=== PATIENT | female | born 1935 | race American Indian/Alaskan Native ===

== ENCOUNTER 2017-11-21 21:22 | Inpatient (IN) | payer MEDICARE, OTHER ==
[2017-11-21] MEDS ORDERED: methylPREDNISolone Sodium Succinate 125 MG/2 ML SDV IVPUSH ONE (21:28)
[2017-11-21] MEDS ORDERED: Albuterol/Ipratropium 3.0-0.5 MG/3 ML Neb Soln NEB ONE (21:28)
[2017-11-21] MEDS ORDERED: Sodium Chloride 0.9% 10 ML Syringe FLUSH PRN (21:28)
[2017-11-21] MEDS ORDERED: Sodium Chloride 0.9% 2.5 ML Syringe FLUSH PRN (21:28)
[2017-11-21] MEDS ORDERED: Sodium Chloride 0.9% 1,000 ML IV SCH (21:30)
--- NOTE | 2017-11-21 21:32 | EDM.PDOC ---
ED HPI GENERAL MEDICAL PROBLEM - General Stated Complaint: SOB Time Seen by Provider: 11/21/17 21:27 - History of Present Illness INITIAL COMMENTS - FREE TEXT/NARRATIVE: HISTORY AND PHYSICAL: History of present illness: Patient is an 82-year-old female history of COPD who still is a smoker sensory concern of cough and shortness of breath she states she had a tactile fever and that this is been going on and worsening over last several days she denies nausea vomiting denies chest pain abdominal pain or other concern. Review of systems: As per history of present illness and below otherwise all systems reviewed and negative. Past medical history: As per history of present illness and as reviewed below otherwise noncontributory. Surgical history: As per history of present illness and as reviewed below otherwise noncontributory. Social history: No reported history of drug or alcohol abuse. Family history: As per history of present illness and as reviewed below otherwise noncontributory. Physical exam: HEENT: Atraumatic, normocephalic, pupils reactive, negative for conjunctival pallor or scleral icterus, mucous membranes moist, throat clear, neck supple, nontender, trachea midline. Lungs: Coarse bilaterally diminished with rare end expiratory wheezing, breath sounds equal bilaterally, chest nontender. Heart: S1S2, regular, negative for clicks, rubs, or JVD. Abdomen: Soft, nondistended, nontender. Negative for masses or hepatosplenomegaly. Negative for costovertebral tenderness. Pelvis: Stable nontender. Genitourinary: Deferred. Rectal: Deferred. Extremities: Atraumatic, negative for cords or calf pain. Neurovascular unremarkable. Neuro: Awake, alert, oriented. Cranial nerves II through XII unremarkable. Cerebellum unremarkable. Motor and sensory unremarkable throughout. Exam nonfocal. Diagnostics: CBC CMP troponin BNP blood culture 2 PT/INR chest x-ray UA Therapeutics: IV O2 monitor Solu-Medrol 125 mg IV albuterol ipratropium nebulizer Impression: #1 dyspnea #2 history of COPD #3 history of fever Definitive disposition and diagnosis as appropriate pending reevaluation and review of above. - Related Data Allergies Allergy/AdvReac Type Severity Reaction Status Date / Time codeine Allergy Dizziness Verified 09/05/15 19:00 erythromycin base Allergy Rash Verified 09/05/15 10:29 morphine Allergy Tachycardia Verified 09/05/15 10:29 Sulfa (Sulfonamide Allergy Rash Verified 09/05/15 10:29 Antibiotics) Home Meds: Home Meds Levothyroxine Sodium [Synthroid] 112 mcg PO ACBREAKFAST 09/05/15 [History] Albuterol [Proventil HFA] 1 - 2 puff INH Q4H PRN #2 inhaler 09/11/15 [Rx] Benzonatate [Tessalon Perles] 200 mg PO TID PRN #30 cap 09/11/15 [Rx] Fluticasone/Salmeterol [Advair Diskus 250-50] 1 puff INH BID #1 inhaler [Rx] Levofloxacin [Levaquin] 750 mg PO DAILY #5 tablet 09/11/15 [Rx] predniSONE 10 mg PO WITHBREAKFAST #22 tablet 09/11/15 [Rx] Past Medical History Gastrointestinal History: Reports: Cholelithiasis Other OB/BYN History: hysterectomy Musculoskeletal History: Reports: Back Pain, Chronic, Osteoarthritis Endocrine/Metabolic History: Reports: Hypothyroidism. Denies: Diabetes, Type II Oncologic (Cancer) History: Reports: None - Past Surgical History GI Surgical History: Reports: Cholecystectomy Female Surgical History: Reports: Hysterectomy Social & Family History - Family History Family Medical History: Noncontributory ED ROS GENERAL - Review of Systems Review Of Systems: ROS reveals no pertinent complaints other than HPI. ED EXAM, GENERAL - Physical Exam Exam: See Below (See dictation) Course - Vital Signs Last Recorded V/S: Last Vital Signs Temp 36.7 C 11/21/17 21:45 Pulse 105 H 11/21/17 21:45 Resp 28 H 11/21/17 21:45 BP 143/74 H 11/21/17 21:45 Pulse Ox 87 L 11/21/17 21:45 - Orders/Labs/Meds Orders: Active Orders 24 hr Category Date Time Status Cardiac Monitoring [RC] . DIRECTED Care 11/21/17 21:27 Active EKG Documentation Completion [RC] STAT Care 11/21/17 21:27 Active Oxygen Therapy, ED [RC] ASDIRECTED Care 11/21/17 21:27 Active Pulse Oximetry [RC] ASDIRECTED Care 11/21/17 21:27 Active RT Aerosol Therapy [RC] ASDIRECTED Care 11/21/17 21:29 Active Chest 1V Frontal [CR] Stat Exams 11/21/17 21:28 Taken CULTURE BLOOD [BC] Stat Lab 11/21/17 21:37 Received CULTURE BLOOD [BC] Stat Lab 11/21/17 21:43 Received UA W/MICROSCOPIC [URIN] Stat Lab 11/21/17 21:28 Ordered Sodium Chloride 0.9% [Normal Saline] 1,000 ml Med 11/21/17 21:30 Active IV STAT Sodium Chloride 0.9% [Saline Flush] Med 11/21/17 21:28 Active 10 ml FLUSH ASDIRECTED PRN Sodium Chloride 0.9% [Saline Flush] Med 11/21/17 21:28 Active 2.5 ml FLUSH ASDIRECTED PRN Blood Culture x2 Reflex Set [OM.PC] Stat Oth 11/21/17 21:28 Ordered Saline Lock Insert [OM.PC] Stat Oth 11/21/17 21:27 Ordered Medication Orders Sodium Chloride (Normal Saline) 1,000 mls @ 125 mls/hr IV STAT AGUSTO Last Admin: 11/21/17 21:54 Dose: 125 mls/hr Sodium Chloride (Saline Flush) 10 ml FLUSH ASDIRECTED PRN PRN Reason: Keep Vein Open Sodium Chloride (Saline Flush) 2.5 ml FLUSH ASDIRECTED PRN PRN Reason: Keep Vein Open Labs: Laboratory Tests 11/21/17 11/21/17 11/21/17 Range/Units 21:37 21:37 21:37 WBC 14.42 H (4.0-11.0) K/uL RBC 4.96 (4.30-5.90) M/uL Hgb 14.1 (12.0-16.0) g/dL Hct 43.0 (36.0-46.0) % MCV 86.7 (80.0-98.0) fL MCH 28.4 (27.0-32.0) pg MCHC 32.8 (31.0-37.0) g/dL RDW Std Deviation 48.2 (28.0-62.0) fl RDW Coeff of Lavelle 15 (11.0-15.0) % Plt Count 218 (150-400) K/uL MPV 8.90 (7.40-12.00) fL Neut % (Auto) 79.5 (48.0-80.0) % Lymph % (Auto) 9.3 L (16.0-40.0) % [place] % (Auto) 10.2 (0.0-15.0) % Eos % (Auto) 0.8 (0.0-7.0) % Baso % (Auto) 0.2 (0.0-1.5) % Neut # (Auto) 11.5 H (1.4-5.7) K/uL Lymph # (Auto) 1.3 (0.6-2.4) K/uL [place] # (Auto) 1.5 H (0.0-0.8) K/uL Eos # (Auto) 0.1 (0.0-0.7) K/uL Baso # (Auto) 0.0 (0.0-0.1) K/uL Nucleated RBC % 0.0 /100WBC Nucleated RBCs # 0 K/uL INR 1.05 Sodium (136-145) mmol/L Potassium (3.5-5.1) mmol/L Chloride (98-107) mmol/L Carbon Dioxide (21.0-32.0) mmol/L BUN (7.0-18.0) mg/dL Creatinine (0.6-1.0) mg/dL Est Cr Clr Drug Dosing mL/min Estimated GFR (MDRD) ml/min Glucose (74-106) mg/dL Calcium (8.5-10.1) mg/dL Total Bilirubin (0.2-1.0) mg/dL AST (15-37) IU/L ALT (14-63) IU/L Alkaline Phosphatase (46-116) U/L Troponin I (0.000-0.056) ng/mL B-Natriuretic Peptide 259 H (<100) PG/ML Total Protein (6.4-8.2) g/dL Albumin (3.4-5.0) g/dL Globulin (2.0-3.5) g/dL Albumin/Globulin Ratio (1.3-2.8) 11/21/17 Range/Units 21:37 WBC (4.0-11.0) K/uL RBC (4.30-5.90) M/uL Hgb (12.0-16.0) g/dL Hct (36.0-46.0) % MCV (80.0-98.0) fL MCH (27.0-32.0) pg MCHC (31.0-37.0) g/dL RDW Std Deviation (28.0-62.0) fl RDW Coeff of Lavelle (11.0-15.0) % Plt Count (150-400) K/uL MPV (7.40-12.00) fL Neut % (Auto) (48.0-80.0) % Lymph % (Auto) (16.0-40.0) % [place] % (Auto) (0.0-15.0) % Eos % (Auto) (0.0-7.0) % Baso % (Auto) (0.0-1.5) % Neut # (Auto) (1.4-5.7) K/uL Lymph # (Auto) (0.6-2.4) K/uL [place] # (Auto) (0.0-0.8) K/uL Eos # (Auto) (0.0-0.7) K/uL Baso # (Auto) (0.0-0.1) K/uL Nucleated RBC % /100WBC Nucleated RBCs # K/uL INR Sodium 138 (136-145) mmol/L Potassium 3.6 (3.5-5.1) mmol/L Chloride 104 (98-107) mmol/L Carbon Dioxide 25.8 (21.0-32.0) mmol/L BUN 14 (7.0-18.0) mg/dL Creatinine 0.9 (0.6-1.0) mg/dL Est Cr Clr Drug Dosing 41.24 mL/min Estimated GFR (MDRD) > 60.0 ml/min Glucose 133 H (74-106) mg/dL Calcium 8.7 (8.5-10.1) mg/dL Total Bilirubin 0.5 (0.2-1.0) mg/dL AST 26 (15-37) IU/L ALT 22 (14-63) IU/L Alkaline Phosphatase 81 (46-116) U/L Troponin I 2.301 H* (0.000-0.056) ng/mL B-Natriuretic Peptide (<100) PG/ML Total Protein 6.8 (6.4-8.2) g/dL Albumin 3.2 L (3.4-5.0) g/dL Globulin 3.6 H (2.0-3.5) g/dL Albumin/Globulin Ratio 0.9 L (1.3-2.8) Meds: Medications Generic Name Dose Route Start Last Admin Trade Name Freq PRN Reason Stop Dose Admin Sodium Chloride 1,000 mls @ 125 mls/hr 11/21/17 21:30 11/21/17 21:54 Normal Saline IV 125 mls/hr STAT AGUSTO Administration Sodium Chloride 10 ml 11/21/17 21:28 Saline Flush FLUSH ASDIRECTED PRN Keep Vein Open Sodium Chloride 2.5 ml 11/21/17 21:28 Saline Flush FLUSH ASDIRECTED PRN Keep Vein Open Discontinued Medications Generic Name Dose Route Start Last Admin Trade Name Freq PRN Reason Stop Dose Admin Albuterol/Ipratropium 3 ml 11/21/17 21:28 11/21/17 21:52 Duoneb 3.0-0.5 Mg/3 Ml NEB 11/21/17 21:29 3 ml ONETIME ONE Administration Methylprednisolone Sodium Succinate 125 mg 11/21/17 21:28 11/21/17 21:49 Solu-Medrol IVPUSH 11/21/17 21:29 125 mg ONETIME ONE Administration Departure - Departure Time of Disposition: 22:40 Disposition: Admitted As Inpatient 68 Condition: Fair Clinical Impression: Elevated troponin, Dyspnea, COPD (chronic obstructive pulmonary disease), Pneumonitis - Discharge Information - My Orders Last 24 Hours: My Active Orders 11/21/17 21:27 Cardiac Monitoring [RC] . DIRECTED EKG Documentation Completion [RC] STAT Oxygen Therapy, ED [RC] ASDIRECTED Pulse Oximetry [RC] ASDIRECTED Saline Lock Insert [OM.PC] Stat 11/21/17 21:28 Chest 1V Frontal [CR] Stat UA W/MICROSCOPIC [URIN] Stat Sodium Chloride 0.9% [Saline Flush] 10 ml FLUSH ASDIRECTED PRN Sodium Chloride 0.9% [Saline Flush] 2.5 ml FLUSH ASDIRECTED PRN Blood Culture x2 Reflex Set [OM.PC] Stat 11/21/17 21:29 RT Aerosol Therapy [RC] ASDIRECTED 11/21/17 21:30 Sodium Chloride 0.9% [Normal Saline] 1,000 ml IV STAT 11/21/17 21:37 CULTURE BLOOD [BC] Stat 11/21/17 21:43 CULTURE BLOOD [BC] Stat - Assessment/Plan Last 24 Hours: My Active Orders 11/21/17 21:27 Cardiac Monitoring [RC] . DIRECTED EKG Documentation Completion [RC] STAT Oxygen Therapy, ED [RC] ASDIRECTED Pulse Oximetry [RC] ASDIRECTED Saline Lock Insert [OM.PC] Stat 11/21/17 21:28 Chest 1V Frontal [CR] Stat UA W/MICROSCOPIC [URIN] Stat Sodium Chloride 0.9% [Saline Flush] 10 ml FLUSH ASDIRECTED PRN Sodium Chloride 0.9% [Saline Flush] 2.5 ml FLUSH ASDIRECTED PRN Blood Culture x2 Reflex Set [OM.PC] Stat 11/21/17 21:29 RT Aerosol Therapy [RC] ASDIRECTED 11/21/17 21:30 Sodium Chloride 0.9% [Normal Saline] 1,000 ml IV STAT 11/21/17 21:37 CULTURE BLOOD [BC] Stat 11/21/17 21:43 CULTURE BLOOD [BC] Stat
[2017-11-21 22:32] LABS: CHLORIDE,CL 104 mmol/L (98-107); SODIUM,NA 138 mmol/L (136-145)
[2017-11-21] MEDS ORDERED: Aspirin 81 MG Tab.Chew PO ONE (22:46)
[2017-11-21] MEDS ORDERED: Nitroglycerin 2% Oint 1 GM UD Packet TOP ONE (22:46)
[2017-11-21] MEDS ORDERED: Levofloxacin/Dextrose 5%-Water 750 MG in Premix Bag 1 BAG IV ONE (22:48)
[2017-11-21] MEDS ORDERED: Heparin Sod,Pork In 0.45% Nacl 25,000 UNIT/500 ML IV.SOLN IV SCH (23:45)
[2017-11-21] MEDS ORDERED: Clopidogrel 75 MG Tab PO ONE (23:48)
[2017-11-21] MEDS ORDERED: Albuterol/Ipratropium 3.0-0.5 MG/3 ML Neb Soln NEB PRN (23:50)
[2017-11-21] MEDS ORDERED: Heparin Sod,Pork In 0.45% Nacl 25,000 UNIT/500 ML IV.SOLN IV ONE (23:55)
--- NOTE | 2017-11-22 00:02 | PCM.HP ---
H&P History of Present Illness - General Admit Problem/Dx: Admission Diagnosis/Problem Admission Diagnosis/Problem Shortness of breath - History of Present Illness Initial Comments - Free Text/Narative: 82 yo female with pmh of COPD who presents with one day history of shortness of breath. Patient states it started last night that she could not catch her breath. She reports exertional dyspnea. She denies any orthopnea. She does have cough productive of white sputum. She denies any fevers or chills. PAtient thinks she has a COPD exacerbation. - Related Data Allergies/Adverse Reactions: Allergies Allergy/AdvReac Type Severity Reaction Status Date / Time codeine Allergy Dizziness Verified 09/05/15 19:00 erythromycin base Allergy Rash Verified 09/05/15 10:29 morphine Allergy Tachycardia Verified 09/05/15 10:29 Sulfa (Sulfonamide Allergy Rash Verified 09/05/15 10:29 Antibiotics) Home Medications: Home Meds Levothyroxine Sodium [Synthroid] 112 mcg PO ACBREAKFAST 09/05/15 [History] Albuterol [Proventil HFA] 1 - 2 puff INH Q4H PRN #2 inhaler 09/11/15 [Rx] Benzonatate [Tessalon Perles] 200 mg PO TID PRN #30 cap 09/11/15 [Rx] Fluticasone/Salmeterol [Advair Diskus 250-50] 1 puff INH BID #1 inhaler [Rx] Levofloxacin [Levaquin] 750 mg PO DAILY #5 tablet 09/11/15 [Rx] predniSONE 10 mg PO WITHBREAKFAST #22 tablet 09/11/15 [Rx] Past Medical History Respiratory History: Reports: COPD Gastrointestinal History: Reports: Cholelithiasis Other OB/BYN History: hysterectomy Musculoskeletal History: Reports: Back Pain, Chronic, Osteoarthritis Endocrine/Metabolic History: Reports: Hypothyroidism. Denies: Diabetes, Type II Oncologic (Cancer) History: Reports: None - Past Surgical History GI Surgical History: Reports: Cholecystectomy Female Surgical History: Reports: Hysterectomy Social & Family History - Family History Family Medical History: Noncontributory - Tobacco Use Smoking Status *Q: Current Every Day Smoker Years of Tobacco use: 4 Packs/Tins Daily: 0.2 H&P Review of Systems - Review of Systems: Review Of Systems: ROS reveals no pertinent complaints other than HPI. Exam - Vital Signs Vital Signs: Last Vital Signs Temp 37.2 C 11/21/17 22:59 Pulse 98 11/21/17 22:59 Resp 26 H 11/21/17 22:59 BP 160/67 H 11/21/17 22:59 Pulse Ox 94 L 11/21/17 22:59 Weight: 68.039 kg - Exam General: Alert, Oriented HEENT: Mucosa Moist & [place] Lungs: Clear to Auscultation, Normal Respiratory Effort Cardiovascular: Regular Rate, Regular Rhythm GI/Abdominal Exam: Soft, Non-Tender, No Distention Extremities: Non-Tender, No Pedal Edema Skin: Warm, Dry, Intact - Patient Data Lab Results Last 24 hrs: Laboratory Results - last 24 hr 11/21/17 11/21/17 11/21/17 Range/Units 21:37 21:37 21:37 WBC 14.42 H (4.0-11.0) K/uL RBC 4.96 (4.30-5.90) M/uL Hgb 14.1 (12.0-16.0) g/dL Hct 43.0 (36.0-46.0) % MCV 86.7 (80.0-98.0) fL MCH 28.4 (27.0-32.0) pg MCHC 32.8 (31.0-37.0) g/dL RDW Std Deviation 48.2 (28.0-62.0) fl RDW Coeff of Lavelle 15 (11.0-15.0) % Plt Count 218 (150-400) K/uL MPV 8.90 (7.40-12.00) fL Neut % (Auto) 79.5 (48.0-80.0) % Lymph % (Auto) 9.3 L (16.0-40.0) % [place] % (Auto) 10.2 (0.0-15.0) % Eos % (Auto) 0.8 (0.0-7.0) % Baso % (Auto) 0.2 (0.0-1.5) % Neut # (Auto) 11.5 H (1.4-5.7) K/uL Lymph # (Auto) 1.3 (0.6-2.4) K/uL [place] # (Auto) 1.5 H (0.0-0.8) K/uL Eos # (Auto) 0.1 (0.0-0.7) K/uL Baso # (Auto) 0.0 (0.0-0.1) K/uL Nucleated RBC % 0.0 /100WBC Nucleated RBCs # 0 K/uL INR 1.05 Sodium (136-145) mmol/L Potassium (3.5-5.1) mmol/L Chloride (98-107) mmol/L Carbon Dioxide (21.0-32.0) mmol/L BUN (7.0-18.0) mg/dL Creatinine (0.6-1.0) mg/dL Est Cr Clr Drug Dosing mL/min Estimated GFR (MDRD) ml/min Glucose (74-106) mg/dL Calcium (8.5-10.1) mg/dL Total Bilirubin (0.2-1.0) mg/dL AST (15-37) IU/L ALT (14-63) IU/L Alkaline Phosphatase (46-116) U/L Troponin I (0.000-0.056) ng/mL B-Natriuretic Peptide 259 H (<100) PG/ML Total Protein (6.4-8.2) g/dL Albumin (3.4-5.0) g/dL Globulin (2.0-3.5) g/dL Albumin/Globulin Ratio (1.3-2.8) 11/21/17 Range/Units 21:37 WBC (4.0-11.0) K/uL RBC (4.30-5.90) M/uL Hgb (12.0-16.0) g/dL Hct (36.0-46.0) % MCV (80.0-98.0) fL MCH (27.0-32.0) pg MCHC (31.0-37.0) g/dL RDW Std Deviation (28.0-62.0) fl RDW Coeff of Lavelle (11.0-15.0) % Plt Count (150-400) K/uL MPV (7.40-12.00) fL Neut % (Auto) (48.0-80.0) % Lymph % (Auto) (16.0-40.0) % [place] % (Auto) (0.0-15.0) % Eos % (Auto) (0.0-7.0) % Baso % (Auto) (0.0-1.5) % Neut # (Auto) (1.4-5.7) K/uL Lymph # (Auto) (0.6-2.4) K/uL [place] # (Auto) (0.0-0.8) K/uL Eos # (Auto) (0.0-0.7) K/uL Baso # (Auto) (0.0-0.1) K/uL Nucleated RBC % /100WBC Nucleated RBCs # K/uL INR Sodium 138 (136-145) mmol/L Potassium 3.6 (3.5-5.1) mmol/L Chloride 104 (98-107) mmol/L Carbon Dioxide 25.8 (21.0-32.0) mmol/L BUN 14 (7.0-18.0) mg/dL Creatinine 0.9 (0.6-1.0) mg/dL Est Cr Clr Drug Dosing 41.24 mL/min Estimated GFR (MDRD) > 60.0 ml/min Glucose 133 H (74-106) mg/dL Calcium 8.7 (8.5-10.1) mg/dL Total Bilirubin 0.5 (0.2-1.0) mg/dL AST 26 (15-37) IU/L ALT 22 (14-63) IU/L Alkaline Phosphatase 81 (46-116) U/L Troponin I 2.301 H* (0.000-0.056) ng/mL B-Natriuretic Peptide (<100) PG/ML Total Protein 6.8 (6.4-8.2) g/dL Albumin 3.2 L (3.4-5.0) g/dL Globulin 3.6 H (2.0-3.5) g/dL Albumin/Globulin Ratio 0.9 L (1.3-2.8) Result Diagrams: 11/21/17 21:37 11/21/17 21:37 Problem List Initiated/Reviewed/Updated: Yes Orders Last 24hrs: Active Orders 24 hr Category Date Time Status Patient Status [ADT] Routine ADT 11/21/17 23:50 Ordered Cardiac Monitoring [RC] . DIRECTED Care 11/21/17 21:27 Active EKG Documentation Completion [RC] STAT Care 11/21/17 21:27 Active Oxygen Therapy [RC] PRN Care 11/21/17 23:50 Ordered Oxygen Therapy, ED [RC] ASDIRECTED Care 11/21/17 21:27 Active Pulse Oximetry [RC] ASDIRECTED Care 11/21/17 21:27 Active RT Aerosol Therapy [RC] ASDIRECTED Care 11/21/17 21:29 Active RT Aerosol Therapy [RC] ASDIRECTED Care 11/21/17 23:54 Ordered Up ad Елена [RC] ASDIRECTED Care 11/21/17 23:50 Ordered VTE/DVT Education [RC] PER UNIT ROUTINE Care 11/21/17 23:50 Ordered Vital Signs [RC] Q4H Care 11/21/17 23:50 Ordered Regular Diet [DIET] Diet 11/21/17 Breakfast Ordered Chest 1V Frontal [CR] Stat Exams 11/21/17 21:28 Taken BASIC METABOLIC PANEL,BMP [CHEM] AM Lab 11/22/17 05:11 Ordered CBC WITH AUTO DIFF [HEME] AM Lab 11/22/17 05:11 Ordered CULTURE BLOOD [BC] Stat Lab 11/21/17 21:37 Received CULTURE BLOOD [BC] Stat Lab 11/21/17 21:43 Received PTT,PARTIAL THROMBOPLSTIN TIME [COAG] Stat Lab 11/21/17 23:49 Ordered TROPONIN I [CHEM] Q6H Lab 11/22/17 06:00 Ordered TROPONIN I [CHEM] Q6H Lab 11/22/17 12:00 Ordered UA W/MICROSCOPIC [URIN] Stat Lab 11/21/17 21:28 Ordered Albuterol/Ipratropium [DuoNeb 3.0-0.5 MG/3 ML] Med 11/21/17 23:50 Ordered 3 ml NEB Q4HRRT PRN Heparin Sod,Pork In 0.45% Nacl [Heparin-1/2Ns 25,000 Med 11/21/17 23:45 Ordered Units/500] 25,000 unit in 500 ml IV TITRATE Levofloxacin/Dextrose 5%-Water [Levaquin in D5W 750 MG/ Med 11/21/17 22:48 Active 150 ML] 750 mg Premix Bag 1 bag IV ONETIME Metoprolol Tartrate [Lopressor] Med 11/21/17 09:00 Ordered 25 mg PO Q12HR Sodium Chloride 0.9% [Saline Flush] Med 11/21/17 21:28 Active 10 ml FLUSH ASDIRECTED PRN Sodium Chloride 0.9% [Saline Flush] Med 11/21/17 21:28 Active 2.5 ml FLUSH ASDIRECTED PRN Blood Culture x2 Reflex Set [OM.PC] Stat Ot 11/21/17 21:28 Ordered Saline Lock Insert [OM.PC] Stat Ot 11/21/17 21:27 Ordered Sequential Compression Device [OM.PC] Per Unit Routine Ot 11/21/17 23:52 Ordered Resuscitation Status Routine Resus Stat 11/21/17 23:50 Ordered Medication Orders Albuterol/Ipratropium (Duoneb 3.0-0.5 Mg/3 Ml) 3 ml NEB Q4HRRT PRN PRN Reason: Shortness Of Breath/wheezing Levofloxacin/Dextrose 750 mg/ (Premix) 150 mls @ 100 mls/hr IV ONETIME ONE Stop: 11/22/17 00:17 Last Admin: 11/21/17 22:56 Dose: 100 mls/hr Heparin Sodium/Sodium Chloride (Heparin-1/2ns 25,000 Units/500) 25,000 unit in 500 mls @ 16.329 mls/hr IV TITRATE AGUSTO; Protocol Metoprolol Tartrate (Lopressor) 25 mg PO Q12HR AGUSTO Sodium Chloride (Saline Flush) 10 ml FLUSH ASDIRECTED PRN PRN Reason: Keep Vein Open Sodium Chloride (Saline Flush) 2.5 ml FLUSH ASDIRECTED PRN PRN Reason: Keep Vein Open Assessment/Plan Comment:: 82 yo female who presents with shortness of breath and acute hypoxic respiratory failure NSTEMI: treating with ASA, heparin drip, plavix, and metoprolol, I have recommended transfer but patient refuses, she is wanting to consult Dr. Gramajo in the morning COPD exacerbation: received solumedrol and duonebs possible pneumonia: received Levaquin, cultures ordered Patient is a DNR/DNI.
[2017-11-22] MEDS ORDERED: Heparin Sodium 5,000 Units/ML Vial ONE (00:07)
[2017-11-22] MEDS: Metoprolol Tartrate 25 MG Tab PO SCH ×3 (01:14→08:11)
[2017-11-22 06:47] LABS: CHLORIDE,CL 104 mmol/L (98-107); SODIUM,NA 138 mmol/L (136-145)
[2017-11-22] MEDS ORDERED: Clopidogrel 75 MG Tab PO ONE (08:00)
[2017-11-22 08:05] VITALS: BP 119/57
[2017-11-22] MEDS ORDERED: Aspirin 81 MG Tab.Chew PO SCH (09:00)
[2017-11-22] MEDS ORDERED: Furosemide 20 MG/2 ML VIAL IVPUSH ONE (09:31)
--- NOTE | 2017-11-22 11:03 | PCM.DCSUM1 ---
Discharge Summary - Hospital Course Brief History: 82 yo female with pmh of COPD who presents with one day history of shortness of breath. Patient states it started last night that she could not catch her breath. She reports exertional dyspnea. She denies any orthopnea. She does have cough productive of white sputum. She denies any fevers or chills. Patient thinks she has a COPD exacerbation. - Discharge Data Discharge Date: 11/22/17 Discharge Disposition: DC/Tfer to Acute Hospital 02 Condition: Fair - Discharge Diagnosis/Problem(s) (1) NSTEMI (non-ST elevated myocardial infarction) SNOMED Code(s): 340306402 ICD Code: I21.4 - NON-ST ELEVATION (NSTEMI) MYOCARDIAL INFARCTION Status: Acute Current Visit: Yes (2) COPD (chronic obstructive pulmonary disease) SNOMED Code(s): 38512853 ICD Code: J44.9 - CHRONIC OBSTRUCTIVE PULMONARY DISEASE, UNSPECIFIED Status : Chronic Current Visit: Yes (3) Dyspnea SNOMED Code(s): 799064579 ICD Code: R06.00 - DYSPNEA, UNSPECIFIED Status: Acute Current Visit: Yes (4) Elevated troponin SNOMED Code(s): 421239568, 895619849, 947027001 ICD Code: R74.8 - ABNORMAL LEVELS OF OTHER SERUM ENZYMES Status: Acute Current Visit: Yes (5) Hypoxia SNOMED Code(s): 665636301 ICD Code: R09.02 - HYPOXEMIA Status: Acute Current Visit: No (6) Pneumonia SNOMED Code(s): 679536792 ICD Code: J18.9 - PNEUMONIA, UNSPECIFIED ORGANISM Status: Acute Current Visit: No Qualifiers: Pneumonia type: due to unspecified organism Laterality: bilateral Lung location: lower lobe of lung Qualified Code(s): J18.9 - Pneumonia, unspecified organism - Patient Summary/Data Consults: Consultations 11/22/17 07:38 Consult to Physician [CONS] Routine - Patient Instructions Diet: NPO Activity: No Strenuous Activities Driving: Do Not Drive - Discharge Plan Home Medications: Home Meds Levothyroxine Sodium [Synthroid] 112 mcg PO ACBREAKFAST 09/05/15 [History] Albuterol [Proventil HFA] 1 - 2 puff INH Q4H PRN #2 inhaler 09/11/15 [Rx] Benzonatate [Tessalon Perles] 200 mg PO TID PRN #30 cap 09/11/15 [Rx] Fluticasone/Salmeterol [Advair Diskus 250-50] 1 puff INH BID #1 inhaler [Rx] Levofloxacin [Levaquin] 750 mg PO DAILY #5 tablet 09/11/15 [Rx] predniSONE 10 mg PO WITHBREAKFAST #22 tablet 09/11/15 [Rx] Albuterol/Ipratropium [DuoNeb 3.0-0.5 MG/3 ML] 3 ml NEB Q4HRRT PRN neb [Rx] Aspirin 81 mg PO DAILY tab.chew 11/22/17 [Rx] Metoprolol Tartrate [Lopressor] 25 mg PO Q12HR tablet 11/22/17 [Rx] Referrals: PCP,Unknown [Primary Care Provider] - - Discharge Summary/Plan Comment DC Time >30 min.: No Discharge Summary/Plan Comment: Discharge DIagnoses: Elevated troponin- suspected NSTEMI Exertional dyspnea Suspected COPD exacerbation Hypothyroidism Gisella was admitted last evening after arriving to the ED with 2 days of exertional dyspnea and wheezing. She denied chest pain, but reported the shortness of breath was worsening since Wednesday evening. Troponin was elevated on arrival to the ED at 2.3, EKG ST with no acute ST segment changes or ischemic changes. Transfer was recommended, but she declined at that time. She was started on medical management for NSTEMI with ASA, 300 mg Plavix, Metoprolol and Heparin gtt. She requested to speak with Cardiology. Dr Barroso saw patient this morning and recommended transfer to [place] for angiogram. After discussion with her family she has finally agreed to transfer. Repeat EKG this morning revealed SR with no ischemic changes. Troponin this morning 1.966. VS stable. chest pain free. Continues to report exertional dyspnea. I spoke with Dr Nina, ED provider in [place] who has accepted patient for transfer this morning at 1045. He will contact Cardiology. Dr Barroso aware of patient agreement for transfer and acceptance by Dr Nina. She will be continued on Heparin gtt and transferred to [facility]. - General Info Date of Service: 11/22/17 Admission Dx/Problem (Free Text: Admission Diagnosis/Problem Admission Diagnosis/Problem Shortness of breath Subjective Update: Doing well, continues to have exertional shortness of breath. NO chest pain. Now agreeable to transfer. Functional Status: Reports: Pain Controlled, Tolerating Diet, Ambulating, Urinating - Review of Systems General: Reports: No Symptoms HEENT: Reports: No Symptoms. Denies: Headaches, Sore Throat, Visual Changes Pulmonary: Reports: Shortness of Breath, Cough, Sputum (yellow to dark yellow) Cardiovascular: Reports: Dyspnea on Exertion. Denies: Chest Pain, Palpitations , Orthopnea, Edema Gastrointestinal: Reports: No Symptoms. Denies: Abdominal Pain, Nausea, Vomiting Genitourinary: Reports: No Symptoms. Denies: Dysuria, Frequency, Burning Musculoskeletal: Reports: Back Pain (low back pain, chronic, spinal stenosis) Skin: Reports: No Symptoms Neurological: Reports: No Symptoms Psychiatric: Reports: No Symptoms - Patient Data Vitals - Most Recent: Last Vital Signs Temp 98.2 F 11/22/17 08:00 Pulse 73 11/22/17 08:11 Resp 20 11/22/17 08:00 BP 119/57 L 11/22/17 08:11 Pulse Ox 93 L 11/22/17 08:00 Weight - Most Recent: 70.5 kg I&O - Last 24 hours: Intake & Output 11/21/17 11/22/17 11/22/17 22:59 06:59 14:59 Intake Total 120 999 Output Total 400 Balance -280 999 Lab Results - Last 24 hrs: Laboratory Results - last 24 hr 11/21/17 11/21/17 11/21/17 Range/Units 21:37 21:37 21:37 WBC 14.42 H (4.0-11.0) K/uL RBC 4.96 (4.30-5.90) M/uL Hgb 14.1 (12.0-16.0) g/dL Hct 43.0 (36.0-46.0) % MCV 86.7 (80.0-98.0) fL MCH 28.4 (27.0-32.0) pg MCHC 32.8 (31.0-37.0) g/dL RDW Std Deviation 48.2 (28.0-62.0) fl RDW Coeff of Lav[place] 15 (11.0-15.0) % Plt Count 218 (150-400) K/uL MPV 8.90 (7.40-12.00) fL Neut % (Auto) 79.5 (48.0-80.0) % Lymph % (Auto) 9.3 L (16.0-40.0) % [place] % (Auto) 10.2 (0.0-15.0) % Eos % (Auto) 0.8 (0.0-7.0) % Baso % (Auto) 0.2 (0.0-1.5) % Neut # (Auto) 11.5 H (1.4-5.7) K/uL Lymph # (Auto) 1.3 (0.6-2.4) K/uL [place] # (Auto) 1.5 H (0.0-0.8) K/uL Eos # (Auto) 0.1 (0.0-0.7) K/uL Baso # (Auto) 0.0 (0.0-0.1) K/uL Nucleated RBC % 0.0 /100WBC Nucleated RBCs # 0 K/uL INR 1.05 APTT (18.6-31.3) SEC Sodium (136-145) mmol/L Potassium (3.5-5.1) mmol/L Chloride (98-107) mmol/L Carbon Dioxide (21.0-32.0) mmol/L BUN (7.0-18.0) mg/dL Creatinine (0.6-1.0) mg/dL Est Cr Clr Drug Dosing mL/min Estimated GFR (MDRD) ml/min Glucose (74-106) mg/dL Hemoglobin A1c (4.5-6.2) % Calcium (8.5-10.1) mg/dL Magnesium (1.8-2.4) mg/dL Total Bilirubin (0.2-1.0) mg/dL AST (15-37) IU/L ALT (14-63) IU/L Alkaline Phosphatase (46-116) U/L Troponin I (0.000-0.056) ng/mL B-Natriuretic Peptide 259 H (<100) PG/ML Total Protein (6.4-8.2) g/dL Albumin (3.4-5.0) g/dL Globulin (2.0-3.5) g/dL Albumin/Globulin Ratio (1.3-2.8) Triglycerides (0-200) mg/dL Cholesterol (50-200) mg/dL LDL Cholesterol, Calc (60-180) mg/dL VLDL Cholesterol (5-55) mg/dL HDL Cholesterol (40-60) mg/dL Cholesterol/HDL Ratio (3.3-6.0) Urine Color Urine Appearance Urine pH (5.0-8.0) Ur Specific [place] (1.001-1.035) Urine Protein (NEGATIVE) mg/dL Urine Glucose (UA) (NEGATIVE) mg/dL Urine Ketones (NEGATIVE) mg/dL Urine Occult Blood (NEGATIVE) Urine Nitrite (NEGATIVE) Urine Bilirubin (NEGATIVE) Urine Urobilinogen (<2.0) EU/dL Ur Leukocyte Esterase (NEGATIVE) Urine RBC (0-2/HPF) Urine WBC (0-5/HPF) Ur Epithelial Cells (NONE-FEW) Urine Bacteria (NEGATIVE) 11/21/17 11/21/17 11/22/17 Range/Units 21:37 21:37 02:49 WBC (4.0-11.0) K/uL RBC (4.30-5.90) M/uL Hgb (12.0-16.0) g/dL Hct (36.0-46.0) % MCV (80.0-98.0) fL MCH (27.0-32.0) pg MCHC (31.0-37.0) g/dL RDW Std Deviation (28.0-62.0) fl RDW Coeff of Lav[place] (11.0-15.0) % Plt Count (150-400) K/uL MPV (7.40-12.00) fL Neut % (Auto) (48.0-80.0) % Lymph % (Auto) (16.0-40.0) % [place] % (Auto) (0.0-15.0) % Eos % (Auto) (0.0-7.0) % Baso % (Auto) (0.0-1.5) % Neut # (Auto) (1.4-5.7) K/uL Lymph # (Auto) (0.6-2.4) K/uL [place] # (Auto) (0.0-0.8) K/uL Eos # (Auto) (0.0-0.7) K/uL Baso # (Auto) (0.0-0.1) K/uL Nucleated RBC % /100WBC Nucleated RBCs # K/uL INR APTT 29.2 (18.6-31.3) SEC Sodium 138 (136-145) mmol/L Potassium 3.6 (3.5-5.1) mmol/L Chloride 104 (98-107) mmol/L Carbon Dioxide 25.8 (21.0-32.0) mmol/L BUN 14 (7.0-18.0) mg/dL Creatinine 0.9 (0.6-1.0) mg/dL Est Cr Clr Drug Dosing 41.24 mL/min Estimated GFR (MDRD) > 60.0 ml/min Glucose 133 H (74-106) mg/dL Hemoglobin A1c (4.5-6.2) % Calcium 8.7 (8.5-10.1) mg/dL Magnesium (1.8-2.4) mg/dL Total Bilirubin 0.5 (0.2-1.0) mg/dL AST 26 (15-37) IU/L ALT 22 (14-63) IU/L Alkaline Phosphatase 81 (46-116) U/L Troponin I 2.301 H* (0.000-0.056) ng/mL B-Natriuretic Peptide (<100) PG/ML Total Protein 6.8 (6.4-8.2) g/dL Albumin 3.2 L (3.4-5.0) g/dL Globulin 3.6 H (2.0-3.5) g/dL Albumin/Globulin Ratio 0.9 L (1.3-2.8) Triglycerides (0-200) mg/dL Cholesterol (50-200) mg/dL LDL Cholesterol, Calc (60-180) mg/dL VLDL Cholesterol (5-55) mg/dL HDL Cholesterol (40-60) mg/dL Cholesterol/HDL Ratio (3.3-6.0) Urine Color YELLOW Urine Appearance HAZY Urine pH 6.0 (5.0-8.0) Ur Specific [place] 1.020 (1.001-1.035) Urine Protein NEGATIVE (NEGATIVE) mg/dL Urine Glucose (UA) NEGATIVE (NEGATIVE) mg/dL Urine Ketones 15 H (NEGATIVE) mg/dL Urine Occult Blood NEGATIVE (NEGATIVE) Urine Nitrite NEGATIVE (NEGATIVE) Urine Bilirubin NEGATIVE (NEGATIVE) Urine Urobilinogen 0.2 (<2.0) EU/dL Ur Leukocyte Esterase NEGATIVE (NEGATIVE) Urine RBC 1-3 (0-2/HPF) Urine WBC 1-2 (0-5/HPF) Ur Epithelial Cells MODERATE (NONE-FEW) Urine Bacteria FEW (NEGATIVE) 11/22/17 11/22/17 11/22/17 Range/Units 05:56 05:56 05:56 WBC 14.42 H (4.0-11.0) K/uL RBC 4.64 (4.30-5.90) M/uL Hgb 13.0 (12.0-16.0) g/dL Hct 40.0 (36.0-46.0) % MCV 86.2 (80.0-98.0) fL MCH 28.0 (27.0-32.0) pg MCHC 32.5 (31.0-37.0) g/dL RDW Std Deviation 47.3 (28.0-62.0) fl RDW Coeff of Lavelle 15 (11.0-15.0) % Plt Count 203 (150-400) K/uL MPV 8.90 (7.40-12.00) fL Neut % (Auto) 95.3 H (48.0-80.0) % Lymph % (Auto) 3.5 L (16.0-40.0) % [place] % (Auto) 1.1 (0.0-15.0) % Eos % (Auto) 0.0 (0.0-7.0) % Baso % (Auto) 0.1 (0.0-1.5) % Neut # (Auto) 13.8 H (1.4-5.7) K/uL Lymph # (Auto) 0.5 L (0.6-2.4) K/uL [place] # (Auto) 0.2 (0.0-0.8) K/uL Eos # (Auto) 0.0 (0.0-0.7) K/uL Baso # (Auto) 0.0 (0.0-0.1) K/uL Nucleated RBC % 0.0 /100WBC Nucleated RBCs # 0 K/uL INR APTT (18.6-31.3) SEC Sodium 138 (136-145) mmol/L Potassium 4.1 (3.5-5.1) mmol/L Chloride 104 (98-107) mmol/L Carbon Dioxide 24.0 (21.0-32.0) mmol/L BUN 13 (7.0-18.0) mg/dL Creatinine 0.9 (0.6-1.0) mg/dL Est Cr Clr Drug Dosing 41.24 mL/min Estimated GFR (MDRD) > 60.0 ml/min Glucose 151 H (74-106) mg/dL Hemoglobin A1c (4.5-6.2) % Calcium 8.6 (8.5-10.1) mg/dL Magnesium 1.8 (1.8-2.4) mg/dL Total Bilirubin (0.2-1.0) mg/dL AST (15-37) IU/L ALT (14-63) IU/L Alkaline Phosphatase (46-116) U/L Troponin I 1.966 H* (0.000-0.056) ng/mL B-Natriuretic Peptide (<100) PG/ML Total Protein (6.4-8.2) g/dL Albumin (3.4-5.0) g/dL Globulin (2.0-3.5) g/dL Albumin/Globulin Ratio (1.3-2.8) Triglycerides (0-200) mg/dL Cholesterol (50-200) mg/dL LDL Cholesterol, Calc (60-180) mg/dL VLDL Cholesterol (5-55) mg/dL HDL Cholesterol (40-60) mg/dL Cholesterol/HDL Ratio (3.3-6.0) Urine Color Urine Appearance Urine pH (5.0-8.0) Ur Specific [place] (1.001-1.035) Urine Protein (NEGATIVE) mg/dL Urine Glucose (UA) (NEGATIVE) mg/dL Urine Ketones (NEGATIVE) mg/dL Urine Occult Blood (NEGATIVE) Urine Nitrite (NEGATIVE) Urine Bilirubin (NEGATIVE) Urine Urobilinogen (<2.0) EU/dL Ur Leukocyte Esterase (NEGATIVE) Urine RBC (0-2/HPF) Urine WBC (0-5/HPF) Ur Epithelial Cells (NONE-FEW) Urine Bacteria (NEGATIVE) 11/22/17 11/22/17 11/22/17 Range/Units 05:56 05:56 05:56 WBC (4.0-11.0) K/uL RBC (4.30-5.90) M/uL Hgb (12.0-16.0) g/dL Hct (36.0-46.0) % MCV (80.0-98.0) fL MCH (27.0-32.0) pg MCHC (31.0-37.0) g/dL RDW Std Deviation (28.0-62.0) fl RDW Coeff of Lavelle (11.0-15.0) % Plt Count (150-400) K/uL MPV (7.40-12.00) fL Neut % (Auto) (48.0-80.0) % Lymph % (Auto) (16.0-40.0) % [place] % (Auto) (0.0-15.0) % Eos % (Auto) (0.0-7.0) % Baso % (Auto) (0.0-1.5) % Neut # (Auto) (1.4-5.7) K/uL Lymph # (Auto) (0.6-2.4) K/uL [place] # (Auto) (0.0-0.8) K/uL Eos # (Auto) (0.0-0.7) K/uL Baso # (Auto) (0.0-0.1) K/uL Nucleated RBC % /100WBC Nucleated RBCs # K/uL INR APTT 66.9 H (18.6-31.3) SEC Sodium (136-145) mmol/L Potassium (3.5-5.1) mmol/L Chloride (98-107) mmol/L Carbon Dioxide (21.0-32.0) mmol/L BUN (7.0-18.0) mg/dL Creatinine (0.6-1.0) mg/dL Est Cr Clr Drug Dosing mL/min Estimated GFR (MDRD) ml/min Glucose (74-106) mg/dL Hemoglobin A1c 5.6 (4.5-6.2) % Calcium (8.5-10.1) mg/dL Magnesium (1.8-2.4) mg/dL Total Bilirubin (0.2-1.0) mg/dL AST (15-37) IU/L ALT (14-63) IU/L Alkaline Phosphatase (46-116) U/L Troponin I (0.000-0.056) ng/mL B-Natriuretic Peptide (<100) PG/ML Total Protein (6.4-8.2) g/dL Albumin (3.4-5.0) g/dL Globulin (2.0-3.5) g/dL Albumin/Globulin Ratio (1.3-2.8) Triglycerides 77 (0-200) mg/dL Cholesterol 178 (50-200) mg/dL LDL Cholesterol, Calc 112 (60-180) mg/dL VLDL Cholesterol 15 (5-55) mg/dL HDL Cholesterol 51 (40-60) mg/dL Cholesterol/HDL Ratio 3.5 (3.3-6.0) Urine Color Urine Appearance Urine pH (5.0-8.0) Ur Specific [place] (1.001-1.035) Urine Protein (NEGATIVE) mg/dL Urine Glucose (UA) (NEGATIVE) mg/dL Urine Ketones (NEGATIVE) mg/dL Urine Occult Blood (NEGATIVE) Urine Nitrite (NEGATIVE) Urine Bilirubin (NEGATIVE) Urine Urobilinogen (<2.0) EU/dL Ur Leukocyte Esterase (NEGATIVE) Urine RBC (0-2/HPF) Urine WBC (0-5/HPF) Ur Epithelial Cells (NONE-FEW) Urine Bacteria (NEGATIVE) Med Orders - Current: Current Medications Albuterol/Ipratropium (Duoneb 3.0-0.5 Mg/3 Ml) 3 ml NEB Q4HRRT PRN PRN Reason: Shortness Of Breath/wheezing Last Admin: 11/22/17 06:25 Dose: 3 ml Aspirin (Aspirin) 81 mg PO DAILY AGUSTO Last Admin: 11/22/17 08:10 Dose: 81 mg Heparin Sodium/Sodium Chloride (Heparin-1/2ns 25,000 Units/500) 25,000 unit in 500 mls @ 16.329 mls/hr IV TITRATE AGUSTO; Protocol Last Admin: 11/22/17 00:10 Dose: 12 units/kg/hr, 16.329 mls/hr Metoprolol Tartrate (Lopressor) 25 mg PO Q12HR AGUSTO Last Admin: 11/22/17 08:11 Dose: 25 mg Sodium Chloride (Saline Flush) 10 ml FLUSH ASDIRECTED PRN PRN Reason: Keep Vein Open Sodium Chloride (Saline Flush) 2.5 ml FLUSH ASDIRECTED PRN PRN Reason: Keep Vein Open Discontinued Medications Albuterol/Ipratropium (Duoneb 3.0-0.5 Mg/3 Ml) 3 ml NEB ONETIME ONE Stop: 11/21/17 21:29 Last Admin: 11/21/17 21:52 Dose: 3 ml Aspirin (Aspirin) 324 mg PO ONETIME ONE Stop: 11/21/17 22:47 Last Admin: 11/21/17 22:56 Dose: 324 mg Clopidogrel Bisulfate (Plavix) 300 mg PO ONETIME ONE Stop: 11/21/17 23:49 Last Admin: 11/22/17 01:14 Dose: 300 mg Clopidogrel Bisulfate (Plavix) 300 mg PO ONETIME ONE Stop: 11/22/17 08:01 Last Admin: 11/22/17 08:59 Dose: 300 mg Furosemide (Lasix) 20 mg IVPUSH NOW ONE Stop: 11/22/17 09:32 Last Admin: 11/22/17 10:57 Dose: Not Given Heparin Sodium (Porcine) (Heparin Sodium) Confirm Administered Dose 5,000 units .ROUTE .STK-MED ONE Stop: 11/22/17 00:08 Last Admin: 11/22/17 00:10 Dose: 5,000 units Sodium Chloride (Normal Saline) 1,000 mls @ 125 mls/hr IV STAT AGUSTO Last Admin: 11/21/17 21:54 Dose: 125 mls/hr Levofloxacin/Dextrose 750 mg/ (Premix) 150 mls @ 100 mls/hr IV ONETIME ONE Stop: 11/22/17 00:17 Last Admin: 11/21/17 22:56 Dose: 100 mls/hr Heparin Sodium/Sodium Chloride (Heparin-1/2ns 25,000 Units/500) Confirm Administered Dose 25,000 unit in 500 mls @ as directed IV .STK-MED ONE Stop: 11/21/17 23:56 Last Admin: 11/22/17 01:40 Dose: Not Given Methylprednisolone Sodium Succinate (Solu-Medrol) 125 mg IVPUSH ONETIME ONE Stop: 11/21/17 21:29 Last Admin: 11/21/17 21:49 Dose: 125 mg Nitroglycerin (Nitro-Bid 2%) 1 gm TOP ONETIME ONE Stop: 11/21/17 22:47 Last Admin: 06/10/18 22:55 Dose: 1 gm - Exam Quality Assessment: Reports: Supplemental Oxygen, DVT Prophylaxis General: Reports: Alert, Oriented, Cooperative, No Acute Distress Neck: Reports: Supple Lungs: Reports: Normal Respiratory Effort, Wheezing Cardiovascular: Reports: Regular Rate, Regular Rhythm GI/Abdominal Exam: Normal Bowel Sounds, Soft, Non-Tender, No Organomegaly, No Distention, No Abnormal Bruit, No Mass, Pelvis Stable Back Exam: Reports: Normal Inspection, Full Range of Motion Extremities: Normal Inspection, Normal Range of Motion, Non-Tender, No Pedal Edema, Normal Capillary Refill Neurological: Reports: No New Focal Deficit Psy/Mental Status: Reports: Alert, Normal Affect, Normal Mood
--- NOTE | 2017-11-23 09:20 | CR ---
EXAM DATE: 11/21/17 PATIENT'S AGE: 82 Patient: GOGO MACHADO Facility: [place], [place] Site . Site : 1935 Study: XRay Chest [id number] 10:12:02 PM Ordering Physician: Hernan Perkins Final Report: INDICATION: Shortness of breath, chest pain. TECHNIQUE: Chest radiograph 1 view COMPARISON: None FINDINGS: Cardiovascular and mediastinum: The heart silhouette is normal in size and morphology. The mediastinum is normal in appearance. Lungs and pleural spaces: Both lungs are unremarkable in appearance. No sign of pleural effusion seen. No pneumothorax is identified. Bones and soft tissues: No significant findings. IMPRESSION: 1. No acute cardiopulmonary disease is seen. Dictated by Cortez Hoang MD @ 11/21/2017 10:49:23 PM Dictated by: Cortez Hoang MD @ 11/21/2017 22:49:27 (Electronic Signature) Report Signed by Proxy. [facility]
--- NOTE | 2017-11-23 10:12 | CONS ---
DATE OF CONSULTATION: 11/22/2017 DATE OF : 1935 PRIMARY CARE PHYSICIAN: Unknown PCP REASON FOR CONSULTATION: Shortness of breath and elevation of troponin. HISTORY OF PRESENT ILLNESS: This is an 82-year-old female who has a history of COPD, using inhalers; history of current smoker presented to the hospital because of 1-day history of shortness of breath. She has chronic back pain, has been seen by the physical therapy. On Wednesday, she was working hard for the physical therapy for her back pain and on Wednesday morning, her back pain got aggravated and on Wednesday, she woke up feeling so tired she could not get up from the bed and breathing had got worse. She denied leg swelling, denies chest heaviness, chest pressure, chest tightness. No heart racing, but she feels that her breathing is so bad that she cannot even catch her breath even at rest and then she was brought to the emergency room. She does report productive cough, but she denies fevers or chills. She denied a history of diabetes, hypertension, hyperlipidemia. PAST MEDICAL HISTORY: Including COPD diagnosed 4 years ago. Never seen lung doctor. Never had a breathing test. SOCIAL HISTORY: She is current smoker. No drug use. No alcohol use. FAMILY HISTORY: Noncontributory. She is adopted, but one of her daughter has a history of diabetes. One of her son has a history of MS. REVIEW OF SYSTEMS: She denied passing out, dizziness, or heart racing. Otherwise been negative except indicated in the HPI. She also denied history of heart attack, cardiac testing, or heart failure. ALLERGIES: She is allergic to several medications including Bactrim, morphine, erythromycin, and codeine. PHYSICAL EXAMINATION: VITAL SIGNS: Initial blood pressure is 143/74. Current blood pressure is 119/57, heart rate is 70 to 80, O2 saturation is 93 to 97 currently on room air, 93%. Temperature 36.8, respirations 20. Breathing labored. HEART: Normal S1, S2. No murmur. Regular rate and rhythm. LUNGS: Decreased breath sounds bilaterally with expiratory wheezing, crackle bilaterally. HEENT: Not pale. No jaundice. JVD positive. ABDOMEN: Soft, nontender. Bowel sounds present. No hepatosplenomegaly. EXTREMITIES: Legs trace edema. LABORATORY INVESTIGATION: CBC showed WBC of 14, hematocrit of 43, and platelet 218. INR is 1. Sodium 138, potassium 3.6, chloride 104, bicarb 25, BUN 14, creatinine 0.9. A1c 5.6. Initial troponin 2.3, currently coming down to 1.8. BNP is elevated 259. LDL is 112. EKG of November 21, 2017, shows sinus tachycardia, heart rate of 100, AR interval 182, QRS duration 109, QTc 487. No ST changes. Repeat EKG today 11/22/2017, shows sinus rhythm, no further ST changes. EMERGENCY ROOM TREATMENT: She was given nebulized treatment as well as Solu-Medrol IV. Plavix was given 300 mg p.o. last night as well as IV heparin was started. Aspirin also was given. ASSESSMENT AND PLAN: This is an 82-year-old female who is a current smoker. Denies history of high blood pressure, diabetes, high cholesterol, but when she was here in the hospital, her blood pressure was elevated, chronic obstructive pulmonary disease, came in with shortness of breath with a troponin elevation. She has a non-STEMI and heparin IV drip was started as well as Plavix 300 mg. I am going to give another 300 Plavix and she should be transferred to tertiary care facility where she should have urgent cardiac catheterization. She also was given metoprolol this morning 25 mg. Because of the acute heart failure, it should be on hold for now. Her echocardiogram showed preserved ejection fraction still and I will give another 300 mg of Plavix. She also has decompensated heart failure, I am going to give Lasix 20 mg IV. TONI / LIAN /[id number]
--- NOTE | 2017-11-23 13:42 | ECHO ---
EXAM DATE: 11/21/17 PATIENT'S AGE: 82 The echocardiogram report can be seen in this patient's EMR (Electronic Medical Record) in the Reports section. The report has also been scanned into PACs. BREANNA
== END 2017-11-22 11:45 | DRG 280 ==
LOC: MW.ED 21:22 → MW.MS 23:51
PROVIDERS: ADMIT Internal Medicine; ATTEND Internal Medicine
DX: I21.4 Non-ST elevation (NSTEMI) myocardial infarction (principal); J18.9 Pneumonia, unspecified organism; R74.9 Abnormal serum enzyme level, unspecified; J44.0 Chronic obstructive pulmonary disease with (acute) lower respiratory infection; F17.200 Nicotine dependence, unspecified, uncomplicated; J44.1 Chronic obstructive pulmonary disease with (acute) exacerbation; R06.00 Dyspnea, unspecified; R74.8 Abnormal levels of other serum enzymes; Z66 Do not resuscitate; R09.02 Hypoxemia; E03.9 Hypothyroidism, unspecified; F32.9 Major depressive disorder, single episode, unspecified; Z88.2 Allergy status to sulfonamides; Z88.5 Allergy status to narcotic agent; Z88.8 Allergy status to other drugs, medicaments and biological substances; Z79.899 Other long term (current) drug therapy
CPT/HCPCS: 36415; 71045; 80053; 83880; 84484; 85025; 85610; 85730; 87040 ×2; 94640; 96361; 96365; 99285; A9270 ×2; J1956; J2930; J7040; 80048; 80061; 81001; 83036; 83735; 93005; 93306; 96368; J1644

== ENCOUNTER 2018-02-12 14:11 | Emergency (ER) | payer MEDICARE, OTHER ==
[2018-02-12] MEDS ORDERED: Sodium Chloride 0.9% 1,000 ML IV ONE (14:32)
[2018-02-12] MEDS ORDERED: Sodium Chloride 0.9% 10 ML Syringe FLUSH PRN (14:32)
[2018-02-12] MEDS ORDERED: Sodium Chloride 0.9% 2.5 ML Syringe FLUSH PRN (14:32)
--- NOTE | 2018-02-12 14:34 | EDM.PDOC ---
ED HPI GENERAL MEDICAL PROBLEM - General Chief Complaint: Gastrointestinal Problem Stated Complaint: DIARRHEA Time Seen by Provider: 02/12/18 14:33 Source of Information: Reports: Patient History Limitations: Reports: No Limitations - History of Present Illness INITIAL COMMENTS - FREE TEXT/NARRATIVE: HISTORY AND PHYSICAL: []82-year-old female presenting with 4 days of diarrhea History of Present Illness: []Patient is concerned about having dehydration Review of Systems: As per history of present illness and below otherwise all systems reviewed and negative. Past medical history: As per history of present illness and as reviewed below otherwise noncontributory. Surgical history: As per history of present illness and as reviewed below otherwise noncontributory. Social history: No reported history of drug or alcohol abuse. Family history: As per history of present illness and as reviewed below otherwise noncontributory. Physical exam: Alert and oriented female answering questions appropriately in full sentences without any shortness of breath. HEENT: Atraumatic, normocehpalic, pupils reactive, negative for conjunctival pallor or scleral icterus, mucous membranes dry, throat clear, neck supple, nontender, trachea midline. Lungs: Clear to auscultation, breath sounds equal bilaterally, chest non tender. Heart: S1S2, regular, negative for clicks, rubs, or JVD. Abdomen: Soft, nondistended, nontender. Negative for masses or hepatossplenmegaly. Negative for costovertebral tenderness. Pelvis: Stable nontender. Genitourinary: Deferred. Rectal: Deferred Extremities: Atraumatic, negative for cords or calf pain. Neurovascular unremarkable. Neuro: Awake, alert, oriented. Cranial nerves II through XII unremarkable. Cerebellum unremarkable. Motor and sensory unremarkable throughout. Exam nonfocal. Patient is feeling much better after infusion of saline. Has not had a bowel movement since being in the emergency department will send equipment home with her to collect. Have discussed that her liver enzymes are elevated and she will need to see her primary care provider in 3 days to review. Diagnostics: []CBC CMP UA urine culture Therapeutics: []IV fluid Impression: []Mild dehydration secondary to diarrhea Plan: []Discharge home small sips of fluid every 20 minutes while awake. See your PCP in the next 3 days Return to the emergency room as directed and discussed Definitive disposition and diagnosis as appropriate pending reevaluation and review of above. Onset: Sudden Duration: Day(s): (4) Location: Reports: Abdomen Quality: Reports: Ache Severity: Mild Improves with: Reports: None Worsens with: Reports: None - Related Data Allergies Allergy/AdvReac Type Severity Reaction Status Date / Time codeine Allergy Dizziness Verified 02/12/18 14:29 erythromycin base Allergy Rash Verified 02/12/18 14:29 morphine Allergy Tachycardia Verified 02/12/18 14:29 Sulfa (Sulfonamide Allergy Rash Verified 02/12/18 14:29 Antibiotics) Home Meds: Home Meds Levothyroxine Sodium [Synthroid] 0.137 mcg PO ACBREAKFAST 09/05/15 [History] Albuterol [Proventil HFA] 1 - 2 puff INH Q4H PRN #2 inhaler 09/11/15 [Rx] Benzonatate [Tessalon Perles] 200 mg PO TID PRN #30 cap 09/11/15 [Rx] Fluticasone/Salmeterol [Advair Diskus 250-50] 1 puff INH BID #1 inhaler [Rx] Levofloxacin [Levaquin] 750 mg PO DAILY #5 tablet 09/11/15 [Rx] predniSONE 10 mg PO WITHBREAKFAST #22 tablet 09/11/15 [Rx] Albuterol/Ipratropium [DuoNeb 3.0-0.5 MG/3 ML] 3 ml NEB Q4HRRT PRN neb [Rx] Aspirin 81 mg PO DAILY tab.chew 11/22/17 [Rx] Past Medical History Respiratory History: Reports: COPD Gastrointestinal History: Reports: Cholelithiasis Other [employer] History: hysterectomy Musculoskeletal History: Reports: Back Pain, Chronic, Osteoarthritis Endocrine/Metabolic History: Reports: Hypothyroidism. Denies: Diabetes, Type II Oncologic (Cancer) History: Reports: None - Infectious Disease History Infectious Disease History: Reports: Chicken Pox, Measles, Mumps, Pertussis ( Whooping Cough) - Past Surgical History GI Surgical History: Reports: Cholecystectomy Female Surgical History: Reports: Hysterectomy Social & Family History - Family History Family Medical History: Noncontributory - Caffeine Use Caffeine Use: Reports: Coffee, Soda ED ROS GENERAL - Review of Systems Review Of Systems: ROS reveals no pertinent complaints other than HPI. ED EXAM, GI/ABD - Physical Exam Exam: See Below (See dictation) Course - Vital Signs Last Recorded V/S: Last Vital Signs Temp 36.6 C 02/12/18 14:30 Pulse 71 02/12/18 14:30 Resp 17 02/12/18 14:30 BP 145/71 H 02/12/18 14:30 Pulse Ox 96 02/12/18 14:30 - Orders/Labs/Meds Orders: Active Orders 24 hr Category Date Time Status Abdomen 2V AP Flat Upright [CR] Stat Exams 02/12/18 14:32 Taken Chest 1V Frontal [CR] Stat Exams 02/12/18 14:32 Taken CULTURE URINE [RM] Stat Lab 02/12/18 15:35 Received UA W/MICROSCOPIC [URIN] Stat Lab 02/12/18 15:35 Ordered Sodium Chloride 0.9% [Saline Flush] Med 02/12/18 14:32 Active 10 ml FLUSH ASDIRECTED PRN Sodium Chloride 0.9% [Saline Flush] Med 02/12/18 14:32 Active 2.5 ml FLUSH ASDIRECTED PRN Saline Lock Insert [OM.PC] Stat Oth 02/12/18 14:31 Ordered Medication Orders Sodium Chloride (Saline Flush) 10 ml FLUSH ASDIRECTED PRN PRN Reason: Keep Vein Open Sodium Chloride (Saline Flush) 2.5 ml FLUSH ASDIRECTED PRN PRN Reason: Keep Vein Open Labs: Laboratory Tests 02/12/18 02/12/18 02/12/18 Range/Units 14:43 14:43 15:35 WBC 7.50 (4.0-11.0) K/uL RBC 4.51 (4.30-5.90) M/uL Hgb 13.6 (12.0-16.0) g/dL Hct 40.0 (36.0-46.0) % MCV 88.7 (80.0-98.0) fL MCH 30.2 (27.0-32.0) pg MCHC 34.0 (31.0-37.0) g/dL RDW Std Deviation 51.9 (28.0-62.0) fl RDW Coeff of [place] 16 H (11.0-15.0) % Plt Count 224 (150-400) K/uL MPV 9.00 (7.40-12.00) fL Neut % (Auto) 66.1 (48.0-80.0) % Lymph % (Auto) 19.1 (16.0-40.0) % [place] % (Auto) 11.2 (0.0-15.0) % Eos % (Auto) 3.3 (0.0-7.0) % Baso % (Auto) 0.3 (0.0-1.5) % Neut # (Auto) 5.0 (1.4-5.7) K/uL Lymph # (Auto) 1.4 (0.6-2.4) K/uL [place] # (Auto) 0.8 (0.0-0.8) K/uL Eos # (Auto) 0.3 (0.0-0.7) K/uL Baso # (Auto) 0.0 (0.0-0.1) K/uL Nucleated RBC % 0.0 /100WBC Nucleated RBCs # 0 K/uL Sodium 133 L (136-145) mmol/L Potassium 4.3 (3.5-5.1) mmol/L Chloride 101 (98-107) mmol/L Carbon Dioxide 29.0 (21.0-32.0) mmol/L BUN 17 (7.0-18.0) mg/dL Creatinine 1.0 (0.6-1.0) mg/dL Est Cr Clr Drug Dosing 37.12 mL/min Estimated GFR (MDRD) 53.3 ml/min Glucose 118 H (74-106) mg/dL Calcium 9.0 (8.5-10.1) mg/dL Total Bilirubin 0.6 (0.2-1.0) mg/dL AST 194 H (15-37) IU/L ALT 194 H (14-63) IU/L Alkaline Phosphatase 175 H (46-116) U/L Troponin I < 0.050 (0.000-0.056) ng/mL Total Protein 7.2 (6.4-8.2) g/dL Albumin 3.3 L (3.4-5.0) g/dL Globulin 3.9 H (2.0-3.5) g/dL Albumin/Globulin Ratio 0.9 L (1.3-2.8) Amylase 78 (25-115) U/L Lipase 246 (73-393) U/L Urine Color YELLOW Urine Appearance CLEAR Urine pH 6.0 (5.0-8.0) Ur Specific [place] 1.010 (1.001-1.035) Urine Protein NEGATIVE (NEGATIVE) mg/dL Urine Glucose (UA) NEGATIVE (NEGATIVE) mg/dL Urine Ketones NEGATIVE (NEGATIVE) mg/dL Urine Occult Blood TRACE-INTACT (NEGATIVE) Urine Nitrite NEGATIVE (NEGATIVE) Urine Bilirubin NEGATIVE (NEGATIVE) Urine Urobilinogen 0.2 (<2.0) EU/dL Ur Leukocyte Esterase MODERATE (NEGATIVE) Urine RBC 0-1 (0-2/HPF) Urine WBC 18-20 (0-5/HPF) Ur Epithelial Cells MODERATE (NONE-FEW) Urine Bacteria FEW (NEGATIVE) Urine Yeast RARE Meds: Medications Generic Name Dose Route Start Last Admin Trade Name Freq PRN Reason Stop Dose Admin Sodium Chloride 10 ml 02/12/18 14:32 Saline Flush FLUSH ASDIRECTED PRN Keep Vein Open Sodium Chloride 2.5 ml 02/12/18 14:32 Saline Flush FLUSH ASDIRECTED PRN Keep Vein Open Discontinued Medications Generic Name Dose Route Start Last Admin Trade Name Freq PRN Reason Stop Dose Admin Sodium Chloride 1,000 mls @ 999 mls/hr 02/12/18 14:32 02/12/18 14:50 Normal Saline IV 02/12/18 15:32 999 mls/hr STAT ONE Administration Departure - Departure Time of Disposition: 16:10 Disposition: Home, Self-Care 01 Condition: Good Clinical Impression: Dehydration - Discharge Information *PRESCRIPTION DRUG MONITORING PROGRAM REVIEWED*: Not Applicable *COPY OF PRESCRIPTION DRUG MONITORING REPORT IN PATIENT ERICK: Not Applicable Instructions: Dehydration, Adult, [id number] Referrals: PCP,None [Primary Care Provider] - Forms: ED Department Discharge Additional Instructions: The following information is given to patients seen in the emergency department who are being discharged to home. This information is to outline your options for follow-up care. We provide all patients seen in our emergency department with a follow-up referral. The need for follow-up, as well as the timing and circumstances, are variable depending upon the specifics of your emergency department visit. If you don't have a primary care physician on staff, we will provide you with a referral. We always advise you to contact your personal physician following an emergency department visit to inform them of the circumstance of the visit and for follow-up with them and/or the need for any referrals to a consulting specialist. The emergency department will also refer you to a specialist when appropriate. This referral assures that you have the opportunity for followup care with a specialist. All of these measure are taken in an effort to provide you with optimal care, which includes your followup. Under all circumstances we always encourage you to contact your private physician who remains a resource for coordinating your care. When calling for followup care, please make the office aware that this follow-up is from your recent emergency room visit. If for any reason you are refused follow-up, please contact the [facility] emergency department at and asked to speak to the emergency department charge nurse. Discharge home small sips of fluid every 20 minutes while awake. See your PCP in the next 3 days Return to the emergency room as directed and discussed - My Orders Last 24 Hours: My Active Orders 02/12/18 14:31 Saline Lock Insert [OM.PC] Stat 02/12/18 14:32 Abdomen 2V AP Flat Upright [CR] Stat Chest 1V Frontal [CR] Stat Sodium Chloride 0.9% [Saline Flush] 10 ml FLUSH ASDIRECTED PRN Sodium Chloride 0.9% [Saline Flush] 2.5 ml FLUSH ASDIRECTED PRN 02/12/18 15:35 CULTURE URINE [RM] Stat UA W/MICROSCOPIC [URIN] Stat - Assessment/Plan Last 24 Hours: My Active Orders 02/12/18 14:31 Saline Lock Insert [OM.PC] Stat 02/12/18 14:32 Abdomen 2V AP Flat Upright [CR] Stat Chest 1V Frontal [CR] Stat Sodium Chloride 0.9% [Saline Flush] 10 ml FLUSH ASDIRECTED PRN Sodium Chloride 0.9% [Saline Flush] 2.5 ml FLUSH ASDIRECTED PRN 02/12/18 15:35 CULTURE URINE [RM] Stat UA W/MICROSCOPIC [URIN] Stat
[2018-02-12 15:21] LABS: CHLORIDE,CL 101 mmol/L (98-107); SODIUM,NA 133 mmol/L (136-145)
[2018-02-12 16:32] VITALS: BP 121/77
--- NOTE | 2018-02-14 11:24 | CR ---
EXAM DATE: 02/12/18 PATIENT'S AGE: 82 Patient: GOGO MACHADO Facility: [place], [place] Site . Site : 1935 Study: XRay Abdomen [id number]/[id number] 3:24:24 PM Ordering Physician: Doctor Crawford Final Report: TECHNIQUE: Flat and upright abdomen. INDICATION: Abdominal pain and diarrhea. FINDINGS: Nonobstructive bowel gas pattern. No free air. No abnormal mass or calcification. Right upper quadrant surgical clips. IMPRESSION: No acute findings. Dictated by Renato Bansal MD @ Feb 12 2018 3:54PM (Electronic Signature) Report Signed by Proxy. BREANNA
--- NOTE | 2018-02-14 11:25 | CR ---
EXAM DATE: 02/12/18 PATIENT'S AGE: 82 Patient: GOGO MACHADO Facility: [place], [place] Site . Site : 1935 Study: XRay Chest [id number]/1/2018 3:24:58 PM Ordering Physician: Doctor Crawford Final Report: TECHNIQUE: Portable AP chest. INDICATIONS: Pain and shortness of breath. COMPARISON: 11/21/2017 chest x-ray. FINDINGS: Slight scarring in the left lung base. Lungs otherwise clear. Normal heart size and pulmonary vascularity. No effusions. No pneumothorax. IMPRESSION: No acute chest findings and no change. Dictated by Renato Bansal MD @ 02/12/2018 3:57:00 PM Dictated by: Renato Bansal MD @ 02/12/2018 15:57:06 (Electronic Signature) Report Signed by Proxy. [email or web address]
== END 2018-02-12 16:33 | disposition home or self-care (01) ==
LOC: MW.ED 14:11
DX: E86.0 Dehydration (principal); E11.9 Type 2 diabetes mellitus without complications; Z88.5 Allergy status to narcotic agent; Z88.2 Allergy status to sulfonamides; Z79.899 Other long term (current) drug therapy; Z79.82 Long term (current) use of aspirin
CPT/HCPCS: 36415; 71045; 74019; 80053; 81001; 82150; 83690; 84484; 85025; 87086; 96360; 96361; 99284; J7040

== ENCOUNTER 2018-08-31 17:53 | Emergency (ER) | payer MEDICARE, BC ==
[2018-08-31] MEDS ORDERED: Sodium Chloride 0.9% 2.5 ML Syringe FLUSH PRN (17:59)
[2018-08-31] MEDS ORDERED: Sodium Chloride 0.9% 10 ML Syringe FLUSH PRN (17:59)
--- NOTE | 2018-08-31 18:01 | EDM.PDOC ---
ED HPI GENERAL MEDICAL PROBLEM - General Chief Complaint: Abdominal Pain Stated Complaint: SOB Time Seen by Provider: 08/31/18 18:00 Source of Information: Reports: Patient History Limitations: Reports: No Limitations - History of Present Illness INITIAL COMMENTS - FREE TEXT/NARRATIVE: HISTORY AND PHYSICAL: History of present illness: Patient is an 83-year-old female who presents to the emergency room today with complaints of low abdominal pain 4 days. She states she has had low abdominal pain to the left and right lower quadrants which she describes as sharp pain. She has had diarrhea associated with this. She has not had any blood in her stools. She states that she has had some shortness of breath and cough but does have a history of COPD. States she does use home oxygen routinely. Denies any fever, chills, chest pain or cough. Denies any nausea, vomiting or dysuria. She states she has been able to eat and drink appropriately, although has not been drinking much water. Patient has history of COPD, hypothyroidism, cholecystectomy, and arthritis. Review of systems: As per history of present illness and below otherwise all systems reviewed and negative. Past medical history: As per history of present illness and as reviewed below otherwise noncontributory. Surgical history: As per history of present illness and as reviewed below otherwise noncontributory. Social history: See social history for further information Family history: As per history of present illness and as reviewed below otherwise noncontributory. Physical exam: General: Well-developed and well-nourished 83-year-old female. Alert and oriented. Nontoxic appearing and in no acute distress. HEENT: Atraumatic, normocephalic, pupils equal and reactive bilaterally, negative for conjunctival pallor or scleral icterus, mucous membranes moist, TMs normal bilaterally, throat clear, neck supple, nontender, trachea midline. No drooling or trismus noted. No meningeal signs. No hot potato voice noted. Lungs: Diminished to auscultation, breath sounds equal bilaterally, chest nontender. Heart: S1S2, regular rate and rhythm without overt murmur Abdomen: Soft, nondistended, left lower quadrant and right lower quadrant tenderness, no rebound tenderness. Negative for masses or hepatosplenomegaly. Negative for costovertebral tenderness. Pelvis: Stable nontender. Genitourinary: Deferred. Rectal: Deferred. Skin: Intact, warm, dry. No lesions or rashes noted. Extremities: Atraumatic, moves all extremities per self without difficulty or deficits, negative for cords or calf pain. Neurovascular unremarkable. Neuro: Awake, alert, oriented. Cranial nerves II through XII unremarkable. Cerebellum unremarkable. Motor and sensory unremarkable throughout. Exam nonfocal. Notes: Patient is agreeable to lab work at this time. Lab work is unremarkable. Chest x-ray shows no acute findings. EKG is within normal limits. Vital signs remain stable. CT of the abdomen and pelvis shows a nonspecific mild prominence of bowel gas, possibly reflecting gastroenteritis. Sigmoid colon diverticulosis without evidence of diverticulitis. There is a isodense mass on the left kidney. This information was shared with the patient. Dr. Domingo was consulted on this patient and she is agreeable that she may follow up as outpatient. We'll put patient on Flagyl and Cipro by mouth and give Zofran for as needed for symptomatic relief. Patient has been up to void while here in the emergency room. She has not had any stools while here. She would like to be discharged to home as she does feel improved. Supportive care measures were reviewed and discussed. Voices understanding and is agreeable to plan of care. Denies any further questions or concerns at this time. Diagnostics: CBC, CMP, UA, CXR, Troponin, EKG, Blood Culture, Stool Study Therapeutics: IV fluids, bentyl, Cipro, Flagyl Prescription: Zofran Cipro Flagyl Impression: Gastroenteritis Plan: 1. Clear liquid diet over the next 24 hours and advance as tolerated. Please follow dietary restrictions as we discussed 2. Please take the medications that have been prescribed as directed. If your diarrhea does not improve or you are unable to keep up with her fluids, please return to the emergency room or follow-up with your primary care provider. 3. Follow-up with the general surgeon as we discussed. Return to the ED as needed and as discussed. Definitive disposition and diagnosis as appropriate pending reevaluation and review of above. Abdominal Pain Score (Numeric/FACES): 6 - Related Data Allergies Allergy/AdvReac Type Severity Reaction Status Date / Time codeine Allergy Dizziness Verified 08/31/18 17:54 erythromycin base Allergy Rash Verified 08/31/18 17:54 morphine Allergy Tachycardia Verified 08/31/18 17:54 Sulfa (Sulfonamide Allergy Rash Verified 08/31/18 17:54 Antibiotics) Home Meds: Home Meds Levothyroxine Sodium [Synthroid] 0.137 mcg PO ACBREAKFAST 09/05/15 [History] Albuterol [Proventil HFA] 1 - 2 puff INH Q4H PRN #2 inhaler 09/11/15 [Rx] Benzonatate [Tessalon Perles] 200 mg PO TID PRN #30 cap 09/11/15 [Rx] Fluticasone/Salmeterol [Advair Diskus 250-50] 1 puff INH BID #1 inhaler [Rx] predniSONE 10 mg PO WITHBREAKFAST #22 tablet 09/11/15 [Rx] Albuterol/Ipratropium [DuoNeb 3.0-0.5 MG/3 ML] 3 ml NEB Q4HRRT PRN neb [Rx] Aspirin 81 mg PO DAILY tab.chew 11/22/17 [Rx] Ketorolac [Toradol] 30 mg INJECT DAILY 08/31/18 [History] Lisinopril 5 mg PO DAILY 08/31/18 [History] Potassium Chloride [Klor-Con 10] 10 mg PO DAILY 08/31/18 [History] atorvaSTATin [Lipitor] 20 mg PO DAILY 08/31/18 [History] Past Medical History - Past Health History Medical/Surgical History: Denies Medical/Surgical History Cardiovascular History: Reports: [place] Respiratory History: Reports: COPD Gastrointestinal History: Reports: Cholelithiasis 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 Endocrine/Metabolic History: Reports: Hypothyroidism Oncologic (Cancer) History: Reports: None - Infectious Disease History Infectious Disease History: Reports: Chicken Pox, Measles, Mumps, Pertussis ( Whooping Cough) - Past Surgical History Cardiovascular Surgical History: Reports: Other (See Below) Other Cardiovascular Surgeries/Procedures: Heart surgery in November,. GI Surgical History: Reports: Cholecystectomy Female Surgical History: Reports: Hysterectomy Social & Family History - Family History Family Medical History: Noncontributory - Tobacco Use Smoking Status *Q: Former Smoker Years of Tobacco use: 50 Packs/Tins Daily: 1 Used Tobacco, but Quit: No - Caffeine Use Caffeine Use: Reports: None - Recreational Drug Use Recreational Drug Use: No ED ROS GENERAL - Review of Systems Review Of Systems: ROS reveals no pertinent complaints other than HPI. ED EXAM, GI/ABD - Physical Exam Exam: See Below (See dictation) Course - Vital Signs Last Recorded V/S: Last Vital Signs Temp 99.1 F 08/31/18 17:55 Pulse 51 L 08/31/18 19:43 Resp 19 08/31/18 19:43 BP 107/63 08/31/18 19:43 Pulse Ox 94 L 08/31/18 19:43 - Orders/Labs/Meds Orders: Active Orders 24 hr Category Date Time Status EKG Documentation Completion [RC] STAT Care 08/31/18 18:01 Active CULTURE BLOOD [BC] Stat Lab 08/31/18 18:15 Received CULTURE BLOOD [BC] Stat Lab 08/31/18 18:44 Received CULTURE STOOL + CAMPY+SHIGATOX [RM] Stat Lab 08/31/18 18:11 Ordered CULTURE URINE [RM] Stat Lab 08/31/18 18:30 Received OVA & PARASITES BY IMMUNOASSAY [MREF] Stat Lab 08/31/18 18:11 Ordered Ciprofloxacin [Ciprofloxacin HCl] Med 08/31/18 20:54 Once 500 mg PO ONETIME ONE Sodium Chloride 0.9% [Normal Saline] 1,000 ml Med 08/31/18 18:45 Active IV ASDIRECTED Sodium Chloride 0.9% [Saline Flush] Med 08/31/18 17:59 Active 10 ml FLUSH ASDIRECTED PRN Sodium Chloride 0.9% [Saline Flush] Med 08/31/18 17:59 Active 2.5 ml FLUSH ASDIRECTED PRN metroNIDAZOLE Med 08/31/18 20:54 Once 500 mg PO ONETIME ONE Blood Culture x2 Reflex Set [OM.PC] Stat Oth 08/31/18 18:00 Ordered Saline Lock Insert [OM.PC] Stat Oth 08/31/18 17:59 Ordered Medication Orders Sodium Chloride (Normal Saline) 1,000 mls @ 150 mls/hr IV ASDIRECTED AGUSTO Last Admin: 08/31/18 19:06 Dose: 150 mls/hr Sodium Chloride (Saline Flush) 10 ml FLUSH ASDIRECTED PRN PRN Reason: Keep Vein Open Sodium Chloride (Saline Flush) 2.5 ml FLUSH ASDIRECTED PRN PRN Reason: Keep Vein Open Labs: Laboratory Tests 08/31/18 08/31/18 08/31/18 Range/Units 18:10 18:10 18:30 WBC 8.34 (4.0-11.0) K/uL RBC 4.33 (4.30-5.90) M/uL Hgb 13.2 (12.0-16.0) g/dL Hct 40.1 (36.0-46.0) % MCV 92.6 (80.0-98.0) fL MCH 30.5 (27.0-32.0) pg MCHC 32.9 (31.0-37.0) g/dL RDW Std Deviation 47.3 (28.0-62.0) fl RDW Coeff of [place] 14 (11.0-15.0) % Plt Count 221 (150-400) K/uL MPV 8.70 (7.40-12.00) fL Neut % (Auto) 66.0 (48.0-80.0) % Lymph % (Auto) 16.7 (16.0-40.0) % [place] % (Auto) 11.5 (0.0-15.0) % Eos % (Auto) 5.2 (0.0-7.0) % Baso % (Auto) 0.6 (0.0-1.5) % Neut # (Auto) 5.5 (1.4-5.7) K/uL Lymph # (Auto) 1.4 (0.6-2.4) K/uL [place] # (Auto) 1.0 H (0.0-0.8) K/uL Eos # (Auto) 0.4 (0.0-0.7) K/uL Baso # (Auto) 0.1 (0.0-0.1) K/uL Nucleated RBC % 0.0 /100WBC Nucleated RBCs # 0 K/uL Sodium 135 L (136-145) mmol/L Potassium 4.5 (3.5-5.1) mmol/L Chloride 101 (98-107) mmol/L Carbon Dioxide 27.7 (21.0-32.0) mmol/L BUN 14 (7.0-18.0) mg/dL Creatinine 1.1 H (0.6-1.0) mg/dL Est Cr Clr Drug Dosing 34.64 mL/min Estimated GFR (MDRD) 47.7 ml/min Glucose 98 (74-106) mg/dL Calcium 9.0 (8.5-10.1) mg/dL Total Bilirubin 0.3 (0.2-1.0) mg/dL AST 18 (15-37) IU/L ALT 22 (14-63) IU/L Alkaline Phosphatase 70 (46-116) U/L Troponin I < 0.050 (0.000-0.056) ng/mL Total Protein 7.5 (6.4-8.2) g/dL Albumin 3.5 (3.4-5.0) g/dL Globulin 4.0 (2.6-4.0) g/dL Albumin/Globulin Ratio 0.9 (0.9-1.6) Lipase 127 (73-393) U/L Urine Color YELLOW Urine Appearance CLEAR Urine pH 6.0 (5.0-8.0) Ur Specific [place] 1.020 (1.001-1.035) Urine Protein NEGATIVE (NEGATIVE) mg/dL Urine Glucose (UA) NEGATIVE (NEGATIVE) mg/dL Urine Ketones NEGATIVE (NEGATIVE) mg/dL Urine Occult Blood NEGATIVE (NEGATIVE) Urine Nitrite NEGATIVE (NEGATIVE) Urine Bilirubin NEGATIVE (NEGATIVE) Urine Urobilinogen 0.2 (<2.0) EU/dL Ur Leukocyte Esterase TRACE H (NEGATIVE) Urine RBC 0-1 (0-2/HPF) Urine WBC 2-4 (0-5/HPF) Ur Epithelial Cells MODERATE (NONE-FEW) Urine Bacteria FEW (NEGATIVE) Meds: Medications Generic Name Dose Route Start Last Admin Trade Name Freq PRN Reason Stop Dose Admin Sodium Chloride 1,000 mls @ 150 mls/hr 08/31/18 18:45 08/31/18 19:06 Normal Saline IV 150 mls/hr ASDIRECTED AGUSTO Administration Sodium Chloride 10 ml 08/31/18 17:59 Saline Flush FLUSH ASDIRECTED PRN Keep Vein Open Sodium Chloride 2.5 ml 08/31/18 17:59 Saline Flush FLUSH ASDIRECTED PRN Keep Vein Open Discontinued Medications Generic Name Dose Route Start Last Admin Trade Name Freq PRN Reason Stop Dose Admin Dicyclomine HCl 10 mg 08/31/18 18:38 08/31/18 19:05 Bentyl PO 08/31/18 18:39 10 mg ONETIME ONE Administration Departure - Departure Time of Disposition: 20:58 Disposition: Home, Self-Care 01 Clinical Impression: Gastroenteritis - Discharge Information Instructions: Viral Gastroenteritis, Adult, [id number] Referrals: PCP,None [Primary Care Provider] - Forms: ED Department Discharge Additional Instructions: The following information is given to patients seen in the emergency department who are being discharged to home. This information is to outline your options for follow-up care. We provide all patients seen in our emergency department with a follow-up referral. The need for follow-up, as well as the timing and circumstances, are variable depending upon the specifics of your emergency department visit. If you don't have a primary care physician on staff, we will provide you with a referral. We always advise you to contact your personal physician following an emergency department visit to inform them of the circumstance of the visit and for follow-up with them and/or the need for any referrals to a consulting specialist. The emergency department will also refer you to a specialist when appropriate. This referral assures that you have the opportunity for follow-up care with a specialist. All of these measure are taken in an effort to provide you with optimal care, which includes your follow-up. Under all circumstances we always encourage you to contact your private physician who remains a resource for coordinating your care. When calling for follow-up care, please make the office aware that this follow-up is from your recent emergency room visit. If for any reason you are refused follow-up, please contact the [facility] Emergency Department at and asked to speak to the emergency department charge nurse. [facility] Primary Care [address] [place] [id number] [address] [id number] 1. Clear liquid diet over the next 24 hours and advance as tolerated. Please follow dietary restrictions as we discussed 2. Please take the medications that have been prescribed as directed. If your diarrhea does not improve or you are unable to keep up with her fluids please return to the ER follow-up with your primary care provider 3. Follow-up with the general surgeon as we discussed. Return to the ED as needed and as discussed. - My Orders Last 24 Hours: My Active Orders 08/31/18 17:59 Sodium Chloride 0.9% [Saline Flush] 10 ml FLUSH ASDIRECTED PRN Sodium Chloride 0.9% [Saline Flush] 2.5 ml FLUSH ASDIRECTED PRN Saline Lock Insert [OM.PC] Stat 08/31/18 18:00 Blood Culture x2 Reflex Set [OM.PC] Stat 08/31/18 18:01 EKG Documentation Completion [RC] STAT 08/31/18 18:11 CULTURE STOOL + CAMPY+SHIGATOX [RM] Stat OVA & PARASITES BY IMMUNOASSAY [MREF] Stat 08/31/18 18:15 CULTURE BLOOD [BC] Stat 08/31/18 18:30 CULTURE URINE [RM] Stat 08/31/18 18:44 CULTURE BLOOD [BC] Stat 08/31/18 18:45 Sodium Chloride 0.9% [Normal Saline] 1,000 ml IV ASDIRECTED 08/31/18 20:54 Ciprofloxacin [Ciprofloxacin HCl] 500 mg PO ONETIME ONE metroNIDAZOLE 500 mg PO ONETIME ONE - Assessment/Plan Last 24 Hours: My Active Orders 08/31/18 17:59 Sodium Chloride 0.9% [Saline Flush] 10 ml FLUSH ASDIRECTED PRN Sodium Chloride 0.9% [Saline Flush] 2.5 ml FLUSH ASDIRECTED PRN Saline Lock Insert [OM.PC] Stat 08/31/18 18:00 Blood Culture x2 Reflex Set [OM.PC] Stat 08/31/18 18:01 EKG Documentation Completion [RC] STAT 08/31/18 18:11 CULTURE STOOL + CAMPY+SHIGATOX [RM] Stat OVA & PARASITES BY IMMUNOASSAY [MREF] Stat 08/31/18 18:15 CULTURE BLOOD [BC] Stat 08/31/18 18:30 CULTURE URINE [RM] Stat 08/31/18 18:44 CULTURE BLOOD [BC] Stat 08/31/18 18:45 Sodium Chloride 0.9% [Normal Saline] 1,000 ml IV ASDIRECTED 08/31/18 20:54 Ciprofloxacin [Ciprofloxacin HCl] 500 mg PO ONETIME ONE metroNIDAZOLE 500 mg PO ONETIME ONE
[2018-08-31] MEDS ORDERED: Dicyclomine 10 MG Cap PO ONE (18:38)
[2018-08-31] MEDS ORDERED: Sodium Chloride 0.9% 1,000 ML IV SCH (18:45)
[2018-08-31 18:54] LABS: CHLORIDE,CL 101 mmol/L (98-107); SODIUM,NA 135 mmol/L (136-145)
--- NOTE | 2018-08-31 19:54 | CR ---
INDICATION: Chest pain and shortness of breath TECHNIQUE: Chest 1 views COMPARISON: February 12, 2018 FINDINGS: Cardiovascular and mediastinum: Heart size and vasculature are normal in caliber and appearance. Lungs and pleural spaces: Lungs are clear. No sign of infiltrate or mass. No sign of pleural effusion. No pneumothorax. Bones and soft tissues: No significant findings. IMPRESSION: No acute findings and no significant changes from the prior exam. Dictated by Ran Wu MD @ Aug 31 2018 7:53PM Signed by Dr. Ran Wu @ Aug 31 2018 7:53PM
--- NOTE | 2018-08-31 20:39 | CT ---
INDICATION: abdominal pain CT ABDOMEN AND PELVIS WITHOUT CONTRAST TECHNIQUE: Multidetector CT imaging was performed through the abdomen and pelvis without intravenous contrast administration. Coronal and sagittal reconstructions were generated. COMPARISON: None. FINDINGS: Lower chest: Mild bibasilar lung atelectasis or scarring. Liver: Within normal limits. Gallbladder and bile ducts: Status post cholecystectomy. Mild dilation of the extrahepatic bile duct likely reflecting post cholecystectomy reservoir effect. Pancreas: Unremarkable. Spleen: Normal. Adrenals: No nodules or masses. Kidneys, ureters, and urinary bladder: No urinary tract stones or hydronephrosis. 2.6 centimeter partially exophytic isodense mass along the posterior aspect of the left kidney on image 49 of series 201. Small hyperdense cortical cyst of the right kidney on image 59 of series 201. No bladder mass or definite wall thickening. Gastrointestinal tract: Normal caliber bowel without definite wall thickening or obstruction. Appendix not identified. Several sigmoid colon diverticula without evidence of diverticulitis. Nonspecific mild increase in bowel gas, possibly reflecting gastroenteritis. Vascular structures: Ectasia of the infrarenal abdominal aorta. Diffuse aortoiliac atherosclerotic calcifications. Peritoneum: No free air, abscess, or significant free fluid. Lymph nodes: No pathologically enlarged nodes identified. Reproductive organs: Status post hysterectomy. No pelvic masses. Bones: Diffuse osteopenia. Spinal degenerative changes. IMPRESSION: 1. Nonspecific mild prominence of bowel gas, possibly reflecting gastroenteritis. 2. Sigmoid colon diverticulosis without evidence of diverticulitis. 3. 2.6 centimeter isodense mass along the posterior aspect of the superior left kidney consistent with a mildly hyperdense cyst versus a solid mass. Renal ultrasound or contrast-enhanced CT urogram is recommended for further evaluation. 4. Nonacute additional findings as detailed above. QUIN DARNELL MD [employer] Dictated by Fausto Darnell MD @ 08/31/2018 8:27:29 PM Dictated by: Fausto Darnell MD @ 08/31/2018 20:36:47 (Electronically Signed)
[2018-08-31] MEDS ORDERED: Ciprofloxacin 500 MG Tab PO ONE (20:54)
[2018-08-31] MEDS ORDERED: metroNIDAZOLE 250 MG Tab PO ONE (20:54)
[2018-08-31 21:07] VITALS: BP 131/54
== END 2018-08-31 21:18 | disposition home or self-care (01) ==
LOC: MW.ED 17:53
DX: K52.9 Noninfective gastroenteritis and colitis, unspecified (principal); Z88.5 Allergy status to narcotic agent; Z88.1 Allergy status to other antibiotic agents; Z88.2 Allergy status to sulfonamides; Z79.82 Long term (current) use of aspirin; Z79.899 Other long term (current) drug therapy; Z87.891 Personal history of nicotine dependence
CPT/HCPCS: 71045; 74176; 80053; 81001; 83690; 84484; 85025; 87040; 87086; 93005; 96360; 96361; 99285; A9270; J7040; 99283

== ENCOUNTER 2020-07-02 12:18 | Inpatient (IN) | payer MEDICARE, OTHER ==
[2020-07-02] MEDS ORDERED: Sodium Chloride 0.9% 1,000 ML IV ONE ×2 (12:54→19:30)
[2020-07-02] MEDS ORDERED: Ondansetron 4 MG/2 ML SDV IVPUSH ONE (12:55)
--- NOTE | 2020-07-02 13:04 | EDM.PDOC ---
ED HPI GENERAL MEDICAL PROBLEM - General Chief Complaint: Gastrointestinal Problem Stated Complaint: FEVER/STOMACH ACHE Time Seen by Provider: 07/02/20 12:24 Source of Information: Reports: Patient - History of Present Illness INITIAL COMMENTS - FREE TEXT/NARRATIVE: Porting a 6-day history of dizziness, nausea, fever, cough with green sputum, shortness of breath, aches, slight headache and diarrhea which has been progressively worsening. Patient has a history of COPD and NSTEMI with stents. She is a poor historian and is unable to recount her other medical problems or medications. She states she has oxygen at home that she never uses but has in the last 3 days. She is a former smoker but does not know how many years she smoked. She takes her medications on a regular basis but did not this morning. She denies abdominal pain, chest pain, vomiting, dysuria, sore throat, ear or facial fullness. - Related Data Allergies Allergy/AdvReac Type Severity Reaction Status Date / Time codeine Allergy Dizziness Verified 07/02/20 17:26 erythromycin base Allergy Rash Verified 07/02/20 17:26 morphine Allergy Tachycardia Verified 07/02/20 17:26 Sulfa (Sulfonamide Allergy Rash Verified 07/02/20 17:26 Antibiotics) Home Meds: Home Meds Levothyroxine Sodium [Synthroid] 0.112 mcg PO ACBREAKFAST 09/05/15 [History] Albuterol [Proventil HFA] 1 - 2 puff INH Q4H PRN #2 inhaler 09/11/15 [Rx] Fluticasone/Salmeterol [Advair Diskus 250-50] 1 puff INH BID #1 inhaler 09/11/15 [Rx] Albuterol/Ipratropium [DuoNeb 3.0-0.5 MG/3 ML] 3 ml NEB Q4HRRT PRN neb 11/22/17 [Rx] Aspirin 81 mg PO DAILY tab.chew 11/22/17 [Rx] Potassium Chloride [Klor-Con 10] 10 mg PO DAILY 08/31/18 [History] atorvaSTATin [Lipitor] 20 mg PO DAILY 08/31/18 [History] Clopidogrel [Plavix] 1 tab PO DAILY 07/02/20 [History] Fluticasone/Vilanterol [Breo Ellipta 200-25 MCG Inhalation Kit] 1 puff .ROUTE DAILY 07/02/20 [History] carvediloL [Carvedilol] 1 tab PO BEDTIME 07/02/20 [History] carvediloL [Carvedilol] 2 tab PO DAILY 07/02/20 [History] oxyCODONE HCl [Oxycodone HCl] 1 tab PO BID 07/02/20 [History] Past Medical History - Past Health History Medical/Surgical History: Denies Medical/Surgical History Cardiovascular History: Reports: Hypertension, [place] Respiratory History: Reports: COPD Gastrointestinal History: Reports: Cholelithiasis Other [employer] History: hysterectomy Musculoskeletal History: Reports: Back Pain, Chronic, Osteoarthritis Neurological History: Reports: Other (See Below) Other Neuro History: Hx spinal stenosis. Endocrine/Metabolic History: Reports: Hypothyroidism Oncologic (Cancer) History: Reports: None - Infectious Disease History Infectious Disease History: Reports: Chicken Pox, Measles, Mumps, Pertussis (Whooping Cough) - Past Surgical History Cardiovascular Surgical History: Reports: Other (See Below) Other Cardiovascular Surgeries/Procedures: Heart surgery in November,. GI Surgical History: Reports: Cholecystectomy Female Surgical History: Reports: Hysterectomy Social & Family History - Family History Family Medical History: No Pertinent Family History - Tobacco Use Tobacco Use Status *Q: Former Tobacco User Used Tobacco, but Quit: Yes Month/Year Tobacco Last Used: 9999 - Caffeine Use Caffeine Use: Reports: None - Recreational Drug Use Recreational Drug Use: No ED ROS GENERAL - Review of Systems Review Of Systems: Comprehensive ROS is negative, except as noted in HPI. ED EXAM, GI/ABD - Physical Exam Exam: See Below Exam Limited By: No Limitations General Appearance: Alert, Mild Distress (Appears weak, mildly toxic.) Ears: Normal External Exam, Other (White and opaque) Nose: Normal Inspection Throat/Mouth: Normal Inspection, Normal Oropharynx Head: Atraumatic, Normocephalic Neck: Normal Inspection Respiratory/Chest: Decreased Breath Sounds, Wheezing (Diffuse, high-pitched tight wheezes, poor air exchange), Prolonged Expiration Cardiovascular: Regular Rate, Rhythm, No Murmur GI/Abdominal Exam: Soft, Non-Tender, No Distention Extremities: Normal Inspection. No: Pedal Edema Neurological: Alert, Oriented, Normal Cognition Psychiatric: Depressed Mood Skin Exam: Warm, Dry, Intact, Normal Color, No Rash Lymphatic: No Adenopathy #1 Interpretation EKG Date: 07/02/20 Time: 13:53 Rhythm: NSR Rate (Beats/Min): 53 [place]: Normal P-Wave: Present QRS: Normal ST-T: Normal QT: Normal LA/PQ Interval: .23 Comparison: No Change (bradycardia noted previously) Course - Vital Signs Last Recorded V/S: Last Vital Signs Temp 36.4 C 07/02/20 17:33 Pulse 57 L 07/02/20 17:33 Resp 18 07/02/20 17:33 BP 127/83 07/02/20 17:33 Pulse Ox 96 07/02/20 17:33 - Orders/Labs/Meds Orders: Active Orders 24 hr Category Date Time Status RT Aerosol Therapy [RC] ASDIRECTED Care 07/02/20 15:42 Active Sodium Chloride 0.9% [Normal Saline] 1,000 ml Med 07/02/20 12:54 Active IV STAT Medication Orders Albuterol/Ipratropium (Duoneb 3.0-0.5 Mg/3 Ml) 3 ml NEB Q4HRRT PRN PRN Reason: Shortness Of Breath/wheezing Aspirin (Aspirin) 81 mg PO DAILY [facility] Atorvastatin Calcium (Lipitor) 20 mg PO DAILY [facility] Clopidogrel Bisulfate (Plavix) 75 mg PO DAILY [facility] Heparin Sodium (Porcine) (Heparin Sodium) 5,000 units SUBCUT Q12H [facility] Sodium Chloride (Normal Saline) 1,000 mls @ 100 mls/hr IV STAT ONE Stop: 07/02/20 22:53 Last Admin: 07/02/20 13:33 Dose: 100 mls/hr Documented by: [email or web address] Pantoprazole Sodium 40 mg/ (Sodium Chloride) 10 mls @ 300 mls/hr IV Q24H AGUSTO Last Admin: 07/02/20 19:53 Dose: 300 mls/hr Documented by: CLAUDE Sodium Chloride (Normal Saline) 1,000 mls @ 75 mls/hr IV CONTINUOUS ONE Stop: 07/03/20 08:49 Melatonin (Melatonin) 6 mg PO BEDTIME PRN PRN Reason: Insomnia Fluticasone/Salmeterol (Advair Diskus 250-50) 1 puff INH BID [facility] Labs: Laboratory Tests 07/02/20 07/02/20 07/02/20 Range/Units 12:15 12:15 13:30 WBC 7.28 (4.0-11.0) K/uL RBC 4.34 (4.30-5.90) M/uL Hgb 13.5 (12.0-16.0) g/dL Hct 40.1 (36.0-46.0) % MCV 92.4 (80.0-98.0) fL MCH 31.1 (27.0-32.0) pg MCHC 33.7 (31.0-37.0) g/dL RDW Std Deviation 48.5 (28.0-62.0) fl RDW Coeff of Lavelle 14 (11.0-15.0) % Plt Count 234 (150-400) K/uL MPV 8.20 (7.40-12.00) fL Neut % (Auto) 74.1 (48.0-80.0) % Lymph % (Auto) 11.5 L (16.0-40.0) % [place] % (Auto) 12.5 (0.0-15.0) % Eos % (Auto) 1.1 (0.0-7.0) % Baso % (Auto) 0.8 (0.0-1.5) % Neut # (Auto) 5.4 (1.4-5.7) K/uL Lymph # (Auto) 0.8 (0.6-2.4) K/uL [place] # (Auto) 0.9 H (0.0-0.8) K/uL Eos # (Auto) 0.1 (0.0-0.7) K/uL Baso # (Auto) 0.1 (0.0-0.1) K/uL Nucleated RBC % 0.0 /100WBC Nucleated RBCs # 0 K/uL Sodium (136-145) mmol/L Potassium (3.5-5.1) mmol/L Chloride (98-107) mmol/L Carbon Dioxide (21.0-32.0) mmol/L BUN (7.0-18.0) mg/dL Creatinine (0.6-1.0) mg/dL Est Cr Clr Drug Dosing mL/min Estimated GFR (MDRD) ml/min Glucose (74-106) mg/dL Calcium (8.5-10.1) mg/dL Total Bilirubin (0.2-1.0) mg/dL AST (15-37) IU/L ALT (14-63) IU/L Alkaline Phosphatase (46-116) U/L Troponin I < 0.050 (0.000-0.056) ng/mL Total Protein (6.4-8.2) g/dL Albumin (3.4-5.0) g/dL Globulin (2.6-4.0) g/dL Albumin/Globulin Ratio (0.9-1.6) Free T4 0.62 L (0.76-1.46) ng/dL Free T3 0.72 L (2.18-3.98) pg/mL TSH 3rd Generation (0.36-3.74) uIU/mL Influenza Type A RNA (NEGATIVE) Influenza Type B RNA (NEGATIVE) SARS-CoV-2 RNA (BLAINE) (NEGATIVE) 07/02/20 07/02/20 07/02/20 Range/Units 13:30 13:30 14:16 WBC (4.0-11.0) K/uL RBC (4.30-5.90) M/uL Hgb (12.0-16.0) g/dL Hct (36.0-46.0) % MCV (80.0-98.0) fL MCH (27.0-32.0) pg MCHC (31.0-37.0) g/dL RDW Std Deviation (28.0-62.0) fl RDW Coeff of Lavelle (11.0-15.0) % Plt Count (150-400) K/uL MPV (7.40-12.00) fL Neut % (Auto) (48.0-80.0) % Lymph % (Auto) (16.0-40.0) % [place] % (Auto) (0.0-15.0) % Eos % (Auto) (0.0-7.0) % Baso % (Auto) (0.0-1.5) % Neut # (Auto) (1.4-5.7) K/uL Lymph # (Auto) (0.6-2.4) K/uL [place] # (Auto) (0.0-0.8) K/uL Eos # (Auto) (0.0-0.7) K/uL Baso # (Auto) (0.0-0.1) K/uL Nucleated RBC % /100WBC Nucleated RBCs # K/uL Sodium 123 L (136-145) mmol/L Potassium 4.7 (3.5-5.1) mmol/L Chloride 91 L (98-107) mmol/L Carbon Dioxide 26.4 (21.0-32.0) mmol/L BUN 18 (7.0-18.0) mg/dL Creatinine 0.8 (0.6-1.0) mg/dL Est Cr Clr Drug Dosing 44.08 mL/min Estimated GFR (MDRD) > 60.0 ml/min Glucose 97 (74-106) mg/dL Calcium 9.0 (8.5-10.1) mg/dL Total Bilirubin 0.4 (0.2-1.0) mg/dL AST 31 (15-37) IU/L ALT 33 (14-63) IU/L Alkaline Phosphatase 70 (46-116) U/L Troponin I (0.000-0.056) ng/mL Total Protein 6.6 (6.4-8.2) g/dL Albumin 3.3 L (3.4-5.0) g/dL Globulin 3.3 (2.6-4.0) g/dL Albumin/Globulin Ratio 1.0 (0.9-1.6) Free T4 (0.76-1.46) ng/dL Free T3 (2.18-3.98) pg/mL TSH 3rd Generation 27.73 H (0.36-3.74) uIU/mL Influenza Type A RNA NEGATIVE (NEGATIVE) Influenza Type B RNA NEGATIVE (NEGATIVE) SARS-CoV-2 RNA (BLAINE) NEGATIVE (NEGATIVE) Meds: Medications Generic Name Dose Route Start Last Admin Trade Name Freq PRN Reason Stop Dose Admin Albuterol/Ipratropium 3 ml 07/02/20 18:08 Duoneb 3.0-0.5 Mg/3 Ml NEB Q4HRRT PRN Shortness Of Breath/wheezing Aspirin 81 mg 07/03/20 09:00 Aspirin PO DAILY [facility] Atorvastatin Calcium 20 mg 07/03/20 09:00 Lipitor PO DAILY [facility] Clopidogrel Bisulfate 75 mg 07/03/20 09:00 Plavix PO DAILY [facility] Heparin Sodium (Porcine) 5,000 units 07/02/20 21:00 Heparin Sodium SUBCUT Q12H [facility] Sodium Chloride 1,000 mls @ 100 mls/hr 07/02/20 12:54 07/02/20 13:33 Normal Saline IV 07/02/20 22:53 100 mls/hr STAT ONE Administration Pantoprazole Sodium 40 mg/ 10 mls @ 300 mls/hr 07/02/20 19:00 07/02/20 19:53 Sodium Chloride IV 300 mls/hr Q24H AGUSTO Administration Sodium Chloride 1,000 mls @ 75 mls/hr 07/02/20 19:30 Normal Saline IV 07/03/20 08:49 CONTINUOUS ONE Melatonin 6 mg 07/02/20 18:10 Melatonin PO BEDTIME PRN Insomnia Fluticasone/Salmeterol 1 puff 07/02/20 21:00 Advair Diskus 250-50 INH BID AGUSTO Discontinued Medications Generic Name Dose Route Start Last Admin Trade Name Freq PRN Reason Stop Dose Admin Albuterol/Ipratropium 3 ml 07/02/20 15:42 07/02/20 15:55 Duoneb 3.0-0.5 Mg/3 Ml NEB 07/02/20 15:43 3 ml ONETIME ONE Administration Levothyroxine Sodium 112 mcg 07/03/20 07:30 Levothyroxine PO ACBREAKFAST [facility] Levothyroxine Sodium 112 mcg 07/02/20 18:30 07/02/20 20:04 Levothyroxine PO 07/02/20 18:31 Not Given ONETIME ONE Levothyroxine Sodium 100 mcg 07/02/20 19:04 07/02/20 20:16 Synthroid IVPUSH 07/02/20 19:05 Not Given ONETIME ONE Levothyroxine Sodium 50 mcg 07/02/20 19:30 07/02/20 20:00 Synthroid IVPUSH 07/02/20 19:31 50 mcg ONETIME ONE Administration Omeprazole 20 mg 07/03/20 07:30 Omeprazole PO ACBREAKFAST [facility] Ondansetron HCl 4 mg 07/02/20 12:55 07/02/20 13:33 Zofran IVPUSH 07/02/20 12:56 4 mg ONETIME ONE Administration - Re-Assessments/Exams Free Text/Narrative Re-Assessment/Exam: 07/02/20 14:19 Trial on room air. Lowest oxygen sat 93%. Departure - Departure Time of Disposition: 17:33 Disposition: Refer to Observation Clinical Impression: Hyponatremia - Discharge Information Sepsis Event Note (ED) - Evaluation Sepsis Screening Result: No Definite Risk - Focused Exam Vital Signs: Vital Signs Temp Pulse Resp BP Pulse Ox 07/02/20 15:59 63 131/64 97 07/02/20 15:29 57 L 113/45 L 97 07/02/20 14:28 53 L 147/61 H 99 07/02/20 13:58 54 L 155/65 H 98 07/02/20 13:28 66 152/71 H 93 L 07/02/20 12:31 59 L 152/61 H 98 07/02/20 12:28 36.7 C 56 L 20 152/61 H 98 - My Orders Last 24 Hours: My Active Orders 07/02/20 12:54 Sodium Chloride 0.9% [Normal Saline] 1,000 ml IV STAT 07/02/20 15:42 RT Aerosol Therapy [RC] ASDIRECTED - Assessment/Plan Last 24 Hours: My Active Orders 07/02/20 12:54 Sodium Chloride 0.9% [Normal Saline] 1,000 ml IV STAT 07/02/20 15:42 RT Aerosol Therapy [RC] ASDIRECTED
--- NOTE | 2020-07-02 13:35 | CR ---
INDICATION: Wheezing, weakness, shortness of breath, fever TECHNIQUE: Chest 2 views. COMPARISON: August 31, 2018 FINDINGS: Cardiovascular and mediastinum: Heart size and vasculature are normal in caliber and appearance. Mediastinum is within normal limits. Lungs and pleural spaces: Lungs are clear. No sign of infiltrate or mass. No sign of pleural effusion. No pneumothorax. Bones and soft tissues: No significant findings. IMPRESSION: No sign of acute disease. Dictated by Maryam Landon MD @ Jul 02 2020 1:33PM Signed by Dr. Maryam Landon @ Jul 02 2020 1:33PM
[2020-07-02 14:05] LABS: BLOOD UREA NITROGEN,BUN 18 mg/dL (7.0-18.0); CARBON DIOXIDE,CO2 26.4 mmol/L (21.0-32.0); CHLORIDE,CL 91 mmol/L (98-107); GLUCOSE RANDOM 97 mg/dL (74-106); POTASSIUM,K 4.7 mmol/L (3.5-5.1); SODIUM,NA 123 mmol/L (136-145)
--- NOTE | 2020-07-02 14:30 | PCM.SN.2 ---
- Free Text/Narrative Note: 53 bpm, NSR, normal QRS interval, no STEMI. EKG and rhythm strip interpreted by me at 1353
[2020-07-02 15:01] LABS: CORONAVIRUS COVID-19 NAA NEGATIVE (NEGATIVE); INFLUENZA A NAA NEGATIVE (NEGATIVE); INFLUENZA B NAA NEGATIVE (NEGATIVE)
[2020-07-02] MEDS ORDERED: Albuterol/Ipratropium 3.0-0.5 MG/3 ML Neb Soln NEB ONE (15:42)
--- NOTE | 2020-07-02 17:49 | PCM.HP.2 ---
<Kristi Richards - Last Filed: 07/03/20 07:55> H&P History of Present Illness - General Date of Service: 07/02/20 Admit Problem/Dx: Admission Diagnosis/Problem Admission Diagnosis/Problem Hyponatremia Source of Information: Patient - History of Present Illness Initial Comments - Free Text/Narative: Patient is a 85-year-old female with a significant past medical history of hypot hyroidism, COPD, hypertension, history of an NSTEMI status post PCI in 2018 presenting today secondary to 1 week of increasing nausea, dizziness, cough with increased sputum production and exertional dyspnea. ED course: Covid negative. Influenza negative. EKG : No ST elevation/depression. Normal sinus rhythm. Chest x-ray: No acute infiltrative processes including effusions Started on NS 100 cc/h and given a one-time DuoNeb treatment Bedside: Patient endorses having been significantly noncompliant with her medications specifically her thyroid medication secondary to concerns about insomnia. States for the past month having been "on and off" with her medications and noticed that she in this past week was feeling more "dull' lethargic. Patient was convinced that she was having pneumonia after appreciating some green sputum and worsening of her exertional dyspnea despite being compliant with her inhalers: Patient however denies any recent sick contacts or recent travel. Patient denies any urinary symptoms including dysuria, urgency, frequency. Denies any chest pain and or palpitations. Denies any diarrhea as she had a normal bowel movement yesterday morning; does endorse an increase in appetite tonight. Patient otherwise is requesting food for dinner. - Related Data Allergies/Adverse Reactions: Allergies Allergy/AdvReac Type Severity Reaction Status Date / Time codeine Allergy Dizziness Verified 07/02/20 17:26 erythromycin base Allergy Rash Verified 07/02/20 17:26 Iodinated Contrast Media Allergy Nausea and Verified 07/04/20 18:56 Vomiting morphine Allergy Tachycardia Verified 07/02/20 17:26 Sulfa (Sulfonamide Allergy Rash Verified 07/02/20 17:26 Antibiotics) Home Medications: Home Meds Levothyroxine Sodium [Synthroid] 112 mcg PO ACBREAKFAST 09/05/15 [History] Fluticasone/Salmeterol [Advair Diskus 250-50] 1 puff INH BID #1 inhaler 09/11/15 [Rx] Albuterol/Ipratropium [DuoNeb 3.0-0.5 MG/3 ML] 3 ml NEB Q4HRRT PRN neb 11/22/17 [Rx] Aspirin 81 mg PO DAILY tab.chew 11/22/17 [Rx] Potassium Chloride [Klor-Con 10] 10 meq PO DAILY 08/31/18 [History] atorvaSTATin [Lipitor] 20 mg PO DAILY 08/31/18 [History] Clopidogrel [Plavix] 75 mg PO DAILY 07/02/20 [History] Fluticasone/Vilanterol [Breo Ellipta 200-25 MCG Inhalation Kit] 1 puff INH DAILY 07/02/20 [History] carvediloL [Carvedilol] 3.125 mg PO BEDTIME 07/02/20 [History] carvediloL [Carvedilol] 6.25 mg PO QAM 07/02/20 [History] oxyCODONE HCl [Oxycodone HCl] 10 mg PO BID 07/02/20 [History] Pregabalin 50 mg PO TID 07/03/20 [History] Past Medical History - Past Health History Medical/Surgical History: Denies Medical/Surgical History Cardiovascular History: Reports: Hypertension, [place] Respiratory History: Reports: COPD Gastrointestinal History: Reports: Cholelithiasis Other OB/BYN History: hysterectomy Musculoskeletal History: Reports: Back Pain, Chronic, Osteoarthritis Neurological History: Reports: Other (See Below) Other Neuro History: Hx spinal stenosis. Endocrine/Metabolic History: Reports: Hypothyroidism Oncologic (Cancer) History: Reports: None - Infectious Disease History Infectious Disease History: Reports: Chicken Pox, Measles, Mumps, Pertussis (W hooping Cough) - Past Surgical History Cardiovascular Surgical History: Reports: Other (See Below) Other Cardiovascular Surgeries/Procedures: Heart surgery in November,. GI Surgical History: Reports: Cholecystectomy Female Surgical History: Reports: Hysterectomy Social & Family History - Family History Family Medical History: No Pertinent Family History - Tobacco Use Tobacco Use Status *Q: Former Tobacco User Used Tobacco, but Quit: Yes Month/Year Tobacco Last Used: 9999 - Caffeine Use Caffeine Use: Reports: None - Recreational Drug Use Recreational Drug Use: No H&P Review of Systems - Review of Systems: Review Of Systems: See Below General: Reports: Weakness, Fatigue HEENT: Reports: No Symptoms Pulmonary: Reports: Shortness of Breath, Wheezing, Cough, Sputum Cardiovascular: Reports: Dyspnea on Exertion. Denies: Chest Pain, Palpitations, Edema Gastrointestinal: Reports: No Symptoms. Denies: Decreased Appetite Genitourinary: Reports: No Symptoms. Denies: Dysuria, Frequency, Burning, Pain, Urgency, Incontinence Musculoskeletal: Reports: No Symptoms Skin: Reports: No Symptoms Psychiatric: Denies: Confusion, Anxiety Neurological: Denies: Confusion, Headache Exam - Exam Exam: See Below - Vital Signs Vital Signs: Last Vital Signs Temp 97.6 F 07/02/20 17:33 Pulse 57 L 07/02/20 17:33 Resp 18 07/02/20 17:33 BP 127/83 07/02/20 17:33 Pulse Ox 96 07/02/20 17:33 Weight: 68.039 kg - Exam Quality Assessment: Supplemental Oxygen General: Alert, Oriented HEENT: EOMI, Mucosa Moist & [place], Other (mild exopthmalmos ) Neck: Supple, Trachea Midline Lungs: Other (minimal end-expiratory wheeze; diminshed BS b.l due to poor effo rt. ) Cardiovascular: Regular Rate, Regular Rhythm GI/Abdominal Exam: Soft, Non-Tender, No Distention Extremities: No Pedal Edema Neurological: Normal Speech Neuro Extensive - Mental Status: Alert, Oriented x3 Psychiatric: Alert (Cognition intact; pt subjectively describes feeling "dull" ) - Patient Data Lab Results Last 24 hrs: Laboratory Results - last 24 hr 07/02/20 07/02/20 07/02/20 Range/Units 12:15 13:30 13:30 WBC 7.28 (4.0-11.0) K/uL RBC 4.34 (4.30-5.90) M/uL Hgb 13.5 (12.0-16.0) g/dL Hct 40.1 (36.0-46.0) % MCV 92.4 (80.0-98.0) fL MCH 31.1 (27.0-32.0) pg MCHC 33.7 (31.0-37.0) g/dL RDW Std Deviation 48.5 (28.0-62.0) fl RDW Coeff of Lavelle 14 (11.0-15.0) % Plt Count 234 (150-400) K/uL MPV 8.20 (7.40-12.00) fL Neut % (Auto) 74.1 (48.0-80.0) % Lymph % (Auto) 11.5 L (16.0-40.0) % Vance % (Auto) 12.5 (0.0-15.0) % Eos % (Auto) 1.1 (0.0-7.0) % Baso % (Auto) 0.8 (0.0-1.5) % Neut # (Auto) 5.4 (1.4-5.7) K/uL Lymph # (Auto) 0.8 (0.6-2.4) K/uL Vance # (Auto) 0.9 H (0.0-0.8) K/uL Eos # (Auto) 0.1 (0.0-0.7) K/uL Baso # (Auto) 0.1 (0.0-0.1) K/uL Nucleated RBC % 0.0 /100WBC Nucleated RBCs # 0 K/uL Sodium 123 L (136-145) mmol/L Potassium 4.7 (3.5-5.1) mmol/L Chloride 91 L (98-107) mmol/L Carbon Dioxide 26.4 (21.0-32.0) mmol/L BUN 18 (7.0-18.0) mg/dL Creatinine 0.8 (0.6-1.0) mg/dL Est Cr Clr Drug Dosing 44.08 mL/min Estimated GFR (MDRD) > 60.0 ml/min Glucose 97 (74-106) mg/dL Calcium 9.0 (8.5-10.1) mg/dL Total Bilirubin 0.4 (0.2-1.0) mg/dL AST 31 (15-37) IU/L ALT 33 (14-63) IU/L Alkaline Phosphatase 70 (46-116) U/L Troponin I < 0.050 (0.000-0.056) ng/mL Total Protein 6.6 (6.4-8.2) g/dL Albumin 3.3 L (3.4-5.0) g/dL Globulin 3.3 (2.6-4.0) g/dL Albumin/Globulin Ratio 1.0 (0.9-1.6) TSH 3rd Generation (0.36-3.74) uIU/mL Influenza Type A RNA (NEGATIVE) Influenza Type B RNA (NEGATIVE) SARS-CoV-2 RNA (BLAINE) (NEGATIVE) 07/02/20 07/02/20 Range/Units 13:30 14:16 WBC (4.0-11.0) K/uL RBC (4.30-5.90) M/uL Hgb (12.0-16.0) g/dL Hct (36.0-46.0) % MCV (80.0-98.0) fL MCH (27.0-32.0) pg MCHC (31.0-37.0) g/dL RDW Std Deviation (28.0-62.0) fl RDW Coeff of Lavelle (11.0-15.0) % Plt Count (150-400) K/uL MPV (7.40-12.00) fL Neut % (Auto) (48.0-80.0) % Lymph % (Auto) (16.0-40.0) % Vance % (Auto) (0.0-15.0) % Eos % (Auto) (0.0-7.0) % Baso % (Auto) (0.0-1.5) % Neut # (Auto) (1.4-5.7) K/uL Lymph # (Auto) (0.6-2.4) K/uL Vance # (Auto) (0.0-0.8) K/uL Eos # (Auto) (0.0-0.7) K/uL Baso # (Auto) (0.0-0.1) K/uL Nucleated RBC % /100WBC Nucleated RBCs # K/uL Sodium (136-145) mmol/L Potassium (3.5-5.1) mmol/L Chloride (98-107) mmol/L Carbon Dioxide (21.0-32.0) mmol/L BUN (7.0-18.0) mg/dL Creatinine (0.6-1.0) mg/dL Est Cr Clr Drug Dosing mL/min Estimated GFR (MDRD) ml/min Glucose (74-106) mg/dL Calcium (8.5-10.1) mg/dL Total Bilirubin (0.2-1.0) mg/dL AST (15-37) IU/L ALT (14-63) IU/L Alkaline Phosphatase (46-116) U/L Troponin I (0.000-0.056) ng/mL Total Protein (6.4-8.2) g/dL Albumin (3.4-5.0) g/dL Globulin (2.6-4.0) g/dL Albumin/Globulin Ratio (0.9-1.6) TSH 3rd Generation 27.73 H (0.36-3.74) uIU/mL Influenza Type A RNA NEGATIVE (NEGATIVE) Influenza Type B RNA NEGATIVE (NEGATIVE) SARS-CoV-2 RNA (BLAINE) NEGATIVE (NEGATIVE) Result Diagrams: 07/02/20 13:30 07/02/20 13:30 Sepsis Event Note - Evaluation Sepsis Screening Result: No Definite Risk - Focused Exam Vital Signs: Vital Signs Temp Pulse Resp BP Pulse Ox 07/02/20 17:33 97.6 F 57 L 18 127/83 96 07/02/20 16:59 67 150/78 H 95 07/02/20 16:28 57 L 135/68 98 07/02/20 15:59 63 131/64 97 07/02/20 15:29 57 L 113/45 L 97 07/02/20 14:28 53 L 147/61 H 99 07/02/20 13:58 54 L 155/65 H 98 07/02/20 12:31 59 L 152/61 H 98 07/02/20 12:28 98.0 F 56 L 20 152/61 H 98 Problem List Initiated/Reviewed/Updated: Yes Orders Last 24hrs: Active Orders 24 hr Category Date Time Status Patient Status [ADT] Stat ADT 07/02/20 16:27 Active Oxygen Therapy [RC] PRN Care 07/02/20 17:18 Active RT Aerosol Therapy [RC] ASDIRECTED Care 07/02/20 15:42 Active Telemetry Monitoring [Cardiac Monitoring] [RC] Q8H Care 07/02/20 16:29 Active VTE/DVT Education [RC] PER UNIT ROUTINE Care 07/02/20 17:18 Active Vital Signs [RC] Q4H Care 07/02/20 17:18 Active Heart Healthy Diet [DIET] Diet 07/03/20 Breakfast Ordered BMP [BASIC METABOLIC PANEL,BMP] [CHEM] AM Lab 07/03/20 05:11 Ordered BMP [BASIC METABOLIC PANEL,BMP] [CHEM] AM Lab 07/04/20 05:11 Ordered BMP [BASIC METABOLIC PANEL,BMP] [CHEM] AM Lab 07/05/20 05:11 Ordered CBC WITH AUTO DIFF [HEME] AM Lab 07/03/20 05:11 Ordered CBC WITH AUTO DIFF [HEME] AM Lab 07/04/20 05:11 Ordered CBC WITH AUTO DIFF [HEME] AM Lab 07/05/20 05:11 Ordered OSMOLALITY - SERUM [REF] Routine Lab 07/02/20 17:19 Ordered SODIUM,URINE RANDOM [URCHEM] Routine Lab 07/02/20 17:19 Ordered T3 FREE [CHEM] Routine Lab 07/02/20 17:21 Ordered T4 FREE [CHEM] Routine Lab 07/02/20 17:21 Ordered UA RFX EM AND CULT IF INDIC [URIN] Stat Lab 07/02/20 17:19 Ordered UA W/EM RFLX IF INDICATED [URIN] Stat Lab 07/02/20 12:50 Ordered Sodium Chloride 0.9% [Normal Saline] 1,000 ml Med 07/02/20 12:54 Active IV STAT Resuscitation Status Routine Resus Stat 07/02/20 17:18 Ordered Medication Orders Sodium Chloride (Normal Saline) 1,000 mls @ 100 mls/hr IV STAT ONE Stop: 07/02/20 22:53 Last Admin: 07/02/20 13:33 Dose: 100 mls/hr Documented by: SHANNAN Assessment/Plan Comment:: Assessment: 1. Moderate/chronic hyponatremia 2. Hypothyroidism 3. COPD 4. Medication noncompliance 5. Past medical history; NSTEMI status post PCI, previous tobacco abuser, hypertension Plan Admit the patient to observation. DNR/DNI. I's and O's per routine. Vitals p er routine. Activity: Up ad ashok. COVID negative DVT: Heparin 5000 q 12 GI: omperazole 20 daily 1. Moderate/chronic hyponatremia: Unknown duration of sodium derangement; currently mildly symptomatic with fatigue; Numerous etiologies include uncontrolled hypothyroidism in light of her medication noncompliance, SIADH in light of chronic pain, history of heart failure with noncompliance with sodium intake etc. Last ECHO in 2018 : EF 55% ; Grade I diastolic HF Urine studies ordered, continue normal saline at 100 cc/h with recheck of sodium tonight. Onetime 50 MCG levothyroxine IV for tonight due to elevated TSH ; low T3 T4 ; recheck TSH in AM ; can consider restarting PO Synthroid once mild clinical response achieved. patient states that she has been noncompliant for the past month and has taking it occasionally; tries not to secondary to concerns about insomnia. (Home PO dosing of 112 mcg; parenteral dosing at 50) We will place patient on telemetry; EKG in ED does not suggest any ST elevation/depression. Initial troponin negative; recheck troponin in 4 hours due to hx of NSTEMI 2. COPD: CXR negative; restart home controller and Duo nebs. <José Miguel Junior - Last Filed: 07/04/20 23:54> H&P History of Present Illness - General Admit Problem/Dx: Admission Diagnosis/Problem Admission Diagnosis/Problem Hyponatremia - History of Present Illness Initial Comments - Free Text/Narative: I performed a history and physical exam of the patient and discussed management with resident. I have reviewed the residents note and agree with documented findings and plan unless otherwise specified in my note. Exam - Vital Signs Vital Signs: Last Vital Signs Temp 36.6 C 07/04/20 23:07 Pulse 62 07/04/20 23:07 Resp 19 07/04/20 23:07 BP 144/93 H 07/04/20 23:07 Pulse Ox 97 07/04/20 23:07 - Patient Data Lab Results Last 24 hrs: Laboratory Results - last 24 hr 07/02/20 07/04/20 07/04/20 Range/Units 12:15 05:20 05:20 WBC 7.19 (4.0-11.0) K/uL RBC 3.88 L (4.30-5.90) M/uL Hgb 11.9 L (12.0-16.0) g/dL Hct 35.9 L (36.0-46.0) % MCV 92.5 (80.0-98.0) fL MCH 30.7 (27.0-32.0) pg MCHC 33.1 (31.0-37.0) g/dL RDW Std Deviation 48.1 (28.0-62.0) fl RDW Coeff of Lavelle 14 (11.0-15.0) % Plt Count 213 (150-400) K/uL MPV 8.20 (7.40-12.00) fL Neut % (Auto) 72.4 (48.0-80.0) % Lymph % (Auto) 13.4 L (16.0-40.0) % Vance % (Auto) 11.1 (0.0-15.0) % Eos % (Auto) 1.7 (0.0-7.0) % Baso % (Auto) 1.4 (0.0-1.5) % Neut # (Auto) 5.2 (1.4-5.7) K/uL Lymph # (Auto) 1.0 (0.6-2.4) K/uL Vance # (Auto) 0.8 (0.0-0.8) K/uL Eos # (Auto) 0.1 (0.0-0.7) K/uL Baso # (Auto) 0.1 (0.0-0.1) K/uL Nucleated RBC % 0.0 /100WBC Nucleated RBCs # 0 K/uL Sodium 125 L (136-145) mmol/L Potassium 4.5 (3.5-5.1) mmol/L Chloride 91 L (98-107) mmol/L Carbon Dioxide 29.4 (21.0-32.0) mmol/L BUN 11 (7.0-18.0) mg/dL Creatinine 0.7 (0.6-1.0) mg/dL Est Cr Clr Drug Dosing 50.37 mL/min Estimated GFR (MDRD) > 60.0 ml/min Glucose 101 (74-106) mg/dL Serum Osmolality 251 L (275-295) mosm/kg Calcium 8.5 (8.5-10.1) mg/dL Magnesium 1.8 (1.8-2.4) mg/dL 07/04/20 Range/Units 17:10 WBC (4.0-11.0) K/uL RBC (4.30-5.90) M/uL Hgb (12.0-16.0) g/dL Hct (36.0-46.0) % MCV (80.0-98.0) fL MCH (27.0-32.0) pg MCHC (31.0-37.0) g/dL RDW Std Deviation (28.0-62.0) fl RDW Coeff of Lavelle (11.0-15.0) % Plt Count (150-400) K/uL MPV (7.40-12.00) fL Neut % (Auto) (48.0-80.0) % Lymph % (Auto) (16.0-40.0) % Vance % (Auto) (0.0-15.0) % Eos % (Auto) (0.0-7.0) % Baso % (Auto) (0.0-1.5) % Neut # (Auto) (1.4-5.7) K/uL Lymph # (Auto) (0.6-2.4) K/uL Vance # (Auto) (0.0-0.8) K/uL Eos # (Auto) (0.0-0.7) K/uL Baso # (Auto) (0.0-0.1) K/uL Nucleated RBC % /100WBC Nucleated RBCs # K/uL Sodium 124 L (136-145) mmol/L Potassium (3.5-5.1) mmol/L Chloride (98-107) mmol/L Carbon Dioxide (21.0-32.0) mmol/L BUN (7.0-18.0) mg/dL Creatinine (0.6-1.0) mg/dL Est Cr Clr Drug Dosing mL/min Estimated GFR (MDRD) ml/min Glucose (74-106) mg/dL Serum Osmolality (275-295) mosm/kg Calcium (8.5-10.1) mg/dL Magnesium (1.8-2.4) mg/dL Result Diagrams: 07/04/20 05:20 07/04/20 17:10 Em Results Last 24 hrs: Microbiology 07/02/20 20:10 Urine Culture - Final Urine, Clean Catch MIXED SHAHZAD >100,000 CFU/ML Sepsis Event Note - Focused Exam Vital Signs: Vital Signs Temp Pulse Resp BP Pulse Ox 07/04/20 23:07 36.6 C 62 19 144/93 H 97 07/04/20 19:55 36.3 C 81 17 94/61 93 L 07/04/20 15:41 36.8 C 61 18 139/45 L 99 Orders Last 24hrs: Active Orders 24 hr Category Date Time Status Patient Status [ADT] Stat ADT 07/04/20 10:32 Active Daily Weight [Height and Weight] [RC] DAILY Care 07/05/20 05:00 Active Regular Diet [DIET] Diet 07/05/20 Breakfast Active BMP [BASIC METABOLIC PANEL,BMP] [CHEM] AM Lab 07/05/20 05:11 Ordered CBC WITH AUTO DIFF [HEME] AM Lab 07/05/20 05:11 Ordered MAGNESIUM [CHEM] AM Lab 07/05/20 05:11 Ordered MAGNESIUM [CHEM] AM Lab 07/06/20 05:11 Ordered Levothyroxine [Synthroid] 50 mcg Med 07/04/20 13:00 Active Sodium Chloride 0.9% [Normal Saline] 2.5 ml IV DAILY Patient's Own Medication [Ptom] Med 07/04/20 09:00 Active 1 each INH DAILY Medication Orders Acetaminophen (Tylenol Extra Strength) 500 mg PO Q4H PRN PRN Reason: Pain Last Admin: 07/04/20 14:55 Dose: 500 mg Documented by: Admin: 07/04/20 11:22 Dose: 500 mg Documented by: SHALOM Sequeiraigned by: STACY Albuterol/Ipratropium (Duoneb 3.0-0.5 Mg/3 Ml) 3 ml NEB Q4HRRT PRN PRN Reason: Shortness Of Breath/wheezing Last Admin: 07/03/20 20:48 Dose: 3 ml Documented by: LAMONT Aspirin (Aspirin) 81 mg PO DAILY [facility] Last Admin: 07/04/20 08:15 Dose: 81 mg Documented by: SHALOM Cosigned by: STACY Admin: 07/03/20 08:43 Dose: 81 mg Documented by: CLAUDE Atorvastatin Calcium (Lipitor) 20 mg PO DAILY [facility] Last Admin: 07/04/20 08:15 Dose: 20 mg Documented by: SHALOM Sequeiraigned by: STACY Admin: 07/03/20 08:43 Dose: 20 mg Documented by: CLAUDE Benzonatate (Tessalon Perles) 100 mg PO TID PRN PRN Reason: Cough Last Admin: 07/04/20 23:11 Dose: 100 mg Documented by: Admin: 07/04/20 15:11 Dose: 100 mg Documented by: Admin: 07/04/20 07:33 Dose: 100 mg Documented by: LAMONT Clopidogrel Bisulfate (Plavix) 75 mg PO DAILY [facility] Last Admin: 07/04/20 08:15 Dose: 75 mg Documented by: SHALOM Cosigned by: STACY Admin: 07/03/20 08:43 Dose: 75 mg Documented by: CLAUDE Guaifenesin/Dextromethorphan (Robitussin Dm) 10 ml PO Q4H PRN PRN Reason: Cough Last Admin: 07/04/20 18:52 Dose: 10 ml Documented by: Admin: 07/04/20 04:00 Dose: 10 ml Documented by: Admin: 07/03/20 20:41 Dose: 10 ml Documented by: Admin: 07/03/20 14:08 Dose: 10 ml Documented by: CLAUDE Heparin Sodium (Porcine) (Heparin Sodium) 5,000 units SUBCUT Q12H [facility] Last Admin: 07/04/20 20:33 Dose: 5,000 units Documented by: Admin: 07/04/20 08:27 Dose: 5,000 units Documented by: SHALOM Cosigned by: STACY Admin: 07/03/20 20:49 Dose: 5,000 units Documented by: Admin: 07/03/20 08:44 Dose: 5,000 units Documented by: Admin: 07/02/20 21:30 Dose: 5,000 units Documented by: ELIDA Pantoprazole Sodium 40 mg/ (Sodium Chloride) 10 mls @ 300 mls/hr IV Q24H [facility] Last Admin: 07/04/20 18:20 Dose: 300 mls/hr Documented by: Infusion: 07/03/20 18:53 Dose: 300 mls/hr Documented by: Admin: 07/03/20 18:51 Dose: 300 mls/hr Documented by: Infusion: 07/02/20 19:55 Dose: 300 mls/hr Documented by: Admin: 07/02/20 19:53 Dose: 300 mls/hr Documented by: CLAUDE Ceftriaxone Sodium/Dextrose 1 (gm/ Premix) 50 mls @ 100 mls/hr IV Q24H [facility] Last Admin: 07/04/20 23:05 Dose: 100 mls/hr Documented by: Infusion: 07/03/20 23:45 Dose: 100 mls/hr Documented by: Admin: 07/03/20 23:15 Dose: 100 mls/hr Documented by: Infusion: 07/02/20 23:21 Dose: 100 mls/hr Documented by: Admin: 07/02/20 22:51 Dose: 100 mls/hr Documented by: ELIDA Levothyroxine Sodium 50 mcg/ (Sodium Chloride) 2.5 mls @ 300 mls/hr IV DAILY [facility] Last Admin: 07/04/20 12:56 Dose: 300 mls/hr Documented by: RYAN Melatonin (Melatonin) 6 mg PO BEDTIME PRN PRN Reason: Insomnia Last Admin: 07/02/20 22:49 Dose: 6 mg Documented by: ELIDA Ondansetron HCl (Zofran) 4 mg IVPUSH Q6H PRN PRN Reason: Nausea/Vomiting Last Admin: 07/03/20 09:37 Dose: 4 mg Documented by: CLAUDE Fluticasone/Vilanterol [Breo Ellipta 200-25 Mcg Inhalation Kit] 1 each INH DAILY [facility] Last Admin: 07/04/20 08:59 Dose: Not Given Documented by: MATTIE
[2020-07-02] MEDS ORDERED: Albuterol/Ipratropium 3.0-0.5 MG/3 ML Neb Soln NEB PRN (18:08)
[2020-07-02] MEDS ORDERED: Levothyroxine 112 MCG Tab PO ONE (18:30)
[2020-07-02] MEDS ORDERED: Levothyroxine 100 MCG Vial IVPUSH ONE ×2 (19:04→19:30)
[2020-07-02] MEDS: Pantoprazole 40 MG in Sodium Chloride 0.9% 10 ML IV SCH (19:53)
[2020-07-02] MEDS: Heparin Sodium 5,000 Units/ML Vial SUBCUT SCH (21:30)
[2020-07-02] MEDS: Fluticasone/Salmeterol 250-50 MCG Inhalation Powder 14/Diskus INH SCH (21:32)
[2020-07-02 21:42] LABS: SODIUM,NA 125 mmol/L (136-145)
[2020-07-02] MEDS ORDERED: Clopidogrel 75 MG Tab PO ONE (22:36)
[2020-07-02] MEDS ORDERED: Aspirin 81 MG Tab.Chew PO ONE (22:36)
[2020-07-02] MEDS: Melatonin 3 MG Tab PO PRN (22:49)
[2020-07-02] MEDS: cefTRIAXone 1 GM in Premix Bag 1 BAG IV SCH (22:51)
[2020-07-02] MEDS: Sodium Chloride 0.9% 1,000 ML IV SCH (23:28)
[2020-07-03] MEDS ORDERED: Omeprazole 20 MG Cap.CR PO SCH (07:30)
[2020-07-03] MEDS ORDERED: Levothyroxine 112 MCG Tab PO SCH (07:30)
[2020-07-03 07:38] LABS: BLOOD UREA NITROGEN,BUN 14 mg/dL (7.0-18.0); CHLORIDE,CL 94 mmol/L (98-107); GLUCOSE RANDOM 86 mg/dL (74-106); POTASSIUM,K 4.5 mmol/L (3.5-5.1); SODIUM,NA 126 mmol/L (136-145)
--- NOTE | 2020-07-03 07:55 | PCM.PN ---
<Kristi Richards - Last Filed: 07/03/20 10:32> - General Info Date of Service: 07/03/20 Subjective Update: Mentions no acute issues; rested well overnight. mild nausea w. magnesium repletion. Requesting to go home. - Review of Systems General: Denies: Fever, Chills HEENT: Reports: No Symptoms Pulmonary: Reports: Cough. Denies: Shortness of Breath Cardiovascular: Reports: Dyspnea on Exertion Gastrointestinal: Reports: Nausea Genitourinary: Reports: No Symptoms Musculoskeletal: Reports: No Symptoms Skin: Reports: No Symptoms Neurological: Denies: Confusion, Dizziness, Headache - Patient Data Vitals - Most Recent: Last Vital Signs Temp 97.9 F 07/03/20 05:00 Pulse 60 07/03/20 05:00 Resp 17 07/03/20 05:00 BP 120/75 07/03/20 05:00 Pulse Ox 96 07/03/20 05:00 Weight - Most Recent: 73.845 kg I&O - Last 24 Hours: Intake & Output 07/02/20 07/03/20 07/03/20 22:59 06:59 14:59 Intake Total 1675 Output Total 650 Balance 1025 Lab Results Last 24 Hours: Laboratory Results - last 24 hr 07/02/20 07/02/20 07/02/20 Range/Units 12:15 12:15 13:30 WBC 7.28 (4.0-11.0) K/uL RBC 4.34 (4.30-5.90) M/uL Hgb 13.5 (12.0-16.0) g/dL Hct 40.1 (36.0-46.0) % MCV 92.4 (80.0-98.0) fL MCH 31.1 (27.0-32.0) pg MCHC 33.7 (31.0-37.0) g/dL RDW Std Deviation 48.5 (28.0-62.0) fl RDW Coeff of Lavelle 14 (11.0-15.0) % Plt Count 234 (150-400) K/uL MPV 8.20 (7.40-12.00) fL Neut % (Auto) 74.1 (48.0-80.0) % Lymph % (Auto) 11.5 L (16.0-40.0) % [place] % (Auto) 12.5 (0.0-15.0) % Eos % (Auto) 1.1 (0.0-7.0) % Baso % (Auto) 0.8 (0.0-1.5) % Neut # (Auto) 5.4 (1.4-5.7) K/uL Lymph # (Auto) 0.8 (0.6-2.4) K/uL [place] # (Auto) 0.9 H (0.0-0.8) K/uL Eos # (Auto) 0.1 (0.0-0.7) K/uL Baso # (Auto) 0.1 (0.0-0.1) K/uL Nucleated RBC % 0.0 /100WBC Nucleated RBCs # 0 K/uL Sodium (136-145) mmol/L Potassium (3.5-5.1) mmol/L Chloride (98-107) mmol/L Carbon Dioxide (21.0-32.0) mmol/L BUN (7.0-18.0) mg/dL Creatinine (0.6-1.0) mg/dL Est Cr Clr Drug Dosing mL/min Estimated GFR (MDRD) ml/min Glucose (74-106) mg/dL Calcium (8.5-10.1) mg/dL Magnesium (1.8-2.4) mg/dL Total Bilirubin (0.2-1.0) mg/dL AST (15-37) IU/L ALT (14-63) IU/L Alkaline Phosphatase (46-116) U/L Troponin I < 0.050 (0.000-0.056) ng/mL Total Protein (6.4-8.2) g/dL Albumin (3.4-5.0) g/dL Globulin (2.6-4.0) g/dL Albumin/Globulin Ratio (0.9-1.6) Free T4 0.62 L (0.76-1.46) ng/dL Free T3 0.72 L (2.18-3.98) pg/mL TSH 3rd Generation (0.36-3.74) uIU/mL Urine Color Urine Appearance Urine pH (5.0-8.0) Ur Specific [place] (1.001-1.035) Urine Protein (NEGATIVE) mg/dL Urine Glucose (UA) (NEGATIVE) mg/dL Urine Ketones (NEGATIVE) mg/dL Urine Occult Blood (NEGATIVE) Urine Nitrite (NEGATIVE) Urine Bilirubin (NEGATIVE) Urine Urobilinogen (<2.0) EU/dL Ur Leukocyte Esterase (NEGATIVE) Urine RBC (0-2/HPF) Urine WBC (0-5/HPF) Ur Epithelial Cells (NONE-FEW) Urine Bacteria (NEGATIVE) Ur Random Sodium (40.0-220.0) mmol/L Influenza Type A RNA (NEGATIVE) Influenza Type B RNA (NEGATIVE) SARS-CoV-2 RNA (BLAINE) (NEGATIVE) 07/02/20 07/02/20 07/02/20 Range/Units 13:30 13:30 14:16 WBC (4.0-11.0) K/uL RBC (4.30-5.90) M/uL Hgb (12.0-16.0) g/dL Hct (36.0-46.0) % MCV (80.0-98.0) fL MCH (27.0-32.0) pg MCHC (31.0-37.0) g/dL RDW Std Deviation (28.0-62.0) fl RDW Coeff of Lavelle (11.0-15.0) % Plt Count (150-400) K/uL MPV (7.40-12.00) fL Neut % (Auto) (48.0-80.0) % Lymph % (Auto) (16.0-40.0) % [place] % (Auto) (0.0-15.0) % Eos % (Auto) (0.0-7.0) % Baso % (Auto) (0.0-1.5) % Neut # (Auto) (1.4-5.7) K/uL Lymph # (Auto) (0.6-2.4) K/uL [place] # (Auto) (0.0-0.8) K/uL Eos # (Auto) (0.0-0.7) K/uL Baso # (Auto) (0.0-0.1) K/uL Nucleated RBC % /100WBC Nucleated RBCs # K/uL Sodium 123 L (136-145) mmol/L Potassium 4.7 (3.5-5.1) mmol/L Chloride 91 L (98-107) mmol/L Carbon Dioxide 26.4 (21.0-32.0) mmol/L BUN 18 (7.0-18.0) mg/dL Creatinine 0.8 (0.6-1.0) mg/dL Est Cr Clr Drug Dosing 44.08 mL/min Estimated GFR (MDRD) > 60.0 ml/min Glucose 97 (74-106) mg/dL Calcium 9.0 (8.5-10.1) mg/dL Magnesium (1.8-2.4) mg/dL Total Bilirubin 0.4 (0.2-1.0) mg/dL AST 31 (15-37) IU/L ALT 33 (14-63) IU/L Alkaline Phosphatase 70 (46-116) U/L Troponin I (0.000-0.056) ng/mL Total Protein 6.6 (6.4-8.2) g/dL Albumin 3.3 L (3.4-5.0) g/dL Globulin 3.3 (2.6-4.0) g/dL Albumin/Globulin Ratio 1.0 (0.9-1.6) Free T4 (0.76-1.46) ng/dL Free T3 (2.18-3.98) pg/mL TSH 3rd Generation 27.73 H (0.36-3.74) uIU/mL Urine Color Urine Appearance Urine pH (5.0-8.0) Ur Specific [place] (1.001-1.035) Urine Protein (NEGATIVE) mg/dL Urine Glucose (UA) (NEGATIVE) mg/dL Urine Ketones (NEGATIVE) mg/dL Urine Occult Blood (NEGATIVE) Urine Nitrite (NEGATIVE) Urine Bilirubin (NEGATIVE) Urine Urobilinogen (<2.0) EU/dL Ur Leukocyte Esterase (NEGATIVE) Urine RBC (0-2/HPF) Urine WBC (0-5/HPF) Ur Epithelial Cells (NONE-FEW) Urine Bacteria (NEGATIVE) Ur Random Sodium (40.0-220.0) mmol/L Influenza Type A RNA NEGATIVE (NEGATIVE) Influenza Type B RNA NEGATIVE (NEGATIVE) SARS-CoV-2 RNA (BLAINE) NEGATIVE (NEGATIVE) 07/02/20 07/02/20 07/02/20 Range/Units 20:10 20:10 21:04 WBC (4.0-11.0) K/uL RBC (4.30-5.90) M/uL Hgb (12.0-16.0) g/dL Hct (36.0-46.0) % MCV (80.0-98.0) fL MCH (27.0-32.0) pg MCHC (31.0-37.0) g/dL RDW Std Deviation (28.0-62.0) fl RDW Coeff of Lavelle (11.0-15.0) % Plt Count (150-400) K/uL MPV (7.40-12.00) fL Neut % (Auto) (48.0-80.0) % Lymph % (Auto) (16.0-40.0) % [place] % (Auto) (0.0-15.0) % Eos % (Auto) (0.0-7.0) % Baso % (Auto) (0.0-1.5) % Neut # (Auto) (1.4-5.7) K/uL Lymph # (Auto) (0.6-2.4) K/uL [place] # (Auto) (0.0-0.8) K/uL Eos # (Auto) (0.0-0.7) K/uL Baso # (Auto) (0.0-0.1) K/uL Nucleated RBC % /100WBC Nucleated RBCs # K/uL Sodium 125 L (136-145) mmol/L Potassium (3.5-5.1) mmol/L Chloride (98-107) mmol/L Carbon Dioxide (21.0-32.0) mmol/L BUN (7.0-18.0) mg/dL Creatinine (0.6-1.0) mg/dL Est Cr Clr Drug Dosing mL/min Estimated GFR (MDRD) ml/min Glucose (74-106) mg/dL Calcium (8.5-10.1) mg/dL Magnesium (1.8-2.4) mg/dL Total Bilirubin (0.2-1.0) mg/dL AST (15-37) IU/L ALT (14-63) IU/L Alkaline Phosphatase (46-116) U/L Troponin I < 0.050 (0.000-0.056) ng/mL Total Protein (6.4-8.2) g/dL Albumin (3.4-5.0) g/dL Globulin (2.6-4.0) g/dL Albumin/Globulin Ratio (0.9-1.6) Free T4 (0.76-1.46) ng/dL Free T3 (2.18-3.98) pg/mL TSH 3rd Generation (0.36-3.74) uIU/mL Urine Color YELLOW Urine Appearance CLEAR Urine pH 5.5 (5.0-8.0) Ur Specific [place] 1.025 (1.001-1.035) Urine Protein NEGATIVE (NEGATIVE) mg/dL Urine Glucose (UA) NEGATIVE (NEGATIVE) mg/dL Urine Ketones 15 H (NEGATIVE) mg/dL Urine Occult Blood NEGATIVE (NEGATIVE) Urine Nitrite NEGATIVE (NEGATIVE) Urine Bilirubin NEGATIVE (NEGATIVE) Urine Urobilinogen 0.2 (<2.0) EU/dL Ur Leukocyte Esterase TRACE H (NEGATIVE) Urine RBC 0-1 (0-2/HPF) Urine WBC 1-2 (0-5/HPF) Ur Epithelial Cells RARE (NONE-FEW) Urine Bacteria RARE (NEGATIVE) Ur Random Sodium 158.0 (40.0-220.0) mmol/L Influenza Type A RNA (NEGATIVE) Influenza Type B RNA (NEGATIVE) SARS-CoV-2 RNA (BLAINE) (NEGATIVE) 07/03/20 07/03/20 07/03/20 Range/Units 06:13 06:13 06:13 WBC 5.53 (4.0-11.0) K/uL RBC 3.98 L (4.30-5.90) M/uL Hgb 12.3 (12.0-16.0) g/dL Hct 37.0 (36.0-46.0) % MCV 93.0 (80.0-98.0) fL MCH 30.9 (27.0-32.0) pg MCHC 33.2 (31.0-37.0) g/dL RDW Std Deviation 48.9 (28.0-62.0) fl RDW Coeff of Lavelle 14 (11.0-15.0) % Plt Count 234 (150-400) K/uL MPV 8.40 (7.40-12.00) fL Neut % (Auto) 69.4 (48.0-80.0) % Lymph % (Auto) 17.4 (16.0-40.0) % [place] % (Auto) 11.0 (0.0-15.0) % Eos % (Auto) 1.3 (0.0-7.0) % Baso % (Auto) 0.9 (0.0-1.5) % Neut # (Auto) 3.8 (1.4-5.7) K/uL Lymph # (Auto) 1.0 (0.6-2.4) K/uL [place] # (Auto) 0.6 (0.0-0.8) K/uL Eos # (Auto) 0.1 (0.0-0.7) K/uL Baso # (Auto) 0.1 (0.0-0.1) K/uL Nucleated RBC % 0.0 /100WBC Nucleated RBCs # 0 K/uL Sodium 126 L (136-145) mmol/L Potassium 4.5 (3.5-5.1) mmol/L Chloride 94 L (98-107) mmol/L Carbon Dioxide 27.0 (21.0-32.0) mmol/L BUN 14 (7.0-18.0) mg/dL Creatinine 0.8 (0.6-1.0) mg/dL Est Cr Clr Drug Dosing 44.08 mL/min Estimated GFR (MDRD) > 60.0 ml/min Glucose 86 (74-106) mg/dL Calcium 8.3 L (8.5-10.1) mg/dL Magnesium 1.6 L (1.8-2.4) mg/dL Total Bilirubin (0.2-1.0) mg/dL AST (15-37) IU/L ALT (14-63) IU/L Alkaline Phosphatase (46-116) U/L Troponin I (0.000-0.056) ng/mL Total Protein (6.4-8.2) g/dL Albumin (3.4-5.0) g/dL Globulin (2.6-4.0) g/dL Albumin/Globulin Ratio (0.9-1.6) Free T4 (0.76-1.46) ng/dL Free T3 (2.18-3.98) pg/mL TSH 3rd Generation 27.59 H (0.36-3.74) uIU/mL Urine Color Urine Appearance Urine pH (5.0-8.0) Ur Specific [place] (1.001-1.035) Urine Protein (NEGATIVE) mg/dL Urine Glucose (UA) (NEGATIVE) mg/dL Urine Ketones (NEGATIVE) mg/dL Urine Occult Blood (NEGATIVE) Urine Nitrite (NEGATIVE) Urine Bilirubin (NEGATIVE) Urine Urobilinogen (<2.0) EU/dL Ur Leukocyte Esterase (NEGATIVE) Urine RBC (0-2/HPF) Urine WBC (0-5/HPF) Ur Epithelial Cells (NONE-FEW) Urine Bacteria (NEGATIVE) Ur Random Sodium (40.0-220.0) mmol/L Influenza Type A RNA (NEGATIVE) Influenza Type B RNA (NEGATIVE) SARS-CoV-2 RNA (BLAINE) (NEGATIVE) Med Orders - Current: Current Medications Albuterol/Ipratropium (Duoneb 3.0-0.5 Mg/3 Ml) 3 ml NEB Q4HRRT PRN PRN Reason: Shortness Of Breath/wheezing Aspirin (Aspirin) 81 mg PO DAILY [facility] Atorvastatin Calcium (Lipitor) 20 mg PO DAILY [facility] Clopidogrel Bisulfate (Plavix) 75 mg PO DAILY [facility] Heparin Sodium (Porcine) (Heparin Sodium) 5,000 units SUBCUT Q12H [facility] Last Admin: 07/02/20 21:30 Dose: 5,000 units Documented by: Pantoprazole Sodium 40 mg/ (Sodium Chloride) 10 mls @ 300 mls/hr IV Q24H [facility] Last Admin: 07/02/20 19:53 Dose: 300 mls/hr Documented by: Ceftriaxone Sodium/Dextrose 1 (gm/ Premix) 50 mls @ 100 mls/hr IV Q24H [facility] Last Admin: 07/02/20 22:51 Dose: 100 mls/hr Documented by: Sodium Chloride (Normal Saline) 1,000 mls @ 100 mls/hr IV ASDIRECTED [facility] Last Admin: 07/02/20 23:28 Dose: 100 mls/hr Documented by: Magnesium Sulfate (Magnesium Sulfate In Water Premix) 2 gm in 50 mls @ 50 mls/hr IV ONETIME ONE Stop: 07/03/20 08:52 Melatonin (Melatonin) 6 mg PO BEDTIME PRN PRN Reason: Insomnia Last Admin: 07/02/20 22:49 Dose: 6 mg Documented by: Fluticasone/Salmeterol (Advair Diskus 250-50) 1 puff INH BID AGUSTO Last Admin: 07/02/20 21:32 Dose: 1 puff Documented by: Discontinued Medications Albuterol/Ipratropium (Duoneb 3.0-0.5 Mg/3 Ml) 3 ml NEB ONETIME ONE Stop: 07/02/20 15:43 Last Admin: 07/02/20 15:55 Dose: 3 ml Documented by: Aspirin (Aspirin) 81 mg PO ONETIME ONE Stop: 07/02/20 22:37 Last Admin: 07/02/20 22:49 Dose: 81 mg Documented by: Clopidogrel Bisulfate (Plavix) 75 mg PO ONETIME ONE Stop: 07/02/20 22:37 Last Admin: 07/02/20 22:49 Dose: 75 mg Documented by: Sodium Chloride (Normal Saline) 1,000 mls @ 100 mls/hr IV STAT ONE Stop: 07/02/20 22:53 Last Admin: 07/02/20 13:33 Dose: 100 mls/hr Documented by: Sodium Chloride (Normal Saline) 1,000 mls @ 75 mls/hr IV CONTINUOUS ONE Stop: 07/03/20 08:49 Last Admin: 07/02/20 23:21 Dose: Not Given Documented by: Levothyroxine Sodium (Levothyroxine) 112 mcg PO ACBREAKFAST [facility] Levothyroxine Sodium (Levothyroxine) 112 mcg PO ONETIME ONE Stop: 07/02/20 18:31 Last Admin: 07/02/20 20:04 Dose: Not Given Documented by: Levothyroxine Sodium (Synthroid) 100 mcg IVPUSH ONETIME ONE Stop: 07/02/20 19:05 Last Admin: 07/02/20 20:16 Dose: Not Given Documented by: Levothyroxine Sodium (Synthroid) 50 mcg IVPUSH ONETIME ONE Stop: 07/02/20 19:31 Last Admin: 07/02/20 20:00 Dose: 50 mcg Documented by: Omeprazole (Omeprazole) 20 mg PO ACBREAKFAST [facility] Ondansetron HCl (Zofran) 4 mg IVPUSH ONETIME ONE Stop: 07/02/20 12:56 Last Admin: 07/02/20 13:33 Dose: 4 mg Documented by: - Exam Quality Assessment: Supplemental Oxygen General: Alert, Oriented HEENT: EOMI Neck: Supple Lungs: Other (tight BS w. mild end expiratory wheeze ) Cardiovascular: Regular Rate, Regular Rhythm GI/Abdominal Exam: Soft, Non-Tender Extremities: Normal Inspection Neurological: No New Focal Deficit Psy/Mental Status: Alert, Normal Mood Sepsis Event Note - Evaluation Sepsis Screening Result: No Definite Risk - Focused Exam Vital Signs: Vital Signs Temp Pulse Resp BP Pulse Ox 07/03/20 05:00 97.9 F 60 17 120/75 96 07/03/20 00:00 97.9 F 60 17 118/63 97 07/02/20 20:00 97.5 F 64 17 118/53 L 98 - Problem List Review Problem List Initiated/Reviewed/Updated: Yes - My Orders Last 24 Hours: My Active Orders 07/02/20 12:15 OSMOLALITY - SERUM [REF] Routine 07/02/20 17:18 Oxygen Therapy [RC] PRN VTE/DVT Education [RC] PER UNIT ROUTINE Vital Signs [RC] Q4H Resuscitation Status Routine 07/02/20 18:08 Albuterol/Ipratropium [DuoNeb 3.0-0.5 MG/3 ML] 3 ml NEB Q4HRRT PRN 07/02/20 18:10 RT Aerosol Therapy [RC] ASDIRECTED RT Post Treatment Assessment [RC] Click to Edit RT Pre-Treatment Assessment [RC] Click to Edit Melatonin 6 mg PO BEDTIME PRN 07/02/20 19:00 Pantoprazole [ProTONIX IV] 40 mg Sodium Chloride 0.9% [Normal Saline] 10 ml IV Q24H 07/02/20 20:10 CULTURE URINE [RM] Stat 07/02/20 21:00 Fluticasone/Salmeterol [Advair Diskus 250-50] 1 puff INH BID Heparin Sodium 5,000 units SUBCUT Q12H 07/03/20 Breakfast Heart Healthy Diet [DIET] 07/03/20 07:53 Magnesium Sulfate/Water [Magnesium Sulfate in Water Premix] 2 gm in 50 ml IV ONETIME 07/03/20 09:00 Aspirin 81 mg PO DAILY Clopidogrel [Plavix] 75 mg PO DAILY atorvaSTATin [Lipitor] 20 mg PO DAILY 07/03/20 Lunch Fluid Restriction [DIET] 07/04/20 05:11 BMP [BASIC METABOLIC PANEL,BMP] [CHEM] AM CBC WITH AUTO DIFF [HEME] AM 07/05/20 05:11 BMP [BASIC METABOLIC PANEL,BMP] [CHEM] AM CBC WITH AUTO DIFF [HEME] AM - Plan Plan:: Assessment: 1. Moderate/chronic hyponatremia 2. Hypothyroidism 3. COPD 4. Medication noncompliance 5. Past medical history; NSTEMI status post PCI, previous tobacco abuser, hypertension 6. hypomagnesemia Plan Admit the patient to observation. DNR/DNI. I's and O's per routine. Vitals per routine. Activity: Up ad ashok. COVID negative DVT: Heparin 5000 q 12 GI: omperazole 20 daily 1. Moderate/chronic hyponatremia: Unknown duration of sodium derangement; currently mildly symptomatic with fatigue; Na levels improving; continue 100 cc NS and recheck Na levels this PM Continue IV dosing of IV levothyroxine this afternoon. Can consider PO medication w. dose reduction at discharge. We will place patient on telemetry; EKG in ED does not suggest any ST elevation/depression. Initial troponin negative; recheck troponin in 4 hours due to hx of NSTEMI 2. COPD: CXR negative; restart home controller and Duo nebs. Cough noted: o2 saturations well maintained; continue home inhaler and can recheck CXR if clinically deteriorating. 3. hypomagnesemia: 2 grams repletion this AM ; recheck in AM <José Miguel Junior - Last Filed: 07/05/20 13:56> - Patient Data Vitals - Most Recent: Last Vital Signs Temp 36.2 C 07/05/20 11:00 Pulse 72 07/05/20 11:00 Resp 16 07/05/20 11:00 BP 130/60 07/05/20 11:00 Pulse Ox 97 07/05/20 11:00 I&O - Last 24 Hours: Intake & Output 07/04/20 07/05/20 07/05/20 22:59 06:59 14:59 Intake Total 350 240 Output Total 600 1400 Balance -250 -1160 Lab Results Last 24 Hours: Laboratory Results - last 24 hr 07/04/20 07/05/20 07/05/20 Range/Units 17:10 05:26 05:26 WBC 6.25 (4.0-11.0) K/uL RBC 4.09 L (4.30-5.90) M/uL Hgb 12.5 (12.0-16.0) g/dL Hct 37.7 (36.0-46.0) % MCV 92.2 (80.0-98.0) fL MCH 30.6 (27.0-32.0) pg MCHC 33.2 (31.0-37.0) g/dL RDW Std Deviation 47.5 (28.0-62.0) fl RDW Coeff of Lavelle 14 (11.0-15.0) % Plt Count 228 (150-400) K/uL MPV 8.40 (7.40-12.00) fL Neut % (Auto) 68.8 (48.0-80.0) % Lymph % (Auto) 14.4 L (16.0-40.0) % [place] % (Auto) 13.6 (0.0-15.0) % Eos % (Auto) 1.8 (0.0-7.0) % Baso % (Auto) 1.4 (0.0-1.5) % Neut # (Auto) 4.3 (1.4-5.7) K/uL Lymph # (Auto) 0.9 (0.6-2.4) K/uL [place] # (Auto) 0.9 H (0.0-0.8) K/uL Eos # (Auto) 0.1 (0.0-0.7) K/uL Baso # (Auto) 0.1 (0.0-0.1) K/uL Nucleated RBC % 0.0 /100WBC Nucleated RBCs # 0 K/uL Sodium 124 L 124 L (136-145) mmol/L Potassium 4.4 (3.5-5.1) mmol/L Chloride 88 L (98-107) mmol/L Carbon Dioxide 33.5 H (21.0-32.0) mmol/L BUN 12 (7.0-18.0) mg/dL Creatinine 0.7 (0.6-1.0) mg/dL Est Cr Clr Drug Dosing 50.37 mL/min Estimated GFR (MDRD) > 60.0 ml/min Glucose 100 (74-106) mg/dL Calcium 8.7 (8.5-10.1) mg/dL Magnesium 1.6 L (1.8-2.4) mg/dL TSH 3rd Generation (0.36-3.74) uIU/mL 07/05/20 Range/Units 05:26 WBC (4.0-11.0) K/uL RBC (4.30-5.90) M/uL Hgb (12.0-16.0) g/dL Hct (36.0-46.0) % MCV (80.0-98.0) fL MCH (27.0-32.0) pg MCHC (31.0-37.0) g/dL RDW Std Deviation (28.0-62.0) fl RDW Coeff of Lavelle (11.0-15.0) % Plt Count (150-400) K/uL MPV (7.40-12.00) fL Neut % (Auto) (48.0-80.0) % Lymph % (Auto) (16.0-40.0) % [place] % (Auto) (0.0-15.0) % Eos % (Auto) (0.0-7.0) % Baso % (Auto) (0.0-1.5) % Neut # (Auto) (1.4-5.7) K/uL Lymph # (Auto) (0.6-2.4) K/uL [place] # (Auto) (0.0-0.8) K/uL Eos # (Auto) (0.0-0.7) K/uL Baso # (Auto) (0.0-0.1) K/uL Nucleated RBC % /100WBC Nucleated RBCs # K/uL Sodium (136-145) mmol/L Potassium (3.5-5.1) mmol/L Chloride (98-107) mmol/L Carbon Dioxide (21.0-32.0) mmol/L BUN (7.0-18.0) mg/dL Creatinine (0.6-1.0) mg/dL Est Cr Clr Drug Dosing mL/min Estimated GFR (MDRD) ml/min Glucose (74-106) mg/dL Calcium (8.5-10.1) mg/dL Magnesium (1.8-2.4) mg/dL TSH 3rd Generation 33.94 H (0.36-3.74) uIU/mL Gerardo Results Last 24 Hours: Microbiology 07/02/20 20:10 Urine Culture - Final Urine, Clean Catch MIXED SHAHZAD >100,000 CFU/ML Med Orders - Current: Current Medications Acetaminophen (Tylenol Extra Strength) 500 mg PO Q4H PRN PRN Reason: Pain Last Admin: 07/05/20 09:23 Dose: 500 mg Documented by: Albuterol/Ipratropium (Duoneb 3.0-0.5 Mg/3 Ml) 3 ml NEB Q4HRRT PRN PRN Reason: Shortness Of Breath/wheezing Last Admin: 07/03/20 20:48 Dose: 3 ml Documented by: Aspirin (Aspirin) 81 mg PO DAILY [facility] Last Admin: 07/05/20 09:22 Dose: 81 mg Documented by: Atorvastatin Calcium (Lipitor) 20 mg PO DAILY [facility] Last Admin: 07/05/20 09:23 Dose: 20 mg Documented by: Benzonatate (Tessalon Perles) 100 mg PO TID PRN PRN Reason: Cough Last Admin: 07/05/20 09:19 Dose: 100 mg Documented by: Clopidogrel Bisulfate (Plavix) 75 mg PO DAILY [facility] Last Admin: 07/05/20 09:23 Dose: 75 mg Documented by: Guaifenesin/Dextromethorphan (Robitussin Dm) 10 ml PO Q4H PRN PRN Reason: Cough Last Admin: 07/04/20 18:52 Dose: 10 ml Documented by: Heparin Sodium (Porcine) (Heparin Sodium) 5,000 units SUBCUT Q12H [facility] Last Admin: 07/05/20 09:25 Dose: 5,000 units Documented by: Pantoprazole Sodium 40 mg/ (Sodium Chloride) 10 mls @ 300 mls/hr IV Q24H [facility] Last Admin: 07/04/20 18:20 Dose: 300 mls/hr Documented by: Ceftriaxone Sodium/Dextrose 1 (gm/ Premix) 50 mls @ 100 mls/hr IV Q24H [facility] Last Admin: 07/04/20 23:05 Dose: 100 mls/hr Documented by: Magnesium Sulfate (Magnesium Sulfate In Water 2 Gm/50 Ml) 2 gm in 50 mls @ 50 mls/hr IV ONETIME [facility] Last Admin: 07/05/20 11:21 Dose: 50 mls/hr Documented by: Levothyroxine Sodium 60 mcg/ (Sodium Chloride) 3 mls @ 60 mls/hr IV DAILY [facility] Lorazepam (Ativan) 0.5 mg IVPUSH Q6H PRN PRN Reason: Anxiety Melatonin (Melatonin) 6 mg PO BEDTIME PRN PRN Reason: Insomnia Last Admin: 07/05/20 00:42 Dose: 6 mg Documented by: Ondansetron HCl (Zofran) 4 mg IVPUSH Q6H PRN PRN Reason: Nausea/Vomiting Last Admin: 07/03/20 09:37 Dose: 4 mg Documented by: Fluticasone/Vilanterol [Breo Ellipta 200-25 Mcg Inhalation Kit] 1 each INH DAILY [facility] Last Admin: 07/05/20 09:29 Dose: 1 each Documented by: Sodium Chloride (Sodium Chloride) 1 gm PO BID [facility] Last Admin: 07/05/20 11:10 Dose: 1 gm Documented by: Discontinued Medications Albuterol/Ipratropium (Duoneb 3.0-0.5 Mg/3 Ml) 3 ml NEB ONETIME ONE Stop: 07/02/20 15:43 Last Admin: 07/02/20 15:55 Dose: 3 ml Documented by: Aspirin (Aspirin) 81 mg PO ONETIME ONE Stop: 07/02/20 22:37 Last Admin: 07/02/20 22:49 Dose: 81 mg Documented by: Clopidogrel Bisulfate (Plavix) 75 mg PO ONETIME ONE Stop: 07/02/20 22:37 Last Admin: 07/02/20 22:49 Dose: 75 mg Documented by: Fluconazole (Diflucan) 100 mg PO ONETIME ONE Stop: 07/04/20 23:48 Last Admin: 07/05/20 00:39 Dose: 100 mg Documented by: Furosemide (Lasix) 20 mg IVPUSH ONETIME ONE Stop: 07/04/20 18:17 Last Admin: 07/04/20 18:51 Dose: 20 mg Documented by: Furosemide (Lasix) 20 mg IVPUSH NOW ONE Stop: 07/05/20 07:56 Last Admin: 07/05/20 09:20 Dose: 20 mg Documented by: Sodium Chloride (Normal Saline) 1,000 mls @ 100 mls/hr IV STAT ONE Stop: 07/02/20 22:53 Last Admin: 07/02/20 13:33 Dose: 100 mls/hr Documented by: Sodium Chloride (Normal Saline) 1,000 mls @ 75 mls/hr IV CONTINUOUS ONE Stop: 07/03/20 08:49 Last Admin: 07/02/20 23:21 Dose: Not Given Documented by: Sodium Chloride (Normal Saline) 1,000 mls @ 100 mls/hr IV ASDIRECTED [facility] Last Infusion: 07/03/20 21:13 Dose: 0 mls/hr Documented by: Magnesium Sulfate (Magnesium Sulfate In Water Premix) 2 gm in 50 mls @ 50 mls/hr IV ONETIME ONE Stop: 07/03/20 08:59 Last Admin: 07/03/20 08:40 Dose: 50 mls/hr Documented by: Levothyroxine Sodium 50 mcg/ (Sodium Chloride) 2.5 mls @ 300 mls/hr IV 07/03/20@1700 [facility] Stop: 07/03/20 17:01 Last Admin: 07/03/20 17:22 Dose: 300 mls/hr Documented by: Levothyroxine Sodium 50 mcg/ (Sodium Chloride) 2.5 mls @ 300 mls/hr IV DAILY [facility] Last Admin: 07/05/20 09:24 Dose: 300 mls/hr Documented by: Levothyroxine Sodium (Levothyroxine) 112 mcg PO ACBREAKFAST [facility] Levothyroxine Sodium (Levothyroxine) 112 mcg PO ONETIME ONE Stop: 07/02/20 18:31 Last Admin: 07/02/20 20:04 Dose: Not Given Documented by: Levothyroxine Sodium (Synthroid) 100 mcg IVPUSH ONETIME ONE Stop: 07/02/20 19:05 Last Admin: 07/02/20 20:16 Dose: Not Given Documented by: Levothyroxine Sodium (Synthroid) 50 mcg IVPUSH ONETIME ONE Stop: 07/02/20 19:31 Last Admin: 07/02/20 20:00 Dose: 50 mcg Documented by: Levothyroxine Sodium (Levothyroxine) 25 mcg PO ONETIME ONE Stop: 07/05/20 12:36 Omeprazole (Omeprazole) 20 mg PO ACBREAKFAST [facility] Ondansetron HCl (Zofran) 4 mg IVPUSH ONETIME ONE Stop: 07/02/20 12:56 Last Admin: 07/02/20 13:33 Dose: 4 mg Documented by: Fluticasone/Salmeterol (Advair Diskus 250-50) 1 puff INH BID [facility] Last Admin: 07/03/20 09:44 Dose: 1 puff Documented by: Sodium Chloride (Sodium Chloride) 1 gm PO ONETIME ONE Stop: 07/04/20 18:17 Last Admin: 07/04/20 18:39 Dose: Not Given Documented by: Sodium Chloride (Sodium Chloride) 0.5 gm PO ONETIME ONE Stop: 07/04/20 18:34 Last Admin: 07/04/20 20:30 Dose: 0.5 gm Documented by: Sepsis Event Note - Focused Exam Vital Signs: Vital Signs Temp Pulse Resp BP Pulse Ox 07/05/20 11:00 36.2 C 72 16 130/60 97 07/05/20 07:27 36.3 C 64 16 130/64 92 L 07/05/20 05:35 36.4 C 58 L 17 131/56 L 91 L - My Orders Last 24 Hours: My Active Orders 07/05/20 Breakfast Regular Diet [DIET] - Plan Plan:: I have seen and evaluated the patient and agree with the residents note unless specified in my note
[2020-07-03] MEDS ORDERED: Magnesium Sulfate/Water 2 GM/50 ML BAG IV ONE (08:00)
[2020-07-03] MEDS: atorvaSTATin 20 MG Tab PO SCH (08:43)
[2020-07-03] MEDS: Aspirin 81 MG Tab.Chew PO SCH (08:43)
[2020-07-03] MEDS: Clopidogrel 75 MG Tab PO SCH (08:43)
[2020-07-03] MEDS: Heparin Sodium 5,000 Units/ML Vial SUBCUT SCH ×2 (08:44→20:49)
[2020-07-03] MEDS ORDERED: Ondansetron 4 MG/2 ML SDV IVPUSH PRN (09:25)
[2020-07-03] MEDS: Fluticasone/Salmeterol 250-50 MCG Inhalation Powder 14/Diskus INH SCH (09:44)
[2020-07-03] MEDS: Sodium Chloride 0.9% 1,000 ML IV SCH ×2 (09:46→20:44)
[2020-07-03] MEDS: guaiFENesin/Dextromethorphan 100-10 MG/5 ML Soln 10 ML Cup PO PRN ×2 (14:08→20:41)
[2020-07-03] MEDS ORDERED: Levothyroxine 50 MCG in Sodium Chloride 0.9% 2.5 ML IV SCH (17:00)
[2020-07-03] MEDS ORDERED: SODIUM CHLORIDE 0.9% IV SCH (17:00)
[2020-07-03] MEDS ORDERED: LEVOTHYROXINE IV SCH (17:00)
[2020-07-03] MEDS: Pantoprazole 40 MG in Sodium Chloride 0.9% 10 ML IV SCH (18:51)
[2020-07-03] MEDS: cefTRIAXone 1 GM in Premix Bag 1 BAG IV SCH (23:15)
[2020-07-04] MEDS: guaiFENesin/Dextromethorphan 100-10 MG/5 ML Soln 10 ML Cup PO PRN ×2 (04:00→18:52)
[2020-07-04 06:10] LABS: BLOOD UREA NITROGEN,BUN 11 mg/dL (7.0-18.0); CARBON DIOXIDE,CO2 29.4 mmol/L (21.0-32.0); CHLORIDE,CL 91 mmol/L (98-107); GLUCOSE RANDOM 101 mg/dL (74-106); POTASSIUM,K 4.5 mmol/L (3.5-5.1); SODIUM,NA 125 mmol/L (136-145)
[2020-07-04] MEDS: Benzonatate 100 MG Cap PO PRN ×3 (07:33→23:11)
[2020-07-04] MEDS: Clopidogrel 75 MG Tab PO SCH (08:15)
[2020-07-04] MEDS: atorvaSTATin 20 MG Tab PO SCH (08:15)
[2020-07-04] MEDS: Aspirin 81 MG Tab.Chew PO SCH (08:15)
[2020-07-04] MEDS: Heparin Sodium 5,000 Units/ML Vial SUBCUT SCH ×2 (08:27→20:33)
[2020-07-04] MEDS: FLUTICASONE INH SCH (08:59)
[2020-07-04] MEDS: VILANTEROL INH SCH (08:59)
--- NOTE | 2020-07-04 11:21 | PCM.PN ---
<Kristi Richards - Last Filed: 07/04/20 11:23> - General Info Date of Service: 07/04/20 Subjective Update: Bedside: feeling tired since having not slept since last night; increased fatigue and feeling irritable this AM. Mentions having to urinate every 2-3 hours Functional Status: Reports: Pain Controlled - Review of Systems General: Reports: Weakness, Fatigue. Denies: Fever, Chills HEENT: Reports: No Symptoms Pulmonary: Reports: Cough. Denies: Shortness of Breath, Wheezing Cardiovascular: Reports: No Symptoms Gastrointestinal: Reports: No Symptoms Genitourinary: Reports: No Symptoms Musculoskeletal: Reports: No Symptoms Neurological: Reports: Headache - Patient Data Vitals - Most Recent: Last Vital Signs Temp 97.9 F 07/04/20 07:08 Pulse 68 07/04/20 07:08 Resp 18 07/04/20 07:08 BP 137/64 07/04/20 07:08 Pulse Ox 96 07/04/20 08:43 Weight - Most Recent: 73.845 kg I&O - Last 24 Hours: Intake & Output 07/03/20 07/04/20 07/04/20 22:59 06:59 14:59 Intake Total 480 970 Output Total 850 1300 Balance -370 -330 Lab Results Last 24 Hours: Laboratory Results - last 24 hr 07/02/20 07/03/20 07/04/20 Range/Units 12:15 16:08 05:20 WBC 7.19 (4.0-11.0) K/uL RBC 3.88 L (4.30-5.90) M/uL Hgb 11.9 L (12.0-16.0) g/dL Hct 35.9 L (36.0-46.0) % MCV 92.5 (80.0-98.0) fL MCH 30.7 (27.0-32.0) pg MCHC 33.1 (31.0-37.0) g/dL RDW Std Deviation 48.1 (28.0-62.0) fl RDW Coeff of Lavelle 14 (11.0-15.0) % Plt Count 213 (150-400) K/uL MPV 8.20 (7.40-12.00) fL Neut % (Auto) 72.4 (48.0-80.0) % Lymph % (Auto) 13.4 L (16.0-40.0) % Hand % (Auto) 11.1 (0.0-15.0) % Eos % (Auto) 1.7 (0.0-7.0) % Baso % (Auto) 1.4 (0.0-1.5) % Neut # (Auto) 5.2 (1.4-5.7) K/uL Lymph # (Auto) 1.0 (0.6-2.4) K/uL Hand # (Auto) 0.8 (0.0-0.8) K/uL Eos # (Auto) 0.1 (0.0-0.7) K/uL Baso # (Auto) 0.1 (0.0-0.1) K/uL Nucleated RBC % 0.0 /100WBC Nucleated RBCs # 0 K/uL Sodium 126 L (136-145) mmol/L Potassium (3.5-5.1) mmol/L Chloride (98-107) mmol/L Carbon Dioxide (21.0-32.0) mmol/L BUN (7.0-18.0) mg/dL Creatinine (0.6-1.0) mg/dL Est Cr Clr Drug Dosing mL/min Estimated GFR (MDRD) ml/min Glucose (74-106) mg/dL Serum Osmolality 251 L (275-295) mosm/kg Calcium (8.5-10.1) mg/dL Magnesium (1.8-2.4) mg/dL 07/04/20 Range/Units 05:20 WBC (4.0-11.0) K/uL RBC (4.30-5.90) M/uL Hgb (12.0-16.0) g/dL Hct (36.0-46.0) % MCV (80.0-98.0) fL MCH (27.0-32.0) pg MCHC (31.0-37.0) g/dL RDW Std Deviation (28.0-62.0) fl RDW Coeff of Lavelle (11.0-15.0) % Plt Count (150-400) K/uL MPV (7.40-12.00) fL Neut % (Auto) (48.0-80.0) % Lymph % (Auto) (16.0-40.0) % Hand % (Auto) (0.0-15.0) % Eos % (Auto) (0.0-7.0) % Baso % (Auto) (0.0-1.5) % Neut # (Auto) (1.4-5.7) K/uL Lymph # (Auto) (0.6-2.4) K/uL Hand # (Auto) (0.0-0.8) K/uL Eos # (Auto) (0.0-0.7) K/uL Baso # (Auto) (0.0-0.1) K/uL Nucleated RBC % /100WBC Nucleated RBCs # K/uL Sodium 125 L (136-145) mmol/L Potassium 4.5 (3.5-5.1) mmol/L Chloride 91 L (98-107) mmol/L Carbon Dioxide 29.4 (21.0-32.0) mmol/L BUN 11 (7.0-18.0) mg/dL Creatinine 0.7 (0.6-1.0) mg/dL Est Cr Clr Drug Dosing 50.37 mL/min Estimated GFR (MDRD) > 60.0 ml/min Glucose 101 (74-106) mg/dL Serum Osmolality (275-295) mosm/kg Calcium 8.5 (8.5-10.1) mg/dL Magnesium 1.8 (1.8-2.4) mg/dL Gerardo Results Last 24 Hours: Microbiology 07/02/20 20:10 Urine Culture - Final Urine, Clean Catch MIXED SHAHZAD >100,000 CFU/ML Med Orders - Current: Current Medications Acetaminophen (Tylenol Extra Strength) 500 mg PO Q4H PRN PRN Reason: Pain Albuterol/Ipratropium (Duoneb 3.0-0.5 Mg/3 Ml) 3 ml NEB Q4HRRT PRN PRN Reason: Shortness Of Breath/wheezing Last Admin: 07/03/20 20:48 Dose: 3 ml Documented by: Aspirin (Aspirin) 81 mg PO DAILY [facility] Last Admin: 07/04/20 08:15 Dose: 81 mg Documented by: Atorvastatin Calcium (Lipitor) 20 mg PO DAILY [facility] Last Admin: 07/04/20 08:15 Dose: 20 mg Documented by: Benzonatate (Tessalon Perles) 100 mg PO TID PRN PRN Reason: Cough Last Admin: 07/04/20 07:33 Dose: 100 mg Documented by: Clopidogrel Bisulfate (Plavix) 75 mg PO DAILY [facility] Last Admin: 07/04/20 08:15 Dose: 75 mg Documented by: Guaifenesin/Dextromethorphan (Robitussin Dm) 10 ml PO Q4H PRN PRN Reason: Cough Last Admin: 07/04/20 04:00 Dose: 10 ml Documented by: Heparin Sodium (Porcine) (Heparin Sodium) 5,000 units SUBCUT Q12H [facility] Last Admin: 07/04/20 08:27 Dose: 5,000 units Documented by: Pantoprazole Sodium 40 mg/ (Sodium Chloride) 10 mls @ 300 mls/hr IV Q24H [facility] Last Admin: 07/03/20 18:51 Dose: 300 mls/hr Documented by: Ceftriaxone Sodium/Dextrose 1 (gm/ Premix) 50 mls @ 100 mls/hr IV Q24H [facility] Last Admin: 07/03/20 23:15 Dose: 100 mls/hr Documented by: Melatonin (Melatonin) 6 mg PO BEDTIME PRN PRN Reason: Insomnia Last Admin: 07/02/20 22:49 Dose: 6 mg Documented by: Ondansetron HCl (Zofran) 4 mg IVPUSH Q6H PRN PRN Reason: Nausea/Vomiting Last Admin: 07/03/20 09:37 Dose: 4 mg Documented by: Fluticasone/Vilanterol [Breo Ellipta 200-25 Mcg Inhalation Kit] 1 each INH DAILY [facility] Last Admin: 07/04/20 08:59 Dose: Not Given Documented by: Discontinued Medications Albuterol/Ipratropium (Duoneb 3.0-0.5 Mg/3 Ml) 3 ml NEB ONETIME ONE Stop: 07/02/20 15:43 Last Admin: 07/02/20 15:55 Dose: 3 ml Documented by: Aspirin (Aspirin) 81 mg PO ONETIME ONE Stop: 07/02/20 22:37 Last Admin: 07/02/20 22:49 Dose: 81 mg Documented by: Clopidogrel Bisulfate (Plavix) 75 mg PO ONETIME ONE Stop: 07/02/20 22:37 Last Admin: 07/02/20 22:49 Dose: 75 mg Documented by: Sodium Chloride (Normal Saline) 1,000 mls @ 100 mls/hr IV STAT ONE Stop: 07/02/20 22:53 Last Admin: 07/02/20 13:33 Dose: 100 mls/hr Documented by: Sodium Chloride (Normal Saline) 1,000 mls @ 75 mls/hr IV CONTINUOUS ONE Stop: 07/03/20 08:49 Last Admin: 07/02/20 23:21 Dose: Not Given Documented by: Sodium Chloride (Normal Saline) 1,000 mls @ 100 mls/hr IV ASDIRECTED [facility] Last Infusion: 07/03/20 21:13 Dose: 0 mls/hr Documented by: Magnesium Sulfate (Magnesium Sulfate In Water Premix) 2 gm in 50 mls @ 50 mls/hr IV ONETIME ONE Stop: 07/03/20 08:59 Last Admin: 07/03/20 08:40 Dose: 50 mls/hr Documented by: Levothyroxine Sodium 50 mcg/ (Sodium Chloride) 2.5 mls @ 300 mls/hr IV 07/03/20@1700 [facility] Stop: 07/03/20 17:01 Last Admin: 07/03/20 17:22 Dose: 300 mls/hr Documented by: Levothyroxine Sodium (Levothyroxine) 112 mcg PO ACBREAKFAST [facility] Levothyroxine Sodium (Levothyroxine) 112 mcg PO ONETIME ONE Stop: 07/02/20 18:31 Last Admin: 07/02/20 20:04 Dose: Not Given Documented by: Levothyroxine Sodium (Synthroid) 100 mcg IVPUSH ONETIME ONE Stop: 07/02/20 19:05 Last Admin: 07/02/20 20:16 Dose: Not Given Documented by: Levothyroxine Sodium (Synthroid) 50 mcg IVPUSH ONETIME ONE Stop: 07/02/20 19:31 Last Admin: 07/02/20 20:00 Dose: 50 mcg Documented by: Omeprazole (Omeprazole) 20 mg PO ACBREAKFAST [facility] Ondansetron HCl (Zofran) 4 mg IVPUSH ONETIME ONE Stop: 07/02/20 12:56 Last Admin: 07/02/20 13:33 Dose: 4 mg Documented by: Fluticasone/Salmeterol (Advair Diskus 250-50) 1 puff INH BID [facility] Last Admin: 07/03/20 09:44 Dose: 1 puff Documented by: - Exam Quality Assessment: Supplemental Oxygen General: Alert, Oriented HEENT: EOMI Neck: Supple Lungs: Other (Coarse bs w. mild lower lobe crackles ) Cardiovascular: Regular Rate, Regular Rhythm GI/Abdominal Exam: Soft, Non-Tender Back Exam: Normal Inspection Extremities: Normal Inspection Neurological: No New Focal Deficit Psy/Mental Status: Alert Sepsis Event Note - Evaluation Sepsis Screening Result: No Definite Risk - Focused Exam Vital Signs: Vital Signs Temp Pulse Resp BP Pulse Ox Pulse Ox 07/04/20 08:43 96 07/04/20 07:08 97.9 F 68 18 137/64 96 07/04/20 04:00 98.2 F 71 19 138/78 95 07/04/20 00:00 97.7 F 78 18 126/72 95 - Problem List Review Problem List Initiated/Reviewed/Updated: Yes - My Orders Last 24 Hours: My Active Orders 07/03/20 Lunch Fluid Restriction [DIET] 07/03/20 12:56 Benzonatate [Tessalon Perles] 100 mg PO TID PRN 07/03/20 13:15 Acetaminophen [Tylenol Extra Strength] 500 mg PO Q4H PRN Dextromethorphan/guaiFENesin [Robitussin DM] 10 ml PO Q4H PRN 07/04/20 09:00 Patient's Own Medication [Ptom] 1 each INH DAILY 07/05/20 05:00 Daily Weight [Height and Weight] [RC] DAILY 07/05/20 05:11 BMP [BASIC METABOLIC PANEL,BMP] [CHEM] AM CBC WITH AUTO DIFF [HEME] AM MAGNESIUM [CHEM] AM 07/06/20 05:11 MAGNESIUM [CHEM] AM - Plan Plan:: Assessment: 1. Moderate/chronic hyponatremia 2. Hypothyroidism 3. COPD 4. Medication noncompliance 5. Past medical history; NSTEMI status post PCI, previous tobacco abuser, hypertension 6. hypomagnesemia Plan 1. 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 Daily weight ordered in light of history of CHF; mild crackles noted on auscultation; berdside CXR ordered. otherwise saturating well and not requiring more o2 compared to baseline. RR nominal. Hold IV fluids for now Continue IV dosing of IV levothyroxine daily. Can consider PO medication w. dose reduction at discharge. 2. COPD: CXR negative; restart home controller and Duo nebs. Cough noted: o2 saturations well maintained; continue home inhaler 3. hypomagnesemia:resolved <José Miguel Junior - Last Filed: 07/05/20 13:56> - Patient Data Vitals - Most Recent: Last Vital Signs Temp 36.2 C 07/05/20 11:00 Pulse 72 07/05/20 11:00 Resp 16 07/05/20 11:00 BP 130/60 07/05/20 11:00 Pulse Ox 97 07/05/20 11:00 I&O - Last 24 Hours: Intake & Output 07/04/20 07/05/20 07/05/20 22:59 06:59 14:59 Intake Total 350 240 Output Total 600 1400 Balance -250 -1160 Lab Results Last 24 Hours: Laboratory Results - last 24 hr 07/04/20 07/05/20 07/05/20 Range/Units 17:10 05:26 05:26 WBC 6.25 (4.0-11.0) K/uL RBC 4.09 L (4.30-5.90) M/uL Hgb 12.5 (12.0-16.0) g/dL Hct 37.7 (36.0-46.0) % MCV 92.2 (80.0-98.0) fL MCH 30.6 (27.0-32.0) pg MCHC 33.2 (31.0-37.0) g/dL RDW Std Deviation 47.5 (28.0-62.0) fl RDW Coeff of Lavelle 14 (11.0-15.0) % Plt Count 228 (150-400) K/uL MPV 8.40 (7.40-12.00) fL Neut % (Auto) 68.8 (48.0-80.0) % Lymph % (Auto) 14.4 L (16.0-40.0) % Hand % (Auto) 13.6 (0.0-15.0) % Eos % (Auto) 1.8 (0.0-7.0) % Baso % (Auto) 1.4 (0.0-1.5) % Neut # (Auto) 4.3 (1.4-5.7) K/uL Lymph # (Auto) 0.9 (0.6-2.4) K/uL Hand # (Auto) 0.9 H (0.0-0.8) K/uL Eos # (Auto) 0.1 (0.0-0.7) K/uL Baso # (Auto) 0.1 (0.0-0.1) K/uL Nucleated RBC % 0.0 /100WBC Nucleated RBCs # 0 K/uL Sodium 124 L 124 L (136-145) mmol/L Potassium 4.4 (3.5-5.1) mmol/L Chloride 88 L (98-107) mmol/L Carbon Dioxide 33.5 H (21.0-32.0) mmol/L BUN 12 (7.0-18.0) mg/dL Creatinine 0.7 (0.6-1.0) mg/dL Est Cr Clr Drug Dosing 50.37 mL/min Estimated GFR (MDRD) > 60.0 ml/min Glucose 100 (74-106) mg/dL Calcium 8.7 (8.5-10.1) mg/dL Magnesium 1.6 L (1.8-2.4) mg/dL TSH 3rd Generation (0.36-3.74) uIU/mL 07/05/20 Range/Units 05:26 WBC (4.0-11.0) K/uL RBC (4.30-5.90) M/uL Hgb (12.0-16.0) g/dL Hct (36.0-46.0) % MCV (80.0-98.0) fL MCH (27.0-32.0) pg MCHC (31.0-37.0) g/dL RDW Std Deviation (28.0-62.0) fl RDW Coeff of Lavelle (11.0-15.0) % Plt Count (150-400) K/uL MPV (7.40-12.00) fL Neut % (Auto) (48.0-80.0) % Lymph % (Auto) (16.0-40.0) % Hand % (Auto) (0.0-15.0) % Eos % (Auto) (0.0-7.0) % Baso % (Auto) (0.0-1.5) % Neut # (Auto) (1.4-5.7) K/uL Lymph # (Auto) (0.6-2.4) K/uL Hand # (Auto) (0.0-0.8) K/uL Eos # (Auto) (0.0-0.7) K/uL Baso # (Auto) (0.0-0.1) K/uL Nucleated RBC % /100WBC Nucleated RBCs # K/uL Sodium (136-145) mmol/L Potassium (3.5-5.1) mmol/L Chloride (98-107) mmol/L Carbon Dioxide (21.0-32.0) mmol/L BUN (7.0-18.0) mg/dL Creatinine (0.6-1.0) mg/dL Est Cr Clr Drug Dosing mL/min Estimated GFR (MDRD) ml/min Glucose (74-106) mg/dL Calcium (8.5-10.1) mg/dL Magnesium (1.8-2.4) mg/dL TSH 3rd Generation 33.94 H (0.36-3.74) uIU/mL Gerardo Results Last 24 Hours: Microbiology 07/02/20 20:10 Urine Culture - Final Urine, Clean Catch MIXED SHAHZAD >100,000 CFU/ML Med Orders - Current: Current Medications Acetaminophen (Tylenol Extra Strength) 500 mg PO Q4H PRN PRN Reason: Pain Last Admin: 07/05/20 09:23 Dose: 500 mg Documented by: Albuterol/Ipratropium (Duoneb 3.0-0.5 Mg/3 Ml) 3 ml NEB Q4HRRT PRN PRN Reason: Shortness Of Breath/wheezing Last Admin: 07/03/20 20:48 Dose: 3 ml Documented by: Aspirin (Aspirin) 81 mg PO DAILY [facility] Last Admin: 07/05/20 09:22 Dose: 81 mg Documented by: Atorvastatin Calcium (Lipitor) 20 mg PO DAILY [facility] Last Admin: 07/05/20 09:23 Dose: 20 mg Documented by: Benzonatate (Tessalon Perles) 100 mg PO TID PRN PRN Reason: Cough Last Admin: 07/05/20 09:19 Dose: 100 mg Documented by: Clopidogrel Bisulfate (Plavix) 75 mg PO DAILY [facility] Last Admin: 07/05/20 09:23 Dose: 75 mg Documented by: Guaifenesin/Dextromethorphan (Robitussin Dm) 10 ml PO Q4H PRN PRN Reason: Cough Last Admin: 07/04/20 18:52 Dose: 10 ml Documented by: Heparin Sodium (Porcine) (Heparin Sodium) 5,000 units SUBCUT Q12H [facility] Last Admin: 07/05/20 09:25 Dose: 5,000 units Documented by: Pantoprazole Sodium 40 mg/ (Sodium Chloride) 10 mls @ 300 mls/hr IV Q24H [facility] Last Admin: 07/04/20 18:20 Dose: 300 mls/hr Documented by: Ceftriaxone Sodium/Dextrose 1 (gm/ Premix) 50 mls @ 100 mls/hr IV Q24H [facility] Last Admin: 07/04/20 23:05 Dose: 100 mls/hr Documented by: Magnesium Sulfate (Magnesium Sulfate In Water 2 Gm/50 Ml) 2 gm in 50 mls @ 50 mls/hr IV ONETIME [facility] Last Admin: 07/05/20 11:21 Dose: 50 mls/hr Documented by: Levothyroxine Sodium 60 mcg/ (Sodium Chloride) 3 mls @ 60 mls/hr IV DAILY [facility] Lorazepam (Ativan) 0.5 mg IVPUSH Q6H PRN PRN Reason: Anxiety Melatonin (Melatonin) 6 mg PO BEDTIME PRN PRN Reason: Insomnia Last Admin: 07/05/20 00:42 Dose: 6 mg Documented by: Ondansetron HCl (Zofran) 4 mg IVPUSH Q6H PRN PRN Reason: Nausea/Vomiting Last Admin: 07/03/20 09:37 Dose: 4 mg Documented by: Fluticasone/Vilanterol [Breo Ellipta 200-25 Mcg Inhalation Kit] 1 each INH DAILY [facility] Last Admin: 07/05/20 09:29 Dose: 1 each Documented by: Sodium Chloride (Sodium Chloride) 1 gm PO BID [facility] Last Admin: 07/05/20 11:10 Dose: 1 gm Documented by: Discontinued Medications Albuterol/Ipratropium (Duoneb 3.0-0.5 Mg/3 Ml) 3 ml NEB ONETIME ONE Stop: 07/02/20 15:43 Last Admin: 07/02/20 15:55 Dose: 3 ml Documented by: Aspirin (Aspirin) 81 mg PO ONETIME ONE Stop: 07/02/20 22:37 Last Admin: 07/02/20 22:49 Dose: 81 mg Documented by: Clopidogrel Bisulfate (Plavix) 75 mg PO ONETIME ONE Stop: 07/02/20 22:37 Last Admin: 07/02/20 22:49 Dose: 75 mg Documented by: Fluconazole (Diflucan) 100 mg PO ONETIME ONE Stop: 07/04/20 23:48 Last Admin: 07/05/20 00:39 Dose: 100 mg Documented by: Furosemide (Lasix) 20 mg IVPUSH ONETIME ONE Stop: 07/04/20 18:17 Last Admin: 07/04/20 18:51 Dose: 20 mg Documented by: Furosemide (Lasix) 20 mg IVPUSH NOW ONE Stop: 07/05/20 07:56 Last Admin: 07/05/20 09:20 Dose: 20 mg Documented by: Sodium Chloride (Normal Saline) 1,000 mls @ 100 mls/hr IV STAT ONE Stop: 07/02/20 22:53 Last Admin: 07/02/20 13:33 Dose: 100 mls/hr Documented by: Sodium Chloride (Normal Saline) 1,000 mls @ 75 mls/hr IV CONTINUOUS ONE Stop: 07/03/20 08:49 Last Admin: 07/02/20 23:21 Dose: Not Given Documented by: Sodium Chloride (Normal Saline) 1,000 mls @ 100 mls/hr IV ASDIRECTED [facility] Last Infusion: 07/03/20 21:13 Dose: 0 mls/hr Documented by: Magnesium Sulfate (Magnesium Sulfate In Water Premix) 2 gm in 50 mls @ 50 mls/hr IV ONETIME ONE Stop: 07/03/20 08:59 Last Admin: 07/03/20 08:40 Dose: 50 mls/hr Documented by: Levothyroxine Sodium 50 mcg/ (Sodium Chloride) 2.5 mls @ 300 mls/hr IV 07/03/20@1700 [facility] Stop: 07/03/20 17:01 Last Admin: 07/03/20 17:22 Dose: 300 mls/hr Documented by: Levothyroxine Sodium 50 mcg/ (Sodium Chloride) 2.5 mls @ 300 mls/hr IV DAILY [facility] Last Admin: 07/05/20 09:24 Dose: 300 mls/hr Documented by: Levothyroxine Sodium (Levothyroxine) 112 mcg PO ACBREAKFAST [facility] Levothyroxine Sodium (Levothyroxine) 112 mcg PO ONETIME ONE Stop: 07/02/20 18:31 Last Admin: 07/02/20 20:04 Dose: Not Given Documented by: Levothyroxine Sodium (Synthroid) 100 mcg IVPUSH ONETIME ONE Stop: 07/02/20 19:05 Last Admin: 07/02/20 20:16 Dose: Not Given Documented by: Levothyroxine Sodium (Synthroid) 50 mcg IVPUSH ONETIME ONE Stop: 07/02/20 19:31 Last Admin: 07/02/20 20:00 Dose: 50 mcg Documented by: Levothyroxine Sodium (Levothyroxine) 25 mcg PO ONETIME ONE Stop: 07/05/20 12:36 Omeprazole (Omeprazole) 20 mg PO ACBREAKFAST [facility] Ondansetron HCl (Zofran) 4 mg IVPUSH ONETIME ONE Stop: 07/02/20 12:56 Last Admin: 07/02/20 13:33 Dose: 4 mg Documented by: Fluticasone/Salmeterol (Advair Diskus 250-50) 1 puff INH BID [facility] Last Admin: 07/03/20 09:44 Dose: 1 puff Documented by: Sodium Chloride (Sodium Chloride) 1 gm PO ONETIME ONE Stop: 07/04/20 18:17 Last Admin: 07/04/20 18:39 Dose: Not Given Documented by: Sodium Chloride (Sodium Chloride) 0.5 gm PO ONETIME ONE Stop: 07/04/20 18:34 Last Admin: 07/04/20 20:30 Dose: 0.5 gm Documented by: Sepsis Event Note - Focused Exam Vital Signs: Vital Signs Temp Pulse Resp BP Pulse Ox 07/05/20 11:00 36.2 C 72 16 130/60 97 07/05/20 07:27 36.3 C 64 16 130/64 92 L 07/05/20 05:35 36.4 C 58 L 17 131/56 L 91 L - My Orders Last 24 Hours: My Active Orders 07/05/20 Breakfast Regular Diet [DIET] - Plan Plan:: I have seen and evaluated the patient and agree with the residents note unless specified in my note
[2020-07-04] MEDS: Acetaminophen 500 MG Tab PO PRN ×2 (11:22→14:55)
--- NOTE | 2020-07-04 11:23 | CR ---
INDICATION: CHF. Coarse breath sounds. TECHNIQUE: Chest 1 views COMPARISON: 07/02/2020 FINDINGS: Cardiovascular and mediastinum: Heart size and vasculature are normal in caliber and appearance. Lungs and pleural spaces: Lungs are clear. No sign of infiltrate or mass. No sign of pleural effusion. No pneumothorax. Bones and soft tissues: No significant findings. IMPRESSION: No acute findings and no significant changes from the prior exam. Dictated by Ran Wu MD @ Jul 04 2020 11:19AM Signed by Dr. Ran Wu @ Jul 04 2020 11:21AM
[2020-07-04] MEDS ORDERED: Levothyroxine 100 MCG Vial IVPUSH SCH (11:30)
[2020-07-04] MEDS ORDERED: Levothyroxine 50 MCG in Sodium Chloride 0.9% 2.5 ML IV SCH (12:30)
[2020-07-04] MEDS: Levothyroxine 50 MCG in Sodium Chloride 0.9% 2.5 ML IV SCH (12:56)
[2020-07-04] MEDS ORDERED: Levothyroxine 100 MCG Vial IV ONE (17:00)
[2020-07-04] MEDS ORDERED: Sodium Chloride 1 GM Tab PO ONE ×2 (18:16→18:33)
[2020-07-04] MEDS ORDERED: Furosemide 20 MG/2 ML VIAL IVPUSH ONE (18:16)
[2020-07-04] MEDS: Pantoprazole 40 MG in Sodium Chloride 0.9% 10 ML IV SCH (18:20)
--- NOTE | 2020-07-04 19:20 | CT ---
INDICATION: Cough, congestion, and shortness of breath. CT CHEST WITHOUT CONTRAST TECHNIQUE: Multidetector CT imaging was performed through the chest without intravenous contrast administration. Coronal and sagittal reconstructions were generated. COMPARISON: None. FINDINGS: Lungs and airways: No confluent pulmonary consolidation. Scattered minimal subpleural interstitial fibrosis in the anterior mid lungs. Small focus of subsegmental atelectasis or scarring in the right lower lobe. Incidental right lower lobe calcified granuloma. Central airways are patent. Pleura and pleural spaces: Irregular pleural thickening along the right side of the mid thoracic spine from T6 to T8-9. Trace right pleural effusion. Heart and mediastinum: Normal heart size. No significant pericardial effusion. Enlarged subcarinal lymph node measuring 2.6 x 2.4 x 2.4 centimeters. Vascular structures: Normal caliber thoracic aorta with moderate to marked diffuse atherosclerotic calcification. Moderate to severe coronary artery calcifications. Chest wall and axillae: No mass or axillary lymphadenopathy. Osseous structures: Minor spinal degenerative changes. No acute fractures identified. Upper abdomen: Prior cholecystectomy. Question of subtle 2.4 centimeter hyperdense cyst versus solid mass of the posterior aspect of the left kidney, incompletely imaged. IMPRESSION: 1. Nonspecific right-sided paraspinous pleural thickening from T6 to T8-9 and associated trace right pleural effusion. 2. Enlarged subcarinal mediastinal lymph node. 3. A malignant process is not entirely excluded and follow-up is recommended. 4. Question of hyperdense cyst versus solid mass of the posterior left kidney, incompletely imaged. Renal ultrasound as an outpatient is recommended for further evaluation. 5. Nonacute additional findings as detailed above. QUIN DARNELL MD [facility] Dictated by Fausto Darnell MD @ 07/04/2020 7:16:51 PM Dictated by: Fausto Darnell MD @ 07/04/2020 19:18:32 (Electronically Signed)
[2020-07-04] MEDS: cefTRIAXone 1 GM in Premix Bag 1 BAG IV SCH (23:05)
[2020-07-04] MEDS ORDERED: Fluconazole 100 MG Tab PO ONE (23:47)
[2020-07-05] MEDS: Melatonin 3 MG Tab PO PRN ×2 (00:42→23:24)
[2020-07-05 06:02] LABS: BLOOD UREA NITROGEN,BUN 12 mg/dL (7.0-18.0); CARBON DIOXIDE,CO2 33.5 mmol/L (21.0-32.0); CHLORIDE,CL 88 mmol/L (98-107); GLUCOSE RANDOM 100 mg/dL (74-106); POTASSIUM,K 4.4 mmol/L (3.5-5.1); SODIUM,NA 124 mmol/L (136-145)
[2020-07-05] MEDS ORDERED: Furosemide 40 MG/4 ML VIAL IVPUSH ONE (07:55)
--- NOTE | 2020-07-05 07:57 | PCM.PN ---
<Kristi Richards - Last Filed: 07/05/20 12:11> - General Info Date of Service: 07/05/20 Subjective Update: Bedside: c.o persistent cough, requesting cough med + sleep. Otherwise in no acute distress; states feeling a little better today compared to yesterday. - Review of Systems General: Reports: Fatigue HEENT: Reports: No Symptoms Pulmonary: Reports: Cough. Denies: Shortness of Breath, Sputum, Wheezing Cardiovascular: Reports: No Symptoms Gastrointestinal: Reports: No Symptoms Genitourinary: Reports: Frequency. Denies: Burning, Pain, Urgency Musculoskeletal: Reports: No Symptoms Skin: Reports: No Symptoms Neurological: Denies: Headache Psychiatric: Denies: Confusion - Patient Data Vitals - Most Recent: Last Vital Signs Temp 97.3 F 07/05/20 07:27 Pulse 64 07/05/20 07:27 Resp 16 07/05/20 07:27 BP 130/64 07/05/20 07:27 Pulse Ox 92 L 07/05/20 07:27 Weight - Most Recent: 73.255 kg I&O - Last 24 Hours: Intake & Output 07/04/20 07/05/20 07/05/20 22:59 06:59 14:59 Intake Total 350 240 Output Total 600 1400 Balance -250 -1160 Lab Results Last 24 Hours: Laboratory Results - last 24 hr 07/04/20 07/05/20 07/05/20 Range/Units 17:10 05:26 05:26 WBC 6.25 (4.0-11.0) K/uL RBC 4.09 L (4.30-5.90) M/uL Hgb 12.5 (12.0-16.0) g/dL Hct 37.7 (36.0-46.0) % MCV 92.2 (80.0-98.0) fL MCH 30.6 (27.0-32.0) pg MCHC 33.2 (31.0-37.0) g/dL RDW Std Deviation 47.5 (28.0-62.0) fl RDW Coeff of Lavelle 14 (11.0-15.0) % Plt Count 228 (150-400) K/uL MPV 8.40 (7.40-12.00) fL Neut % (Auto) 68.8 (48.0-80.0) % Lymph % (Auto) 14.4 L (16.0-40.0) % [place] % (Auto) 13.6 (0.0-15.0) % Eos % (Auto) 1.8 (0.0-7.0) % Baso % (Auto) 1.4 (0.0-1.5) % Neut # (Auto) 4.3 (1.4-5.7) K/uL Lymph # (Auto) 0.9 (0.6-2.4) K/uL [place] # (Auto) 0.9 H (0.0-0.8) K/uL Eos # (Auto) 0.1 (0.0-0.7) K/uL Baso # (Auto) 0.1 (0.0-0.1) K/uL Nucleated RBC % 0.0 /100WBC Nucleated RBCs # 0 K/uL Sodium 124 L 124 L (136-145) mmol/L Potassium 4.4 (3.5-5.1) mmol/L Chloride 88 L (98-107) mmol/L Carbon Dioxide 33.5 H (21.0-32.0) mmol/L BUN 12 (7.0-18.0) mg/dL Creatinine 0.7 (0.6-1.0) mg/dL Est Cr Clr Drug Dosing 50.37 mL/min Estimated GFR (MDRD) > 60.0 ml/min Glucose 100 (74-106) mg/dL Calcium 8.7 (8.5-10.1) mg/dL Magnesium 1.6 L (1.8-2.4) mg/dL Gerardo Results Last 24 Hours: Microbiology 07/02/20 20:10 Urine Culture - Final Urine, Clean Catch MIXED SHAHZAD >100,000 CFU/ML Med Orders - Current: Current Medications Acetaminophen (Tylenol Extra Strength) 500 mg PO Q4H PRN PRN Reason: Pain Last Admin: 07/04/20 14:55 Dose: 500 mg Documented by: Albuterol/Ipratropium (Duoneb 3.0-0.5 Mg/3 Ml) 3 ml NEB Q4HRRT PRN PRN Reason: Shortness Of Breath/wheezing Last Admin: 07/03/20 20:48 Dose: 3 ml Documented by: Aspirin (Aspirin) 81 mg PO DAILY [facility] Last Admin: 07/04/20 08:15 Dose: 81 mg Documented by: Atorvastatin Calcium (Lipitor) 20 mg PO DAILY [facility] Last Admin: 07/04/20 08:15 Dose: 20 mg Documented by: Benzonatate (Tessalon Perles) 100 mg PO TID PRN PRN Reason: Cough Last Admin: 07/04/20 23:11 Dose: 100 mg Documented by: Clopidogrel Bisulfate (Plavix) 75 mg PO DAILY [facility] Last Admin: 07/04/20 08:15 Dose: 75 mg Documented by: Furosemide (Lasix) 20 mg IVPUSH NOW ONE Stop: 07/05/20 07:56 Guaifenesin/Dextromethorphan (Robitussin Dm) 10 ml PO Q4H PRN PRN Reason: Cough Last Admin: 07/04/20 18:52 Dose: 10 ml Documented by: Heparin Sodium (Porcine) (Heparin Sodium) 5,000 units SUBCUT Q12H [facility] Last Admin: 07/04/20 20:33 Dose: 5,000 units Documented by: Pantoprazole Sodium 40 mg/ (Sodium Chloride) 10 mls @ 300 mls/hr IV Q24H [facility] Last Admin: 07/04/20 18:20 Dose: 300 mls/hr Documented by: Ceftriaxone Sodium/Dextrose 1 (gm/ Premix) 50 mls @ 100 mls/hr IV Q24H [facility] Last Admin: 07/04/20 23:05 Dose: 100 mls/hr Documented by: Levothyroxine Sodium 50 mcg/ (Sodium Chloride) 2.5 mls @ 300 mls/hr IV DAILY [facility] Last Admin: 07/04/20 12:56 Dose: 300 mls/hr Documented by: Magnesium Sulfate (Magnesium Sulfate In Water 2 Gm/50 Ml) 2 gm in 50 mls @ 50 mls/hr IV ONETIME [facility] Melatonin (Melatonin) 6 mg PO BEDTIME PRN PRN Reason: Insomnia Last Admin: 07/05/20 00:42 Dose: 6 mg Documented by: Ondansetron HCl (Zofran) 4 mg IVPUSH Q6H PRN PRN Reason: Nausea/Vomiting Last Admin: 07/03/20 09:37 Dose: 4 mg Documented by: Fluticasone/Vilanterol [Breo Ellipta 200-25 Mcg Inhalation Kit] 1 each INH DAILY [facility] Last Admin: 07/04/20 08:59 Dose: Not Given Documented by: Discontinued Medications Albuterol/Ipratropium (Duoneb 3.0-0.5 Mg/3 Ml) 3 ml NEB ONETIME ONE Stop: 07/02/20 15:43 Last Admin: 07/02/20 15:55 Dose: 3 ml Documented by: Aspirin (Aspirin) 81 mg PO ONETIME ONE Stop: 07/02/20 22:37 Last Admin: 07/02/20 22:49 Dose: 81 mg Documented by: Clopidogrel Bisulfate (Plavix) 75 mg PO ONETIME ONE Stop: 07/02/20 22:37 Last Admin: 07/02/20 22:49 Dose: 75 mg Documented by: Fluconazole (Diflucan) 100 mg PO ONETIME ONE Stop: 07/04/20 23:48 Last Admin: 07/05/20 00:39 Dose: 100 mg Documented by: Furosemide (Lasix) 20 mg IVPUSH ONETIME ONE Stop: 07/04/20 18:17 Last Admin: 07/04/20 18:51 Dose: 20 mg Documented by: Sodium Chloride (Normal Saline) 1,000 mls @ 100 mls/hr IV STAT ONE Stop: 07/02/20 22:53 Last Admin: 07/02/20 13:33 Dose: 100 mls/hr Documented by: Sodium Chloride (Normal Saline) 1,000 mls @ 75 mls/hr IV CONTINUOUS ONE Stop: 07/03/20 08:49 Last Admin: 07/02/20 23:21 Dose: Not Given Documented by: Sodium Chloride (Normal Saline) 1,000 mls @ 100 mls/hr IV ASDIRECTED [facility] Last Infusion: 07/03/20 21:13 Dose: 0 mls/hr Documented by: Magnesium Sulfate (Magnesium Sulfate In Water Premix) 2 gm in 50 mls @ 50 mls/hr IV ONETIME ONE Stop: 07/03/20 08:59 Last Admin: 07/03/20 08:40 Dose: 50 mls/hr Documented by: Levothyroxine Sodium 50 mcg/ (Sodium Chloride) 2.5 mls @ 300 mls/hr IV 07/03/20@1700 [facility] Stop: 07/03/20 17:01 Last Admin: 07/03/20 17:22 Dose: 300 mls/hr Documented by: Levothyroxine Sodium (Levothyroxine) 112 mcg PO ACBREAKFAST [facility] Levothyroxine Sodium (Levothyroxine) 112 mcg PO ONETIME ONE Stop: 07/02/20 18:31 Last Admin: 07/02/20 20:04 Dose: Not Given Documented by: Levothyroxine Sodium (Synthroid) 100 mcg IVPUSH ONETIME ONE Stop: 07/02/20 19:05 Last Admin: 07/02/20 20:16 Dose: Not Given Documented by: Levothyroxine Sodium (Synthroid) 50 mcg IVPUSH ONETIME ONE Stop: 07/02/20 19:31 Last Admin: 07/02/20 20:00 Dose: 50 mcg Documented by: Omeprazole (Omeprazole) 20 mg PO ACBREAKFAST [facility] Ondansetron HCl (Zofran) 4 mg IVPUSH ONETIME ONE Stop: 07/02/20 12:56 Last Admin: 07/02/20 13:33 Dose: 4 mg Documented by: Fluticasone/Salmeterol (Advair Diskus 250-50) 1 puff INH BID [facility] Last Admin: 07/03/20 09:44 Dose: 1 puff Documented by: Sodium Chloride (Sodium Chloride) 1 gm PO ONETIME ONE Stop: 07/04/20 18:17 Last Admin: 07/04/20 18:39 Dose: Not Given Documented by: Sodium Chloride (Sodium Chloride) 0.5 gm PO ONETIME ONE Stop: 07/04/20 18:34 Last Admin: 07/04/20 20:30 Dose: 0.5 gm Documented by: - Exam Quality Assessment: Supplemental Oxygen General: Alert, Oriented HEENT: EOMI, Other. No: Mucous Membr. Moist/Icard (improving but dry mucous membranes ) Lungs: Other (mild crackles w. deep inspiration ) Cardiovascular: Regular Rate, Regular Rhythm GI/Abdominal Exam: Soft, Non-Tender Extremities: Normal Inspection, No Pedal Edema Neurological: No New Focal Deficit Psy/Mental Status: Alert Sepsis Event Note - Evaluation Sepsis Screening Result: No Definite Risk - Focused Exam Vital Signs: Vital Signs Temp Pulse Resp BP Pulse Ox 07/05/20 07:27 97.3 F 64 16 130/64 92 L 07/05/20 05:35 97.6 F 58 L 17 131/56 L 91 L 07/04/20 23:07 97.8 F 62 19 144/93 H 97 - Problem List & Annotations (1) Hypothyroidism SNOMED Code(s): 09920908 Code(s): E03.9 - HYPOTHYROIDISM, UNSPECIFIED Status: Acute (2) Hyponatremia SNOMED Code(s): 29686390 Code(s): E87.1 - HYPO-OSMOLALITY AND HYPONATREMIA Status: Acute - Problem List Review Problem List Initiated/Reviewed/Updated: Yes - My Orders Last 24 Hours: My Active Orders 07/04/20 09:00 Patient's Own Medication [Ptom] 1 each INH DAILY 07/05/20 05:00 Daily Weight [Height and Weight] [RC] DAILY 07/05/20 07:55 Furosemide [Lasix] 20 mg IVPUSH NOW ONE 07/05/20 08:00 Magnesium Sulfate/Water [Magnesium Sulfate in Water 2 GM/50 ML] 2 gm in 50 ml IV ONETIME 07/06/20 05:11 CBC WITH AUTO DIFF [HEME] AM COMPREHENSIVE METABOLIC PN,CMP [CHEM] AM MAGNESIUM [CHEM] AM 07/07/20 05:11 CBC WITH AUTO DIFF [HEME] AM COMPREHENSIVE METABOLIC PN,CMP [CHEM] AM 07/08/20 05:11 CBC WITH AUTO DIFF [HEME] AM COMPREHENSIVE METABOLIC PN,CMP [CHEM] AM - Plan Plan:: Assessment: 1. Moderate/chronic hyponatremia 2. Hypothyroidism 3. COPD 4. Medication noncompliance 5. Past medical history; NSTEMI status post PCI, previous tobacco abuser, hypertension 6. hypomagnesemia Plan 1. 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 Can consider PO medication w. dose reduction at discharge. 2. COPD: CXR negative; CT chest suggest right sided trace pleural effusion w. pleural thickening; could not r.o malignancy; could not order Chest CT due to history of contrast allergy; will require outpatient pulmonology follow up. Continue home controller and Duo nebs. Cough noted: o2 saturations well maintained; continue home inhaler 3. hypomagnesemia:resolved <VernonJosé Miguel fajardo - Last Filed: 07/06/20 16:59> - Patient Data Vitals - Most Recent: Last Vital Signs Temp 36.5 C 07/06/20 12:00 Pulse 71 07/06/20 12:00 Resp 16 07/06/20 12:00 BP 136/52 L 07/06/20 12:00 Pulse Ox 94 L 07/06/20 12:00 I&O - Last 24 Hours: Intake & Output 07/06/20 07/06/20 07/06/20 06:59 14:59 22:59 Intake Total 300 Output Total 300 Balance 0 Lab Results Last 24 Hours: Laboratory Results - last 24 hr 07/06/20 07/06/20 Range/Units 06:06 06:06 WBC 7.06 (4.0-11.0) K/uL RBC 4.25 L (4.30-5.90) M/uL Hgb 13.0 (12.0-16.0) g/dL Hct 39.2 (36.0-46.0) % MCV 92.2 (80.0-98.0) fL MCH 30.6 (27.0-32.0) pg MCHC 33.2 (31.0-37.0) g/dL RDW Std Deviation 48.4 (28.0-62.0) fl RDW Coeff of [place] 14 (11.0-15.0) % Plt Count 262 (150-400) K/uL MPV 8.50 (7.40-12.00) fL Neut % (Auto) 65.8 (48.0-80.0) % Lymph % (Auto) 16.7 (16.0-40.0) % [place] % (Auto) 14.2 (0.0-15.0) % Eos % (Auto) 1.3 (0.0-7.0) % Baso % (Auto) 2.0 H (0.0-1.5) % Neut # (Auto) 4.7 (1.4-5.7) K/uL Lymph # (Auto) 1.2 (0.6-2.4) K/uL [place] # (Auto) 1.0 H (0.0-0.8) K/uL Eos # (Auto) 0.1 (0.0-0.7) K/uL Baso # (Auto) 0.1 (0.0-0.1) K/uL Nucleated RBC % 0.0 /100WBC Nucleated RBCs # 0 K/uL Sodium 126 L (136-145) mmol/L Potassium 5.1 (3.5-5.1) mmol/L Chloride 91 L (98-107) mmol/L Carbon Dioxide 32.5 H (21.0-32.0) mmol/L BUN 16 (7.0-18.0) mg/dL Creatinine 0.9 (0.6-1.0) mg/dL Est Cr Clr Drug Dosing 39.18 mL/min Estimated GFR (MDRD) 59.8 ml/min Glucose 101 (74-106) mg/dL Calcium 9.2 (8.5-10.1) mg/dL Magnesium 2.1 (1.8-2.4) mg/dL Total Bilirubin 0.3 (0.2-1.0) mg/dL AST 29 (15-37) IU/L ALT 36 (14-63) IU/L Alkaline Phosphatase 64 (46-116) U/L Total Protein 6.4 (6.4-8.2) g/dL Albumin 3.1 L (3.4-5.0) g/dL Globulin 3.3 (2.6-4.0) g/dL Albumin/Globulin Ratio 0.9 (0.9-1.6) Med Orders - Current: Current Medications Discontinued Medications Acetaminophen (Tylenol Extra Strength) 500 mg PO Q4H PRN PRN Reason: Pain Last Admin: 07/06/20 13:41 Dose: 500 mg Documented by: Albuterol/Ipratropium (Duoneb 3.0-0.5 Mg/3 Ml) 3 ml NEB ONETIME ONE Stop: 07/02/20 15:43 Last Admin: 07/02/20 15:55 Dose: 3 ml Documented by: Albuterol/Ipratropium (Duoneb 3.0-0.5 Mg/3 Ml) 3 ml NEB Q4HRRT PRN PRN Reason: Shortness Of Breath/wheezing Last Admin: 07/03/20 20:48 Dose: 3 ml Documented by: Aspirin (Aspirin) 81 mg PO DAILY [facility] Last Admin: 07/06/20 09:53 Dose: 81 mg Documented by: Aspirin (Aspirin) 81 mg PO ONETIME ONE Stop: 07/02/20 22:37 Last Admin: 07/02/20 22:49 Dose: 81 mg Documented by: Atorvastatin Calcium (Lipitor) 20 mg PO DAILY [facility] Last Admin: 07/06/20 09:53 Dose: 20 mg Documented by: Benzonatate (Tessalon Perles) 100 mg PO TID PRN PRN Reason: Cough Last Admin: 07/06/20 13:41 Dose: 100 mg Documented by: Clopidogrel Bisulfate (Plavix) 75 mg PO DAILY [facility] Last Admin: 07/06/20 09:53 Dose: 75 mg Documented by: Clopidogrel Bisulfate (Plavix) 75 mg PO ONETIME ONE Stop: 07/02/20 22:37 Last Admin: 07/02/20 22:49 Dose: 75 mg Documented by: Fluconazole (Diflucan) 100 mg PO ONETIME ONE Stop: 07/04/20 23:48 Last Admin: 07/05/20 00:39 Dose: 100 mg Documented by: Furosemide (Lasix) 20 mg IVPUSH ONETIME ONE Stop: 07/04/20 18:17 Last Admin: 07/04/20 18:51 Dose: 20 mg Documented by: Furosemide (Lasix) 20 mg IVPUSH NOW ONE Stop: 07/05/20 07:56 Last Admin: 07/05/20 09:20 Dose: 20 mg Documented by: Guaifenesin/Dextromethorphan (Robitussin Dm) 10 ml PO Q4H PRN PRN Reason: Cough Last Admin: 07/05/20 23:23 Dose: 10 ml Documented by: Heparin Sodium (Porcine) (Heparin Sodium) 5,000 units SUBCUT Q12H [facility] Last Admin: 07/06/20 09:54 Dose: 5,000 units Documented by: Sodium Chloride (Normal Saline) 1,000 mls @ 100 mls/hr IV STAT ONE Stop: 07/02/20 22:53 Last Admin: 07/02/20 13:33 Dose: 100 mls/hr Documented by: Pantoprazole Sodium 40 mg/ (Sodium Chloride) 10 mls @ 300 mls/hr IV Q24H [facility] Last Admin: 07/05/20 18:03 Dose: 300 mls/hr Documented by: Sodium Chloride (Normal Saline) 1,000 mls @ 75 mls/hr IV CONTINUOUS ONE Stop: 07/03/20 08:49 Last Admin: 07/02/20 23:21 Dose: Not Given Documented by: Ceftriaxone Sodium/Dextrose 1 (gm/ Premix) 50 mls @ 100 mls/hr IV Q24H [facility] Last Admin: 07/05/20 23:22 Dose: 100 mls/hr Documented by: Sodium Chloride (Normal Saline) 1,000 mls @ 100 mls/hr IV ASDIRECTED [facility] Last Infusion: 07/03/20 21:13 Dose: 0 mls/hr Documented by: Magnesium Sulfate (Magnesium Sulfate In Water Premix) 2 gm in 50 mls @ 50 mls/hr IV ONETIME ONE Stop: 07/03/20 08:59 Last Admin: 07/03/20 08:40 Dose: 50 mls/hr Documented by: Levothyroxine Sodium 50 mcg/ (Sodium Chloride) 2.5 mls @ 300 mls/hr IV 07/03/20@1700 [facility] Stop: 07/03/20 17:01 Last Admin: 07/03/20 17:22 Dose: 300 mls/hr Documented by: Levothyroxine Sodium 50 mcg/ (Sodium Chloride) 2.5 mls @ 300 mls/hr IV DAILY [facility] Last Admin: 07/05/20 09:24 Dose: 300 mls/hr Documented by: Magnesium Sulfate (Magnesium Sulfate In Water 2 Gm/50 Ml) 2 gm in 50 mls @ 50 mls/hr IV ONETIME [facility] Last Admin: 07/05/20 11:21 Dose: 50 mls/hr Documented by: Levothyroxine Sodium 60 mcg/ (Sodium Chloride) 3 mls @ 60 mls/hr IV DAILY [facility] Last Admin: 07/06/20 09:49 Dose: 60 mls/hr Documented by: Levothyroxine Sodium (Levothyroxine) 112 mcg PO ACBREAKFAST [facility] Levothyroxine Sodium (Levothyroxine) 112 mcg PO ONETIME ONE Stop: 07/02/20 18:31 Last Admin: 07/02/20 20:04 Dose: Not Given Documented by: Levothyroxine Sodium (Synthroid) 100 mcg IVPUSH ONETIME ONE Stop: 07/02/20 19:05 Last Admin: 07/02/20 20:16 Dose: Not Given Documented by: Levothyroxine Sodium (Synthroid) 50 mcg IVPUSH ONETIME ONE Stop: 07/02/20 19:31 Last Admin: 07/02/20 20:00 Dose: 50 mcg Documented by: Levothyroxine Sodium (Levothyroxine) 25 mcg PO ONETIME ONE Stop: 07/05/20 12:36 Last Admin: 07/05/20 14:01 Dose: Not Given Documented by: Lorazepam (Ativan) 0.5 mg IVPUSH Q6H PRN PRN Reason: Anxiety Melatonin (Melatonin) 6 mg PO BEDTIME PRN PRN Reason: Insomnia Last Admin: 07/05/20 23:24 Dose: 6 mg Documented by: Omeprazole (Omeprazole) 20 mg PO ACBREAKFAST [facility] Ondansetron HCl (Zofran) 4 mg IVPUSH ONETIME ONE Stop: 07/02/20 12:56 Last Admin: 07/02/20 13:33 Dose: 4 mg Documented by: Ondansetron HCl (Zofran) 4 mg IVPUSH Q6H PRN PRN Reason: Nausea/Vomiting Last Admin: 07/03/20 09:37 Dose: 4 mg Documented by: Fluticasone/Vilanterol [Breo Ellipta 200-25 Mcg Inhalation Kit] 1 each INH DAILY [facility] Last Admin: 07/06/20 09:54 Dose: 1 each Documented by: Fluticasone/Salmeterol (Advair Diskus 250-50) 1 puff INH BID [facility] Last Admin: 07/03/20 09:44 Dose: 1 puff Documented by: Sodium Chloride (Sodium Chloride) 1 gm PO ONETIME ONE Stop: 07/04/20 18:17 Last Admin: 07/04/20 18:39 Dose: Not Given Documented by: Sodium Chloride (Sodium Chloride) 0.5 gm PO ONETIME ONE Stop: 07/04/20 18:34 Last Admin: 07/04/20 20:30 Dose: 0.5 gm Documented by: Sodium Chloride (Sodium Chloride) 1 gm PO BID [facility] Last Admin: 07/06/20 13:10 Dose: Not Given Documented by: Sepsis Event Note - Focused Exam Vital Signs: Vital Signs Temp Pulse Resp BP Pulse Ox 07/06/20 12:00 36.5 C 71 16 136/52 L 94 L 07/06/20 08:00 36.5 C 73 16 141/64 H 90 L - Plan Plan:: I have seen and evaluated the patient and agree with the residents note unless specified in my note
[2020-07-05] MEDS ORDERED: Magnesium Sulfate/Water 2 GM/50 ML BAG IV SCH (08:00)
[2020-07-05] MEDS: Benzonatate 100 MG Cap PO PRN ×2 (09:19→17:55)
[2020-07-05] MEDS: Aspirin 81 MG Tab.Chew PO SCH (09:22)
[2020-07-05] MEDS: atorvaSTATin 20 MG Tab PO SCH (09:23)
[2020-07-05] MEDS: Acetaminophen 500 MG Tab PO PRN ×3 (09:23→23:25)
[2020-07-05] MEDS: Clopidogrel 75 MG Tab PO SCH (09:23)
[2020-07-05] MEDS: Levothyroxine 50 MCG in Sodium Chloride 0.9% 2.5 ML IV SCH (09:24)
[2020-07-05] MEDS: Heparin Sodium 5,000 Units/ML Vial SUBCUT SCH ×2 (09:25→21:38)
[2020-07-05] MEDS: VILANTEROL INH SCH (09:29)
[2020-07-05] MEDS: FLUTICASONE INH SCH (09:29)
[2020-07-05] MEDS: Sodium Chloride 1 GM Tab PO SCH ×2 (11:10→21:38)
[2020-07-05] MEDS ORDERED: Levothyroxine 100 MCG Vial IV SCH (12:00)
[2020-07-05] MEDS ORDERED: LORazepam 2 MG/ML SDV IVPUSH PRN (12:00)
[2020-07-05] MEDS ORDERED: Levothyroxine 25 MCG Tab PO ONE (12:35)
[2020-07-05] MEDS: Pantoprazole 40 MG in Sodium Chloride 0.9% 10 ML IV SCH (18:03)
[2020-07-05] MEDS: cefTRIAXone 1 GM in Premix Bag 1 BAG IV SCH (23:22)
[2020-07-05] MEDS: guaiFENesin/Dextromethorphan 100-10 MG/5 ML Soln 10 ML Cup PO PRN (23:23)
[2020-07-06 06:57] LABS: CARBON DIOXIDE,CO2 32.5 mmol/L (21.0-32.0); POTASSIUM,K 5.1 mmol/L (3.5-5.1)
[2020-07-06] MEDS: Acetaminophen 500 MG Tab PO PRN ×2 (07:57→13:41)
[2020-07-06] MEDS: Benzonatate 100 MG Cap PO PRN ×2 (07:57→13:41)
[2020-07-06] MEDS ORDERED: SODIUM CHLORIDE 0.9% IV SCH (09:00)
[2020-07-06] MEDS ORDERED: LEVOTHYROXINE IV SCH (09:00)
[2020-07-06] MEDS: atorvaSTATin 20 MG Tab PO SCH (09:53)
[2020-07-06] MEDS: Clopidogrel 75 MG Tab PO SCH (09:53)
[2020-07-06] MEDS: Aspirin 81 MG Tab.Chew PO SCH (09:53)
[2020-07-06] MEDS: Heparin Sodium 5,000 Units/ML Vial SUBCUT SCH (09:54)
[2020-07-06] MEDS: FLUTICASONE INH SCH (09:54)
[2020-07-06] MEDS: VILANTEROL INH SCH (09:54)
--- NOTE | 2020-07-06 12:59 | PCM.DCSUM1 ---
<Kristi Richards - Last Filed: 07/06/20 13:29> Discharge Summary - Hospital Course Free Text/Narrative:: Patient is a 85-year-old female with a significant past medical history of hypothyroidism, COPD, hypertension, history of an NSTEMI status post PCI in 2018 presenting on 07-02-2020 secondary to 1 week of increasing nausea, dizziness, cough with increased sputum production and exertional dyspnea. ED course: Covid negative. Influenza negative. EKG : No ST elevation/depression. Normal sinus rhythm. Chest x-ray: No acute infiltrative processes including effusions Started on NS 100 cc/h and given a one-time DuoNeb treatment Hospital course: Patient endorses having been significantly noncompliant with her medications specifically her thyroid medication secondary to concerns about insomnia. States for the past month having been "on and off" with her medications and noticed that she in this past week was feeling more "dull' lethargic. Patient was convinced that she was having pneumonia after appreciating some green sputum and worsening of her exertional dyspnea despite being compliant with her inhalers: Patient however denies any recent sick contacts or recent travel. Patient denies any urinary symptoms including dysuria, urgency, frequency. Denies any chest pain and or palpitations. Denies any diarrhea as she had a normal bowel movement yesterday morning; does endorse an increase in appetite tonight. Labs on the following days did suggest a sodium level of 123 and patient was feeling lethargic and dull in light of her significant hypothyroidism. IV levothyroxine was started at 50 mcg daily and concerns about hypothyroidism versus SIADH being the culprit for hyponatremia were part of the differential. Patient was trialed on 20 mg of Lasix daily with minimal response. Fluid restriction of 1 L also attempted with mild response. Sodium chloride tablets at 1 gm twice daily initiated also with very marginal increase in sodium with a final sodium of 126. : Urine sodium 158 Serum osmolality 251 TSH 27.73 T3-T4 both reduced at 0.62 and 0.72 respectively. Patient however was cognitively intact, ANO x3, physical therapy had walked with patient and was at her baseline without any ataxia or dysfunction. Since hyponatremia and hypothyroidism are chronic and were responding albeit slowly and patient was requesting discharge patient was discharged with additional 2 days of 1 g of sodium chloride 3 times daily x2 days with a prescription for recheck of sodium on upcoming Thursday, July 09, 2020. Results will be sent over to primary care provider. Patient was also informed that if numbers are not improving despite outpatient therapy primary care may decide to consult nephrology.. Patient was amenable to this and was continuing to request discharge. Otherwise patient was stable. Vitals were stable. Covid and flu negative. Patient discharged in stable condition. Disposition Home Extensive conversation with patient regarding medication tolerance and compliance as patient not taking her Synthroid medication is most likely the overall culprit for this current admission. Patient understood and agreed. - Discharge Data Discharge Date: 07/06/20 Discharge Disposition: Home, Self-Care Condition: Stable - Referral to Home Health Primary Care Physician: Fred Guzman MD - Discharge Diagnosis/Problem(s) (1) Hypothyroidism SNOMED Code(s): 84019419 ICD Code: E03.9 - HYPOTHYROIDISM, UNSPECIFIED Status: Acute (2) Hyponatremia SNOMED Code(s): 15324586 ICD Code: E87.1 - HYPO-OSMOLALITY AND HYPONATREMIA Status: Acute - Patient Summary/Data Consults: Consultations 07/03/20 09:27 PT Evaluation and Treatment [CONS] Routine - Discharge Plan Prescriptions/Med Rec: Benzonatate 100 mg PO TID PRN 4 Days #12 capsule PRN Reason: Cough Sodium Chloride 1 gm PO TID 2 Days #6 tablet Home Medications: Home Meds Levothyroxine Sodium [Synthroid] 112 mcg PO ACBREAKFAST 09/05/15 [History] Fluticasone/Salmeterol [Advair Diskus 250-50] 1 puff INH BID #1 inhaler 09/11/15 [Rx] Albuterol/Ipratropium [DuoNeb 3.0-0.5 MG/3 ML] 3 ml NEB Q4HRRT PRN neb 11/22/17 [Rx] Aspirin 81 mg PO DAILY tab.chew 11/22/17 [Rx] Potassium Chloride [Klor-Con 10] 10 meq PO DAILY 08/31/18 [History] atorvaSTATin [Lipitor] 20 mg PO DAILY 08/31/18 [History] Clopidogrel [Plavix] 75 mg PO DAILY 07/02/20 [History] Fluticasone/Vilanterol [Breo Ellipta 200-25 MCG Inhalation Kit] 1 puff INH DAILY 07/02/20 [History] carvediloL [Carvedilol] 3.125 mg PO BEDTIME 07/02/20 [History] carvediloL [Carvedilol] 6.25 mg PO QAM 07/02/20 [History] oxyCODONE HCl [Oxycodone HCl] 10 mg PO BID 07/02/20 [History] Pregabalin 50 mg PO TID 07/03/20 [History] Acetaminophen [Tylenol Extra Strength] 500 mg PO Q4H PRN tablet 07/06/20 [Rx] Benzonatate 100 mg PO TID PRN 4 Days #12 capsule 07/06/20 [Rx] Patient's Own Medication [Ptom] 1 each INH DAILY each 07/06/20 [Rx] Sodium Chloride 1 gm PO TID 2 Days #6 tablet 07/06/20 [Rx] Patient Handouts: Sodium Chloride ophthalmic solution, Sodium Test, Sodium Ch loride for oral solution, Benzonatate capsules Referrals: Fred Guzman MD [Primary Care Provider] - 07/19/20 8:15 am - Discharge Summary/Plan Comment DC Time >30 min.: No - Patient Data Vitals - Most Recent: Last Vital Signs Temp 97.6 F 07/06/20 00:00 Pulse 60 07/06/20 00:00 Resp 18 07/06/20 00:00 BP 130/60 07/06/20 00:00 Pulse Ox 95 07/06/20 00:00 Weight - Most Recent: 72.983 kg I&O - Last 24 hours: Intake & Output 07/05/20 07/06/20 07/06/20 22:59 06:59 14:59 Intake Total 350 300 Output Total 1100 300 Balance -750 0 Lab Results - Last 24 hrs: Laboratory Results - last 24 hr 07/06/20 07/06/20 Range/Units 06:06 06:06 WBC 7.06 (4.0-11.0) K/uL RBC 4.25 L (4.30-5.90) M/uL Hgb 13.0 (12.0-16.0) g/dL Hct 39.2 (36.0-46.0) % MCV 92.2 (80.0-98.0) fL MCH 30.6 (27.0-32.0) pg MCHC 33.2 (31.0-37.0) g/dL RDW Std Deviation 48.4 (28.0-62.0) fl RDW Coeff of Lavelle 14 (11.0-15.0) % Plt Count 262 (150-400) K/uL MPV 8.50 (7.40-12.00) fL Neut % (Auto) 65.8 (48.0-80.0) % Lymph % (Auto) 16.7 (16.0-40.0) % [place] % (Auto) 14.2 (0.0-15.0) % Eos % (Auto) 1.3 (0.0-7.0) % Baso % (Auto) 2.0 H (0.0-1.5) % Neut # (Auto) 4.7 (1.4-5.7) K/uL Lymph # (Auto) 1.2 (0.6-2.4) K/uL [place] # (Auto) 1.0 H (0.0-0.8) K/uL Eos # (Auto) 0.1 (0.0-0.7) K/uL Baso # (Auto) 0.1 (0.0-0.1) K/uL Nucleated RBC % 0.0 /100WBC Nucleated RBCs # 0 K/uL Sodium 126 L (136-145) mmol/L Potassium 5.1 (3.5-5.1) mmol/L Chloride 91 L (98-107) mmol/L Carbon Dioxide 32.5 H (21.0-32.0) mmol/L BUN 16 (7.0-18.0) mg/dL Creatinine 0.9 (0.6-1.0) mg/dL Est Cr Clr Drug Dosing 39.18 mL/min Estimated GFR (MDRD) 59.8 ml/min Glucose 101 (74-106) mg/dL Calcium 9.2 (8.5-10.1) mg/dL Magnesium 2.1 (1.8-2.4) mg/dL Total Bilirubin 0.3 (0.2-1.0) mg/dL AST 29 (15-37) IU/L ALT 36 (14-63) IU/L Alkaline Phosphatase 64 (46-116) U/L Total Protein 6.4 (6.4-8.2) g/dL Albumin 3.1 L (3.4-5.0) g/dL Globulin 3.3 (2.6-4.0) g/dL Albumin/Globulin Ratio 0.9 (0.9-1.6) Med Orders - Current: Current Medications Acetaminophen (Tylenol Extra Strength) 500 mg PO Q4H PRN PRN Reason: Pain Last Admin: 07/06/20 07:57 Dose: 500 mg Documented by: Albuterol/Ipratropium (Duoneb 3.0-0.5 Mg/3 Ml) 3 ml NEB Q4HRRT PRN PRN Reason: Shortness Of Breath/wheezing Last Admin: 07/03/20 20:48 Dose: 3 ml Documented by: Aspirin (Aspirin) 81 mg PO DAILY [facility] Last Admin: 07/06/20 09:53 Dose: 81 mg Documented by: Atorvastatin Calcium (Lipitor) 20 mg PO DAILY [facility] Last Admin: 07/06/20 09:53 Dose: 20 mg Documented by: Benzonatate (Tessalon Perles) 100 mg PO TID PRN PRN Reason: Cough Last Admin: 07/06/20 07:57 Dose: 100 mg Documented by: Clopidogrel Bisulfate (Plavix) 75 mg PO DAILY [facility] Last Admin: 07/06/20 09:53 Dose: 75 mg Documented by: Guaifenesin/Dextromethorphan (Robitussin Dm) 10 ml PO Q4H PRN PRN Reason: Cough Last Admin: 07/05/20 23:23 Dose: 10 ml Documented by: Heparin Sodium (Porcine) (Heparin Sodium) 5,000 units SUBCUT Q12H [facility] Last Admin: 07/06/20 09:54 Dose: 5,000 units Documented by: Pantoprazole Sodium 40 mg/ (Sodium Chloride) 10 mls @ 300 mls/hr IV Q24H [facility] Last Admin: 07/05/20 18:03 Dose: 300 mls/hr Documented by: Ceftriaxone Sodium/Dextrose 1 (gm/ Premix) 50 mls @ 100 mls/hr IV Q24H [facility] Last Admin: 07/05/20 23:22 Dose: 100 mls/hr Documented by: Magnesium Sulfate (Magnesium Sulfate In Water 2 Gm/50 Ml) 2 gm in 50 mls @ 50 mls/hr IV ONETIME [facility] Last Admin: 07/05/20 11:21 Dose: 50 mls/hr Documented by: Levothyroxine Sodium 60 mcg/ (Sodium Chloride) 3 mls @ 60 mls/hr IV DAILY [facility] Last Admin: 07/06/20 09:49 Dose: 60 mls/hr Documented by: Lorazepam (Ativan) 0.5 mg IVPUSH Q6H PRN PRN Reason: Anxiety Melatonin (Melatonin) 6 mg PO BEDTIME PRN PRN Reason: Insomnia Last Admin: 07/05/20 23:24 Dose: 6 mg Documented by: Ondansetron HCl (Zofran) 4 mg IVPUSH Q6H PRN PRN Reason: Nausea/Vomiting Last Admin: 07/03/20 09:37 Dose: 4 mg Documented by: Fluticasone/Vilanterol [Breo Ellipta 200-25 Mcg Inhalation Kit] 1 each INH DAILY [facility] Last Admin: 07/06/20 09:54 Dose: 1 each Documented by: Sodium Chloride (Sodium Chloride) 1 gm PO BID [facility] Last Admin: 07/05/20 21:38 Dose: 1 gm Documented by: Discontinued Medications Albuterol/Ipratropium (Duoneb 3.0-0.5 Mg/3 Ml) 3 ml NEB ONETIME ONE Stop: 07/02/20 15:43 Last Admin: 07/02/20 15:55 Dose: 3 ml Documented by: Aspirin (Aspirin) 81 mg PO ONETIME ONE Stop: 07/02/20 22:37 Last Admin: 07/02/20 22:49 Dose: 81 mg Documented by: Clopidogrel Bisulfate (Plavix) 75 mg PO ONETIME ONE Stop: 07/02/20 22:37 Last Admin: 07/02/20 22:49 Dose: 75 mg Documented by: Fluconazole (Diflucan) 100 mg PO ONETIME ONE Stop: 07/04/20 23:48 Last Admin: 07/05/20 00:39 Dose: 100 mg Documented by: Furosemide (Lasix) 20 mg IVPUSH ONETIME ONE Stop: 07/04/20 18:17 Last Admin: 07/04/20 18:51 Dose: 20 mg Documented by: Furosemide (Lasix) 20 mg IVPUSH NOW ONE Stop: 07/05/20 07:56 Last Admin: 07/05/20 09:20 Dose: 20 mg Documented by: Sodium Chloride (Normal Saline) 1,000 mls @ 100 mls/hr IV STAT ONE Stop: 07/02/20 22:53 Last Admin: 07/02/20 13:33 Dose: 100 mls/hr Documented by: Sodium Chloride (Normal Saline) 1,000 mls @ 75 mls/hr IV CONTINUOUS ONE Stop: 07/03/20 08:49 Last Admin: 07/02/20 23:21 Dose: Not Given Documented by: Sodium Chloride (Normal Saline) 1,000 mls @ 100 mls/hr IV ASDIRECTED [facility] Last Infusion: 07/03/20 21:13 Dose: 0 mls/hr Documented by: Magnesium Sulfate (Magnesium Sulfate In Water Premix) 2 gm in 50 mls @ 50 mls/hr IV ONETIME ONE Stop: 07/03/20 08:59 Last Admin: 07/03/20 08:40 Dose: 50 mls/hr Documented by: Levothyroxine Sodium 50 mcg/ (Sodium Chloride) 2.5 mls @ 300 mls/hr IV 07/03/20@1700 [facility] Stop: 07/03/20 17:01 Last Admin: 07/03/20 17:22 Dose: 300 mls/hr Documented by: Levothyroxine Sodium 50 mcg/ (Sodium Chloride) 2.5 mls @ 300 mls/hr IV DAILY [facility] Last Admin: 07/05/20 09:24 Dose: 300 mls/hr Documented by: Levothyroxine Sodium (Levothyroxine) 112 mcg PO ACBREAKFAST [facility] Levothyroxine Sodium (Levothyroxine) 112 mcg PO ONETIME ONE Stop: 07/02/20 18:31 Last Admin: 07/02/20 20:04 Dose: Not Given Documented by: Levothyroxine Sodium (Synthroid) 100 mcg IVPUSH ONETIME ONE Stop: 07/02/20 19:05 Last Admin: 07/02/20 20:16 Dose: Not Given Documented by: Levothyroxine Sodium (Synthroid) 50 mcg IVPUSH ONETIME ONE Stop: 07/02/20 19:31 Last Admin: 07/02/20 20:00 Dose: 50 mcg Documented by: Levothyroxine Sodium (Levothyroxine) 25 mcg PO ONETIME ONE Stop: 07/05/20 12:36 Last Admin: 07/05/20 14:01 Dose: Not Given Documented by: Omeprazole (Omeprazole) 20 mg PO ACBREAKFAST [facility] Ondansetron HCl (Zofran) 4 mg IVPUSH ONETIME ONE Stop: 07/02/20 12:56 Last Admin: 07/02/20 13:33 Dose: 4 mg Documented by: Fluticasone/Salmeterol (Advair Diskus 250-50) 1 puff INH BID [facility] Last Admin: 07/03/20 09:44 Dose: 1 puff Documented by: Sodium Chloride (Sodium Chloride) 1 gm PO ONETIME ONE Stop: 07/04/20 18:17 Last Admin: 07/04/20 18:39 Dose: Not Given Documented by: Sodium Chloride (Sodium Chloride) 0.5 gm PO ONETIME ONE Stop: 07/04/20 18:34 Last Admin: 07/04/20 20:30 Dose: 0.5 gm Documented by: <José Miguel Junior - Last Filed: 07/06/20 16:36> Discharge Summary - Hospital Course Free Text/Narrative:: I have seen and evaluated the patient and agree with the residents note unless specified in my note - Referral to Home Health Primary Care Physician: Fred Guzman MD - Patient Summary/Data Consults: Consultations 07/03/20 09:27 PT Evaluation and Treatment [CONS] Routine - Patient Data Vitals - Most Recent: Last Vital Signs Temp 36.5 C 07/06/20 12:00 Pulse 71 07/06/20 12:00 Resp 16 07/06/20 12:00 BP 136/52 L 07/06/20 12:00 Pulse Ox 94 L 07/06/20 12:00 I&O - Last 24 hours: Intake & Output 07/06/20 07/06/20 07/06/20 06:59 14:59 22:59 Intake Total 300 Output Total 300 Balance 0 Lab Results - Last 24 hrs: Laboratory Results - last 24 hr 07/06/20 07/06/20 Range/Units 06:06 06:06 WBC 7.06 (4.0-11.0) K/uL RBC 4.25 L (4.30-5.90) M/uL Hgb 13.0 (12.0-16.0) g/dL Hct 39.2 (36.0-46.0) % MCV 92.2 (80.0-98.0) fL MCH 30.6 (27.0-32.0) pg MCHC 33.2 (31.0-37.0) g/dL RDW Std Deviation 48.4 (28.0-62.0) fl RDW Coeff of Lavelle 14 (11.0-15.0) % Plt Count 262 (150-400) K/uL MPV 8.50 (7.40-12.00) fL Neut % (Auto) 65.8 (48.0-80.0) % Lymph % (Auto) 16.7 (16.0-40.0) % [place] % (Auto) 14.2 (0.0-15.0) % Eos % (Auto) 1.3 (0.0-7.0) % Baso % (Auto) 2.0 H (0.0-1.5) % Neut # (Auto) 4.7 (1.4-5.7) K/uL Lymph # (Auto) 1.2 (0.6-2.4) K/uL [place] # (Auto) 1.0 H (0.0-0.8) K/uL Eos # (Auto) 0.1 (0.0-0.7) K/uL Baso # (Auto) 0.1 (0.0-0.1) K/uL Nucleated RBC % 0.0 /100WBC Nucleated RBCs # 0 K/uL Sodium 126 L (136-145) mmol/L Potassium 5.1 (3.5-5.1) mmol/L Chloride 91 L (98-107) mmol/L Carbon Dioxide 32.5 H (21.0-32.0) mmol/L BUN 16 (7.0-18.0) mg/dL Creatinine 0.9 (0.6-1.0) mg/dL Est Cr Clr Drug Dosing 39.18 mL/min Estimated GFR (MDRD) 59.8 ml/min Glucose 101 (74-106) mg/dL Calcium 9.2 (8.5-10.1) mg/dL Magnesium 2.1 (1.8-2.4) mg/dL Total Bilirubin 0.3 (0.2-1.0) mg/dL AST 29 (15-37) IU/L ALT 36 (14-63) IU/L Alkaline Phosphatase 64 (46-116) U/L Total Protein 6.4 (6.4-8.2) g/dL Albumin 3.1 L (3.4-5.0) g/dL Globulin 3.3 (2.6-4.0) g/dL Albumin/Globulin Ratio 0.9 (0.9-1.6) Med Orders - Current: Current Medications Discontinued Medications Acetaminophen (Tylenol Extra Strength) 500 mg PO Q4H PRN PRN Reason: Pain Last Admin: 07/06/20 13:41 Dose: 500 mg Documented by: Albuterol/Ipratropium (Duoneb 3.0-0.5 Mg/3 Ml) 3 ml NEB ONETIME ONE Stop: 07/02/20 15:43 Last Admin: 07/02/20 15:55 Dose: 3 ml Documented by: Albuterol/Ipratropium (Duoneb 3.0-0.5 Mg/3 Ml) 3 ml NEB Q4HRRT PRN PRN Reason: Shortness Of Breath/wheezing Last Admin: 07/03/20 20:48 Dose: 3 ml Documented by: Aspirin (Aspirin) 81 mg PO DAILY [facility] Last Admin: 07/06/20 09:53 Dose: 81 mg Documented by: Aspirin (Aspirin) 81 mg PO ONETIME ONE Stop: 07/02/20 22:37 Last Admin: 07/02/20 22:49 Dose: 81 mg Documented by: Atorvastatin Calcium (Lipitor) 20 mg PO DAILY [facility] Last Admin: 07/06/20 09:53 Dose: 20 mg Documented by: Benzonatate (Tessalon Perles) 100 mg PO TID PRN PRN Reason: Cough Last Admin: 07/06/20 13:41 Dose: 100 mg Documented by: Clopidogrel Bisulfate (Plavix) 75 mg PO DAILY [facility] Last Admin: 07/06/20 09:53 Dose: 75 mg Documented by: Clopidogrel Bisulfate (Plavix) 75 mg PO ONETIME ONE Stop: 07/02/20 22:37 Last Admin: 07/02/20 22:49 Dose: 75 mg Documented by: Fluconazole (Diflucan) 100 mg PO ONETIME ONE Stop: 07/04/20 23:48 Last Admin: 07/05/20 00:39 Dose: 100 mg Documented by: Furosemide (Lasix) 20 mg IVPUSH ONETIME ONE Stop: 07/04/20 18:17 Last Admin: 07/04/20 18:51 Dose: 20 mg Documented by: Furosemide (Lasix) 20 mg IVPUSH NOW ONE Stop: 07/05/20 07:56 Last Admin: 07/05/20 09:20 Dose: 20 mg Documented by: Guaifenesin/Dextromethorphan (Robitussin Dm) 10 ml PO Q4H PRN PRN Reason: Cough Last Admin: 07/05/20 23:23 Dose: 10 ml Documented by: Heparin Sodium (Porcine) (Heparin Sodium) 5,000 units SUBCUT Q12H [facility] Last Admin: 07/06/20 09:54 Dose: 5,000 units Documented by: Sodium Chloride (Normal Saline) 1,000 mls @ 100 mls/hr IV STAT ONE Stop: 07/02/20 22:53 Last Admin: 07/02/20 13:33 Dose: 100 mls/hr Documented by: Pantoprazole Sodium 40 mg/ (Sodium Chloride) 10 mls @ 300 mls/hr IV Q24H [facility] Last Admin: 07/05/20 18:03 Dose: 300 mls/hr Documented by: Sodium Chloride (Normal Saline) 1,000 mls @ 75 mls/hr IV CONTINUOUS ONE Stop: 07/03/20 08:49 Last Admin: 07/02/20 23:21 Dose: Not Given Documented by: Ceftriaxone Sodium/Dextrose 1 (gm/ Premix) 50 mls @ 100 mls/hr IV Q24H [facility] Last Admin: 07/05/20 23:22 Dose: 100 mls/hr Documented by: Sodium Chloride (Normal Saline) 1,000 mls @ 100 mls/hr IV ASDIRECTED [facility] Last Infusion: 07/03/20 21:13 Dose: 0 mls/hr Documented by: Magnesium Sulfate (Magnesium Sulfate In Water Premix) 2 gm in 50 mls @ 50 mls/hr IV ONETIME ONE Stop: 07/03/20 08:59 Last Admin: 07/03/20 08:40 Dose: 50 mls/hr Documented by: Levothyroxine Sodium 50 mcg/ (Sodium Chloride) 2.5 mls @ 300 mls/hr IV 07/03/20@1700 AGUSTO Stop: 07/03/20 17:01 Last Admin: 07/03/20 17:22 Dose: 300 mls/hr Documented by: Levothyroxine Sodium 50 mcg/ (Sodium Chloride) 2.5 mls @ 300 mls/hr IV DAILY [facility] Last Admin: 07/05/20 09:24 Dose: 300 mls/hr Documented by: Magnesium Sulfate (Magnesium Sulfate In Water 2 Gm/50 Ml) 2 gm in 50 mls @ 50 mls/hr IV ONETIME [facility] Last Admin: 07/05/20 11:21 Dose: 50 mls/hr Documented by: Levothyroxine Sodium 60 mcg/ (Sodium Chloride) 3 mls @ 60 mls/hr IV DAILY [facility] Last Admin: 07/06/20 09:49 Dose: 60 mls/hr Documented by: Levothyroxine Sodium (Levothyroxine) 112 mcg PO ACBREAKFAST [facility] Levothyroxine Sodium (Levothyroxine) 112 mcg PO ONETIME ONE Stop: 07/02/20 18:31 Last Admin: 07/02/20 20:04 Dose: Not Given Documented by: Levothyroxine Sodium (Synthroid) 100 mcg IVPUSH ONETIME ONE Stop: 07/02/20 19:05 Last Admin: 07/02/20 20:16 Dose: Not Given Documented by: Levothyroxine Sodium (Synthroid) 50 mcg IVPUSH ONETIME ONE Stop: 07/02/20 19:31 Last Admin: 07/02/20 20:00 Dose: 50 mcg Documented by: Levothyroxine Sodium (Levothyroxine) 25 mcg PO ONETIME ONE Stop: 07/05/20 12:36 Last Admin: 07/05/20 14:01 Dose: Not Given Documented by: Lorazepam (Ativan) 0.5 mg IVPUSH Q6H PRN PRN Reason: Anxiety Melatonin (Melatonin) 6 mg PO BEDTIME PRN PRN Reason: Insomnia Last Admin: 07/05/20 23:24 Dose: 6 mg Documented by: Omeprazole (Omeprazole) 20 mg PO ACBREAKFAST [facility] Ondansetron HCl (Zofran) 4 mg IVPUSH ONETIME ONE Stop: 07/02/20 12:56 Last Admin: 07/02/20 13:33 Dose: 4 mg Documented by: Ondansetron HCl (Zofran) 4 mg IVPUSH Q6H PRN PRN Reason: Nausea/Vomiting Last Admin: 07/03/20 09:37 Dose: 4 mg Documented by: Fluticasone/Vilanterol [Breo Ellipta 200-25 Mcg Inhalation Kit] 1 each INH DAILY [facility] Last Admin: 07/06/20 09:54 Dose: 1 each Documented by: Fluticasone/Salmeterol (Advair Diskus 250-50) 1 puff INH BID [facility] Last Admin: 07/03/20 09:44 Dose: 1 puff Documented by: Sodium Chloride (Sodium Chloride) 1 gm PO ONETIME ONE Stop: 07/04/20 18:17 Last Admin: 07/04/20 18:39 Dose: Not Given Documented by: Sodium Chloride (Sodium Chloride) 0.5 gm PO ONETIME ONE Stop: 07/04/20 18:34 Last Admin: 07/04/20 20:30 Dose: 0.5 gm Documented by: Sodium Chloride (Sodium Chloride) 1 gm PO BID [facility] Last Admin: 07/06/20 13:10 Dose: Not Given Documented by:
[2020-07-06] MEDS: Sodium Chloride 1 GM Tab PO SCH (13:10)
[2020-07-06 13:30] VITALS: BP 136/52; PULSE 71
== END 2020-07-06 14:20 | disposition home or self-care (01) | DRG 644 ==
LOC: MW.ED 12:18 → MW.MS 16:27 → OBSVTOIN 07-04 10:32 → MW.MS 07-04 11:24
PROVIDERS: ADMIT Student in an Organized Health Care Education/Training Program; ATTEND Student in an Organized Health Care Education/Training Program
DX: E87.1 Hypo-osmolality and hyponatremia (principal); J44.9 Chronic obstructive pulmonary disease, unspecified; Z66 Do not resuscitate; I10 Essential (primary) hypertension; I25.2 Old myocardial infarction; Z20.822 Contact with and (suspected) exposure to COVID-19; G47.00 Insomnia, unspecified; G89.29 Other chronic pain; M54.9 Dorsalgia, unspecified; M19.90 Unspecified osteoarthritis, unspecified site; M48.00 Spinal stenosis, site unspecified; E03.9 Hypothyroidism, unspecified; Z87.891 Personal history of nicotine dependence; Z88.5 Allergy status to narcotic agent; Z88.1 Allergy status to other antibiotic agents; Z91.19 Patient's noncompliance with other medical treatment and regimen; Z88.2 Allergy status to sulfonamides; Z79.02 Long term (current) use of antithrombotics/antiplatelets; Z79.82 Long term (current) use of aspirin; Z79.890 Hormone replacement therapy; Z99.81 Dependence on supplemental oxygen; Z79.899 Other long term (current) drug therapy; Z90.710 Acquired absence of both cervix and uterus; Z90.49 Acquired absence of other specified parts of digestive tract; Z95.5 Presence of coronary angioplasty implant and graft; Z91.14 Patient's other noncompliance with medication regimen; E83.42 Hypomagnesemia
CPT/HCPCS: 0240U; 36415; 71045; 71046; 71250; 80048; 80053; 81001; 83735; 83930; 84295; 84300; 84439; 84443; 84481; 84484; 85025; 87086; 93005; 94640; 96365; 96366; 96372; 96375; 96376; 99285; 93010; 96374; 99284; A9270-GY; C9113; G0378; J0696; J1644; J1940; J2405; J3475; J7030; J7620-GY

== ENCOUNTER 2020-07-15 13:40 | Emergency (ER) | payer MEDICARE, OTHER ==
--- NOTE | 2020-07-15 14:04 | EDM.PDOC ---
<MiloRojelio Kashmir - Last Filed: 07/15/20 14:11> ED HPI GENERAL MEDICAL PROBLEM - General Chief Complaint: Back Pain or Injury Stated Complaint: BACK PAIN Time Seen by Provider: 07/15/20 13:43 Source of Information: Reports: Patient History Limitations: Reports: No Limitations - History of Present Illness INITIAL COMMENTS - FREE TEXT/NARRATIVE: Patient is an 85-year-old female who presents today for shortness of breath and back pain. Patient states she is on chronic home O2 and felt more short of breath this past few days. Patient denies any cough. Patient does report some increased exertion with moving around activity. Patient denies any fever chills nausea vomiting. Patient denies diffuse back pain states the pain started when she was seen out of the bathtub and she felt like she felt a tear in her back. Patient was given fentanyl by EMS before arrival patient pain has improved currently. Patient denies any injury to the back no leg weakness or other complaints. Back Pain Score (Numeric/FACES): 7 - Related Data Allergies Allergy/AdvReac Type Severity Reaction Status Date / Time codeine Allergy Dizziness Verified 07/02/20 17:26 erythromycin base Allergy Rash Verified 07/02/20 17:26 Iodinated Contrast Media Allergy Nausea and Verified 07/04/20 18:56 Vomiting morphine Allergy Tachycardia Verified 07/02/20 17:26 oxycodone Allergy Dizziness Verified 07/15/20 13:48 Sulfa (Sulfonamide Allergy Rash Verified 07/02/20 17:26 Antibiotics) Home Meds: Home Meds Levothyroxine Sodium [Synthroid] 112 mcg PO ACBREAKFAST 09/05/15 [History] Fluticasone/Salmeterol [Advair Diskus 250-50] 1 puff INH BID #1 inhaler 09/11/15 [Rx] Albuterol/Ipratropium [DuoNeb 3.0-0.5 MG/3 ML] 3 ml NEB Q4HRRT PRN neb 11/22/17 [Rx] Aspirin 81 mg PO DAILY tab.chew 11/22/17 [Rx] Potassium Chloride [Klor-Con 10] 10 meq PO DAILY 08/31/18 [History] atorvaSTATin [Lipitor] 20 mg PO DAILY 08/31/18 [History] Clopidogrel [Plavix] 75 mg PO DAILY 07/02/20 [History] Fluticasone/Vilanterol [Breo Ellipta 200-25 MCG Inhalation Kit] 1 puff INH DAILY 07/02/20 [History] carvediloL [Carvedilol] 3.125 mg PO BEDTIME 07/02/20 [History] carvediloL [Carvedilol] 6.25 mg PO QAM 07/02/20 [History] Pregabalin 50 mg PO TID 07/03/20 [History] Acetaminophen [Tylenol Extra Strength] 500 mg PO Q4H PRN tablet 07/06/20 [Rx] Benzonatate 100 mg PO TID PRN 4 Days #12 capsule 07/06/20 [Rx] Patient's Own Medication [Ptom] 1 each INH DAILY each 07/06/20 [Rx] Sodium Chloride 1 gm PO TID 2 Days #6 tablet 07/06/20 [Rx] Lidocaine 5% [Lidoderm 5%] 1 patch TOP DAILY #4 patch 07/15/20 [Rx] Past Medical History - Past Health History Medical/Surgical History: Denies Medical/Surgical History Cardiovascular History: Reports: Hypertension, [place] Respiratory History: Reports: COPD Other Respiratory History: On home O2. 3L/NC in July 2020. 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 Endocrine/Metabolic History: Reports: Hypothyroidism Oncologic (Cancer) History: Reports: None - Infectious Disease History Infectious Disease History: Reports: Chicken Pox, Measles, Mumps, Pertussis (Whooping Cough) - Past Surgical History Cardiovascular Surgical History: Reports: Other (See Below) Other Cardiovascular Surgeries/Procedures: Heart surgery in November,. GI Surgical History: Reports: Cholecystectomy Female Surgical History: Reports: Hysterectomy Social & Family History - Family History Family Medical History: No Pertinent Family History - Tobacco Use Tobacco Use Status *Q: Former Tobacco User Used Tobacco, but Quit: Yes Month/Year Tobacco Last Used: 2017 - Caffeine Use Caffeine Use: Reports: None - Recreational Drug Use Recreational Drug Use: No ED ROS GENERAL - Review of Systems Review Of Systems: Comprehensive ROS is negative, except as noted in HPI. ED EXAM,LOWER BACK PAIN/INJURY - Physical Exam Exam: See Below Exam Limited By: No Limitations General Appearance: Alert, WD/WN, No Apparent Distress Eye Exam: Bilateral Eye: EOMI, PERRL Neck: Normal Inspection, Non-Tender Respiratory/Chest: No Respiratory Distress, Lungs Clear, Normal Breath Sounds Cardiovascular: Normal Peripheral Pulses, Regular Rate, Rhythm GI/Abdominal: Normal Bowel Sounds, Soft, Non-Tender Extremities: Normal Inspection, Normal Range of Motion Neurological: Alert, Normal Mood/Affect, Normal Dorsiflexion, CN II-XII Intact, Normal Gait, Normal Reflexes #1 Interpretation EKG Date: 07/15/20 Time: 14:00 Rhythm: NSR Rate (Beats/Min): 56 ST-T: Normal Departure - Departure Disposition: Home, Self-Care 01 Clinical Impression: Back pain Qualifiers: Back pain location: thoracic back pain Chronicity: acute Back pain laterality: unspecified Qualified Code(s): M54.6 - Pain in thoracic spine - Discharge Information Prescriptions: Lidocaine 5% [Lidoderm 5%] 1 patch TOP DAILY #4 patch Instructions: Acute Back Pain, Adult, Back Injury Prevention, [id number], Muscle Strain, [id number], Pain Medicine Instructions, [id number] Referrals: Senthil Armas MD [Ordering Only Provider] - Forms: ED Department Discharge Additional Instructions: Your evaluated today on an emergent basis. At this time your work-up did not reveal any cause of your back pain. Your aorta measured 2.9 cm which is normal. In addition you had what to be described as stenosis/atherosclerosis/calcium in your vessels. This is normal with aging. I do recommend refraining from opiate prescriptions as this does increase your fall risk and I do recommend Tylenol and Motrin every 6 hours for pain relief. We did provide you with a lidocaine patch and I did send a prescription for a lidocaine patch for your pain in your back. Please keep your appointment with your primary care physician on Wednesday. Return for any new or worsening symptoms such as urinating on yourself, stooling on yourself, numbness while wiping after using the restroom, or weakness. If you have any new or worsening symptoms you may also return to the emergency department. [facility] - Primary [facility] [address] [place] [id number] [place] [address] The patient is informed of any results of their evaluation and diagnostic workup and all questions are answered. They are given discharge instructions and return precautions. The patient is stable for discharge. The patient states they understand and agree with the plan and that they will return if their symptoms get worse or if they have any new concerns. The following information is given to patients seen in the emergency department who are being discharged to home. This information is to outline your options for follow-up care. We provide all patients seen in our emergency department with a follow-up referral. The need for follow-up, as well as the timing and circumstances, are variable depending upon the specifics of your emergency department visit. If you don't have a primary care physician on staff, we will provide you with a referral. We always advise you to contact your personal physician following an emergency department visit to inform them of the circumstance of the visit and for follow-up with them and/or the need for any referrals to a consulting specialist. The emergency department will also refer you to a specialist when appropriate. This referral assures that you have the opportunity for follow-up care with a specialist. All of these measure are taken in an effort to provide you with optimal care, which includes your follow-up. Under all circumstances we always encourage you to contact your private physician who remains a resource for coordinating your care. When calling for follow-up care, please make the office aware that this follow-up is from your recent emergency room visit. If for any reason you are refused follow-up, please contact the [facility] Emergency Department at and asked to speak to the emergency department charge nurse. Sepsis Event Note (ED) - Evaluation Sepsis Screening Result: No Definite Risk - Assessment/Plan Assessment:: Is a 85-year-old female who presents today for shortness of breath and back pain. Patient has no areas of tenderness on the back and lungs are clear bilaterally. Patient sat 98% on room air but states she is on chronic oxygen at home. Will obtain x-ray labs and reassess. <Eric Gates - Last Filed: 07/16/20 08:40> ED HPI GENERAL MEDICAL PROBLEM - History of Present Illness INITIAL COMMENTS - FREE TEXT/NARRATIVE: Patient was signed out to me by Dr. Pedraza pending CTA at 7PM I did reevaluate the patient and patient's vitals remained normal. She req uested no pain medications until after CTA. Labs reviewed CBC was unremarkable. D-dimer was elevated at 1.25. CMP reveals hyponatremia at 124, hypochloremia at 92, mild elevation of BUN at 19, russell saminitis with an AST of 54, ALT of 152 and alkaline phosphatase of 117. There is hypoalbuminemia at 3.2. Troponin is negative. Urinalysis did show trace ketones with hyperglycemia. Imaging reviewed chest x-ray did not reveal any acute findings. The radiological images were viewed by myself along with reading the report from the radiologist. CTA of the abdomen and pelvis does not reveal any evidence of aneurysm or dissection. The aortic did measure 2.9 cm. There is moderate intraductal dilation with cholecystectomy clips. After imaging I did discuss results with the patient. I discussed with her at this time that it is uncertain as was causing her back pain. I discussed the use of [id number] Tylenol and Motrin for pain relief. She stated that at this time none of that medication works and she uses oxycodone at home but she thinks she is allergic to it. She states that she took Tylenol with codeine today and that seemed to help and is requesting Tylenol with codeine. She received the Tylenol and codeine from her daughter. I did discuss her at this time that I do not believe it is safe to prescribe her opiate prescriptions given her risk of falls. I discussed with her that I could provide her with a Lidoderm patch and that I could prescribe her with a patch to be used at home. I discussed that if she had any new or worsening symptoms she should return to the emergency department. Otherwise she should follow-up with her primary care physician. DISPOSITION: The patient was discharged home in stable condition. The patient will follow up with primary care physician within 2 to 3 days CONDITION: Fair PROCEDURES: None FINAL IMPRESSION(S)/DIAGNOSES: 1. Acute back pain Eric Gates M.D. Course - Vital Signs Last Recorded V/S: Last Vital Signs Temp 36.8 C 07/15/20 22:07 Pulse 70 07/15/20 22:07 Resp 18 07/15/20 22:07 BP 150/65 H 07/15/20 22:07 Pulse Ox 98 07/15/20 22:07 - Orders/Labs/Meds Labs: Laboratory Tests 07/15/20 07/15/20 07/15/20 Range/Units 14:18 14:18 14:18 WBC 5.93 (4.0-11.0) K/uL RBC 3.82 L (4.30-5.90) M/uL Hgb 12.1 (12.0-16.0) g/dL Hct 36.1 (36.0-46.0) % MCV 94.5 (80.0-98.0) fL MCH 31.7 (27.0-32.0) pg MCHC 33.5 (31.0-37.0) g/dL RDW Std Deviation 50.6 (28.0-62.0) fl RDW Coeff of Lavelle 15 (11.0-15.0) % Plt Count 216 (150-400) K/uL MPV 8.10 (7.40-12.00) fL Neut % (Auto) 70.0 (48.0-80.0) % Lymph % (Auto) 11.5 L (16.0-40.0) % Cameron % (Auto) 12.8 (0.0-15.0) % Eos % (Auto) 3.2 (0.0-7.0) % Baso % (Auto) 2.5 H (0.0-1.5) % Neut # (Auto) 4.2 (1.4-5.7) K/uL Lymph # (Auto) 0.7 (0.6-2.4) K/uL Cameron # (Auto) 0.8 (0.0-0.8) K/uL Eos # (Auto) 0.2 (0.0-0.7) K/uL Baso # (Auto) 0.2 H (0.0-0.1) K/uL Nucleated RBC % 0.0 /100WBC Nucleated RBCs # 0 K/uL D-Dimer, Quantitative 1.25 H (0.0-0.50) mg/L FEU Sodium 124 L (136-145) mmol/L Potassium 4.9 (3.5-5.1) mmol/L Chloride 92 L (98-107) mmol/L Carbon Dioxide 28.2 (21.0-32.0) mmol/L BUN 19 H (7.0-18.0) mg/dL Creatinine 0.8 (0.6-1.0) mg/dL Est Cr Clr Drug Dosing 28.62 mL/min Estimated GFR (MDRD) > 60.0 ml/min Glucose 107 H (74-106) mg/dL Calcium 9.2 (8.5-10.1) mg/dL Total Bilirubin 0.5 (0.2-1.0) mg/dL AST 54 H (15-37) IU/L ALT 152 H (14-63) IU/L Alkaline Phosphatase 117 H (46-116) U/L Creatine Kinase 82 (26-308) U/L Troponin I < 0.050 (0.000-0.056) ng/mL Total Protein 6.4 (6.4-8.2) g/dL Albumin 3.2 L (3.4-5.0) g/dL Globulin 3.2 (2.6-4.0) g/dL Albumin/Globulin Ratio 1.0 (0.9-1.6) Urine Color Urine Appearance Urine pH (5.0-8.0) Ur Specific [place] (1.001-1.035) Urine Protein (NEGATIVE) mg/dL Urine Glucose (UA) (NEGATIVE) mg/dL Urine Ketones (NEGATIVE) mg/dL Urine Occult Blood (NEGATIVE) Urine Nitrite (NEGATIVE) Urine Bilirubin (NEGATIVE) Urine Urobilinogen (<2.0) EU/dL Ur Leukocyte Esterase (NEGATIVE) 07/15/20 Range/Units 19:32 WBC (4.0-11.0) K/uL RBC (4.30-5.90) M/uL Hgb (12.0-16.0) g/dL Hct (36.0-46.0) % MCV (80.0-98.0) fL MCH (27.0-32.0) pg MCHC (31.0-37.0) g/dL RDW Std Deviation (28.0-62.0) fl RDW Coeff of Lavelle (11.0-15.0) % Plt Count (150-400) K/uL MPV (7.40-12.00) fL Neut % (Auto) (48.0-80.0) % Lymph % (Auto) (16.0-40.0) % Cameron % (Auto) (0.0-15.0) % Eos % (Auto) (0.0-7.0) % Baso % (Auto) (0.0-1.5) % Neut # (Auto) (1.4-5.7) K/uL Lymph # (Auto) (0.6-2.4) K/uL Cameron # (Auto) (0.0-0.8) K/uL Eos # (Auto) (0.0-0.7) K/uL Baso # (Auto) (0.0-0.1) K/uL Nucleated RBC % /100WBC Nucleated RBCs # K/uL D-Dimer, Quantitative (0.0-0.50) mg/L FEU Sodium (136-145) mmol/L Potassium (3.5-5.1) mmol/L Chloride (98-107) mmol/L Carbon Dioxide (21.0-32.0) mmol/L BUN (7.0-18.0) mg/dL Creatinine (0.6-1.0) mg/dL Est Cr Clr Drug Dosing mL/min Estimated GFR (MDRD) ml/min Glucose (74-106) mg/dL Calcium (8.5-10.1) mg/dL Total Bilirubin (0.2-1.0) mg/dL AST (15-37) IU/L ALT (14-63) IU/L Alkaline Phosphatase (46-116) U/L Creatine Kinase (26-308) U/L Troponin I (0.000-0.056) ng/mL Total Protein (6.4-8.2) g/dL Albumin (3.4-5.0) g/dL Globulin (2.6-4.0) g/dL Albumin/Globulin Ratio (0.9-1.6) Urine Color YELLOW Urine Appearance CLEAR Urine pH 7.0 (5.0-8.0) Ur Specific [place] 1.015 (1.001-1.035) Urine Protein NEGATIVE (NEGATIVE) mg/dL Urine Glucose (UA) 250 H (NEGATIVE) mg/dL Urine Ketones TRACE H (NEGATIVE) mg/dL Urine Occult Blood NEGATIVE (NEGATIVE) Urine Nitrite NEGATIVE (NEGATIVE) Urine Bilirubin NEGATIVE (NEGATIVE) Urine Urobilinogen 1.0 (<2.0) EU/dL Ur Leukocyte Esterase NEGATIVE (NEGATIVE) Meds: Medications Discontinued Medications Generic Name Dose Route Start Last Admin Trade Name Seaq PRN Reason Stop Dose Admin Diphenhydramine HCl 50 mg 07/15/20 18:20 07/15/20 18:24 Benadryl IVPUSH 07/15/20 18:21 50 mg ONETIME ONE Administration Fentanyl 25 mcg 07/15/20 19:42 07/15/20 19:57 Fentanyl IVPUSH 07/15/20 19:43 25 mcg ONETIME ONE Administration Hydrocortisone Sodium Succinate 200 mg 07/15/20 15:16 07/15/20 15:23 Solu-Cortef IVPUSH 07/15/20 15:17 200 mg ONETIME ONE Administration Iopamidol 100 ml 07/15/20 19:27 07/15/20 19:28 Isovue Multipack-370 (76%) IVPUSH 07/15/20 19:28 100 ml ONETIME STA Administration Lidocaine 700 mg 07/15/20 21:16 07/15/20 22:01 Lidoderm 5% TRDERM 07/15/20 21:17 700 mg ONETIME ONE Administration Methylprednisolone Sodium Succinate 200 mg 07/15/20 15:30 Solu-Medrol IVPUSH 07/15/20 15:31 ONETIME ONE Departure - Departure Time of Disposition: 21:17 Condition: Fair - Discharge Information *PRESCRIPTION DRUG MONITORING PROGRAM REVIEWED*: No *COPY OF PRESCRIPTION DRUG MONITORING REPORT IN PATIENT ERICK: No Sepsis Event Note (ED) - Focused Exam Vital Signs: Vital Signs Temp Pulse Resp BP Pulse Ox 07/15/20 22:07 36.8 C 70 18 150/65 H 98 07/15/20 21:01 68 16 148/64 H 98
--- NOTE | 2020-07-15 14:33 | CR ---
INDICATION: Dyspnea COMPARISON: Portions of a CT from July 04, 2020 TECHNIQUE: Single view AP upright portable chest radiograph FINDINGS: TUBES AND LINES: None. HEART AND MEDIASTINUM: The heart size is normal. The mediastinal contour appears normal for patient age.Prominent lionel consistent with pulmonary hypertension LUNGS AND PLEURAL SPACES: Hyperinflated lungs likely related to COPD.The pleural spaces are unremarkable. OSSEOUS STRUCTURES: Age-appropriate appearance. No acute focal finding. IMPRESSION: COPD pattern. No acute focal findings. Dictated by Corbin Salazar MD @ Jul 15 2020 2:29PM Signed by Dr. Corbin Salazar @ Jul 15 2020 2:32PM
[2020-07-15 15:00] LABS: BLOOD UREA NITROGEN,BUN 19 mg/dL (7.0-18.0); CARBON DIOXIDE,CO2 28.2 mmol/L (21.0-32.0); CHLORIDE,CL 92 mmol/L (98-107); GLUCOSE RANDOM 107 mg/dL (74-106); POTASSIUM,K 4.9 mmol/L (3.5-5.1); SODIUM,NA 124 mmol/L (136-145)
[2020-07-15] MEDS ORDERED: Hydrocortisone Sodium Succinate 100 MG/2 ML SDV IVPUSH ONE (15:16)
[2020-07-15] MEDS ORDERED: methylPREDNISolone Sodium Succinate 125 MG/2 ML SDV IVPUSH ONE (15:30)
[2020-07-15] MEDS ORDERED: diphenhydrAMINE 50 MG/ML SDV IVPUSH ONE (18:20)
[2020-07-15] MEDS ORDERED: Iopamidol 755 MG/ML 500 ML Multipack Bottle IVPUSH STA (19:27)
[2020-07-15] MEDS ORDERED: fentaNYL 50 MCG/ML SDV IVPUSH ONE (19:42)
--- NOTE | 2020-07-15 20:16 | CT ---
INDICATION: Back pain, possible abdominal aortic aneurysm. COMPARISON: CT of the chest without contrast from 07/04/2020 TECHNIQUE: CT angiography of the abdomen and pelvis was performed with the uneventful intravenous administration of 100 cc of Isovue 370 while 1 mm thick axial sections were obtained from the lung bases through the sacroiliac joints. Please note that all CT scans at this facility use dose modulation, iterative reconstruction, and/or weight-based dosing when appropriate to reduce radiation dose to as low as reasonably achievable. FINDINGS: : In the abdomen, the liver is seen to have mild intrahepatic ductal dilatation. This is associated with prominent dilatation of the common bile duct to 14 millimeters and surgical clips from cholecystectomy. The findings are consistent with post-cholecystectomy status. The liver is otherwise normal in appearance. The spleen, pancreas, and adrenals are normal in appearance. There is a 2.2 centimeter cyst in the posterior interpolar left kidney. The kidneys are otherwise normal in appearance. Clips are seen in the gall bladder fossa from cholecystectomy. The moderately calcified abdominal aorta has mild focal left lateral aneurysmal dilatation in the mid infrarenal segments, with a transverse diameter of 2.9 centimeters. The AP diameter is 2.6 centimeters, below the 3.0 centimeter threshold to suggest routine annual screening CT or ultrasound. The more superior and more inferior infrarenal abdominal aorta is normal in caliber. The celiac axis is widely patent. There is mild calcification of the origin of the SMA, with irregular moderate proximal stenosis of the SMA. There is moderate calcification of the origins of both solitary renal arteries, with what appears to be high-grade stenosis on the left and moderate stenosis on the right. Incidental note is made of preaortic and retro aortic left renal veins. There is moderate calcification at the origin of the DEISI, but the DEISI appears to be patent. There is high-grade stenosis of the distal right common iliac artery at the bifurcation. There is moderate right greater than left stenosis scattered around the common iliac arteries as well. There is moderate stenosis of the mid right external iliac artery and of the proximal left external iliac artery beginning just beyond its origin. There is no sign of retroperitoneal mass or adenopathy. The stomach, loops of small bowel, and colon in the abdomen are normal in appearance. The loops of small bowel and colon in the upper pelvis are normal in appearance. There is no sign of free fluid or free air in the abdomen or upper pelvis. There is a small right pleural effusion. There is mild patchy and linear density in the posterior right lung base adjacent to the fusion, consistent with atelectasis. The rest of the lung bases is clear. The osseous structures are normal in appearance for the patient`s age. IMPRESSION: CT angiography of the abdominal aorta shows mild focal left lateral aneurysmal dilatation of the mid infrarenal segment, with a maximal transverse diameter of 2.8 centimeters, less than the 3.0 centimeter threshold to suggest routine annual screening CT or ultrasound. 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 The celiac axis and DEISI appear to be widely patent. High-grade stenosis of the distal right common iliac artery with multiple stenoses throughout the common and external iliac systems bilaterally. CT of the abdomen shows prominent dilatation of the common bile duct and mild intrahepatic biliary ductal dilatation consistent with post cholecystectomy status. CT of the upper pelvis is unremarkable. Please note that all CT scans at this facility use dose modulation, iterative reconstruction, and/or weight-based dosing when appropriate to reduce radiation dose to as low as reasonably achievable. Dictated by Alpesh Clarke MD @ Jul 15 2020 7:56PM Signed by Dr. Alpesh Clarke @ Jul 15 2020 8:14PM
--- NOTE | 2020-07-15 20:37 | CT ---
This noncontrast CT of the chest is interpreted as part of the accompanying CT angiogram of the chest. Please note that all CT scans at this facility use dose modulation, iterative reconstruction, and/or weight-based dosing when appropriate to reduce radiation dose to as low as reasonably achievable. Dictated by Alpesh Clarke MD @ Jul 15 2020 8:08PM Signed by Dr. Alpesh Clarke @ Jul 15 2020 8:38PM
[2020-07-15] MEDS ORDERED: Lidocaine 5% 700 MG Patch TRDERM ONE (21:16)
[2020-07-15 22:08] VITALS: BP 150/65; PULSE 70
== END 2020-07-15 22:17 | disposition home or self-care (01) ==
LOC: MW.ED 13:40
DX: M54.6 Pain in thoracic spine (principal); R06.02 Shortness of breath; I10 Essential (primary) hypertension; I25.2 Old myocardial infarction; J44.9 Chronic obstructive pulmonary disease, unspecified; M19.90 Unspecified osteoarthritis, unspecified site; E03.9 Hypothyroidism, unspecified; Z79.899 Other long term (current) drug therapy; Z88.5 Allergy status to narcotic agent; Z88.1 Allergy status to other antibiotic agents; Z91.041 Radiographic dye allergy status; Z88.2 Allergy status to sulfonamides; Z99.81 Dependence on supplemental oxygen; Z79.82 Long term (current) use of aspirin; Z79.02 Long term (current) use of antithrombotics/antiplatelets; Z87.891 Personal history of nicotine dependence
CPT/HCPCS: 36415; 71045; 71275; 74175; 80053; 81003; 82550; 84484; 85025; 85379; 93005; 96374; 96375; 99285; A9270; J1200; J1720; J3010; Q9967; 93010; 99283

== ENCOUNTER 2020-07-29 12:04 | Observation (INO) | payer MEDICARE, OTHER ==
[2020-07-29] MEDS ORDERED: Ondansetron 4 MG/2 ML SDV IVPUSH ONE (12:09)
[2020-07-29] MEDS ORDERED: Sodium Chloride 0.9% 500 ML IV ONE (12:09)
[2020-07-29] MEDS ORDERED: Sodium Chloride 0.9% 10 ML Syringe FLUSH PRN (12:09)
--- NOTE | 2020-07-29 12:15 | EDM.PDOC ---
ED HPI GENERAL MEDICAL PROBLEM - General Chief Complaint: General Stated Complaint: BACK PAIN WEAKNESS Time Seen by Provider: 07/29/20 12:08 Source of Information: Reports: Patient, EMS History Limitations: Reports: No Limitations - History of Present Illness INITIAL COMMENTS - FREE TEXT/NARRATIVE: 85-year-old female past medical history COPD on as needed home O2, CAD status po st NSTEMI with stents last cardiac cath 3 years ago, hypothyroidism, hyponatremia, chronic back pain presents for multiple medical complaints. Patient notes that she has been feeling unwell for about the past 6 weeks. She is been seen in the emergency department twice and had 1 brief admission. Patient notes that she has felt nauseated with decreased p.o. She denies dysuria and has not noticed any decrease in amount of urine or darker color. Patient notes right upper quadrant abdominal pain radiating to back. She has a past surgical history of cholecystectomy. She notes feeling dizzy and headaches. She notes feeling generalized weakness. She did fall 2 weeks ago and was seen in the emergency department. No other recent falls. Denies fevers. Does note shortness of breath and right lower chest pain in conjunction with her right upper quadrant abdominal pain. Generalized body Pain Score (Numeric/FACES): 8 - Related Data Allergies Allergy/AdvReac Type Severity Reaction Status Date / Time codeine Allergy Dizziness Verified 07/29/20 12:08 erythromycin base Allergy Rash Verified 07/29/20 12:08 Iodinated Contrast Media Allergy Nausea and Verified 07/29/20 12:08 Vomiting morphine Allergy Tachycardia Verified 07/29/20 12:08 oxycodone Allergy Dizziness Verified 07/29/20 12:08 Sulfa (Sulfonamide Allergy Rash Verified 07/29/20 12:08 Antibiotics) Home Meds: Home Meds Levothyroxine Sodium [Synthroid] 112 mcg PO ACBREAKFAST 09/05/15 [History] Fluticasone/Salmeterol [Advair Diskus 250-50] 1 puff INH BID #1 inhaler 09/11/15 [Rx] Albuterol/Ipratropium [DuoNeb 3.0-0.5 MG/3 ML] 3 ml NEB Q4HRRT PRN neb 11/22/17 [Rx] Aspirin 81 mg PO DAILY tab.chew 11/22/17 [Rx] Potassium Chloride [Klor-Con 10] 10 meq PO DAILY 08/31/18 [History] atorvaSTATin [Lipitor] 20 mg PO DAILY 08/31/18 [History] Clopidogrel [Plavix] 75 mg PO DAILY 07/02/20 [History] Fluticasone/Vilanterol [Breo Ellipta 200-25 MCG Inhalation Kit] 1 puff INH DAILY 07/02/20 [History] carvediloL [Carvedilol] 3.125 mg PO BEDTIME 07/02/20 [History] carvediloL [Carvedilol] 6.25 mg PO QAM 07/02/20 [History] Pregabalin 50 mg PO TID 07/03/20 [History] Acetaminophen [Tylenol Extra Strength] 500 mg PO Q4H PRN tablet 07/06/20 [Rx] Benzonatate 100 mg PO TID PRN 4 Days #12 capsule 07/06/20 [Rx] Patient's Own Medication [Ptom] 1 each INH DAILY each 07/06/20 [Rx] Sodium Chloride 1 gm PO TID 2 Days #6 tablet 07/06/20 [Rx] Lidocaine 5% [Lidoderm 5%] 1 patch TOP DAILY #4 patch 07/15/20 [Rx] Past Medical History - Past Health History Medical/Surgical History: Denies Medical/Surgical History Cardiovascular History: Reports: Hypertension, [place] Respiratory History: Reports: COPD Other Respiratory History: On home O2. 3L/NC in July 2020. 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 Endocrine/Metabolic History: Reports: Hypothyroidism Oncologic (Cancer) History: Reports: None - Infectious Disease History Infectious Disease History: Reports: Chicken Pox, Measles, Mumps, Pertussis (Whooping Cough) - Past Surgical History Cardiovascular Surgical History: Reports: Other (See Below) Other Cardiovascular Surgeries/Procedures: Heart surgery in November,. GI Surgical History: Reports: Cholecystectomy Female Surgical History: Reports: Hysterectomy Social & Family History - Family History Family Medical History: No Pertinent Family History - Caffeine Use Caffeine Use: Reports: None ED ROS GENERAL - Review of Systems Review Of Systems: Comprehensive ROS is negative, except as noted in HPI. ED EXAM, GENERAL - Physical Exam Exam: See Below Exam Limited By: No Limitations General Appearance: Alert, WD/WN, No Apparent Distress Throat/Mouth: Normal Voice, No Airway Compromise Head: Atraumatic, Normocephalic Neck: Normal Inspection, Non-Tender Respiratory/Chest: No Respiratory Distress, Lungs Clear, Normal Breath Sounds, No Accessory Muscle Use Cardiovascular: Normal Peripheral Pulses, Regular Rate, Rhythm, No Edema GI/Abdominal: Soft, Non-Tender Extremities: Normal Inspection Neurological: Alert Psychiatric: Normal Affect, Normal Mood Skin Exam: Warm, Dry, Intact, Normal Color #1 Interpretation EKG Date: 07/29/20 Time: 12:16 Rhythm: NSR Rate (Beats/Min): 65 [place]: Normal P-Wave: Present QRS: Normal ST-T: Normal QT: Normal WI/PQ Interval: 151 EKG Interpretation Comments: 1 PVC, poor baseline obscures interpretation, no overt ischemic changes, normal axis and intervals Course - Vital Signs Last Recorded V/S: Last Vital Signs Temp 96.8 F L 07/29/20 12:10 Pulse 72 07/29/20 14:08 Resp 18 07/29/20 14:08 BP 190/89 H 07/29/20 14:08 Pulse Ox 97 07/29/20 14:08 - Orders/Labs/Meds Orders: Active Orders 24 hr Category Date Time Status Patient Status [ADT] Routine ADT 07/29/20 15:47 Ordered Blood Glucose Check, Bedside [RC] ONETIME Care 07/29/20 12:09 Active Cardiac Monitoring [RC] . DIRECTED Care 07/29/20 12:09 Active EKG Documentation Completion [RC] STAT Care 07/29/20 12:09 Active Pulse Oximetry [RC] ASDIRECTED Care 07/29/20 12:09 Active Sodium Chloride 0.9% [Normal Saline] 1,000 ml Med 07/29/20 12:53 Active IV .Bolus Sodium Chloride 0.9% [Saline Flush] Med 07/29/20 12:09 Active 10 ml FLUSH ASDIRECTED PRN Sodium Chloride 0.9% [Saline Flush] Med 07/29/20 12:09 Active 2.5 ml FLUSH ASDIRECTED PRN Saline Lock Insert [OM.PC] Stat Oth 07/29/20 12:09 Ordered Medication Orders Sodium Chloride (Normal Saline) 1,000 mls @ 200 mls/hr IV .Bolus ONE Stop: 07/29/20 17:52 Last Admin: 07/29/20 13:16 Dose: 200 mls/hr Documented by: [id number] Sodium Chloride (Saline Flush) 10 ml FLUSH ASDIRECTED PRN PRN Reason: Keep Vein Open Last Admin: 07/29/20 12:24 Dose: 10 ml Documented by: DAYAN Sodium Chloride (Saline Flush) 2.5 ml FLUSH ASDIRECTED PRN PRN Reason: Keep Vein Open Last Admin: 07/29/20 12:24 Dose: 2.5 ml Documented by: DAYAN Labs: Laboratory Tests 07/29/20 07/29/20 07/29/20 Range/Units 12:10 12:10 12:10 WBC 7.01 (4.0-11.0) K/uL RBC 4.10 L (4.30-5.90) M/uL Hgb 13.1 (12.0-16.0) g/dL Hct 37.6 (36.0-46.0) % MCV 91.7 (80.0-98.0) fL MCH 32.0 (27.0-32.0) pg MCHC 34.8 (31.0-37.0) g/dL RDW Std Deviation 47.0 (28.0-62.0) fl RDW Coeff of Lavelle 14 (11.0-15.0) % Plt Count 244 (150-400) K/uL MPV 8.50 (7.40-12.00) fL Neut % (Auto) 75.0 (48.0-80.0) % Lymph % (Auto) 8.3 L (16.0-40.0) % [place] % (Auto) 13.0 (0.0-15.0) % Eos % (Auto) 1.1 (0.0-7.0) % Baso % (Auto) 2.6 H (0.0-1.5) % Neut # (Auto) 5.3 (1.4-5.7) K/uL Lymph # (Auto) 0.6 (0.6-2.4) K/uL [place] # (Auto) 0.9 H (0.0-0.8) K/uL Eos # (Auto) 0.1 (0.0-0.7) K/uL Baso # (Auto) 0.2 H (0.0-0.1) K/uL Nucleated RBC % 0.0 /100WBC Nucleated RBCs # 0 K/uL Lactate 0.7 (0.20-2.00) mmol/L Sodium (136-145) mmol/L Potassium (3.5-5.1) mmol/L Chloride (98-107) mmol/L Carbon Dioxide (21.0-32.0) mmol/L BUN (7.0-18.0) mg/dL Creatinine (0.6-1.0) mg/dL Est Cr Clr Drug Dosing mL/min Estimated GFR (MDRD) ml/min Glucose (74-106) mg/dL Calcium (8.5-10.1) mg/dL Magnesium (1.8-2.4) mg/dL Total Bilirubin (0.2-1.0) mg/dL AST (15-37) IU/L ALT (14-63) IU/L Alkaline Phosphatase (46-116) U/L Troponin I (0.000-0.056) ng/mL B-Natriuretic Peptide 152 H (<100) PG/ML Total Protein (6.4-8.2) g/dL Albumin (3.4-5.0) g/dL Globulin (2.6-4.0) g/dL Albumin/Globulin Ratio (0.9-1.6) Lipase (73-393) U/L Free T4 (0.76-1.46) ng/dL TSH 3rd Generation (0.36-3.74) uIU/mL Urine Color Urine Appearance Urine pH (5.0-8.0) Ur Specific [place] (1.001-1.035) Urine Protein (NEGATIVE) mg/dL Urine Glucose (UA) (NEGATIVE) mg/dL Urine Ketones (NEGATIVE) mg/dL Urine Occult Blood (NEGATIVE) Urine Nitrite (NEGATIVE) Urine Bilirubin (NEGATIVE) Urine Urobilinogen (<2.0) EU/dL Ur Leukocyte Esterase (NEGATIVE) Urine RBC (0-2/HPF) Urine WBC (0-5/HPF) Ur Epithelial Cells (NONE-FEW) Urine Bacteria (NEGATIVE) SARS-CoV-2 RNA (BLAINE) (NEGATIVE) 07/29/20 07/29/20 07/29/20 Range/Units 12:10 12:31 12:57 WBC (4.0-11.0) K/uL RBC (4.30-5.90) M/uL Hgb (12.0-16.0) g/dL Hct (36.0-46.0) % MCV (80.0-98.0) fL MCH (27.0-32.0) pg MCHC (31.0-37.0) g/dL RDW Std Deviation (28.0-62.0) fl RDW Coeff of [place] (11.0-15.0) % Plt Count (150-400) K/uL MPV (7.40-12.00) fL Neut % (Auto) (48.0-80.0) % Lymph % (Auto) (16.0-40.0) % [place] % (Auto) (0.0-15.0) % Eos % (Auto) (0.0-7.0) % Baso % (Auto) (0.0-1.5) % Neut # (Auto) (1.4-5.7) K/uL Lymph # (Auto) (0.6-2.4) K/uL [place] # (Auto) (0.0-0.8) K/uL Eos # (Auto) (0.0-0.7) K/uL Baso # (Auto) (0.0-0.1) K/uL Nucleated RBC % /100WBC Nucleated RBCs # K/uL Lactate (0.20-2.00) mmol/L Sodium 121 L (136-145) mmol/L Potassium 4.0 (3.5-5.1) mmol/L Chloride 84 L (98-107) mmol/L Carbon Dioxide 30.5 (21.0-32.0) mmol/L BUN 14 (7.0-18.0) mg/dL Creatinine 0.8 (0.6-1.0) mg/dL Est Cr Clr Drug Dosing 46.01 mL/min Estimated GFR (MDRD) > 60.0 ml/min Glucose 109 H (74-106) mg/dL Calcium 8.4 L (8.5-10.1) mg/dL Magnesium 1.6 L (1.8-2.4) mg/dL Total Bilirubin 0.6 (0.2-1.0) mg/dL AST 29 (15-37) IU/L ALT 84 H (14-63) IU/L Alkaline Phosphatase 136 H (46-116) U/L Troponin I < 0.050 (0.000-0.056) ng/mL B-Natriuretic Peptide (<100) PG/ML Total Protein 6.5 (6.4-8.2) g/dL Albumin 3.3 L (3.4-5.0) g/dL Globulin 3.2 (2.6-4.0) g/dL Albumin/Globulin Ratio 1.0 (0.9-1.6) Lipase 421 H (73-393) U/L Free T4 1.26 (0.76-1.46) ng/dL TSH 3rd Generation 4.76 H (0.36-3.74) uIU/mL Urine Color YELLOW Urine Appearance CLEAR Urine pH 6.5 (5.0-8.0) Ur Specific [place] 1.020 (1.001-1.035) Urine Protein NEGATIVE (NEGATIVE) mg/dL Urine Glucose (UA) NEGATIVE (NEGATIVE) mg/dL Urine Ketones NEGATIVE (NEGATIVE) mg/dL Urine Occult Blood NEGATIVE (NEGATIVE) Urine Nitrite NEGATIVE (NEGATIVE) Urine Bilirubin NEGATIVE (NEGATIVE) Urine Urobilinogen 2.0 H (<2.0) EU/dL Ur Leukocyte Esterase TRACE H (NEGATIVE) Urine RBC NONE SEEN (0-2/HPF) Urine WBC 0-2 (0-5/HPF) Ur Epithelial Cells FEW (NONE-FEW) Urine Bacteria FEW (NEGATIVE) SARS-CoV-2 RNA (BLAINE) NEGATIVE (NEGATIVE) Meds: Medications Generic Name Dose Route Start Last Admin Trade Name Freq PRN Reason Stop Dose Admin Sodium Chloride 1,000 mls @ 200 mls/hr 07/29/20 12:53 07/29/20 13:16 Normal Saline IV 07/29/20 17:52 200 mls/hr .Bolus ONE Administration Sodium Chloride 10 ml 07/29/20 12:09 07/29/20 12:24 Saline Flush FLUSH 10 ml ASDIRECTED PRN Administration Keep Vein Open Sodium Chloride 2.5 ml 07/29/20 12:09 07/29/20 12:24 Saline Flush FLUSH 2.5 ml ASDIRECTED PRN Administration Keep Vein Open Discontinued Medications Generic Name Dose Route Start Last Admin Trade Name Freq PRN Reason Stop Dose Admin Diphenhydramine HCl 25 mg 07/29/20 12:54 07/29/20 13:16 Benadryl IVPUSH 07/29/20 12:55 25 mg ONETIME ONE Administration Sodium Chloride 500 mls @ 999 mls/hr 07/29/20 12:09 07/29/20 12:24 Normal Saline IV 07/29/20 12:39 999 mls/hr .Bolus ONE Administration Magnesium Sulfate 2 gm/ Premix 50 mls @ 50 mls/hr 07/29/20 12:53 07/29/20 13:16 IV 07/29/20 13:52 50 mls/hr ONETIME ONE Administration Iopamidol 100 ml 07/29/20 14:38 07/29/20 14:39 Isovue Multipack-370 (76%) IVPUSH 07/29/20 14:39 100 ml ONETIME ONE Administration Methylprednisolone Sodium Succinate 125 mg 07/29/20 14:00 Solu-Medrol IV 07/29/20 14:01 ONETIME ONE Methylprednisolone Sodium Succinate 125 mg 07/29/20 13:10 07/29/20 13:16 Solu-Medrol IVPUSH 07/29/20 13:11 125 mg ONETIME ONE Administration Ondansetron HCl 4 mg 07/29/20 12:09 07/29/20 12:24 Zofran IVPUSH 07/29/20 12:10 4 mg ONETIME ONE Administration Oxycodone/Acetaminophen 1 tab 07/29/20 15:41 Percocet 325-5 Mg PO 07/29/20 15:42 ONETIME ONE - Re-Assessments/Exams Free Text/Narrative Re-Assessment/Exam: 07/29/20 12:14 We will start broad work-up for nonspecific symptoms. We will follow up results and disposition accordingly. Will give 500 cc bolus for possible dehydration and Zofran for nausea symptoms. 07/29/20 12:56 Labs remarkable for hyponatremia, hypomagnesemia, mild transaminitis with normal bilirubin, elevated lipase to 400s. Will get CT abdomen pelvis as well as thoracic and lumbar spine. We will follow up results and urinalysis and disposition accordingly. 07/29/20 15:47 We will admit patient for ambulatory dysfunction. Patient does have a new compression fracture at T8. Percocet ordered for pain control. No evidence of lytic lesions or cancer on CT imaging. CT abdomen pelvis is normal. Departure - Departure Time of Disposition: 15:49 Disposition: Admitted As Inpatient 68 Condition: Good Clinical Impression: Ambulatory dysfunction, Hyponatremia, Compression fracture of T8 vertebra - Discharge Information Referrals: Fred Guzman MD [Primary Care Provider] - Forms: ED Department Discharge Sepsis Event Note (ED) - Evaluation Sepsis Screening Result: No Definite Risk - Focused Exam Vital Signs: Vital Signs Temp Pulse Resp BP Pulse Ox 07/29/20 14:08 72 18 190/89 H 97 07/29/20 13:53 70 191/90 H 97 07/29/20 13:38 74 213/89 H 97 07/29/20 13:23 68 17 187/90 H 98 07/29/20 13:08 63 17 193/90 H 98 07/29/20 12:39 63 18 173/75 H 98 07/29/20 12:10 96.8 F L 63 99 07/29/20 12:09 97.6 F 87 17 194/83 H 98 - My Orders Last 24 Hours: My Active Orders 07/29/20 12:09 Blood Glucose Check, Bedside [RC] ONETIME Cardiac Monitoring [RC] . DIRECTED EKG Documentation Completion [RC] STAT Pulse Oximetry [RC] ASDIRECTED Sodium Chloride 0.9% [Saline Flush] 10 ml FLUSH ASDIRECTED PRN Sodium Chloride 0.9% [Saline Flush] 2.5 ml FLUSH ASDIRECTED PRN Saline Lock Insert [OM.PC] Stat 07/29/20 12:53 Sodium Chloride 0.9% [Normal Saline] 1,000 ml IV .Bolus 07/29/20 15:47 Patient Status [ADT] Routine - Assessment/Plan Last 24 Hours: My Active Orders 07/29/20 12:09 Blood Glucose Check, Bedside [RC] ONETIME Cardiac Monitoring [RC] . DIRECTED EKG Documentation Completion [RC] STAT Pulse Oximetry [RC] ASDIRECTED Sodium Chloride 0.9% [Saline Flush] 10 ml FLUSH ASDIRECTED PRN Sodium Chloride 0.9% [Saline Flush] 2.5 ml FLUSH ASDIRECTED PRN Saline Lock Insert [OM.PC] Stat 07/29/20 12:53 Sodium Chloride 0.9% [Normal Saline] 1,000 ml IV .Bolus 07/29/20 15:47 Patient Status [ADT] Routine
[2020-07-29] MEDS: Sodium Chloride 0.9% 2.5 ML Syringe FLUSH PRN (12:24)
[2020-07-29 12:49] LABS: BLOOD UREA NITROGEN,BUN 14 mg/dL (7.0-18.0); CARBON DIOXIDE,CO2 30.5 mmol/L (21.0-32.0); CHLORIDE,CL 84 mmol/L (98-107); GLUCOSE RANDOM 109 mg/dL (74-106); LIPASE 421 U/L (73-393); SODIUM,NA 121 mmol/L (136-145)
[2020-07-29] MEDS ORDERED: Sodium Chloride 0.9% 1,000 ML IV ONE (12:53)
[2020-07-29] MEDS ORDERED: Magnesium Sulfate/Water 2 GM in Premix Bag 1 BAG IV ONE (12:53)
[2020-07-29] MEDS ORDERED: diphenhydrAMINE 50 MG/ML SDV IVPUSH ONE (12:54)
[2020-07-29] MEDS ORDERED: methylPREDNISolone Sodium Succinate 125 MG/2 ML SDV IVPUSH ONE (13:10)
--- NOTE | 2020-07-29 13:32 | CR ---
INDICATION: Shortness of breath TECHNIQUE: Chest 1 views COMPARISON: CT chest July 15, 2020. FINDINGS: Cardiovascular and mediastinum: Heart size and vasculature are normal in caliber and appearance. Lungs and pleural spaces: Lungs are clear. No sign of infiltrate or mass. No sign of pleural effusion. No pneumothorax. Bones and soft tissues: No significant findings. IMPRESSION: No acute or specific finding to explain shortness of breath. Dictated by Ran Wu MD @ Jul 29 2020 1:22PM Signed by Dr. Ran Wu @ Jul 29 2020 1:30PM
[2020-07-29] MEDS ORDERED: methylPREDNISolone Sodium Succinate 125 MG/2 ML SDV IV ONE (14:00)
[2020-07-29] MEDS ORDERED: Iopamidol 755 MG/ML 500 ML Multipack Bottle IVPUSH ONE (14:38)
--- NOTE | 2020-07-29 15:21 | CT ---
INDICATION: Pain, evaluate for lytic lesions TECHNIQUE: CT thoracic spine without contrast. COMPARISON: CT scan chest 07/04/2020 FINDINGS: Vertebral alignment: Alignment is normal. Vertebrae: Moderate biconcave compression fracture T8 vertebral body not present on 07/04/2020. The osseous structures are osteopenic. Discs and facet joints: Disc spaces and facets are within normal limits. Extraspinal findings: Prevertebral soft tissues, visualized airway, and visualized lungs are unremarkable. Moderate right pleural effusion with adjacent atelectasis. IMPRESSION: Moderate biconcave compression fracture T8 vertebral body not present on 07/04/2020. No definitive lytic osseous lesions. Moderate right pleural effusion with adjacent atelectasis. Please note that all CT scans at this facility use dose modulation, iterative reconstruction, and/or weight-based dosing when appropriate to reduce radiation dose to as low as reasonably achievable. Dictated by Victoriano Brito MD @ Jul 29 2020 3:20PM Signed by Dr. Victoriano Brito @ Jul 29 2020 3:20PM
--- NOTE | 2020-07-29 15:27 | CT ---
INDICATION: Pain. Evaluate for lytic lesions TECHNIQUE: CT lumbar spine without contrast. COMPARISON: CT scan abdomen pelvis 07/15/2020 FINDINGS: Vertebral alignment: Alignment is normal. Vertebrae: There are no fractures or suspicious bony lesions. Discs and facet joints: Multilevel degenerative changes most notably at L2-L3. Extraspinal findings: Prevertebral soft tissues and visualized retroperitoneum are unremarkable. Right pleural effusion with adjacent atelectasis. Infrarenal abdominal aorta measuring 2.8 centimeter with 2.5 centimeter. IMPRESSION: Multilevel degenerative changes. No evidence for lytic lesions. Please note that all CT scans at this facility use dose modulation, iterative reconstruction, and/or weight-based dosing when appropriate to reduce radiation dose to as low as reasonably achievable. Dictated by Victoriano Brito MD @ Jul 29 2020 3:10PM Signed by Dr. Victoriano Brito @ Jul 29 2020 3:26PM
--- NOTE | 2020-07-29 15:35 | CT ---
INDICATION: Right upper quadrant pain, elevated lipase and transaminase, back pain TECHNIQUE: CT abdomen and pelvis acquired IV contrast, 100 cc Isovue 370. Patient pre-medicated with IV Benadryl and Solu-Medrol COMPARISON: 07/15/2020 FINDINGS: Lower chest: Moderate right pleural effusion with adjacent atelectasis. Small hiatal hernia. Liver: Unremarkable. Spleen: Unremarkable. Pancreas: Unremarkable. Gallbladder and bile ducts: Cholecystectomy. Intrahepatic biliary duct dilatation most likely related to reservoir effect. Kidneys: 2.3 centimeter exophytic renal cyst mid zone left kidney. Adrenal glands: Unremarkable. GI tract: Unremarkable. Sel[place] Vascular structures: Infrarenal abdominal aorta measures up to 2.8 centimeters. Calcified plaque involving the origin of the renal arteries. Please see prior CT report of the abdomen pelvis. Extensive plaque involving the origins of the iliac arteries with stenosis of the origin of the right iliac artery. Lymph nodes: Unremarkable. Miscellaneous: Unremarkable. No free air or significant free fluid. Pelvic Organs: Unremarkable. Bones: Degenerative changes lumbar spine. IMPRESSION: Normal-appearing pancreas and peripancreatic soft tissues. No definite CT evidence for pancreatitis. Normal appearing liver. Cholecystectomy with intra and expected ductal dilatation most likely related to reservoir effect. Degenerative changes lumbar spine. No evidence for lytic lesion. Please note that all CT scans at this facility use dose modulation, iterative reconstruction, and/or weight-based dosing when appropriate to reduce radiation dose to as low as reasonably achievable. Dictated by Victoriano Brito MD @ Jul 29 2020 3:33PM Signed by Dr. Victoriano Brito @ Jul 29 2020 3:33PM
[2020-07-29] MEDS ORDERED: Acetaminophen/oxyCODONE 325-5 MG Tab PO ONE (15:41)
[2020-07-29] MEDS ORDERED: Ketorolac 30 MG/ML SDV IM PRN (16:42)
--- NOTE | 2020-07-29 16:50 | PCM.HP.2 ---
<Vivek Acuna M - Last Filed: 07/29/20 17:24> H&P History of Present Illness - General Date of Service: 07/29/20 Admit Problem/Dx: Admission Diagnosis/Problem Admission Diagnosis/Problem Ambulatory dysfunction Source of Information: Patient History Limitations: Reports: No Limitations - History of Present Illness Initial Comments - Free Text/Narative: 85-year-old female presents complaining of nausea, weakness and dizziness for the past several weeks. She has a PMH of COPD on home oxygen (2L), CAD s/p NSTEMI, hypothyroidism and chronic hyponatremia. Patient also reports having intense back pain that now radiates to her RUQ. She reports because of her nausea she has not been able to eat very much. She was trying to get out of the bathtub with the help of her which she describes "was very straining" and believes she hurt her back then. She does not recall exactly when this occurred. The last time she fell was 2 weeks ago. She reports feeling short of breath but has not required an increase in her home oxygen level. She denies having any fevers, chills, sore throat, chest pain, vomiting, diarrhea, bloody stool, bloody urine, numbness or tingling in extremities. In the ER, EKG showed normal sinus rhythm with PVC, sodium level 121, magnesium 1.6, lipase 421 and CXR negative. COVID-[address] thoracic spine showed moderate biconcave compression fracture of T8. CT abd/pelvis showed normal appearance of pancreas. CT lumbar spine showed no acute findings. Patient was given IV NS 500 cc bolus, Benadryl, magnesium, solu-medrol, percocet and Zofran. Patient was admitted for further evaluation and treatment. Generalized body Pain Score (Numeric/FACES): 8 - Related Data Allergies/Adverse Reactions: Allergies Allergy/AdvReac Type Severity Reaction Status Date / Time codeine Allergy Dizziness Verified 07/29/20 12:08 erythromycin base Allergy Rash Verified 07/29/20 12:08 Iodinated Contrast Media Allergy Nausea and Verified 07/29/20 12:08 Vomiting morphine Allergy Tachycardia Verified 07/29/20 12:08 oxycodone Allergy Dizziness Verified 07/29/20 12:08 Sulfa (Sulfonamide Allergy Rash Verified 07/29/20 12:08 Antibiotics) Home Medications: Home Meds Levothyroxine Sodium [Synthroid] 112 mcg PO ACBREAKFAST 09/05/15 [History] Fluticasone/Salmeterol [Advair Diskus 250-50] 1 puff INH BID #1 inhaler 09/11/15 [Rx] Albuterol/Ipratropium [DuoNeb 3.0-0.5 MG/3 ML] 3 ml NEB Q4HRRT PRN neb 11/22/17 [Rx] Aspirin 81 mg PO DAILY tab.chew 11/22/17 [Rx] Potassium Chloride [Klor-Con 10] 10 meq PO DAILY 08/31/18 [History] atorvaSTATin [Lipitor] 20 mg PO DAILY 08/31/18 [History] Clopidogrel [Plavix] 75 mg PO DAILY 07/02/20 [History] Fluticasone/Vilanterol [Breo Ellipta 200-25 MCG Inhalation Kit] 1 puff INH DAILY 07/02/20 [History] carvediloL [Carvedilol] 3.125 mg PO BEDTIME 07/02/20 [History] carvediloL [Carvedilol] 6.25 mg PO QAM 07/02/20 [History] Pregabalin 50 mg PO DAILY PRN 07/03/20 [History] Acetaminophen [Tylenol Extra Strength] 500 mg PO Q4H PRN tablet 07/06/20 [Rx] Benzonatate 100 mg PO TID PRN 4 Days #12 capsule 07/06/20 [Rx] Patient's Own Medication [Ptom] 1 each INH DAILY each 07/06/20 [Rx] Sodium Chloride 1 gm PO TID 2 Days #6 tablet 07/06/20 [Rx] Lidocaine 5% [Lidoderm 5%] 1 patch TOP DAILY #4 patch 07/15/20 [Rx] Acetaminophen with Codeine [Acetaminophen-Cod #3] 1 each PO TID PRN 07/29/20 [History] Furosemide [Lasix] 20 mg PO DAILY 07/29/20 [History] Past Medical History - Past Health History Medical/Surgical History: Denies Medical/Surgical History Cardiovascular History: Reports: Hypertension, [place] Respiratory History: Reports: COPD Other Respiratory History: On home O2. 3L/NC in July 2020. Gastrointestinal History: Reports: Cholelithiasis Other OB/BYN History: hysterectomy Musculoskeletal History: Reports: Back Pain, Chronic, Osteoarthritis Neurological History: Reports: Other (See Below) Other Neuro History: Hx spinal stenosis. Endocrine/Metabolic History: Reports: Hypothyroidism Oncologic (Cancer) History: Reports: None - Infectious Disease History Infectious Disease History: Reports: Chicken Pox, Measles, Mumps, Pertussis (Whooping Cough) - Past Surgical History Cardiovascular Surgical History: Reports: Other (See Below) Other Cardiovascular Surgeries/Procedures: Heart surgery in November,. GI Surgical History: Reports: Cholecystectomy Female Surgical History: Reports: Hysterectomy Social & Family History - Family History Family Medical History: No Pertinent Family History - Tobacco Use Tobacco Use Status *Q: Never Tobacco User - Caffeine Use Caffeine Use: Reports: None H&P Review of Systems - Review of Systems: Review Of Systems: See Below Exam - Exam Exam: See Below - Vital Signs Vital Signs: Last Vital Signs Temp 36.0 C L 07/29/20 12:10 Pulse 87 07/29/20 15:58 Resp 18 07/29/20 15:58 BP 142/95 H 07/29/20 15:58 Pulse Ox 97 07/29/20 15:58 Weight: 77.111 kg - Exam General: Alert, Oriented, Cooperative, Other (tired appearing) HEENT: Conjunctiva Clear, EOMI, Hearing Intact, Pupils Equal, Pupils Reactive Lungs: Normal Respiratory Effort, Wheezing Cardiovascular: Regular Rate, Regular Rhythm GI/Abdominal Exam: Normal Bowel Sounds, Soft, Non-Tender, No Distention Back Exam: Other (ttp elicited over T6-T8. No paraspinal muscle ttp.) Extremities: Normal Inspection, No Pedal Edema Skin: Warm, Dry, Intact Neurological: Cranial Nerves Intact, Strength Equal Bilateral, Normal Speech, Normal Tone Psychiatric: Alert, Normal Affect, Normal Mood - Patient Data Lab Results Last 24 hrs: Laboratory Results - last 24 hr 07/29/20 07/29/20 07/29/20 Range/Units 12:10 12:10 12:10 WBC 7.01 (4.0-11.0) K/uL RBC 4.10 L (4.30-5.90) M/uL Hgb 13.1 (12.0-16.0) g/dL Hct 37.6 (36.0-46.0) % MCV 91.7 (80.0-98.0) fL MCH 32.0 (27.0-32.0) pg MCHC 34.8 (31.0-37.0) g/dL RDW Std Deviation 47.0 (28.0-62.0) fl RDW Coeff of [place] 14 (11.0-15.0) % Plt Count 244 (150-400) K/uL MPV 8.50 (7.40-12.00) fL Neut % (Auto) 75.0 (48.0-80.0) % Lymph % (Auto) 8.3 L (16.0-40.0) % [place] % (Auto) 13.0 (0.0-15.0) % Eos % (Auto) 1.1 (0.0-7.0) % Baso % (Auto) 2.6 H (0.0-1.5) % Neut # (Auto) 5.3 (1.4-5.7) K/uL Lymph # (Auto) 0.6 (0.6-2.4) K/uL [place] # (Auto) 0.9 H (0.0-0.8) K/uL Eos # (Auto) 0.1 (0.0-0.7) K/uL Baso # (Auto) 0.2 H (0.0-0.1) K/uL Nucleated RBC % 0.0 /100WBC Nucleated RBCs # 0 K/uL Lactate 0.7 (0.20-2.00) mmol/L Sodium (136-145) mmol/L Potassium (3.5-5.1) mmol/L Chloride (98-107) mmol/L Carbon Dioxide (21.0-32.0) mmol/L BUN (7.0-18.0) mg/dL Creatinine (0.6-1.0) mg/dL Est Cr Clr Drug Dosing mL/min Estimated GFR (MDRD) ml/min Glucose (74-106) mg/dL Calcium (8.5-10.1) mg/dL Magnesium (1.8-2.4) mg/dL Total Bilirubin (0.2-1.0) mg/dL AST (15-37) IU/L ALT (14-63) IU/L Alkaline Phosphatase (46-116) U/L Troponin I (0.000-0.056) ng/mL B-Natriuretic Peptide 152 H (<100) PG/ML Total Protein (6.4-8.2) g/dL Albumin (3.4-5.0) g/dL Globulin (2.6-4.0) g/dL Albumin/Globulin Ratio (0.9-1.6) Lipase (73-393) U/L Free T4 (0.76-1.46) ng/dL TSH 3rd Generation (0.36-3.74) uIU/mL Urine Color Urine Appearance Urine pH (5.0-8.0) Ur Specific [place] (1.001-1.035) Urine Protein (NEGATIVE) mg/dL Urine Glucose (UA) (NEGATIVE) mg/dL Urine Ketones (NEGATIVE) mg/dL Urine Occult Blood (NEGATIVE) Urine Nitrite (NEGATIVE) Urine Bilirubin (NEGATIVE) Urine Urobilinogen (<2.0) EU/dL Ur Leukocyte Esterase (NEGATIVE) Urine RBC (0-2/HPF) Urine WBC (0-5/HPF) Ur Epithelial Cells (NONE-FEW) Urine Bacteria (NEGATIVE) Ur Random Creatinine mg/dL Ur Random Sodium (40.0-220.0) mmol/L SARS-CoV-2 RNA (BLAINE) (NEGATIVE) 07/29/20 07/29/20 07/29/20 Range/Units 12:10 12:31 12:57 WBC (4.0-11.0) K/uL RBC (4.30-5.90) M/uL Hgb (12.0-16.0) g/dL Hct (36.0-46.0) % MCV (80.0-98.0) fL MCH (27.0-32.0) pg MCHC (31.0-37.0) g/dL RDW Std Deviation (28.0-62.0) fl RDW Coeff of [place] (11.0-15.0) % Plt Count (150-400) K/uL MPV (7.40-12.00) fL Neut % (Auto) (48.0-80.0) % Lymph % (Auto) (16.0-40.0) % [place] % (Auto) (0.0-15.0) % Eos % (Auto) (0.0-7.0) % Baso % (Auto) (0.0-1.5) % Neut # (Auto) (1.4-5.7) K/uL Lymph # (Auto) (0.6-2.4) K/uL [place] # (Auto) (0.0-0.8) K/uL Eos # (Auto) (0.0-0.7) K/uL Baso # (Auto) (0.0-0.1) K/uL Nucleated RBC % /100WBC Nucleated RBCs # K/uL Lactate (0.20-2.00) mmol/L Sodium 121 L (136-145) mmol/L Potassium 4.0 (3.5-5.1) mmol/L Chloride 84 L (98-107) mmol/L Carbon Dioxide 30.5 (21.0-32.0) mmol/L BUN 14 (7.0-18.0) mg/dL Creatinine 0.8 (0.6-1.0) mg/dL Est Cr Clr Drug Dosing 46.01 mL/min Estimated GFR (MDRD) > 60.0 ml/min Glucose 109 H (74-106) mg/dL Calcium 8.4 L (8.5-10.1) mg/dL Magnesium 1.6 L (1.8-2.4) mg/dL Total Bilirubin 0.6 (0.2-1.0) mg/dL AST 29 (15-37) IU/L ALT 84 H (14-63) IU/L Alkaline Phosphatase 136 H (46-116) U/L Troponin I < 0.050 (0.000-0.056) ng/mL B-Natriuretic Peptide (<100) PG/ML Total Protein 6.5 (6.4-8.2) g/dL Albumin 3.3 L (3.4-5.0) g/dL Globulin 3.2 (2.6-4.0) g/dL Albumin/Globulin Ratio 1.0 (0.9-1.6) Lipase 421 H (73-393) U/L Free T4 1.26 (0.76-1.46) ng/dL TSH 3rd Generation 4.76 H (0.36-3.74) uIU/mL Urine Color YELLOW Urine Appearance CLEAR Urine pH 6.5 (5.0-8.0) Ur Specific [place] 1.020 (1.001-1.035) Urine Protein NEGATIVE (NEGATIVE) mg/dL Urine Glucose (UA) NEGATIVE (NEGATIVE) mg/dL Urine Ketones NEGATIVE (NEGATIVE) mg/dL Urine Occult Blood NEGATIVE (NEGATIVE) Urine Nitrite NEGATIVE (NEGATIVE) Urine Bilirubin NEGATIVE (NEGATIVE) Urine Urobilinogen 2.0 H (<2.0) EU/dL Ur Leukocyte Esterase TRACE H (NEGATIVE) Urine RBC NONE SEEN (0-2/HPF) Urine WBC 0-2 (0-5/HPF) Ur Epithelial Cells FEW (NONE-FEW) Urine Bacteria FEW (NEGATIVE) Ur Random Creatinine mg/dL Ur Random Sodium (40.0-220.0) mmol/L SARS-CoV-2 RNA (BLAINE) NEGATIVE (NEGATIVE) 07/29/20 Range/Units 12:57 WBC (4.0-11.0) K/uL RBC (4.30-5.90) M/uL Hgb (12.0-16.0) g/dL Hct (36.0-46.0) % MCV (80.0-98.0) fL MCH (27.0-32.0) pg MCHC (31.0-37.0) g/dL RDW Std Deviation (28.0-62.0) fl RDW Coeff of [place] (11.0-15.0) % Plt Count (150-400) K/uL MPV (7.40-12.00) fL Neut % (Auto) (48.0-80.0) % Lymph % (Auto) (16.0-40.0) % [place] % (Auto) (0.0-15.0) % Eos % (Auto) (0.0-7.0) % Baso % (Auto) (0.0-1.5) % Neut # (Auto) (1.4-5.7) K/uL Lymph # (Auto) (0.6-2.4) K/uL [place] # (Auto) (0.0-0.8) K/uL Eos # (Auto) (0.0-0.7) K/uL Baso # (Auto) (0.0-0.1) K/uL Nucleated RBC % /100WBC Nucleated RBCs # K/uL Lactate (0.20-2.00) mmol/L Sodium (136-145) mmol/L Potassium (3.5-5.1) mmol/L Chloride (98-107) mmol/L Carbon Dioxide (21.0-32.0) mmol/L BUN (7.0-18.0) mg/dL Creatinine (0.6-1.0) mg/dL Est Cr Clr Drug Dosing mL/min Estimated GFR (MDRD) ml/min Glucose (74-106) mg/dL Calcium (8.5-10.1) mg/dL Magnesium (1.8-2.4) mg/dL Total Bilirubin (0.2-1.0) mg/dL AST (15-37) IU/L ALT (14-63) IU/L Alkaline Phosphatase (46-116) U/L Troponin I (0.000-0.056) ng/mL B-Natriuretic Peptide (<100) PG/ML Total Protein (6.4-8.2) g/dL Albumin (3.4-5.0) g/dL Globulin (2.6-4.0) g/dL Albumin/Globulin Ratio (0.9-1.6) Lipase (73-393) U/L Free T4 (0.76-1.46) ng/dL TSH 3rd Generation (0.36-3.74) uIU/mL Urine Color Urine Appearance Urine pH (5.0-8.0) Ur Specific [place] (1.001-1.035) Urine Protein (NEGATIVE) mg/dL Urine Glucose (UA) (NEGATIVE) mg/dL Urine Ketones (NEGATIVE) mg/dL Urine Occult Blood (NEGATIVE) Urine Nitrite (NEGATIVE) Urine Bilirubin (NEGATIVE) Urine Urobilinogen (<2.0) EU/dL Ur Leukocyte Esterase (NEGATIVE) Urine RBC (0-2/HPF) Urine WBC (0-5/HPF) Ur Epithelial Cells (NONE-FEW) Urine Bacteria (NEGATIVE) Ur Random Creatinine 50.3 mg/dL Ur Random Sodium 89.0 (40.0-220.0) mmol/L SARS-CoV-2 RNA (BLAINE) (NEGATIVE) Result Diagrams: 07/29/20 12:10 07/29/20 12:10 Sepsis Event Note - Evaluation Sepsis Screening Result: No Definite Risk - Focused Exam Vital Signs: Vital Signs Temp Pulse Resp BP Pulse Ox 07/29/20 15:58 87 18 142/95 H 97 07/29/20 15:43 73 17 158/73 H 96 07/29/20 14:08 72 18 190/89 H 97 07/29/20 13:53 70 191/90 H 97 07/29/20 13:38 74 213/89 H 97 07/29/20 13:23 68 17 187/90 H 98 07/29/20 13:08 63 17 193/90 H 98 07/29/20 12:39 63 18 173/75 H 98 07/29/20 12:10 36.0 C L 63 99 07/29/20 12:09 36.4 C 87 17 194/83 H 98 - Problem List (1) Compression fracture of T8 vertebra SNOMED Code(s): 385295453, 273553814 ICD Code: S22.060A - WEDGE COMPRESSION FRACTURE OF T7-T8 VERTEBRA, INIT Status: Acute Current Visit: Yes (2) Hyponatremia SNOMED Code(s): 10591746 ICD Code: E87.1 - HYPO-OSMOLALITY AND HYPONATREMIA Status: Acute Current Visit: Yes (3) Back pain SNOMED Code(s): 070859344 ICD Code: M54.9 - DORSALGIA, UNSPECIFIED Status: Acute Current Visit: No Qualifiers: Back pain location: thoracic back pain Chronicity: acute Back pain laterality: unspecified Qualified Code(s): M54.6 - Pain in thoracic spine Problem List Initiated/Reviewed/Updated: Yes Orders Last 24hrs: Active Orders 24 hr Category Date Time Status Patient Status [ADT] Routine ADT 07/29/20 15:47 Active Blood Glucose Check, Bedside [RC] ONETIME Care 07/29/20 12:09 Active Cardiac Monitoring [RC] . DIRECTED Care 07/29/20 12:09 Active EKG Documentation Completion [RC] STAT Care 07/29/20 12:09 Active Oxygen Therapy [RC] PRN Care 07/29/20 16:43 Active Pulse Oximetry [RC] ASDIRECTED Care 07/29/20 12:09 Active Up With Assistance [RC] ASDIRECTED Care 07/29/20 16:42 Active VTE/DVT Education [RC] PER UNIT ROUTINE Care 07/29/20 16:43 Active Vital Signs [RC] Q4H Care 07/29/20 16:43 Active PT Evaluation and Treatment [CONS] Routine Cons 07/29/20 16:42 Active Heart Healthy Diet [DIET] Diet 07/29/20 Lunch Active BASIC METABOLIC PANEL,BMP [CHEM] Routine Lab 07/29/20 18:00 Ordered CBC WITH AUTO DIFF [HEME] AM Lab 07/30/20 05:11 Ordered COMPREHENSIVE METABOLIC PN,CMP [CHEM] AM Lab 07/30/20 05:11 Ordered MAGNESIUM [CHEM] AM Lab 07/30/20 05:11 Ordered OSMOLALITY - SERUM [REF] Routine Lab 07/29/20 12:10 Received OSMOLALITY - URINE Routine Lab 07/29/20 12:57 Received PHOSPHORUS [CHEM] AM Lab 07/30/20 05:11 Ordered Acetaminophen [TylenoL] Med 07/29/20 16:42 Ordered 650 mg PO Q4H PRN Heparin Sodium Med 07/29/20 16:45 Ordered 5,000 units SUBCUT Q8H Ketorolac [Toradol] Med 07/29/20 16:42 Ordered 15 mg IM Q6H PRN Ondansetron [Zofran] Med 07/29/20 16:42 Ordered 4 mg IVPUSH Q4H PRN Pantoprazole [ProTONIX] Med 07/29/20 16:45 Ordered 40 mg PO DAILY Sodium Chloride 0.9% [Normal Saline] 500 ml Med 07/29/20 17:00 Ordered IV ASDIRECTED Sodium Chloride 0.9% [Saline Flush] Med 07/29/20 12:09 Active 10 ml FLUSH ASDIRECTED PRN Sodium Chloride 0.9% [Saline Flush] Med 07/29/20 12:09 Active 2.5 ml FLUSH ASDIRECTED PRN Saline Lock Insert [OM.PC] Stat Oth 07/29/20 12:09 Ordered Resuscitation Status Routine Resus Stat 07/29/20 16:42 Ordered Medication Orders Acetaminophen (Tylenol) 650 mg PO Q4H PRN PRN Reason: Pain (Mild 1-3)/fever Heparin Sodium (Porcine) (Heparin Sodium) 5,000 units SUBCUT Q8H AGUSTO Sodium Chloride (Normal Saline) 500 mls @ 75 mls/hr IV ASDIRECTED AGUSTO Stop: 07/29/20 23:39 Ketorolac Tromethamine (Toradol) 15 mg IM Q6H PRN PRN Reason: Pain (moderate 4-6) Ondansetron HCl (Zofran) 4 mg IVPUSH Q4H PRN PRN Reason: Nausea Pantoprazole Sodium (Protonix) 40 mg PO DAILY AGUSTO Sodium Chloride (Saline Flush) 10 ml FLUSH ASDIRECTED PRN PRN Reason: Keep Vein Open Last Admin: 07/29/20 12:24 Dose: 10 ml Documented by: DAYAN Sodium Chloride (Saline Flush) 2.5 ml FLUSH ASDIRECTED PRN PRN Reason: Keep Vein Open Last Admin: 07/29/20 12:24 Dose: 2.5 ml Documented by: DAYAN Assessment/Plan Comment:: Assessment and Plan: 1. Acute on chronic hyponatremia: - Sodium level 121 and patient's baseline is (124-126) per chart review. She received IV NS 500 cc bolus in the ER. Will start IV NS 75 cc/hr and recheck BMP this afternoon. - Will order urine electrolytes. 2. Compression fracture of T8 vertebra: - Admit to med/surg. For pain, will order tylenol prn and toradol prn. Will consult PT. 3. Nausea: - Zofran prn. - CT abd/pelvis did not show any acute abnormalities and showed normal appearing pancreas. 4. UTI: - UA was leukocyte esterase positive. Will start on IV rocephin. Will send urine culture. 5. Past medical history of COPD (on home oxygen - baseline 2 L), CAD s/p NSTEMI and hypothyroidism: - Continue home medications. 6. DVT prophylaxis: - Heparin 5, 000 units subcut q8h. <José Miguel Junior - Last Filed: 07/29/20 22:29> H&P History of Present Illness - General Admit Problem/Dx: Admission Diagnosis/Problem Admission Diagnosis/Problem Ambulatory dysfunction Exam - Vital Signs Vital Signs: Last Vital Signs Temp 36.2 C 07/29/20 21:00 Pulse 74 07/29/20 21:22 Resp 18 07/29/20 21:00 BP 147/71 H 07/29/20 21:22 Pulse Ox 95 07/29/20 21:00 - Patient Data Lab Results Last 24 hrs: Laboratory Results - last 24 hr 07/29/20 07/29/20 07/29/20 Range/Units 12:10 12:10 12:10 WBC 7.01 (4.0-11.0) K/uL RBC 4.10 L (4.30-5.90) M/uL Hgb 13.1 (12.0-16.0) g/dL Hct 37.6 (36.0-46.0) % MCV 91.7 (80.0-98.0) fL MCH 32.0 (27.0-32.0) pg MCHC 34.8 (31.0-37.0) g/dL RDW Std Deviation 47.0 (28.0-62.0) fl RDW Coeff of [place] 14 (11.0-15.0) % Plt Count 244 (150-400) K/uL MPV 8.50 (7.40-12.00) fL Neut % (Auto) 75.0 (48.0-80.0) % Lymph % (Auto) 8.3 L (16.0-40.0) % [place] % (Auto) 13.0 (0.0-15.0) % Eos % (Auto) 1.1 (0.0-7.0) % Baso % (Auto) 2.6 H (0.0-1.5) % Neut # (Auto) 5.3 (1.4-5.7) K/uL Lymph # (Auto) 0.6 (0.6-2.4) K/uL [place] # (Auto) 0.9 H (0.0-0.8) K/uL Eos # (Auto) 0.1 (0.0-0.7) K/uL Baso # (Auto) 0.2 H (0.0-0.1) K/uL Nucleated RBC % 0.0 /100WBC Nucleated RBCs # 0 K/uL Lactate 0.7 (0.20-2.00) mmol/L Sodium (136-145) mmol/L Potassium (3.5-5.1) mmol/L Chloride (98-107) mmol/L Carbon Dioxide (21.0-32.0) mmol/L BUN (7.0-18.0) mg/dL Creatinine (0.6-1.0) mg/dL Est Cr Clr Drug Dosing mL/min Estimated GFR (MDRD) ml/min Glucose (74-106) mg/dL Calcium (8.5-10.1) mg/dL Magnesium (1.8-2.4) mg/dL Total Bilirubin (0.2-1.0) mg/dL AST (15-37) IU/L ALT (14-63) IU/L Alkaline Phosphatase (46-116) U/L Troponin I (0.000-0.056) ng/mL B-Natriuretic Peptide 152 H (<100) PG/ML Total Protein (6.4-8.2) g/dL Albumin (3.4-5.0) g/dL Globulin (2.6-4.0) g/dL Albumin/Globulin Ratio (0.9-1.6) Lipase (73-393) U/L Free T4 (0.76-1.46) ng/dL TSH 3rd Generation (0.36-3.74) uIU/mL Urine Color Urine Appearance Urine pH (5.0-8.0) Ur Specific [place] (1.001-1.035) Urine Protein (NEGATIVE) mg/dL Urine Glucose (UA) (NEGATIVE) mg/dL Urine Ketones (NEGATIVE) mg/dL Urine Occult Blood (NEGATIVE) Urine Nitrite (NEGATIVE) Urine Bilirubin (NEGATIVE) Urine Urobilinogen (<2.0) EU/dL Ur Leukocyte Esterase (NEGATIVE) Urine RBC (0-2/HPF) Urine WBC (0-5/HPF) Ur Epithelial Cells (NONE-FEW) Urine Bacteria (NEGATIVE) Ur Random Creatinine mg/dL Ur Random Sodium (40.0-220.0) mmol/L SARS-CoV-2 RNA (BLAINE) (NEGATIVE) 07/29/20 07/29/20 07/29/20 Range/Units 12:10 12:31 12:57 WBC (4.0-11.0) K/uL RBC (4.30-5.90) M/uL Hgb (12.0-16.0) g/dL Hct (36.0-46.0) % MCV (80.0-98.0) fL MCH (27.0-32.0) pg MCHC (31.0-37.0) g/dL RDW Std Deviation (28.0-62.0) fl RDW Coeff of [place] (11.0-15.0) % Plt Count (150-400) K/uL MPV (7.40-12.00) fL Neut % (Auto) (48.0-80.0) % Lymph % (Auto) (16.0-40.0) % [place] % (Auto) (0.0-15.0) % Eos % (Auto) (0.0-7.0) % Baso % (Auto) (0.0-1.5) % Neut # (Auto) (1.4-5.7) K/uL Lymph # (Auto) (0.6-2.4) K/uL [place] # (Auto) (0.0-0.8) K/uL Eos # (Auto) (0.0-0.7) K/uL Baso # (Auto) (0.0-0.1) K/uL Nucleated RBC % /100WBC Nucleated RBCs # K/uL Lactate (0.20-2.00) mmol/L Sodium 121 L (136-145) mmol/L Potassium 4.0 (3.5-5.1) mmol/L Chloride 84 L (98-107) mmol/L Carbon Dioxide 30.5 (21.0-32.0) mmol/L BUN 14 (7.0-18.0) mg/dL Creatinine 0.8 (0.6-1.0) mg/dL Est Cr Clr Drug Dosing 46.01 mL/min Estimated GFR (MDRD) > 60.0 ml/min Glucose 109 H (74-106) mg/dL Calcium 8.4 L (8.5-10.1) mg/dL Magnesium 1.6 L (1.8-2.4) mg/dL Total Bilirubin 0.6 (0.2-1.0) mg/dL AST 29 (15-37) IU/L ALT 84 H (14-63) IU/L Alkaline Phosphatase 136 H (46-116) U/L Troponin I < 0.050 (0.000-0.056) ng/mL B-Natriuretic Peptide (<100) PG/ML Total Protein 6.5 (6.4-8.2) g/dL Albumin 3.3 L (3.4-5.0) g/dL Globulin 3.2 (2.6-4.0) g/dL Albumin/Globulin Ratio 1.0 (0.9-1.6) Lipase 421 H (73-393) U/L Free T4 1.26 (0.76-1.46) ng/dL TSH 3rd Generation 4.76 H (0.36-3.74) uIU/mL Urine Color YELLOW Urine Appearance CLEAR Urine pH 6.5 (5.0-8.0) Ur Specific [place] 1.020 (1.001-1.035) Urine Protein NEGATIVE (NEGATIVE) mg/dL Urine Glucose (UA) NEGATIVE (NEGATIVE) mg/dL Urine Ketones NEGATIVE (NEGATIVE) mg/dL Urine Occult Blood NEGATIVE (NEGATIVE) Urine Nitrite NEGATIVE (NEGATIVE) Urine Bilirubin NEGATIVE (NEGATIVE) Urine Urobilinogen 2.0 H (<2.0) EU/dL Ur Leukocyte Esterase TRACE H (NEGATIVE) Urine RBC NONE SEEN (0-2/HPF) Urine WBC 0-2 (0-5/HPF) Ur Epithelial Cells FEW (NONE-FEW) Urine Bacteria FEW (NEGATIVE) Ur Random Creatinine mg/dL Ur Random Sodium (40.0-220.0) mmol/L SARS-CoV-2 RNA (BLAINE) NEGATIVE (NEGATIVE) 07/29/20 07/29/20 Range/Units 12:57 18:03 WBC (4.0-11.0) K/uL RBC (4.30-5.90) M/uL Hgb (12.0-16.0) g/dL Hct (36.0-46.0) % MCV (80.0-98.0) fL MCH (27.0-32.0) pg MCHC (31.0-37.0) g/dL RDW Std Deviation (28.0-62.0) fl RDW Coeff of [place] (11.0-15.0) % Plt Count (150-400) K/uL MPV (7.40-12.00) fL Neut % (Auto) (48.0-80.0) % Lymph % (Auto) (16.0-40.0) % [place] % (Auto) (0.0-15.0) % Eos % (Auto) (0.0-7.0) % Baso % (Auto) (0.0-1.5) % Neut # (Auto) (1.4-5.7) K/uL Lymph # (Auto) (0.6-2.4) K/uL [place] # (Auto) (0.0-0.8) K/uL Eos # (Auto) (0.0-0.7) K/uL Baso # (Auto) (0.0-0.1) K/uL Nucleated RBC % /100WBC Nucleated RBCs # K/uL Lactate (0.20-2.00) mmol/L Sodium 122 L (136-145) mmol/L Potassium 4.2 (3.5-5.1) mmol/L Chloride 87 L (98-107) mmol/L Carbon Dioxide 25.5 (21.0-32.0) mmol/L BUN 11 (7.0-18.0) mg/dL Creatinine 0.7 (0.6-1.0) mg/dL Est Cr Clr Drug Dosing 51.48 mL/min Estimated GFR (MDRD) > 60.0 ml/min Glucose 178 H (74-106) mg/dL Calcium 8.4 L (8.5-10.1) mg/dL Magnesium (1.8-2.4) mg/dL Total Bilirubin (0.2-1.0) mg/dL AST (15-37) IU/L ALT (14-63) IU/L Alkaline Phosphatase (46-116) U/L Troponin I (0.000-0.056) ng/mL B-Natriuretic Peptide (<100) PG/ML Total Protein (6.4-8.2) g/dL Albumin (3.4-5.0) g/dL Globulin (2.6-4.0) g/dL Albumin/Globulin Ratio (0.9-1.6) Lipase (73-393) U/L Free T4 (0.76-1.46) ng/dL TSH 3rd Generation (0.36-3.74) uIU/mL Urine Color Urine Appearance Urine pH (5.0-8.0) Ur Specific [place] (1.001-1.035) Urine Protein (NEGATIVE) mg/dL Urine Glucose (UA) (NEGATIVE) mg/dL Urine Ketones (NEGATIVE) mg/dL Urine Occult Blood (NEGATIVE) Urine Nitrite (NEGATIVE) Urine Bilirubin (NEGATIVE) Urine Urobilinogen (<2.0) EU/dL Ur Leukocyte Esterase (NEGATIVE) Urine RBC (0-2/HPF) Urine WBC (0-5/HPF) Ur Epithelial Cells (NONE-FEW) Urine Bacteria (NEGATIVE) Ur Random Creatinine 50.3 mg/dL Ur Random Sodium 89.0 (40.0-220.0) mmol/L SARS-CoV-2 RNA (BLAINE) (NEGATIVE) Result Diagrams: 07/29/20 12:10 07/29/20 18:03 Sepsis Event Note - Focused Exam Vital Signs: Vital Signs Temp Pulse Pulse Resp BP BP Pulse Ox 07/29/20 21:22 74 147/71 H 07/29/20 21:00 36.2 C 74 18 147/71 H 95 07/29/20 17:25 36.8 C 80 20 138/63 97 07/29/20 15:58 87 18 142/95 H 97 07/29/20 15:43 73 17 158/73 H 96 07/29/20 14:08 72 18 190/89 H 97 07/29/20 13:53 70 191/90 H 97 07/29/20 13:38 74 213/89 H 97 07/29/20 13:23 68 17 187/90 H 98 07/29/20 13:08 63 17 193/90 H 98 07/29/20 12:39 63 18 173/75 H 98 07/29/20 12:10 36.0 C L 63 99 07/29/20 12:09 36.4 C 87 17 194/83 H 98 Orders Last 24hrs: Active Orders 24 hr Category Date Time Status Patient Status [ADT] Routine ADT 07/29/20 15:47 Active Cardiac Monitoring [RC] . DIRECTED Care 07/29/20 12:09 Active EKG Documentation Completion [RC] STAT Care 07/29/20 12:09 Active Oxygen Therapy [RC] PRN Care 07/29/20 16:43 Active Pulse Oximetry [RC] ASDIRECTED Care 07/29/20 12:09 Active RT Aerosol Therapy [RC] ASDIRECTED Care 07/29/20 17:05 Active Up With Assistance [RC] ASDIRECTED Care 07/29/20 16:42 Active VTE/DVT Education [RC] PER UNIT ROUTINE Care 07/29/20 16:43 Active Vital Signs [RC] Q4H Care 07/29/20 16:43 Active PT Evaluation and Treatment [CONS] Routine Cons 07/29/20 16:42 Active Heart Healthy Diet [DIET] Diet 07/29/20 Lunch Active CBC WITH AUTO DIFF [HEME] AM Lab 07/30/20 05:11 Ordered COMPREHENSIVE METABOLIC PN,CMP [CHEM] AM Lab 07/30/20 05:11 Ordered CULTURE URINE [RM] Routine Lab 07/29/20 12:57 Received MAGNESIUM [CHEM] AM Lab 07/30/20 05:11 Ordered OSMOLALITY - SERUM [REF] Routine Lab 07/29/20 12:10 Received OSMOLALITY - URINE Routine Lab 07/29/20 12:57 Received PHOSPHORUS [CHEM] AM Lab 07/30/20 05:11 Ordered Acetaminophen [TylenoL] Med 07/29/20 18:00 Active 650 mg PO Q4H PRN Albuterol/Ipratropium [DuoNeb 3.0-0.5 MG/3 ML] Med 07/29/20 18:00 Active 3 ml NEB Q4HRRT PRN Aspirin Med 07/30/20 09:00 Active 81 mg PO DAILY Benzonatate [Tessalon Perles] Med 07/29/20 17:41 Active 100 mg PO TID PRN Clopidogrel [Plavix] Med 07/30/20 09:00 Active 75 mg PO DAILY Heparin Sodium Med 07/29/20 17:15 Active 5,000 units SUBCUT Q8H Ketorolac [Toradol] Med 07/29/20 19:27 Active 15 mg IVPUSH Q6H PRN Levothyroxine Med 07/30/20 07:30 Active 112 mcg PO ACBREAKFAST Ondansetron [Zofran] Med 07/29/20 16:42 Active 4 mg IVPUSH Q4H PRN Pantoprazole [ProTONIX] Med 07/29/20 17:15 Active 40 mg PO DAILY Sodium Chloride 0.9% [Normal Saline] 500 ml Med 07/29/20 17:00 Active IV ASDIRECTED Sodium Chloride 0.9% [Saline Flush] Med 07/29/20 12:09 Active 10 ml FLUSH ASDIRECTED PRN Sodium Chloride 0.9% [Saline Flush] Med 07/29/20 12:09 Active 2.5 ml FLUSH ASDIRECTED PRN atorvaSTATin [Lipitor] Med 07/30/20 09:00 Active 20 mg PO DAILY carvediloL [Coreg] Med 07/29/20 21:00 Active 3.125 mg PO BEDTIME carvediloL [Coreg] Med 07/30/20 09:00 Active 6.25 mg PO QAM cefTRIAXone [Rocephin in Dextrose,Iso-Osm 1 GM/50 ML] 1 Med 07/29/20 17:30 Active gm Premix Bag 1 bag IV Q24H Saline Lock Insert [OM.PC] Stat Oth 07/29/20 12:09 Ordered Resuscitation Status Routine Resus Stat 07/29/20 16:42 Ordered Medication Orders Acetaminophen (Tylenol) 650 mg PO Q4H PRN PRN Reason: Pain (Mild 1-3)/fever Albuterol/Ipratropium (Duoneb 3.0-0.5 Mg/3 Ml) 3 ml NEB Q4HRRT PRN PRN Reason: Dyspnea Last Admin: 07/29/20 18:03 Dose: 3 ml Documented by: KATE Aspirin (Aspirin) 81 mg PO DAILY ON LICENSE OF [facility] Atorvastatin Calcium (Lipitor) 20 mg PO DAILY ON LICENSE OF [facility] Benzonatate (Tessalon Perles) 100 mg PO TID PRN PRN Reason: Cough Carvedilol (Coreg) 3.125 mg PO BEDTIME ON LICENSE OF [facility] Last Admin: 07/29/20 21:22 Dose: 3.125 mg Documented by: ROXANE Carvedilol (Coreg) 6.25 mg PO QAM ON LICENSE OF [facility] Clopidogrel Bisulfate (Plavix) 75 mg PO DAILY ON LICENSE OF [facility] Heparin Sodium (Porcine) (Heparin Sodium) 5,000 units SUBCUT Q8H ON LICENSE OF [facility] Last Admin: 07/29/20 17:54 Dose: 5,000 units Documented by: HUBMLE Sodium Chloride (Normal Saline) 500 mls @ 75 mls/hr IV ASDIRECTED ON LICENSE OF [facility] Ceftriaxone Sodium/Dextrose 1 (gm/ Premix) 50 mls @ 100 mls/hr IV Q24H ON LICENSE OF [facility] Last Admin: 07/29/20 17:51 Dose: 100 mls/hr Documented by: HUMBLE Ketorolac Tromethamine (Toradol) 15 mg IVPUSH Q6H PRN PRN Reason: Pain (moderate 4-6) Last Admin: 07/29/20 21:24 Dose: 15 mg Documented by: ROXANE Levothyroxine Sodium (Levothyroxine) 112 mcg PO ACBREAKFAST ON LICENSE OF [facility] Ondansetron HCl (Zofran) 4 mg IVPUSH Q4H PRN PRN Reason: Nausea Pantoprazole Sodium (Protonix) 40 mg PO DAILY ON LICENSE OF [facility] Last Admin: 07/29/20 17:51 Dose: 40 mg Documented by: RANIPRI Sodium Chloride (Saline Flush) 10 ml FLUSH ASDIRECTED PRN PRN Reason: Keep Vein Open Last Admin: 07/29/20 12:24 Dose: 10 ml Documented by: DAYAN Sodium Chloride (Saline Flush) 2.5 ml FLUSH ASDIRECTED PRN PRN Reason: Keep Vein Open Last Admin: 07/29/20 12:24 Dose: 2.5 ml Documented by: DAYAN Assessment/Plan Comment:: I performed a history and physical exam of the patient and discussed management with resident. I have reviewed the residents note and agree with documented findings and plan unless otherwise specified in my note.
[2020-07-29] MEDS ORDERED: Sodium Chloride 0.9% 500 ML IV SCH (17:00)
[2020-07-29] MEDS ORDERED: Benzonatate 100 MG Cap PO PRN (17:41)
[2020-07-29] MEDS: cefTRIAXone 1 GM in Premix Bag 1 BAG IV SCH (17:51)
[2020-07-29] MEDS: Pantoprazole 40 MG Tab.CR PO SCH (17:51)
[2020-07-29] MEDS: Heparin Sodium 5,000 Units/ML Vial SUBCUT SCH (17:54)
[2020-07-29] MEDS: Albuterol/Ipratropium 3.0-0.5 MG/3 ML Neb Soln NEB PRN (18:03)
[2020-07-29 18:23] LABS: BLOOD UREA NITROGEN,BUN 11 mg/dL (7.0-18.0); CARBON DIOXIDE,CO2 25.5 mmol/L (21.0-32.0); CHLORIDE,CL 87 mmol/L (98-107); GLUCOSE RANDOM 178 mg/dL (74-106); POTASSIUM,K 4.2 mmol/L (3.5-5.1); SODIUM,NA 122 mmol/L (136-145)
[2020-07-29] MEDS ORDERED: Ketorolac 30 MG/ML SDV IVPUSH PRN (19:27)
[2020-07-29] MEDS: Carvedilol 3.125 MG Tab PO SCH (21:22)
[2020-07-29] MEDS ORDERED: atorvaSTATin 20 MG Tab PO ONE (21:44)
[2020-07-29] MEDS ORDERED: Clopidogrel 75 MG Tab PO ONE (21:45)
[2020-07-29] MEDS ORDERED: Aspirin 81 MG Tab.Chew PO ONE (21:45)
[2020-07-29] MEDS ORDERED: Melatonin 3 MG Tab PO ONE (21:47)
[2020-07-29] MEDS: Acetaminophen/oxyCODONE 325-5 MG Tab PO PRN (23:14)
[2020-07-30] MEDS: Heparin Sodium 5,000 Units/ML Vial SUBCUT SCH ×3 (00:39→17:22)
[2020-07-30] MEDS: Ondansetron 4 MG/2 ML SDV IVPUSH PRN ×3 (02:15→10:20)
[2020-07-30] MEDS: Acetaminophen/oxyCODONE 325-5 MG Tab PO PRN ×3 (03:25→20:43)
[2020-07-30 05:54] LABS: BLOOD UREA NITROGEN,BUN 15 mg/dL (7.0-18.0); CARBON DIOXIDE,CO2 25.8 mmol/L (21.0-32.0); CHLORIDE,CL 91 mmol/L (98-107); GLUCOSE RANDOM 131 mg/dL (74-106); POTASSIUM,K 4.5 mmol/L (3.5-5.1); SODIUM,NA 125 mmol/L (136-145)
[2020-07-30] MEDS: Acetaminophen 325 MG Tab PO PRN ×2 (06:37→10:20)
[2020-07-30] MEDS ORDERED: Levothyroxine 112 MCG Tab PO SCH (07:30)
[2020-07-30] MEDS: Pantoprazole 40 MG Tab.CR PO SCH (08:12)
[2020-07-30] MEDS: atorvaSTATin 20 MG Tab PO SCH (08:12)
[2020-07-30] MEDS: Clopidogrel 75 MG Tab PO SCH (08:12)
[2020-07-30] MEDS: Carvedilol 3.125 MG Tab PO SCH ×2 (08:13→20:39)
[2020-07-30] MEDS: Aspirin 81 MG Tab.Chew PO SCH (08:13)
--- NOTE | 2020-07-30 08:24 | PCM.PN ---
<Vivek Acuna M - Last Filed: 07/30/20 11:49> - General Info Date of Service: 07/30/20 Subjective Update: Reports not sleeping overnight and has headache this morning. Back pain overnight and nausea. Tolerating oral diet. Per nursing, patient refused levothyroxine this AM. - Patient Data Vitals - Most Recent: Last Vital Signs Temp 36.3 C 07/30/20 08:10 Pulse 77 07/30/20 08:13 Resp 16 07/30/20 08:10 BP 135/69 07/30/20 08:13 Pulse Ox 96 07/30/20 08:10 Weight - Most Recent: 72.575 kg I&O - Last 24 Hours: Intake & Output 07/29/20 07/30/20 07/30/20 22:59 06:59 14:59 Intake Total 1050 1120 Output Total 550 Balance 1050 570 Lab Results Last 24 Hours: Laboratory Results - last 24 hr 07/29/20 07/29/20 07/29/20 Range/Units 12:10 12:10 12:10 WBC 7.01 (4.0-11.0) K/uL RBC 4.10 L (4.30-5.90) M/uL Hgb 13.1 (12.0-16.0) g/dL Hct 37.6 (36.0-46.0) % MCV 91.7 (80.0-98.0) fL MCH 32.0 (27.0-32.0) pg MCHC 34.8 (31.0-37.0) g/dL RDW Std Deviation 47.0 (28.0-62.0) fl RDW Coeff of Lavelle 14 (11.0-15.0) % Plt Count 244 (150-400) K/uL MPV 8.50 (7.40-12.00) fL Neut % (Auto) 75.0 (48.0-80.0) % Lymph % (Auto) 8.3 L (16.0-40.0) % Wirt % (Auto) 13.0 (0.0-15.0) % Eos % (Auto) 1.1 (0.0-7.0) % Baso % (Auto) 2.6 H (0.0-1.5) % Neut # (Auto) 5.3 (1.4-5.7) K/uL Lymph # (Auto) 0.6 (0.6-2.4) K/uL Wirt # (Auto) 0.9 H (0.0-0.8) K/uL Eos # (Auto) 0.1 (0.0-0.7) K/uL Baso # (Auto) 0.2 H (0.0-0.1) K/uL Nucleated RBC % 0.0 /100WBC Nucleated RBCs # 0 K/uL Lactate 0.7 (0.20-2.00) mmol/L Sodium (136-145) mmol/L Potassium (3.5-5.1) mmol/L Chloride (98-107) mmol/L Carbon Dioxide (21.0-32.0) mmol/L BUN (7.0-18.0) mg/dL Creatinine (0.6-1.0) mg/dL Est Cr Clr Drug Dosing mL/min Estimated GFR (MDRD) ml/min Glucose (74-106) mg/dL Calcium (8.5-10.1) mg/dL Phosphorus (2.6-4.7) mg/dL Magnesium (1.8-2.4) mg/dL Total Bilirubin (0.2-1.0) mg/dL AST (15-37) IU/L ALT (14-63) IU/L Alkaline Phosphatase (46-116) U/L Troponin I (0.000-0.056) ng/mL B-Natriuretic Peptide 152 H (<100) PG/ML Total Protein (6.4-8.2) g/dL Albumin (3.4-5.0) g/dL Globulin (2.6-4.0) g/dL Albumin/Globulin Ratio (0.9-1.6) Lipase (73-393) U/L Free T4 (0.76-1.46) ng/dL TSH 3rd Generation (0.36-3.74) uIU/mL Urine Color Urine Appearance Urine pH (5.0-8.0) Ur Specific [place] (1.001-1.035) Urine Protein (NEGATIVE) mg/dL Urine Glucose (UA) (NEGATIVE) mg/dL Urine Ketones (NEGATIVE) mg/dL Urine Occult Blood (NEGATIVE) Urine Nitrite (NEGATIVE) Urine Bilirubin (NEGATIVE) Urine Urobilinogen (<2.0) EU/dL Ur Leukocyte Esterase (NEGATIVE) Urine RBC (0-2/HPF) Urine WBC (0-5/HPF) Ur Epithelial Cells (NONE-FEW) Urine Bacteria (NEGATIVE) Ur Random Creatinine mg/dL Ur Random Sodium (40.0-220.0) mmol/L SARS-CoV-2 RNA (BLAINE) (NEGATIVE) 07/29/20 07/29/20 07/29/20 Range/Units 12:10 12:31 12:57 WBC (4.0-11.0) K/uL RBC (4.30-5.90) M/uL Hgb (12.0-16.0) g/dL Hct (36.0-46.0) % MCV (80.0-98.0) fL MCH (27.0-32.0) pg MCHC (31.0-37.0) g/dL RDW Std Deviation (28.0-62.0) fl RDW Coeff of Lavelle (11.0-15.0) % Plt Count (150-400) K/uL MPV (7.40-12.00) fL Neut % (Auto) (48.0-80.0) % Lymph % (Auto) (16.0-40.0) % Wirt % (Auto) (0.0-15.0) % Eos % (Auto) (0.0-7.0) % Baso % (Auto) (0.0-1.5) % Neut # (Auto) (1.4-5.7) K/uL Lymph # (Auto) (0.6-2.4) K/uL Wirt # (Auto) (0.0-0.8) K/uL Eos # (Auto) (0.0-0.7) K/uL Baso # (Auto) (0.0-0.1) K/uL Nucleated RBC % /100WBC Nucleated RBCs # K/uL Lactate (0.20-2.00) mmol/L Sodium 121 L (136-145) mmol/L Potassium 4.0 (3.5-5.1) mmol/L Chloride 84 L (98-107) mmol/L Carbon Dioxide 30.5 (21.0-32.0) mmol/L BUN 14 (7.0-18.0) mg/dL Creatinine 0.8 (0.6-1.0) mg/dL Est Cr Clr Drug Dosing 46.01 mL/min Estimated GFR (MDRD) > 60.0 ml/min Glucose 109 H (74-106) mg/dL Calcium 8.4 L (8.5-10.1) mg/dL Phosphorus (2.6-4.7) mg/dL Magnesium 1.6 L (1.8-2.4) mg/dL Total Bilirubin 0.6 (0.2-1.0) mg/dL AST 29 (15-37) IU/L ALT 84 H (14-63) IU/L Alkaline Phosphatase 136 H (46-116) U/L Troponin I < 0.050 (0.000-0.056) ng/mL B-Natriuretic Peptide (<100) PG/ML Total Protein 6.5 (6.4-8.2) g/dL Albumin 3.3 L (3.4-5.0) g/dL Globulin 3.2 (2.6-4.0) g/dL Albumin/Globulin Ratio 1.0 (0.9-1.6) Lipase 421 H (73-393) U/L Free T4 1.26 (0.76-1.46) ng/dL TSH 3rd Generation 4.76 H (0.36-3.74) uIU/mL Urine Color YELLOW Urine Appearance CLEAR Urine pH 6.5 (5.0-8.0) Ur Specific [place] 1.020 (1.001-1.035) Urine Protein NEGATIVE (NEGATIVE) mg/dL Urine Glucose (UA) NEGATIVE (NEGATIVE) mg/dL Urine Ketones NEGATIVE (NEGATIVE) mg/dL Urine Occult Blood NEGATIVE (NEGATIVE) Urine Nitrite NEGATIVE (NEGATIVE) Urine Bilirubin NEGATIVE (NEGATIVE) Urine Urobilinogen 2.0 H (<2.0) EU/dL Ur Leukocyte Esterase TRACE H (NEGATIVE) Urine RBC NONE SEEN (0-2/HPF) Urine WBC 0-2 (0-5/HPF) Ur Epithelial Cells FEW (NONE-FEW) Urine Bacteria FEW (NEGATIVE) Ur Random Creatinine mg/dL Ur Random Sodium (40.0-220.0) mmol/L SARS-CoV-2 RNA (BLAINE) NEGATIVE (NEGATIVE) 07/29/20 07/29/20 07/30/20 Range/Units 12:57 18:03 05:15 WBC 3.63 L (4.0-11.0) K/uL RBC 3.84 L (4.30-5.90) M/uL Hgb 12.0 (12.0-16.0) g/dL Hct 34.7 L (36.0-46.0) % MCV 90.4 (80.0-98.0) fL MCH 31.3 (27.0-32.0) pg MCHC 34.6 (31.0-37.0) g/dL RDW Std Deviation 45.3 (28.0-62.0) fl RDW Coeff of Lavelle 14 (11.0-15.0) % Plt Count 241 (150-400) K/uL MPV 8.50 (7.40-12.00) fL Neut % (Auto) 79.1 (48.0-80.0) % Lymph % (Auto) 13.2 L (16.0-40.0) % Wirt % (Auto) 7.4 (0.0-15.0) % Eos % (Auto) 0.0 (0.0-7.0) % Baso % (Auto) 0.3 (0.0-1.5) % Neut # (Auto) 2.9 (1.4-5.7) K/uL Lymph # (Auto) 0.5 L (0.6-2.4) K/uL Wirt # (Auto) 0.3 (0.0-0.8) K/uL Eos # (Auto) 0.0 (0.0-0.7) K/uL Baso # (Auto) 0.0 (0.0-0.1) K/uL Nucleated RBC % 0.0 /100WBC Nucleated RBCs # 0 K/uL Lactate (0.20-2.00) mmol/L Sodium 122 L (136-145) mmol/L Potassium 4.2 (3.5-5.1) mmol/L Chloride 87 L (98-107) mmol/L Carbon Dioxide 25.5 (21.0-32.0) mmol/L BUN 11 (7.0-18.0) mg/dL Creatinine 0.7 (0.6-1.0) mg/dL Est Cr Clr Drug Dosing 51.48 mL/min Estimated GFR (MDRD) > 60.0 ml/min Glucose 178 H (74-106) mg/dL Calcium 8.4 L (8.5-10.1) mg/dL Phosphorus (2.6-4.7) mg/dL Magnesium (1.8-2.4) mg/dL Total Bilirubin (0.2-1.0) mg/dL AST (15-37) IU/L ALT (14-63) IU/L Alkaline Phosphatase (46-116) U/L Troponin I (0.000-0.056) ng/mL B-Natriuretic Peptide (<100) PG/ML Total Protein (6.4-8.2) g/dL Albumin (3.4-5.0) g/dL Globulin (2.6-4.0) g/dL Albumin/Globulin Ratio (0.9-1.6) Lipase (73-393) U/L Free T4 (0.76-1.46) ng/dL TSH 3rd Generation (0.36-3.74) uIU/mL Urine Color Urine Appearance Urine pH (5.0-8.0) Ur Specific [place] (1.001-1.035) Urine Protein (NEGATIVE) mg/dL Urine Glucose (UA) (NEGATIVE) mg/dL Urine Ketones (NEGATIVE) mg/dL Urine Occult Blood (NEGATIVE) Urine Nitrite (NEGATIVE) Urine Bilirubin (NEGATIVE) Urine Urobilinogen (<2.0) EU/dL Ur Leukocyte Esterase (NEGATIVE) Urine RBC (0-2/HPF) Urine WBC (0-5/HPF) Ur Epithelial Cells (NONE-FEW) Urine Bacteria (NEGATIVE) Ur Random Creatinine 50.3 mg/dL Ur Random Sodium 89.0 (40.0-220.0) mmol/L SARS-CoV-2 RNA (BLAINE) (NEGATIVE) 07/30/20 Range/Units 05:15 WBC (4.0-11.0) K/uL RBC (4.30-5.90) M/uL Hgb (12.0-16.0) g/dL Hct (36.0-46.0) % MCV (80.0-98.0) fL MCH (27.0-32.0) pg MCHC (31.0-37.0) g/dL RDW Std Deviation (28.0-62.0) fl RDW Coeff of Lavelle (11.0-15.0) % Plt Count (150-400) K/uL MPV (7.40-12.00) fL Neut % (Auto) (48.0-80.0) % Lymph % (Auto) (16.0-40.0) % Wirt % (Auto) (0.0-15.0) % Eos % (Auto) (0.0-7.0) % Baso % (Auto) (0.0-1.5) % Neut # (Auto) (1.4-5.7) K/uL Lymph # (Auto) (0.6-2.4) K/uL Wirt # (Auto) (0.0-0.8) K/uL Eos # (Auto) (0.0-0.7) K/uL Baso # (Auto) (0.0-0.1) K/uL Nucleated RBC % /100WBC Nucleated RBCs # K/uL Lactate (0.20-2.00) mmol/L Sodium 125 L (136-145) mmol/L Potassium 4.5 (3.5-5.1) mmol/L Chloride 91 L (98-107) mmol/L Carbon Dioxide 25.8 (21.0-32.0) mmol/L BUN 15 (7.0-18.0) mg/dL Creatinine 0.7 (0.6-1.0) mg/dL Est Cr Clr Drug Dosing 51.48 mL/min Estimated GFR (MDRD) > 60.0 ml/min Glucose 131 H (74-106) mg/dL Calcium 8.2 L (8.5-10.1) mg/dL Phosphorus 2.7 (2.6-4.7) mg/dL Magnesium 1.9 (1.8-2.4) mg/dL Total Bilirubin 0.4 (0.2-1.0) mg/dL AST 20 (15-37) IU/L ALT 69 H (14-63) IU/L Alkaline Phosphatase 120 H (46-116) U/L Troponin I (0.000-0.056) ng/mL B-Natriuretic Peptide (<100) PG/ML Total Protein 5.8 L (6.4-8.2) g/dL Albumin 2.9 L (3.4-5.0) g/dL Globulin 2.9 (2.6-4.0) g/dL Albumin/Globulin Ratio 1.0 (0.9-1.6) Lipase (73-393) U/L Free T4 (0.76-1.46) ng/dL TSH 3rd Generation (0.36-3.74) uIU/mL Urine Color Urine Appearance Urine pH (5.0-8.0) Ur Specific [place] (1.001-1.035) Urine Protein (NEGATIVE) mg/dL Urine Glucose (UA) (NEGATIVE) mg/dL Urine Ketones (NEGATIVE) mg/dL Urine Occult Blood (NEGATIVE) Urine Nitrite (NEGATIVE) Urine Bilirubin (NEGATIVE) Urine Urobilinogen (<2.0) EU/dL Ur Leukocyte Esterase (NEGATIVE) Urine RBC (0-2/HPF) Urine WBC (0-5/HPF) Ur Epithelial Cells (NONE-FEW) Urine Bacteria (NEGATIVE) Ur Random Creatinine mg/dL Ur Random Sodium (40.0-220.0) mmol/L SARS-CoV-2 RNA (BLAINE) (NEGATIVE) Med Orders - Current: Current Medications Acetaminophen (Tylenol) 650 mg PO Q4H PRN PRN Reason: Pain (Mild 1-3)/fever Last Admin: 07/30/20 06:37 Dose: 650 mg Documented by: Albuterol/Ipratropium (Duoneb 3.0-0.5 Mg/3 Ml) 3 ml NEB Q4HRRT PRN PRN Reason: Dyspnea Last Admin: 07/29/20 18:03 Dose: 3 ml Documented by: Aspirin (Aspirin) 81 mg PO DAILY [facility] Last Admin: 07/30/20 08:13 Dose: 81 mg Documented by: Atorvastatin Calcium (Lipitor) 20 mg PO DAILY [facility] Last Admin: 07/30/20 08:12 Dose: 20 mg Documented by: Benzonatate (Tessalon Perles) 100 mg PO TID PRN PRN Reason: Cough Carvedilol (Coreg) 3.125 mg PO BEDTIME [facility] Last Admin: 07/29/20 21:22 Dose: 3.125 mg Documented by: Carvedilol (Coreg) 6.25 mg PO QAM [facility] Last Admin: 07/30/20 08:13 Dose: 6.25 mg Documented by: Clopidogrel Bisulfate (Plavix) 75 mg PO DAILY [facility] Last Admin: 07/30/20 08:12 Dose: 75 mg Documented by: Heparin Sodium (Porcine) (Heparin Sodium) 5,000 units SUBCUT Q8H [facility] Last Admin: 07/30/20 08:16 Dose: 5,000 units Documented by: Ceftriaxone Sodium/Dextrose 1 (gm/ Premix) 50 mls @ 100 mls/hr IV Q24H [facility] Last Admin: 07/29/20 17:51 Dose: 100 mls/hr Documented by: Levothyroxine Sodium (Levothyroxine) 112 mcg PO ACBREAKFAST [facility] Last Admin: 07/30/20 06:44 Dose: Not Given Documented by: Ondansetron HCl (Zofran) 4 mg IVPUSH Q4H PRN PRN Reason: Nausea Last Admin: 07/30/20 06:45 Dose: 4 mg Documented by: Oxycodone/Acetaminophen (Percocet 325-5 Mg) 1 tab PO Q4H PRN PRN Reason: Pain (moderate 4-6) Last Admin: 07/30/20 03:25 Dose: 1 tab Documented by: Pantoprazole Sodium (Protonix) 40 mg PO DAILY [facility] Last Admin: 07/30/20 08:12 Dose: 40 mg Documented by: Sodium Chloride (Saline Flush) 10 ml FLUSH ASDIRECTED PRN PRN Reason: Keep Vein Open Last Admin: 07/29/20 12:24 Dose: 10 ml Documented by: Sodium Chloride (Saline Flush) 2.5 ml FLUSH ASDIRECTED PRN PRN Reason: Keep Vein Open Last Admin: 07/29/20 12:24 Dose: 2.5 ml Documented by: Discontinued Medications Aspirin (Aspirin) 81 mg PO ONETIME ONE Stop: 07/29/20 21:46 Last Admin: 07/29/20 22:07 Dose: 81 mg Documented by: Atorvastatin Calcium (Lipitor) 20 mg PO ONETIME ONE Stop: 07/29/20 21:45 Last Admin: 07/29/20 22:07 Dose: 20 mg Documented by: Clopidogrel Bisulfate (Plavix) 75 mg PO ONETIME ONE Stop: 07/29/20 21:46 Last Admin: 07/29/20 22:07 Dose: 75 mg Documented by: Diphenhydramine HCl (Benadryl) 25 mg IVPUSH ONETIME ONE Stop: 07/29/20 12:55 Last Admin: 07/29/20 13:16 Dose: 25 mg Documented by: Sodium Chloride (Normal Saline) 500 mls @ 999 mls/hr IV .Bolus ONE Stop: 07/29/20 12:39 Last Admin: 07/29/20 12:24 Dose: 999 mls/hr Documented by: Magnesium Sulfate 2 gm/ Premix 50 mls @ 50 mls/hr IV ONETIME ONE Stop: 07/29/20 13:52 Last Admin: 07/29/20 13:16 Dose: 50 mls/hr Documented by: Sodium Chloride (Normal Saline) 1,000 mls @ 200 mls/hr IV .Bolus ONE Stop: 07/29/20 17:52 Last Admin: 07/29/20 13:16 Dose: 200 mls/hr Documented by: Sodium Chloride (Normal Saline) 500 mls @ 75 mls/hr IV ASDIRECTED [facility] Last Admin: 07/29/20 22:56 Dose: 75 mls/hr Documented by: Iopamidol (Isovue Multipack-370 (76%)) 100 ml IVPUSH ONETIME ONE Stop: 07/29/20 14:39 Last Admin: 07/29/20 14:39 Dose: 100 ml Documented by: Ketorolac Tromethamine (Toradol) 15 mg IM Q6H PRN PRN Reason: Pain (moderate 4-6) Ketorolac Tromethamine (Toradol) 15 mg IVPUSH Q6H PRN PRN Reason: Pain (moderate 4-6) Last Admin: 07/29/20 21:24 Dose: 15 mg Documented by: Melatonin (Melatonin) 6 mg PO ONETIME ONE Stop: 07/29/20 21:48 Last Admin: 07/29/20 22:07 Dose: 6 mg Documented by: Methylprednisolone Sodium Succinate (Solu-Medrol) 125 mg IV ONETIME ONE Stop: 07/29/20 14:01 Methylprednisolone Sodium Succinate (Solu-Medrol) 125 mg IVPUSH ONETIME ONE Stop: 07/29/20 13:11 Last Admin: 07/29/20 13:16 Dose: 125 mg Documented by: Ondansetron HCl (Zofran) 4 mg IVPUSH ONETIME ONE Stop: 07/29/20 12:10 Last Admin: 07/29/20 12:24 Dose: 4 mg Documented by: Oxycodone/Acetaminophen (Percocet 325-5 Mg) 1 tab PO ONETIME ONE Stop: 07/29/20 15:42 Last Admin: 07/29/20 16:04 Dose: 1 tab Documented by: - Exam General: Alert, Oriented, Mild Distress Lungs: Normal Respiratory Effort, Wheezing Cardiovascular: Regular Rate, Regular Rhythm GI/Abdominal Exam: Normal Bowel Sounds, Soft, Non-Tender, No Distention Extremities: Normal Inspection, No Pedal Edema Sepsis Event Note - Evaluation Sepsis Screening Result: No Definite Risk - Focused Exam Vital Signs: Vital Signs Temp Pulse Pulse Resp BP BP Pulse Ox 07/30/20 08:13 77 135/69 07/30/20 08:10 36.3 C 77 16 135/69 96 07/30/20 03:21 36.1 C 74 16 142/64 H 95 07/30/20 00:35 36.6 C 75 18 149/67 H 95 07/29/20 21:22 74 147/71 H 07/29/20 21:00 36.2 C 74 18 147/71 H 95 - Problem List & Annotations (1) Compression fracture of T8 vertebra SNOMED Code(s): 077822156, 810614390 Code(s): S22.060A - WEDGE COMPRESSION FRACTURE OF T7-T8 VERTEBRA, INIT Status: Acute Current Visit: Yes (2) Hyponatremia SNOMED Code(s): 26907746 Code(s): E87.1 - HYPO-OSMOLALITY AND HYPONATREMIA Status: Acute Current Visit: Yes (3) Back pain SNOMED Code(s): 722962367 Code(s): M54.9 - DORSALGIA, UNSPECIFIED Status: Acute Current Visit: No Qualifiers: Back pain location: thoracic back pain Chronicity: acute Back pain laterality: unspecified Qualified Code(s): M54.6 - Pain in thoracic spine - Problem List Review Problem List Initiated/Reviewed/Updated: Yes - My Orders Last 24 Hours: My Active Orders 07/29/20 12:10 OSMOLALITY - SERUM [REF] Routine 07/29/20 12:57 CULTURE URINE [RM] Routine OSMOLALITY - URINE Routine 07/29/20 16:42 Up With Assistance [RC] ASDIRECTED PT Evaluation and Treatment [CONS] Routine Ondansetron [Zofran] 4 mg IVPUSH Q4H PRN Resuscitation Status Routine 07/29/20 16:43 Oxygen Therapy [RC] PRN VTE/DVT Education [RC] PER UNIT ROUTINE Vital Signs [RC] Q4H 07/29/20 17:05 RT Aerosol Therapy [RC] ASDIRECTED 07/29/20 17:15 Heparin Sodium 5,000 units SUBCUT Q8H Pantoprazole [ProTONIX] 40 mg PO DAILY 07/29/20 17:30 cefTRIAXone [Rocephin in Dextrose,Iso-Osm 1 GM/50 ML] 1 gm Premix Bag 1 bag IV Q24H 07/29/20 17:41 Benzonatate [Tessalon Perles] 100 mg PO TID PRN 07/29/20 18:00 Acetaminophen [TylenoL] 650 mg PO Q4H PRN Albuterol/Ipratropium [DuoNeb 3.0-0.5 MG/3 ML] 3 ml NEB Q4HRRT PRN 07/29/20 21:00 carvediloL [Coreg] 3.125 mg PO BEDTIME 07/30/20 07:30 Levothyroxine 112 mcg PO ACBREAKFAST 07/30/20 09:00 Aspirin 81 mg PO DAILY Clopidogrel [Plavix] 75 mg PO DAILY atorvaSTATin [Lipitor] 20 mg PO DAILY carvediloL [Coreg] 6.25 mg PO QAM - Plan Plan:: Assessment and Plan: 1. Acute on chronic hyponatremia: - Sodium level 125 this AM which is at her baseline. - Urine electrolytes pending. 2. Compression fracture of T8 vertebra: - For pain, Tylenol prn and Percocet 325/5 mg q4 prn. PT consulted and will see patient today. 3. Nausea: - Continue Zofran prn. - CT abd/pelvis did not show any acute abnormalities and showed normal appearing pancreas. 4. UTI: - UA was leukocyte esterase positive. Continue IV Rocephin. Urine culture pending. 5. Hypothyroidism: - Patient refusing PO levothyroxine as she states it causes GI upset. Will start IV levothyroxine 75 mcg qd. 6. Past medical history of COPD (on home oxygen - baseline 2 L), CAD s/p NSTEMI and hypothyroidism: - Continue home medications. 7. DVT prophylaxis: - Heparin 5, 000 units subcut q8h. <José Miguel Junior - Last Filed: 07/30/20 22:31> - Patient Data Vitals - Most Recent: Last Vital Signs Temp 36.6 C 07/30/20 20:00 Pulse 78 07/30/20 20:39 Resp 19 07/30/20 20:00 BP 145/92 H 07/30/20 20:39 Pulse Ox 94 L 07/30/20 20:00 I&O - Last 24 Hours: Intake & Output 07/30/20 07/30/20 07/30/20 06:59 14:59 22:59 Intake Total 1120 920 Output Total 550 500 Balance 570 420 Lab Results Last 24 Hours: Laboratory Results - last 24 hr 07/29/20 07/30/20 07/30/20 Range/Units 12:12 05:15 05:15 WBC 3.63 L (4.0-11.0) K/uL RBC 3.84 L (4.30-5.90) M/uL Hgb 12.0 (12.0-16.0) g/dL Hct 34.7 L (36.0-46.0) % MCV 90.4 (80.0-98.0) fL MCH 31.3 (27.0-32.0) pg MCHC 34.6 (31.0-37.0) g/dL RDW Std Deviation 45.3 (28.0-62.0) fl RDW Coeff of [place] 14 (11.0-15.0) % Plt Count 241 (150-400) K/uL MPV 8.50 (7.40-12.00) fL Neut % (Auto) 79.1 (48.0-80.0) % Lymph % (Auto) 13.2 L (16.0-40.0) % Wirt % (Auto) 7.4 (0.0-15.0) % Eos % (Auto) 0.0 (0.0-7.0) % Baso % (Auto) 0.3 (0.0-1.5) % Neut # (Auto) 2.9 (1.4-5.7) K/uL Lymph # (Auto) 0.5 L (0.6-2.4) K/uL Wirt # (Auto) 0.3 (0.0-0.8) K/uL Eos # (Auto) 0.0 (0.0-0.7) K/uL Baso # (Auto) 0.0 (0.0-0.1) K/uL Nucleated RBC % 0.0 /100WBC Nucleated RBCs # 0 K/uL Sodium 125 L (136-145) mmol/L Potassium 4.5 (3.5-5.1) mmol/L Chloride 91 L (98-107) mmol/L Carbon Dioxide 25.8 (21.0-32.0) mmol/L BUN 15 (7.0-18.0) mg/dL Creatinine 0.7 (0.6-1.0) mg/dL Est Cr Clr Drug Dosing 51.48 mL/min Estimated GFR (MDRD) > 60.0 ml/min Glucose 131 H (74-106) mg/dL POC Glucose 113 H (60-110) mg/dL Calcium 8.2 L (8.5-10.1) mg/dL Phosphorus 2.7 (2.6-4.7) mg/dL Magnesium 1.9 (1.8-2.4) mg/dL Total Bilirubin 0.4 (0.2-1.0) mg/dL AST 20 (15-37) IU/L ALT 69 H (14-63) IU/L Alkaline Phosphatase 120 H (46-116) U/L Total Protein 5.8 L (6.4-8.2) g/dL Albumin 2.9 L (3.4-5.0) g/dL Globulin 2.9 (2.6-4.0) g/dL Albumin/Globulin Ratio 1.0 (0.9-1.6) Med Orders - Current: Current Medications Acetaminophen (Tylenol) 650 mg PO Q4H PRN PRN Reason: Pain (Mild 1-3)/fever Last Admin: 07/30/20 10:20 Dose: 650 mg Documented by: Albuterol/Ipratropium (Duoneb 3.0-0.5 Mg/3 Ml) 3 ml NEB Q4HRRT PRN PRN Reason: Dyspnea Last Admin: 07/30/20 20:38 Dose: 3 ml Documented by: Aspirin (Aspirin) 81 mg PO DAILY [facility] Last Admin: 07/30/20 08:13 Dose: 81 mg Documented by: Atorvastatin Calcium (Lipitor) 20 mg PO DAILY [facility] Last Admin: 07/30/20 08:12 Dose: 20 mg Documented by: Benzonatate (Tessalon Perles) 100 mg PO TID PRN PRN Reason: Cough Carvedilol (Coreg) 3.125 mg PO BEDTIME [facility] Last Admin: 07/30/20 20:39 Dose: 3.125 mg Documented by: Carvedilol (Coreg) 6.25 mg PO QAM [facility] Last Admin: 07/30/20 08:13 Dose: 6.25 mg Documented by: Clopidogrel Bisulfate (Plavix) 75 mg PO DAILY [facility] Last Admin: 07/30/20 08:12 Dose: 75 mg Documented by: Furosemide (Lasix) 20 mg PO DAILY [facility] Last Admin: 07/30/20 12:45 Dose: 20 mg Documented by: Heparin Sodium (Porcine) (Heparin Sodium) 5,000 units SUBCUT Q8H [facility] Last Admin: 07/30/20 17:22 Dose: 5,000 units Documented by: Ceftriaxone Sodium/Dextrose 1 (gm/ Premix) 50 mls @ 100 mls/hr IV Q24H [facility] Last Admin: 07/30/20 17:22 Dose: 100 mls/hr Documented by: Levothyroxine Sodium 84 mcg/ (Sodium Chloride) 4.2 mls @ 252 mls/hr IVPUSH DAILY [facility] Last Admin: 07/30/20 10:20 Dose: 252 mls/hr Documented by: Melatonin (Melatonin) 6 mg PO BEDTIME PRN PRN Reason: Insomnia Ondansetron HCl (Zofran) 4 mg IVPUSH Q4H PRN PRN Reason: Nausea Last Admin: 07/30/20 10:20 Dose: 4 mg Documented by: Oxycodone/Acetaminophen (Percocet 325-5 Mg) 1 tab PO Q4H PRN PRN Reason: Pain (moderate 4-6) Last Admin: 07/30/20 20:43 Dose: 1 tab Documented by: Pantoprazole Sodium (Protonix) 40 mg PO DAILY [facility] Last Admin: 07/30/20 08:12 Dose: 40 mg Documented by: Sodium Chloride (Saline Flush) 10 ml FLUSH ASDIRECTED PRN PRN Reason: Keep Vein Open Last Admin: 07/29/20 12:24 Dose: 10 ml Documented by: Sodium Chloride (Saline Flush) 2.5 ml FLUSH ASDIRECTED PRN PRN Reason: Keep Vein Open Last Admin: 07/30/20 10:21 Dose: 2.5 ml Documented by: Discontinued Medications Aspirin (Aspirin) 81 mg PO ONETIME ONE Stop: 07/29/20 21:46 Last Admin: 07/29/20 22:07 Dose: 81 mg Documented by: Atorvastatin Calcium (Lipitor) 20 mg PO ONETIME ONE Stop: 07/29/20 21:45 Last Admin: 07/29/20 22:07 Dose: 20 mg Documented by: Clopidogrel Bisulfate (Plavix) 75 mg PO ONETIME ONE Stop: 07/29/20 21:46 Last Admin: 07/29/20 22:07 Dose: 75 mg Documented by: Diphenhydramine HCl (Benadryl) 25 mg IVPUSH ONETIME ONE Stop: 07/29/20 12:55 Last Admin: 07/29/20 13:16 Dose: 25 mg Documented by: Sodium Chloride (Normal Saline) 500 mls @ 999 mls/hr IV .Bolus ONE Stop: 07/29/20 12:39 Last Admin: 07/29/20 12:24 Dose: 999 mls/hr Documented by: Magnesium Sulfate 2 gm/ Premix 50 mls @ 50 mls/hr IV ONETIME ONE Stop: 07/29/20 13:52 Last Admin: 07/29/20 13:16 Dose: 50 mls/hr Documented by: Sodium Chloride (Normal Saline) 1,000 mls @ 200 mls/hr IV .Bolus ONE Stop: 07/29/20 17:52 Last Admin: 07/29/20 13:16 Dose: 200 mls/hr Documented by: Sodium Chloride (Normal Saline) 500 mls @ 75 mls/hr IV ASDIRECTED [facility] Last Admin: 07/29/20 22:56 Dose: 75 mls/hr Documented by: Iopamidol (Isovue Multipack-370 (76%)) 100 ml IVPUSH ONETIME ONE Stop: 07/29/20 14:39 Last Admin: 07/29/20 14:39 Dose: 100 ml Documented by: Ketorolac Tromethamine (Toradol) 15 mg IM Q6H PRN PRN Reason: Pain (moderate 4-6) Ketorolac Tromethamine (Toradol) 15 mg IVPUSH Q6H PRN PRN Reason: Pain (moderate 4-6) Last Admin: 07/29/20 21:24 Dose: 15 mg Documented by: Levothyroxine Sodium (Levothyroxine) 112 mcg PO [facility] Last Admin: 07/30/20 06:44 Dose: Not Given Documented by: Melatonin (Melatonin) 6 mg PO ONETIME ONE Stop: 07/29/20 21:48 Last Admin: 07/29/20 22:07 Dose: 6 mg Documented by: Methylprednisolone Sodium Succinate (Solu-Medrol) 125 mg IV ONETIME ONE Stop: 07/29/20 14:01 Methylprednisolone Sodium Succinate (Solu-Medrol) 125 mg IVPUSH ONETIME ONE Stop: 07/29/20 13:11 Last Admin: 07/29/20 13:16 Dose: 125 mg Documented by: Ondansetron HCl (Zofran) 4 mg IVPUSH ONETIME ONE Stop: 07/29/20 12:10 Last Admin: 07/29/20 12:24 Dose: 4 mg Documented by: Oxycodone/Acetaminophen (Percocet 325-5 Mg) 1 tab PO ONETIME ONE Stop: 07/29/20 15:42 Last Admin: 07/29/20 16:04 Dose: 1 tab Documented by: Sepsis Event Note - Focused Exam Vital Signs: Vital Signs Temp Pulse Pulse Resp BP BP Pulse Ox 07/30/20 20:39 78 145/92 H 07/30/20 20:00 36.6 C 78 19 145/92 H 94 L 07/30/20 17:19 36.3 C 62 18 129/62 92 L 07/30/20 12:49 140/62 95 07/30/20 12:26 36.4 C 78 18 153/65 H 94 L - My Orders Last 24 Hours: My Active Orders 07/29/20 22:34 Acetaminophen/oxyCODONE [Percocet 325-5 MG] 1 tab PO Q4H PRN 07/29/20 22:43 Incentive Spirometry [RT Incentive Spirometry] [RC] Q2HWA 07/30/20 Breakfast Fluid Restriction [DIET] Regular Diet [DIET] - Plan Plan:: I have seen and evaluated the patient. I have discussed findings and treatment plan with resident. I agree with the assessment and plan in the following note.
[2020-07-30] MEDS ORDERED: Levothyroxine 100 MCG Vial IVPUSH SCH (10:00)
[2020-07-30] MEDS: LEVOTHYROXINE IVPUSH SCH (10:20)
[2020-07-30] MEDS: SODIUM CHLORIDE 0.9% IVPUSH SCH (10:20)
[2020-07-30] MEDS: Sodium Chloride 0.9% 2.5 ML Syringe FLUSH PRN (10:21)
[2020-07-30] MEDS: Albuterol/Ipratropium 3.0-0.5 MG/3 ML Neb Soln NEB PRN ×2 (12:07→20:38)
[2020-07-30] MEDS: Furosemide 20 MG Tab PO SCH (12:45)
[2020-07-30] MEDS: cefTRIAXone 1 GM in Premix Bag 1 BAG IV SCH (17:22)
[2020-07-30] MEDS: Melatonin 3 MG Tab PO PRN (22:30)
[2020-07-31] MEDS: Heparin Sodium 5,000 Units/ML Vial SUBCUT SCH ×3 (02:30→17:07)
[2020-07-31] MEDS: Acetaminophen/oxyCODONE 325-5 MG Tab PO PRN ×5 (02:32→23:01)
[2020-07-31] MEDS: Albuterol/Ipratropium 3.0-0.5 MG/3 ML Neb Soln NEB PRN (05:41)
[2020-07-31 05:57] LABS: BLOOD UREA NITROGEN,BUN 16 mg/dL (7.0-18.0); CARBON DIOXIDE,CO2 30.8 mmol/L (21.0-32.0); CHLORIDE,CL 91 mmol/L (98-107); GLUCOSE RANDOM 91 mg/dL (74-106); POTASSIUM,K 4.6 mmol/L (3.5-5.1); SODIUM,NA 125 mmol/L (136-145)
[2020-07-31] MEDS ORDERED: Magnesium Sulfate/Water 2 GM/50 ML BAG IV ONE (07:30)
[2020-07-31] MEDS: Furosemide 20 MG Tab PO SCH (08:13)
[2020-07-31] MEDS: Pantoprazole 40 MG Tab.CR PO SCH (08:14)
[2020-07-31] MEDS: Carvedilol 3.125 MG Tab PO SCH ×2 (08:14→20:40)
[2020-07-31] MEDS: Aspirin 81 MG Tab.Chew PO SCH (08:15)
[2020-07-31] MEDS: Clopidogrel 75 MG Tab PO SCH (08:15)
[2020-07-31] MEDS: atorvaSTATin 20 MG Tab PO SCH (08:15)
[2020-07-31] MEDS ORDERED: Polyethylene Glycol 3350 Powder 17 GM Packet PO ONE (09:23)
[2020-07-31] MEDS: LEVOTHYROXINE IVPUSH SCH (09:32)
[2020-07-31] MEDS: SODIUM CHLORIDE 0.9% IVPUSH SCH (09:32)
--- NOTE | 2020-07-31 10:29 | PCM.PN ---
<Vivek Acuna - Last Filed: 07/31/20 10:31> - General Info Date of Service: 07/31/20 Subjective Update: Reports feeling better this morning. Slept well overnight. Denies having any more nausea and tolerating oral diet. Worked with PT yesterday. - Patient Data Vitals - Most Recent: Last Vital Signs Temp 36.4 C 07/31/20 08:00 Pulse 69 07/31/20 08:14 Resp 20 07/31/20 08:00 BP 141/44 H 07/31/20 08:14 Pulse Ox 95 07/31/20 08:00 Weight - Most Recent: 72.575 kg I&O - Last 24 Hours: Intake & Output 07/30/20 07/31/20 07/31/20 22:59 06:59 14:59 Intake Total 920 520 Output Total 500 800 Balance 420 -280 Lab Results Last 24 Hours: Laboratory Results - last 24 hr 07/29/20 07/29/20 07/29/20 Range/Units 12:10 12:12 12:57 WBC (4.0-11.0) K/uL RBC (4.30-5.90) M/uL Hgb (12.0-16.0) g/dL Hct (36.0-46.0) % MCV (80.0-98.0) fL MCH (27.0-32.0) pg MCHC (31.0-37.0) g/dL RDW Std Deviation (28.0-62.0) fl RDW Coeff of Lavelle (11.0-15.0) % Plt Count (150-400) K/uL MPV (7.40-12.00) fL Add Manual Diff Neutrophils % (Manual) (48.0-80.0) % Lymphocytes % (Manual) (16.0-40.0) % Monocytes % (Manual) (0.0-15.0) % Eosinophils % (Manual) (0.0-7.0) % Basophils % (Manual) (0.0-1.5) % Nucleated RBC % /100WBC Absolute Seg Neuts (1.4-5.7) Lymphocytes # (Manual) (0.6-2.4) Monocytes # (Manual) (0.0-0.8) Eosinophils # (Manual) (0.0-0.7) Basophils # (Manual) (0.0-0.1) Nucleated RBCs # K/uL Sodium (136-145) mmol/L Potassium (3.5-5.1) mmol/L Chloride (98-107) mmol/L Carbon Dioxide (21.0-32.0) mmol/L BUN (7.0-18.0) mg/dL Creatinine (0.6-1.0) mg/dL Est Cr Clr Drug Dosing mL/min Estimated GFR (MDRD) ml/min Glucose (74-106) mg/dL POC Glucose 113 H (60-110) mg/dL Serum Osmolality 248 L (275-295) mosm/kg Calcium (8.5-10.1) mg/dL Phosphorus (2.6-4.7) mg/dL Magnesium (1.8-2.4) mg/dL Total Bilirubin (0.2-1.0) mg/dL AST (15-37) IU/L ALT (14-63) IU/L Alkaline Phosphatase (46-116) U/L Total Protein (6.4-8.2) g/dL Albumin (3.4-5.0) g/dL Globulin (2.6-4.0) g/dL Albumin/Globulin Ratio (0.9-1.6) Urine Osmolality 409 (300-900) mosm/kg 07/31/20 07/31/20 Range/Units 05:19 05:19 WBC 8.10 (4.0-11.0) K/uL RBC 3.63 L (4.30-5.90) M/uL Hgb 11.7 L (12.0-16.0) g/dL Hct 33.4 L (36.0-46.0) % MCV 92.0 (80.0-98.0) fL MCH 32.2 H (27.0-32.0) pg MCHC 35.0 (31.0-37.0) g/dL RDW Std Deviation 47.0 (28.0-62.0) fl RDW Coeff of Lavelle 14 (11.0-15.0) % Plt Count 228 (150-400) K/uL MPV 8.30 (7.40-12.00) fL Add Manual Diff YES Neutrophils % (Manual) 77 (48.0-80.0) % Lymphocytes % (Manual) 9 L (16.0-40.0) % Monocytes % (Manual) 11 (0.0-15.0) % Eosinophils % (Manual) 1 (0.0-7.0) % Basophils % (Manual) 2 H (0.0-1.5) % Nucleated RBC % 0.0 /100WBC Absolute Seg Neuts 6.2 H (1.4-5.7) Lymphocytes # (Manual) 0.7 (0.6-2.4) Monocytes # (Manual) 0.9 H (0.0-0.8) Eosinophils # (Manual) 0.1 (0.0-0.7) Basophils # (Manual) 0.2 H (0.0-0.1) Nucleated RBCs # 0 K/uL Sodium 125 L (136-145) mmol/L Potassium 4.6 (3.5-5.1) mmol/L Chloride 91 L (98-107) mmol/L Carbon Dioxide 30.8 (21.0-32.0) mmol/L BUN 16 (7.0-18.0) mg/dL Creatinine 0.8 (0.6-1.0) mg/dL Est Cr Clr Drug Dosing 45.04 mL/min Estimated GFR (MDRD) > 60.0 ml/min Glucose 91 (74-106) mg/dL POC Glucose (60-110) mg/dL Serum Osmolality (275-295) mosm/kg Calcium 8.1 L (8.5-10.1) mg/dL Phosphorus 2.9 (2.6-4.7) mg/dL Magnesium 1.7 L (1.8-2.4) mg/dL Total Bilirubin 0.4 (0.2-1.0) mg/dL AST 23 (15-37) IU/L ALT 59 (14-63) IU/L Alkaline Phosphatase 111 (46-116) U/L Total Protein 5.6 L (6.4-8.2) g/dL Albumin 2.9 L (3.4-5.0) g/dL Globulin 2.7 (2.6-4.0) g/dL Albumin/Globulin Ratio 1.1 (0.9-1.6) Urine Osmolality (300-900) mosm/kg Gerardo Results Last 24 Hours: Microbiology 07/29/20 12:57 Urine Culture - Final Urine, Clean Catch MIXED LUZ >100,000 CFU/ML Med Orders - Current: Current Medications Acetaminophen (Tylenol) 650 mg PO Q4H PRN PRN Reason: Pain (Mild 1-3)/fever Last Admin: 07/30/20 10:20 Dose: 650 mg Documented by: Albuterol/Ipratropium (Duoneb 3.0-0.5 Mg/3 Ml) 3 ml NEB Q4HRRT PRN PRN Reason: Dyspnea Last Admin: 07/31/20 05:41 Dose: 3 ml Documented by: Aspirin (Aspirin) 81 mg PO DAILY [facility] Last Admin: 07/31/20 08:15 Dose: 81 mg Documented by: Atorvastatin Calcium (Lipitor) 20 mg PO DAILY [facility] Last Admin: 07/31/20 08:15 Dose: 20 mg Documented by: Benzonatate (Tessalon Perles) 100 mg PO TID PRN PRN Reason: Cough Carvedilol (Coreg) 3.125 mg PO BEDTIME [facility] Last Admin: 07/30/20 20:39 Dose: 3.125 mg Documented by: Carvedilol (Coreg) 6.25 mg PO QAM [facility] Last Admin: 07/31/20 08:14 Dose: 6.25 mg Documented by: Cephalexin (Keflex) 500 mg PO Q12HR [facility] Clopidogrel Bisulfate (Plavix) 75 mg PO DAILY [facility] Last Admin: 07/31/20 08:15 Dose: 75 mg Documented by: Furosemide (Lasix) 20 mg PO DAILY [facility] Last Admin: 07/31/20 08:13 Dose: 20 mg Documented by: Heparin Sodium (Porcine) (Heparin Sodium) 5,000 units SUBCUT Q8H [facility] Last Admin: 07/31/20 08:20 Dose: 5,000 units Documented by: Levothyroxine Sodium 84 mcg/ (Sodium Chloride) 4.2 mls @ 252 mls/hr IVPUSH DAILY [facility] Last Admin: 07/31/20 09:32 Dose: 252 mls/hr Documented by: Melatonin (Melatonin) 6 mg PO BEDTIME PRN PRN Reason: Insomnia Last Admin: 07/30/20 22:30 Dose: 6 mg Documented by: Ondansetron HCl (Zofran) 4 mg IVPUSH Q4H PRN PRN Reason: Nausea Last Admin: 07/30/20 10:20 Dose: 4 mg Documented by: Oxycodone/Acetaminophen (Percocet 325-5 Mg) 1 tab PO Q4H PRN PRN Reason: Pain (moderate 4-6) Last Admin: 07/31/20 06:41 Dose: 1 tab Documented by: Pantoprazole Sodium (Protonix) 40 mg PO DAILY [facility] Last Admin: 07/31/20 08:14 Dose: 40 mg Documented by: Sachin Ellipta 200-25 (Mcg Inhaler) 1 each INH DAILY [facility] Last Admin: 07/31/20 08:12 Dose: 1 each Documented by: Sodium Chloride (Saline Flush) 10 ml FLUSH ASDIRECTED PRN PRN Reason: Keep Vein Open Last Admin: 07/29/20 12:24 Dose: 10 ml Documented by: Sodium Chloride (Saline Flush) 2.5 ml FLUSH ASDIRECTED PRN PRN Reason: Keep Vein Open Last Admin: 07/30/20 10:21 Dose: 2.5 ml Documented by: Discontinued Medications Aspirin (Aspirin) 81 mg PO ONETIME ONE Stop: 07/29/20 21:46 Last Admin: 07/29/20 22:07 Dose: 81 mg Documented by: Atorvastatin Calcium (Lipitor) 20 mg PO ONETIME ONE Stop: 07/29/20 21:45 Last Admin: 07/29/20 22:07 Dose: 20 mg Documented by: Clopidogrel Bisulfate (Plavix) 75 mg PO ONETIME ONE Stop: 07/29/20 21:46 Last Admin: 07/29/20 22:07 Dose: 75 mg Documented by: Diphenhydramine HCl (Benadryl) 25 mg IVPUSH ONETIME ONE Stop: 07/29/20 12:55 Last Admin: 07/29/20 13:16 Dose: 25 mg Documented by: Sodium Chloride (Normal Saline) 500 mls @ 999 mls/hr IV .Bolus ONE Stop: 07/29/20 12:39 Last Admin: 07/29/20 12:24 Dose: 999 mls/hr Documented by: Magnesium Sulfate 2 gm/ Premix 50 mls @ 50 mls/hr IV ONETIME ONE Stop: 07/29/20 13:52 Last Admin: 07/29/20 13:16 Dose: 50 mls/hr Documented by: Sodium Chloride (Normal Saline) 1,000 mls @ 200 mls/hr IV .Bolus ONE Stop: 07/29/20 17:52 Last Admin: 07/29/20 13:16 Dose: 200 mls/hr Documented by: Sodium Chloride (Normal Saline) 500 mls @ 75 mls/hr IV ASDIRECTED [facility] Last Admin: 07/29/20 22:56 Dose: 75 mls/hr Documented by: Ceftriaxone Sodium/Dextrose 1 (gm/ Premix) 50 mls @ 100 mls/hr IV Q24H [facility] Last Admin: 07/30/20 17:22 Dose: 100 mls/hr Documented by: Magnesium Sulfate (Magnesium Sulfate In Water 2 Gm/50 Ml) 2 gm in 50 mls @ 50 mls/hr IV ONETIME ONE Stop: 07/31/20 08:29 Last Admin: 07/31/20 08:16 Dose: 50 mls/hr Documented by: Iopamidol (Isovue Multipack-370 (76%)) 100 ml IVPUSH ONETIME ONE Stop: 07/29/20 14:39 Last Admin: 07/29/20 14:39 Dose: 100 ml Documented by: Ketorolac Tromethamine (Toradol) 15 mg IM Q6H PRN PRN Reason: Pain (moderate 4-6) Ketorolac Tromethamine (Toradol) 15 mg IVPUSH Q6H PRN PRN Reason: Pain (moderate 4-6) Last Admin: 07/29/20 21:24 Dose: 15 mg Documented by: Levothyroxine Sodium (Levothyroxine) 112 mcg PO ACBREAKFAST [facility] Last Admin: 07/30/20 06:44 Dose: Not Given Documented by: Melatonin (Melatonin) 6 mg PO ONETIME ONE Stop: 07/29/20 21:48 Last Admin: 07/29/20 22:07 Dose: 6 mg Documented by: Methylprednisolone Sodium Succinate (Solu-Medrol) 125 mg IV ONETIME ONE Stop: 07/29/20 14:01 Methylprednisolone Sodium Succinate (Solu-Medrol) 125 mg IVPUSH ONETIME ONE Stop: 07/29/20 13:11 Last Admin: 07/29/20 13:16 Dose: 125 mg Documented by: Ondansetron HCl (Zofran) 4 mg IVPUSH ONETIME ONE Stop: 07/29/20 12:10 Last Admin: 07/29/20 12:24 Dose: 4 mg Documented by: Oxycodone/Acetaminophen (Percocet 325-5 Mg) 1 tab PO ONETIME ONE Stop: 07/29/20 15:42 Last Admin: 07/29/20 16:04 Dose: 1 tab Documented by: Polyethylene Glycol (Miralax) 17 gm PO ONETIME ONE Stop: 07/31/20 09:24 Last Admin: 07/31/20 09:41 Dose: 17 gm Documented by: - Exam General: Alert, Oriented, Cooperative, No Acute Distress Lungs: Clear to Auscultation, Normal Respiratory Effort Cardiovascular: Regular Rate, Regular Rhythm GI/Abdominal Exam: Normal Bowel Sounds, Soft, Non-Tender, No Distention Extremities: Normal Inspection, No Pedal Edema Sepsis Event Note - Evaluation Sepsis Screening Result: No Definite Risk - Focused Exam Vital Signs: Vital Signs Temp Pulse Pulse Resp BP BP Pulse Ox 07/31/20 08:14 69 141/44 H 07/31/20 08:00 36.4 C 69 20 141/44 H 95 07/31/20 04:00 36.8 C 76 20 135/68 95 07/31/20 00:00 36.7 C 82 20 152/82 H 96 - Problem List & Annotations (1) Compression fracture of T8 vertebra SNOMED Code(s): 455341694, 553432644 Code(s): S22.060A - WEDGE COMPRESSION FRACTURE OF T7-T8 VERTEBRA, INIT Status: Acute (2) Hyponatremia SNOMED Code(s): 97465586 Code(s): E87.1 - HYPO-OSMOLALITY AND HYPONATREMIA Status: Acute (3) Back pain SNOMED Code(s): 492796564 Code(s): M54.9 - DORSALGIA, UNSPECIFIED Status: Acute Qualifiers: Back pain location: thoracic back pain Chronicity: acute Back pain laterality: unspecified Qualified Code(s): M54.6 - Pain in thoracic spine - Problem List Review Problem List Initiated/Reviewed/Updated: Yes - My Orders Last 24 Hours: My Active Orders 07/30/20 12:15 Furosemide [Lasix] 20 mg PO DAILY 07/30/20 21:00 Melatonin 6 mg PO BEDTIME PRN 07/31/20 09:00 Patient's Own Medication [Ptom] 1 each INH DAILY 07/31/20 10:20 Acapella [RT Chest Physiotherapy] [RC] ASDIRECTED 08/01/20 05:11 CBC WITH AUTO DIFF [HEME] AM COMPREHENSIVE METABOLIC PN,CMP [CHEM] AM MAGNESIUM [CHEM] AM PHOSPHORUS [CHEM] AM - Plan Plan:: Assessment and Plan: 1. Acute on chronic hyponatremia, stable: - Sodium level 125 at her baseline. - Urine electrolytes currently pending. 2. Compression fracture of T8 vertebra: - Continue Tylenol prn and Percocet 325/5 mg q4 prn. PT consulted and will continue to work with patient today. 3. Nausea, improved: - CT abd/pelvis did not show any acute abnormalities and showed normal appearing pancreas. 4. UTI: - Urine culture grew mixed luz. Will discontinue IV ceftriaxone and start PO keflex. 5. Hypothyroidism: - Patient refusing PO levothyroxine as she states it causes GI upset. Will start IV levothyroxine 84 mcg qd. 6. Past medical history of COPD (on home oxygen prn - baseline 2 L) and CAD s/p NSTEMI: - Continue home medications. 7. DVT prophylaxis: - Heparin 5, 000 units subcut q8h. <José Miguel Junior - Last Filed: 08/06/20 11:11> - Patient Data Vitals - Most Recent: Last Vital Signs Temp 36.3 C 08/01/20 16:02 Pulse 70 08/01/20 16:02 Resp 16 08/01/20 16:02 BP 140/55 L 08/01/20 16:02 Pulse Ox 97 08/01/20 16:02 Med Orders - Current: Current Medications Discontinued Medications Acetaminophen (Tylenol) 650 mg PO Q4H PRN PRN Reason: Pain (Mild 1-3)/fever Last Admin: 07/30/20 10:20 Dose: 650 mg Documented by: Albuterol/Ipratropium (Duoneb 3.0-0.5 Mg/3 Ml) 3 ml NEB Q4HRRT PRN PRN Reason: Dyspnea Last Admin: 07/31/20 05:41 Dose: 3 ml Documented by: Aspirin (Aspirin) 81 mg PO DAILY [facility] Last Admin: 08/01/20 10:29 Dose: 81 mg Documented by: Aspirin (Aspirin) 81 mg PO ONETIME ONE Stop: 07/29/20 21:46 Last Admin: 07/29/20 22:07 Dose: 81 mg Documented by: Atorvastatin Calcium (Lipitor) 20 mg PO DAILY [facility] Last Admin: 08/01/20 10:28 Dose: 20 mg Documented by: Atorvastatin Calcium (Lipitor) 20 mg PO ONETIME ONE Stop: 07/29/20 21:45 Last Admin: 07/29/20 22:07 Dose: 20 mg Documented by: Benzonatate (Tessalon Perles) 100 mg PO TID PRN PRN Reason: Cough Carvedilol (Coreg) 3.125 mg PO BEDTIME [facility] Last Admin: 07/31/20 20:40 Dose: 3.125 mg Documented by: Carvedilol (Coreg) 6.25 mg PO QAM [facility] Last Admin: 08/01/20 10:35 Dose: 6.25 mg Documented by: Cephalexin (Keflex) 500 mg PO Q12HR [facility] Last Admin: 08/01/20 10:29 Dose: 500 mg Documented by: Clopidogrel Bisulfate (Plavix) 75 mg PO DAILY [facility] Last Admin: 08/01/20 10:29 Dose: 75 mg Documented by: Clopidogrel Bisulfate (Plavix) 75 mg PO ONETIME ONE Stop: 07/29/20 21:46 Last Admin: 07/29/20 22:07 Dose: 75 mg Documented by: Diphenhydramine HCl (Benadryl) 25 mg IVPUSH ONETIME ONE Stop: 07/29/20 12:55 Last Admin: 07/29/20 13:16 Dose: 25 mg Documented by: Furosemide (Lasix) 20 mg PO DAILY [facility] Last Admin: 08/01/20 10:29 Dose: 20 mg Documented by: Heparin Sodium (Porcine) (Heparin Sodium) 5,000 units SUBCUT Q8H [facility] Last Admin: 08/01/20 17:35 Dose: 5,000 units Documented by: Sodium Chloride (Normal Saline) 500 mls @ 999 mls/hr IV .Bolus ONE Stop: 07/29/20 12:39 Last Admin: 07/29/20 12:24 Dose: 999 mls/hr Documented by: Magnesium Sulfate 2 gm/ Premix 50 mls @ 50 mls/hr IV ONETIME ONE Stop: 07/29/20 13:52 Last Admin: 07/29/20 13:16 Dose: 50 mls/hr Documented by: Sodium Chloride (Normal Saline) 1,000 mls @ 200 mls/hr IV .Bolus ONE Stop: 07/29/20 17:52 Last Admin: 07/29/20 13:16 Dose: 200 mls/hr Documented by: Sodium Chloride (Normal Saline) 500 mls @ 75 mls/hr IV ASDIRECTED [facility] Last Admin: 07/29/20 22:56 Dose: 75 mls/hr Documented by: Ceftriaxone Sodium/Dextrose 1 (gm/ Premix) 50 mls @ 100 mls/hr IV Q24H [facility] Last Admin: 07/30/20 17:22 Dose: 100 mls/hr Documented by: Levothyroxine Sodium 84 mcg/ (Sodium Chloride) 4.2 mls @ 252 mls/hr IVPUSH DAILY [facility] Last Admin: 08/01/20 08:34 Dose: 252 mls/hr Documented by: Magnesium Sulfate (Magnesium Sulfate In Water 2 Gm/50 Ml) 2 gm in 50 mls @ 50 mls/hr IV ONETIME ONE Stop: 07/31/20 08:29 Last Admin: 07/31/20 08:16 Dose: 50 mls/hr Documented by: Iopamidol (Isovue Multipack-370 (76%)) 100 ml IVPUSH ONETIME ONE Stop: 07/29/20 14:39 Last Admin: 07/29/20 14:39 Dose: 100 ml Documented by: Ketorolac Tromethamine (Toradol) 15 mg IM Q6H PRN PRN Reason: Pain (moderate 4-6) Ketorolac Tromethamine (Toradol) 15 mg IVPUSH Q6H PRN PRN Reason: Pain (moderate 4-6) Last Admin: 07/29/20 21:24 Dose: 15 mg Documented by: Levothyroxine Sodium (Levothyroxine) 112 mcg PO ACBREAKFAST [facility] Last Admin: 07/30/20 06:44 Dose: Not Given Documented by: Melatonin (Melatonin) 6 mg PO ONETIME ONE Stop: 07/29/20 21:48 Last Admin: 07/29/20 22:07 Dose: 6 mg Documented by: Melatonin (Melatonin) 6 mg PO BEDTIME PRN PRN Reason: Insomnia Last Admin: 07/31/20 21:48 Dose: 6 mg Documented by: Methylprednisolone Sodium Succinate (Solu-Medrol) 125 mg IV ONETIME ONE Stop: 07/29/20 14:01 Methylprednisolone Sodium Succinate (Solu-Medrol) 125 mg IVPUSH ONETIME ONE Stop: 07/29/20 13:11 Last Admin: 07/29/20 13:16 Dose: 125 mg Documented by: Ondansetron HCl (Zofran) 4 mg IVPUSH ONETIME ONE Stop: 07/29/20 12:10 Last Admin: 07/29/20 12:24 Dose: 4 mg Documented by: Ondansetron HCl (Zofran) 4 mg IVPUSH Q4H PRN PRN Reason: Nausea Last Admin: 08/01/20 10:51 Dose: 4 mg Documented by: Oxycodone/Acetaminophen (Percocet 325-5 Mg) 1 tab PO ONETIME ONE Stop: 07/29/20 15:42 Last Admin: 07/29/20 16:04 Dose: 1 tab Documented by: Oxycodone/Acetaminophen (Percocet 325-5 Mg) 1 tab PO Q4H PRN PRN Reason: Pain (moderate 4-6) Last Admin: 08/01/20 15:57 Dose: 1 tab Documented by: Pantoprazole Sodium (Protonix) 40 mg PO DAILY [facility] Last Admin: 08/01/20 10:29 Dose: 40 mg Documented by: Breo Ellipta 200-25 (Mcg Inhaler) 1 each INH DAILY [facility] Last Admin: 08/01/20 10:40 Dose: 1 each Documented by: Polyethylene Glycol (Miralax) 17 gm PO ONETIME ONE Stop: 07/31/20 09:24 Last Admin: 07/31/20 09:41 Dose: 17 gm Documented by: Sodium Chloride (Saline Flush) 10 ml FLUSH ASDIRECTED PRN PRN Reason: Keep Vein Open Last Admin: 07/29/20 12:24 Dose: 10 ml Documented by: Sodium Chloride (Saline Flush) 2.5 ml FLUSH ASDIRECTED PRN PRN Reason: Keep Vein Open Last Admin: 07/30/20 10:21 Dose: 2.5 ml Documented by: - Patient Data Result Diagrams: 08/01/20 05:45 08/01/20 05:45 - Plan Plan:: I performed a history and physical exam of the patient and discussed management with resident. I have reviewed the residents note and agree with documented findings and plan unless otherwise specified in my note.
[2020-07-31] MEDS: Cephalexin 500 MG Cap PO SCH (20:40)
[2020-07-31] MEDS: Melatonin 3 MG Tab PO PRN (21:48)
[2020-08-01] MEDS: Heparin Sodium 5,000 Units/ML Vial SUBCUT SCH ×3 (02:42→17:35)
[2020-08-01] MEDS: Acetaminophen/oxyCODONE 325-5 MG Tab PO PRN ×3 (06:01→15:57)
[2020-08-01 06:25] LABS: BLOOD UREA NITROGEN,BUN 14 mg/dL (7.0-18.0); CARBON DIOXIDE,CO2 30.5 mmol/L (21.0-32.0); CHLORIDE,CL 88 mmol/L (98-107); GLUCOSE RANDOM 94 mg/dL (74-106); POTASSIUM,K 4.3 mmol/L (3.5-5.1); SODIUM,NA 122 mmol/L (136-145)
[2020-08-01] MEDS: SODIUM CHLORIDE 0.9% IVPUSH SCH (08:34)
[2020-08-01] MEDS: LEVOTHYROXINE IVPUSH SCH (08:34)
[2020-08-01] MEDS: atorvaSTATin 20 MG Tab PO SCH (10:28)
[2020-08-01] MEDS: Pantoprazole 40 MG Tab.CR PO SCH (10:29)
[2020-08-01] MEDS: Clopidogrel 75 MG Tab PO SCH (10:29)
[2020-08-01] MEDS: Cephalexin 500 MG Cap PO SCH (10:29)
[2020-08-01] MEDS: Furosemide 20 MG Tab PO SCH (10:29)
[2020-08-01] MEDS: Aspirin 81 MG Tab.Chew PO SCH (10:29)
[2020-08-01] MEDS: Carvedilol 3.125 MG Tab PO SCH (10:35)
[2020-08-01] MEDS: Ondansetron 4 MG/2 ML SDV IVPUSH PRN (10:51)
--- NOTE | 2020-08-01 12:48 | PCM.DCSUM1 ---
<Vivek Acuna - Last Filed: 08/01/20 17:11> Discharge Summary - Hospital Course Free Text/Narrative:: 85-year-old female admitted for acute on chronic hyponatremia and compression fracture of T8 vertebra. She has a PMH of COPD (on home oxygen prn), CAD s/p NSTEMI and hypothyroidism. Sodium level 121 on admission. CXR negative. COVID-[address] thoracic spine showed moderate biconcave compression fracture of T8. CT abd/pelvis showed no acute findings. CT lumbar spine showed no acute findings. Patient was started on IV NS and her sodium level improved. PT was consulted for ambulation dysfunction and noted that patient was appropriate for home health PT. Patient was started on IV rocephin for suspected UTI. Urine culture grew mixed luz at which point antibiotic was deescalated to Keflex. She was discharged in stable condition to home with home health. [facility] n otified me that patient had 30-day supply of oxycodone prescribed by her PCP on 07/08/20. Patient stated that this medication was not helping with her pain so she stopped using them and discarded all of them. I advised patient that I will only be providing short-term script for Percocet for 3 days only and that she will have to follow-up with her PCP for further pain management options. Patient verbalized understanding. - Discharge Data Discharge Date: 08/01/20 Discharge Disposition: Home, W Home Health Agency 06 Condition: Good - Referral to Home Health Date of Face to Face Encounter: 08/01/20 Reason for Homebound Status: Patient is unsteady when walking and a fall risk, needing to use a walker to ambulate safely. They have weakness and deconditioning due to hospitalization. Primary Care Physician: Fred Guzman MD Skilled Need: Physical therapy needed for strengthening due to weakness from recent hospitalization, deconditioning, gait instability and high fall risk. - Discharge Diagnosis/Problem(s) (1) Compression fracture of T8 vertebra SNOMED Code(s): 254105170, 214381837 ICD Code: S22.060A - WEDGE COMPRESSION FRACTURE OF T7-T8 VERTEBRA, INIT Status: Acute (2) Hyponatremia SNOMED Code(s): 72678601 ICD Code: E87.1 - HYPO-OSMOLALITY AND HYPONATREMIA Status: Acute (3) Back pain SNOMED Code(s): 323807707 ICD Code: M54.9 - DORSALGIA, UNSPECIFIED Status: Acute Qualifiers: Back pain location: thoracic back pain Chronicity: acute Back pain laterality: unspecified Qualified Code(s): M54.6 - Pain in thoracic spine - Patient Summary/Data Consults: Consultations 07/29/20 16:42 PT Evaluation and Treatment [CONS] Routine - Patient Instructions Diet: Fluid Restriction Fluid Restriction: 1500 mL Activity: As Tolerated Notify Provider of: Fever, Increased Pain, Swelling and Redness, Drainage, Nausea and/or Vomiting - Discharge Plan *PRESCRIPTION DRUG MONITORING PROGRAM REVIEWED*: Not Applicable *COPY OF PRESCRIPTION DRUG MONITORING REPORT IN PATIENT ERICK: Not Applicable Prescriptions/Med Rec: Acetaminophen/oxyCODONE [Percocet 325-5 MG] 1 each PO Q8H 3 Days #9 tab Ondansetron [Zofran] 4 mg PO Q4H PRN 3 Days #18 tab PRN Reason: Nausea Home Medications: Home Meds Levothyroxine Sodium [Synthroid] 112 mcg PO ACBREAKFAST 09/05/15 [History] Albuterol/Ipratropium [DuoNeb 3.0-0.5 MG/3 ML] 3 ml NEB Q4HRRT PRN neb 11/22/17 [Rx] Aspirin 81 mg PO DAILY tab.chew 11/22/17 [Rx] Potassium Chloride [Klor-Con 10] 10 meq PO DAILY 08/31/18 [History] atorvaSTATin [Lipitor] 20 mg PO DAILY 08/31/18 [History] Clopidogrel [Plavix] 75 mg PO DAILY 07/02/20 [History] Fluticasone/Vilanterol [Breo Ellipta 200-25 MCG Inhalation Kit] 1 puff INH DAILY 07/02/20 [History] carvediloL [Carvedilol] 3.125 mg PO BEDTIME 07/02/20 [History] carvediloL [Carvedilol] 6.25 mg PO QAM 07/02/20 [History] Furosemide [Lasix] 20 mg PO DAILY 07/29/20 [History] Acetaminophen/oxyCODONE [Percocet 325-5 MG] 1 each PO Q8H 3 Days #9 tab 08/01/20 [Rx] Ondansetron [Zofran] 4 mg PO Q4H PRN 3 Days #18 tab 08/01/20 [Rx] Oxygen Therapy Mode: Nasal Cannula Oxygen Flow Rate (L/min): 0.5 Patient Handouts: Ondansetron tablets, Acetaminophen; Oxycodone tablets, Cephalexin Tablets or Capsules Referrals: Fred Guzman MD [Primary Care Provider] - 08/06/20 10:15 am - Discharge Summary/Plan Comment DC Time >30 min.: No - Patient Data Vitals - Most Recent: Last Vital Signs Temp 36.0 C L 08/01/20 07:45 Pulse 67 08/01/20 10:35 Resp 18 08/01/20 07:45 BP 164/72 H 08/01/20 10:35 Pulse Ox 95 08/01/20 07:45 Weight - Most Recent: 72.575 kg I&O - Last 24 hours: Intake & Output 07/31/20 08/01/20 08/01/20 22:59 06:59 14:59 Intake Total 674 400 Output Total 1200 650 Balance -526 -250 Lab Results - Last 24 hrs: Laboratory Results - last 24 hr 08/01/20 08/01/20 Range/Units 05:45 05:45 WBC 6.57 (4.0-11.0) K/uL RBC 3.72 L (4.30-5.90) M/uL Hgb 11.8 L (12.0-16.0) g/dL Hct 34.2 L (36.0-46.0) % MCV 91.9 (80.0-98.0) fL MCH 31.7 (27.0-32.0) pg MCHC 34.5 (31.0-37.0) g/dL RDW Std Deviation 47.2 (28.0-62.0) fl RDW Coeff of Lavelle 14 (11.0-15.0) % Plt Count 230 (150-400) K/uL MPV 8.60 (7.40-12.00) fL Neut % (Auto) 63.8 (48.0-80.0) % Lymph % (Auto) 12.8 L (16.0-40.0) % Crook % (Auto) 16.9 H (0.0-15.0) % Eos % (Auto) 2.1 (0.0-7.0) % Baso % (Auto) 4.4 H (0.0-1.5) % Neut # (Auto) 4.2 (1.4-5.7) K/uL Lymph # (Auto) 0.8 (0.6-2.4) K/uL Crook # (Auto) 1.1 H (0.0-0.8) K/uL Eos # (Auto) 0.1 (0.0-0.7) K/uL Baso # (Auto) 0.3 H (0.0-0.1) K/uL Nucleated RBC % 0.0 /100WBC Nucleated RBCs # 0 K/uL Sodium 122 L (136-145) mmol/L Potassium 4.3 (3.5-5.1) mmol/L Chloride 88 L (98-107) mmol/L Carbon Dioxide 30.5 (21.0-32.0) mmol/L BUN 14 (7.0-18.0) mg/dL Creatinine 0.7 (0.6-1.0) mg/dL Est Cr Clr Drug Dosing 51.48 mL/min Estimated GFR (MDRD) > 60.0 ml/min Glucose 94 (74-106) mg/dL Calcium 8.3 L (8.5-10.1) mg/dL Phosphorus 2.9 (2.6-4.7) mg/dL Magnesium 1.8 (1.8-2.4) mg/dL Total Bilirubin 0.5 (0.2-1.0) mg/dL AST 21 (15-37) IU/L ALT 52 (14-63) IU/L Alkaline Phosphatase 113 (46-116) U/L Total Protein 5.6 L (6.4-8.2) g/dL Albumin 2.9 L (3.4-5.0) g/dL Globulin 2.7 (2.6-4.0) g/dL Albumin/Globulin Ratio 1.1 (0.9-1.6) EM Results - Last 24 hrs: Microbiology 07/29/20 12:57 Urine Culture - Final Urine, Clean Catch MIXED LUZ >100,000 CFU/ML Med Orders - Current: Current Medications Acetaminophen (Tylenol) 650 mg PO Q4H PRN PRN Reason: Pain (Mild 1-3)/fever Last Admin: 07/30/20 10:20 Dose: 650 mg Documented by: Albuterol/Ipratropium (Duoneb 3.0-0.5 Mg/3 Ml) 3 ml NEB Q4HRRT PRN PRN Reason: Dyspnea Last Admin: 07/31/20 05:41 Dose: 3 ml Documented by: Aspirin (Aspirin) 81 mg PO DAILY [facility] [place] Last Admin: 08/01/20 10:29 Dose: 81 mg Documented by: Atorvastatin Calcium (Lipitor) 20 mg PO DAILY [facility] [place] Last Admin: 08/01/20 10:28 Dose: 20 mg Documented by: Benzonatate (Tessalon Perles) 100 mg PO TID PRN PRN Reason: Cough Carvedilol (Coreg) 3.125 mg PO BEDTIME [facility] [place] Last Admin: 07/31/20 20:40 Dose: 3.125 mg Documented by: Carvedilol (Coreg) 6.25 mg PO QAM [facility] [place] Last Admin: 08/01/20 10:35 Dose: 6.25 mg Documented by: Cephalexin (Keflex) 500 mg PO Q12HR [facility] [place] Last Admin: 08/01/20 10:29 Dose: 500 mg Documented by: Clopidogrel Bisulfate (Plavix) 75 mg PO DAILY [facility] [place] Last Admin: 08/01/20 10:29 Dose: 75 mg Documented by: Furosemide (Lasix) 20 mg PO DAILY [facility] [place] Last Admin: 08/01/20 10:29 Dose: 20 mg Documented by: Heparin Sodium (Porcine) (Heparin Sodium) 5,000 units SUBCUT Q8H [facility] [place] Last Admin: 08/01/20 10:24 Dose: 5,000 units Documented by: Levothyroxine Sodium 84 mcg/ (Sodium Chloride) 4.2 mls @ 252 mls/hr IVPUSH DAILY [facility] [place] Last Admin: 08/01/20 08:34 Dose: 252 mls/hr Documented by: Melatonin (Melatonin) 6 mg PO BEDTIME PRN PRN Reason: Insomnia Last Admin: 07/31/20 21:48 Dose: 6 mg Documented by: Ondansetron HCl (Zofran) 4 mg IVPUSH Q4H PRN PRN Reason: Nausea Last Admin: 08/01/20 10:51 Dose: 4 mg Documented by: Oxycodone/Acetaminophen (Percocet 325-5 Mg) 1 tab PO Q4H PRN PRN Reason: Pain (moderate 4-6) Last Admin: 08/01/20 10:25 Dose: 1 tab Documented by: Pantoprazole Sodium (Protonix) 40 mg PO DAILY [facility] [place] Last Admin: 08/01/20 10:29 Dose: 40 mg Documented by: Sachin Daltonta 200-25 (Mcg Inhaler) 1 each INH DAILY [facility] [place] Last Admin: 08/01/20 10:40 Dose: 1 each Documented by: Sodium Chloride (Saline Flush) 10 ml FLUSH ASDIRECTED PRN PRN Reason: Keep Vein Open Last Admin: 07/29/20 12:24 Dose: 10 ml Documented by: Sodium Chloride (Saline Flush) 2.5 ml FLUSH ASDIRECTED PRN PRN Reason: Keep Vein Open Last Admin: 07/30/20 10:21 Dose: 2.5 ml Documented by: Discontinued Medications Aspirin (Aspirin) 81 mg PO ONETIME ONE Stop: 07/29/20 21:46 Last Admin: 07/29/20 22:07 Dose: 81 mg Documented by: Atorvastatin Calcium (Lipitor) 20 mg PO ONETIME ONE Stop: 07/29/20 21:45 Last Admin: 07/29/20 22:07 Dose: 20 mg Documented by: Clopidogrel Bisulfate (Plavix) 75 mg PO ONETIME ONE Stop: 07/29/20 21:46 Last Admin: 07/29/20 22:07 Dose: 75 mg Documented by: Diphenhydramine HCl (Benadryl) 25 mg IVPUSH ONETIME ONE Stop: 07/29/20 12:55 Last Admin: 07/29/20 13:16 Dose: 25 mg Documented by: Sodium Chloride (Normal Saline) 500 mls @ 999 mls/hr IV .Bolus ONE Stop: 07/29/20 12:39 Last Admin: 07/29/20 12:24 Dose: 999 mls/hr Documented by: Magnesium Sulfate 2 gm/ Premix 50 mls @ 50 mls/hr IV ONETIME ONE Stop: 07/29/20 13:52 Last Admin: 07/29/20 13:16 Dose: 50 mls/hr Documented by: Sodium Chloride (Normal Saline) 1,000 mls @ 200 mls/hr IV .Bolus ONE Stop: 07/29/20 17:52 Last Admin: 07/29/20 13:16 Dose: 200 mls/hr Documented by: Sodium Chloride (Normal Saline) 500 mls @ 75 mls/hr IV ASDIRECTED [facility] [place] Last Admin: 07/29/20 22:56 Dose: 75 mls/hr Documented by: Ceftriaxone Sodium/Dextrose 1 (gm/ Premix) 50 mls @ 100 mls/hr IV Q24H [facility] [place] Last Admin: 07/30/20 17:22 Dose: 100 mls/hr Documented by: Magnesium Sulfate (Magnesium Sulfate In Water 2 Gm/50 Ml) 2 gm in 50 mls @ 50 mls/hr IV ONETIME ONE Stop: 07/31/20 08:29 Last Admin: 07/31/20 08:16 Dose: 50 mls/hr Documented by: Iopamidol (Isovue Multipack-370 (76%)) 100 ml IVPUSH ONETIME ONE Stop: 07/29/20 14:39 Last Admin: 07/29/20 14:39 Dose: 100 ml Documented by: Ketorolac Tromethamine (Toradol) 15 mg IM Q6H PRN PRN Reason: Pain (moderate 4-6) Ketorolac Tromethamine (Toradol) 15 mg IVPUSH Q6H PRN PRN Reason: Pain (moderate 4-6) Last Admin: 07/29/20 21:24 Dose: 15 mg Documented by: Levothyroxine Sodium (Levothyroxine) 112 mcg PO ACBREAKFAST [facility] [place] Last Admin: 07/30/20 06:44 Dose: Not Given Documented by: Melatonin (Melatonin) 6 mg PO ONETIME ONE Stop: 07/29/20 21:48 Last Admin: 07/29/20 22:07 Dose: 6 mg Documented by: Methylprednisolone Sodium Succinate (Solu-Medrol) 125 mg IV ONETIME ONE Stop: 07/29/20 14:01 Methylprednisolone Sodium Succinate (Solu-Medrol) 125 mg IVPUSH ONETIME ONE Stop: 07/29/20 13:11 Last Admin: 07/29/20 13:16 Dose: 125 mg Documented by: Ondansetron HCl (Zofran) 4 mg IVPUSH ONETIME ONE Stop: 07/29/20 12:10 Last Admin: 07/29/20 12:24 Dose: 4 mg Documented by: Oxycodone/Acetaminophen (Percocet 325-5 Mg) 1 tab PO ONETIME ONE Stop: 07/29/20 15:42 Last Admin: 07/29/20 16:04 Dose: 1 tab Documented by: Polyethylene Glycol (Miralax) 17 gm PO ONETIME ONE Stop: 07/31/20 09:24 Last Admin: 07/31/20 09:41 Dose: 17 gm Documented by: <José Miguel Junior - Last Filed: 08/06/20 11:05> Discharge Summary - Hospital Course Free Text/Narrative:: I have seen and evaluated the patient and agree with the residents note unless specified in my note - Referral to Home Health Primary Care Physician: Fred Guzman MD - Patient Summary/Data Consults: Consultations 07/29/20 16:42 PT Evaluation and Treatment [CONS] Routine - Patient Data Vitals - Most Recent: Last Vital Signs Temp 36.3 C 08/01/20 16:02 Pulse 70 08/01/20 16:02 Resp 16 08/01/20 16:02 BP 140/55 L 08/01/20 16:02 Pulse Ox 97 08/01/20 16:02 Med Orders - Current: Current Medications Discontinued Medications Acetaminophen (Tylenol) 650 mg PO Q4H PRN PRN Reason: Pain (Mild 1-3)/fever Last Admin: 07/30/20 10:20 Dose: 650 mg Documented by: Albuterol/Ipratropium (Duoneb 3.0-0.5 Mg/3 Ml) 3 ml NEB Q4HRRT PRN PRN Reason: Dyspnea Last Admin: 07/31/20 05:41 Dose: 3 ml Documented by: Aspirin (Aspirin) 81 mg PO DAILY [facility] [place] Last Admin: 08/01/20 10:29 Dose: 81 mg Documented by: Aspirin (Aspirin) 81 mg PO ONETIME ONE Stop: 07/29/20 21:46 Last Admin: 07/29/20 22:07 Dose: 81 mg Documented by: Atorvastatin Calcium (Lipitor) 20 mg PO DAILY [facility] [place] Last Admin: 08/01/20 10:28 Dose: 20 mg Documented by: Atorvastatin Calcium (Lipitor) 20 mg PO ONETIME ONE Stop: 07/29/20 21:45 Last Admin: 07/29/20 22:07 Dose: 20 mg Documented by: Benzonatate (Tessalon Perles) 100 mg PO TID PRN PRN Reason: Cough Carvedilol (Coreg) 3.125 mg PO BEDTIME [facility] [place] Last Admin: 07/31/20 20:40 Dose: 3.125 mg Documented by: Carvedilol (Coreg) 6.25 mg PO QAM [facility] [place] Last Admin: 08/01/20 10:35 Dose: 6.25 mg Documented by: Cephalexin (Keflex) 500 mg PO Q12HR [facility] [place] Last Admin: 08/01/20 10:29 Dose: 500 mg Documented by: Clopidogrel Bisulfate (Plavix) 75 mg PO DAILY [facility] [place] Last Admin: 08/01/20 10:29 Dose: 75 mg Documented by: Clopidogrel Bisulfate (Plavix) 75 mg PO ONETIME ONE Stop: 07/29/20 21:46 Last Admin: 07/29/20 22:07 Dose: 75 mg Documented by: Diphenhydramine HCl (Benadryl) 25 mg IVPUSH ONETIME ONE Stop: 07/29/20 12:55 Last Admin: 07/29/20 13:16 Dose: 25 mg Documented by: Furosemide (Lasix) 20 mg PO DAILY [facility] [place] Last Admin: 08/01/20 10:29 Dose: 20 mg Documented by: Heparin Sodium (Porcine) (Heparin Sodium) 5,000 units SUBCUT Q8H [facility] [place] Last Admin: 08/01/20 17:35 Dose: 5,000 units Documented by: Sodium Chloride (Normal Saline) 500 mls @ 999 mls/hr IV .Bolus ONE Stop: 07/29/20 12:39 Last Admin: 07/29/20 12:24 Dose: 999 mls/hr Documented by: Magnesium Sulfate 2 gm/ Premix 50 mls @ 50 mls/hr IV ONETIME ONE Stop: 07/29/20 13:52 Last Admin: 07/29/20 13:16 Dose: 50 mls/hr Documented by: Sodium Chloride (Normal Saline) 1,000 mls @ 200 mls/hr IV .Bolus ONE Stop: 07/29/20 17:52 Last Admin: 07/29/20 13:16 Dose: 200 mls/hr Documented by: Sodium Chloride (Normal Saline) 500 mls @ 75 mls/hr IV ASDIRECTED [facility] [place] Last Admin: 07/29/20 22:56 Dose: 75 mls/hr Documented by: Ceftriaxone Sodium/Dextrose 1 (gm/ Premix) 50 mls @ 100 mls/hr IV Q24H [facility] [place] Last Admin: 07/30/20 17:22 Dose: 100 mls/hr Documented by: Levothyroxine Sodium 84 mcg/ (Sodium Chloride) 4.2 mls @ 252 mls/hr IVPUSH DAILY [facility] [place] Last Admin: 08/01/20 08:34 Dose: 252 mls/hr Documented by: Magnesium Sulfate (Magnesium Sulfate In Water 2 Gm/50 Ml) 2 gm in 50 mls @ 50 mls/hr IV ONETIME ONE Stop: 07/31/20 08:29 Last Admin: 07/31/20 08:16 Dose: 50 mls/hr Documented by: Iopamidol (Isovue Multipack-370 (76%)) 100 ml IVPUSH ONETIME ONE Stop: 07/29/20 14:39 Last Admin: 07/29/20 14:39 Dose: 100 ml Documented by: Ketorolac Tromethamine (Toradol) 15 mg IM Q6H PRN PRN Reason: Pain (moderate 4-6) Ketorolac Tromethamine (Toradol) 15 mg IVPUSH Q6H PRN PRN Reason: Pain (moderate 4-6) Last Admin: 07/29/20 21:24 Dose: 15 mg Documented by: Levothyroxine Sodium (Levothyroxine) 112 mcg PO ACBREAKFAST [facility] [place] Last Admin: 07/30/20 06:44 Dose: Not Given Documented by: Melatonin (Melatonin) 6 mg PO ONETIME ONE Stop: 07/29/20 21:48 Last Admin: 07/29/20 22:07 Dose: 6 mg Documented by: Melatonin (Melatonin) 6 mg PO BEDTIME PRN PRN Reason: Insomnia Last Admin: 07/31/20 21:48 Dose: 6 mg Documented by: Methylprednisolone Sodium Succinate (Solu-Medrol) 125 mg IV ONETIME ONE Stop: 07/29/20 14:01 Methylprednisolone Sodium Succinate (Solu-Medrol) 125 mg IVPUSH ONETIME ONE Stop: 07/29/20 13:11 Last Admin: 07/29/20 13:16 Dose: 125 mg Documented by: Ondansetron HCl (Zofran) 4 mg IVPUSH ONETIME ONE Stop: 07/29/20 12:10 Last Admin: 07/29/20 12:24 Dose: 4 mg Documented by: Ondansetron HCl (Zofran) 4 mg IVPUSH Q4H PRN PRN Reason: Nausea Last Admin: 08/01/20 10:51 Dose: 4 mg Documented by: Oxycodone/Acetaminophen (Percocet 325-5 Mg) 1 tab PO ONETIME ONE Stop: 07/29/20 15:42 Last Admin: 07/29/20 16:04 Dose: 1 tab Documented by: Oxycodone/Acetaminophen (Percocet 325-5 Mg) 1 tab PO Q4H PRN PRN Reason: Pain (moderate 4-6) Last Admin: 08/01/20 15:57 Dose: 1 tab Documented by: Pantoprazole Sodium (Protonix) 40 mg PO DAILY [facility] [place] Last Admin: 08/01/20 10:29 Dose: 40 mg Documented by: Breangelo Ellipta 200-25 (Mcg Inhaler) 1 each INH DAILY [facility] [place] Last Admin: 08/01/20 10:40 Dose: 1 each Documented by: Polyethylene Glycol (Miralax) 17 gm PO ONETIME ONE Stop: 07/31/20 09:24 Last Admin: 07/31/20 09:41 Dose: 17 gm Documented by: Sodium Chloride (Saline Flush) 10 ml FLUSH ASDIRECTED PRN PRN Reason: Keep Vein Open Last Admin: 07/29/20 12:24 Dose: 10 ml Documented by: Sodium Chloride (Saline Flush) 2.5 ml FLUSH ASDIRECTED PRN PRN Reason: Keep Vein Open Last Admin: 07/30/20 10:21 Dose: 2.5 ml Documented by:
[2020-08-01 16:03] VITALS: BP 140/55; PULSE 70
== END 2020-08-01 17:30 | disposition home health service (06) ==
LOC: MW.ED 12:04 → MW.MS 16:03
PROVIDERS: ADMIT Student in an Organized Health Care Education/Training Program; ATTEND Student in an Organized Health Care Education/Training Program
DX: E87.1 Hypo-osmolality and hyponatremia (principal); M48.54XA Collapsed vertebra, not elsewhere classified, thoracic region, initial encounter for fracture; N39.0 Urinary tract infection, site not specified; J44.9 Chronic obstructive pulmonary disease, unspecified; I10 Essential (primary) hypertension; I25.10 Atherosclerotic heart disease of native coronary artery without angina pectoris; I25.2 Old myocardial infarction; E03.9 Hypothyroidism, unspecified; Z20.822 Contact with and (suspected) exposure to COVID-19; Z88.5 Allergy status to narcotic agent; Z99.81 Dependence on supplemental oxygen; Z88.1 Allergy status to other antibiotic agents; Z91.041 Radiographic dye allergy status; Z88.2 Allergy status to sulfonamides; Z79.82 Long term (current) use of aspirin; Z79.899 Other long term (current) drug therapy; Z98.890 Other specified postprocedural states
CPT/HCPCS: 36415; 71045; 72128; 72131; 74177; 80048; 80053; 81001; 82570; 82962; 83605; 83690; 83735; 83880; 83930; 83935; 84100; 84300; 84439; 84443; 84484; 85025; 87086; 93005; 94640; 94667; 96365; 96367; 96372; 96375; 96376; 97110; 97161; 97530; 99285; A9270; G0378; J0696; J1200; J1644; J1885; J2405; J2930; J3475; J7030; J7040; Q9967; U0002; 93010; 99284; J7620-GY

== ENCOUNTER 2020-08-05 19:31 | Inpatient (IN) | payer MEDICARE, OTHER ==
[2020-08-05] MEDS ORDERED: Sodium Chloride 0.9% 10 ML Syringe FLUSH PRN (19:49)
[2020-08-05] MEDS ORDERED: Sodium Chloride 0.9% 2.5 ML Syringe FLUSH PRN (19:49)
[2020-08-05] MEDS ORDERED: methylPREDNISolone Sodium Succinate 125 MG/2 ML SDV IVPUSH ONE (19:49)
[2020-08-05] MEDS ORDERED: Ondansetron 4 MG/2 ML SDV IVPUSH ONE (19:49)
[2020-08-05] MEDS ORDERED: Albuterol/Ipratropium 3.0-0.5 MG/3 ML Neb Soln NEB ONE ×3 (19:49→21:46)
--- NOTE | 2020-08-05 20:23 | CR ---
INDICATION: Shortness of breath TECHNIQUE: Portable upright AP view of the chest COMPARISON: AP chest radiograph 07/29/2020 FINDINGS: The right hemidiaphragm is elevated. Some airspace opacity in the right lung base is favored to represent atelectasis. The left lung is clear. There is no sizable pleural effusion or pneumothorax. The cardiomediastinal silhouette is normal. The visualized osseous structures are unremarkable. IMPRESSION: New elevation of the right hemidiaphragm. Right lung base opacity favored to represent atelectasis. Correlate clinically. Dictated by Boni Mueller MD @ Aug 05 2020 8:21PM Signed by Dr. Boni Mueller @ Aug 05 2020 8:21PM
[2020-08-05] MEDS ORDERED: Levofloxacin/Dextrose 5%-Water 750 MG in Premix Bag 1 BAG IV ONE (20:24)
[2020-08-05 20:27] LABS: BLOOD UREA NITROGEN,BUN 15 mg/dL (7.0-18.0); CARBON DIOXIDE,CO2 27.4 mmol/L (21.0-32.0); CHLORIDE,CL 87 mmol/L (98-107); GLUCOSE RANDOM 158 mg/dL (74-106); POTASSIUM,K 4.4 mmol/L (3.5-5.1)
[2020-08-05 20:29] LABS: SODIUM,NA 120 mmol/L (136-145)
[2020-08-05] MEDS ORDERED: Sodium Chloride 0.9% 1,000 ML IV ONE (20:31)
[2020-08-05] MEDS ORDERED: HYDROmorphone 1 MG/ML Syringe IVPUSH ONE (21:03)
--- NOTE | 2020-08-05 21:08 | EDM.PDOC ---
ED HPI GENERAL MEDICAL PROBLEM - General Chief Complaint: Respiratory Problem Stated Complaint: SPOKE WITH NURSE Time Seen by Provider: 08/05/20 19:35 - History of Present Illness INITIAL COMMENTS - FREE TEXT/NARRATIVE: HISTORY AND PHYSICAL: History of present illness: This is an 85-year-old female with a history significant for hypertension, COPD, CAD, status post PCI, hypothyroidism, hyponatremia, recent diagnosis of a T8 f racture has been treated with pain medicines, who presents ER today secondary to shortness of breath, congestion, wheezing and increased O2 demand at home as noted by her home health nurse. Patient reports that she was recently admitted to the hospital secondary to intractable pain and was discharged on August 01. During her admission she was given adequate analgesia and was discharged home with Percocet. During her admission she was diagnosed with a UTI and discharged home with cephalexin which she has completed approximately 2 to 3 days ago. Patient reports that she has had a raspy cough that has been nonproductive. She reports that she has been using her DuoNeb's at home. Patient reports no fevers, shakes, chills. Patient denies any nausea or vomiting or diarrhea. Patient denies any abdominal pain or discomfort. Patient reports at baseline she requires 1 and 1/2 L of nasal cannula O2 however however over the course of the day she is at increased to 2 and a half liters without any significant improvement. Review of systems: As per history of present illness and below otherwise all systems reviewed and negative. Past medical history: As per history of present illness and as reviewed below otherwise noncontributory. Surgical history: As per history of present illness and as reviewed below otherwise noncontributory. Social history: No reported history of drug or alcohol abuse. Family history: As per history of present illness and as reviewed below otherwise noncontributory. Physical exam: This patient was seen and evaluated during the 2019 SARS-CoV-2 novel coronavirus pandemic period. Community viral transmission is ongoing at time of this encounter and the emergency department is operating under pandemic response procedures. Constitutional: Patient is oriented to person, place, and time. Appears well- developed and well-nourished. No distress. HEENT: Moist mucous membranes Head: Normocephalic and atraumatic Eyes: Right eye exhibits no discharge. Left eye exhibits no discharge. No scleral icterus Neck: Normal range of motion. No tracheal deviation present. Cardiovascular: Normal rate and regular rhythm. Pulmonary: Patient with diffuse coarse breath sounds bilaterally right greater than left. Patient was able to speak in full sentences and does not appear to be in any acute distress. Abdominal: No distention Musculoskeletal: Normal range of motion, no peripheral edema Neurologic: Alert and oriented to person, place and time. Skin: [place], warm and dry. Psychiatric: Normal mood and affect. Behavior is normal. Judgment and thought content normal. Nursing note and vital signs have been reviewed Diagnostics: Chest Xray: Normal cardiac silhouette Increased interstitial markings in the right lower lobe with elevated right hemidiaphragm consistent with pneumonia No PTX No evidence of acute bony fracture. As interpreted by ER MD: Carlos EKG: As interpreted by ER physician: Carlos: Nonspecific ST-T wave abnormalities Normal axis No evidence of ST elevation [place] Normal sinus rhythm heart rate of 75 Therapeutics: DuoNeb x1 Solu-Medrol 125 mg IV Dilaudid 0.5 mg IV secondary to back pain NSS x1 L secondary to sodium of 120 Levaquin 750 mg IV for treatment of nosocomial pneumonia Vanco 1.5 g IV for treatment of nosocomial pneumonia. Patient recently discharged from the hospital less than 1 week ago Assessment and plan: This is an 85-year-old female who presents ER today secondary to shortness of breath with increased oxygen demand and increased coughing. Patient's chest x- ray is concerning for a right lower lobe pneumonia which is new when compared to her prior chest x-ray from last week. Patient's presentation is consistent with pneumonia. Patient has been started for HCAP pneumonia secondary to recent hospitalization for a thoracic 8 fracture pain management. Patient has been given Levaquin and vancomycin. Patient has been given DuoNeb treatments as well as steroids. Patient is also noted to have severe hyponatremia which she has had in the past. Patient will be treated with normal saline solution to assist with normalizing her sodium. 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 Patient is clinically and hemodynamically stable, mentating well and is not presenting with any signs or symptoms concerning for altered mentation from her hyponatremia. Critical Care: The high probability of sudden, clinically significant deterioration in the patient's condition required the highest level of my preparedness to intervene urgently. The services I provided to this patient were to treat and/or prevent clinically significant deterioration. Services included the following: chart data review, reviewing nursing notes and/or old charts, documentation time, window covering sales consultant collaboration regarding findings and treatment options, medication orders and management, direct patient care, vital sign assessments and ordering, interpreting and reviewing diagnostic studies/lab tests. Aggregate critical care time includes only time during which I was engaged inwork directly related to the patient's care, as described above, whether at the bedside or elsewhere in the Emergency Department. It did not include time spent performing other reported procedures or the services of residents, students, nurses or physician assistants. Critical Care Time: 35 minutes Definitive disposition and diagnosis as appropriate pending reevaluation and review of above. - Related Data Allergies Allergy/AdvReac Type Severity Reaction Status Date / Time codeine Allergy Dizziness Verified 08/05/20 19:36 erythromycin base Allergy Rash Verified 08/05/20 19:36 Iodinated Contrast Media Allergy Nausea and Verified 08/05/20 19:36 Vomiting morphine Allergy Tachycardia Verified 08/05/20 19:36 oxycodone Allergy Dizziness Verified 08/05/20 19:36 Sulfa (Sulfonamide Allergy Rash Verified 08/05/20 19:36 Antibiotics) Home Meds: Home Meds Levothyroxine Sodium [Synthroid] 112 mcg PO ACBREAKFAST 09/05/15 [History] Albuterol/Ipratropium [DuoNeb 3.0-0.5 MG/3 ML] 3 ml NEB Q4HRRT PRN neb 11/22/17 [Rx] Aspirin 81 mg PO DAILY tab.chew 11/22/17 [Rx] Potassium Chloride [Klor-Con 10] 10 meq PO DAILY 08/31/18 [History] atorvaSTATin [Lipitor] 20 mg PO DAILY 08/31/18 [History] Clopidogrel [Plavix] 75 mg PO DAILY 07/02/20 [History] Fluticasone/Vilanterol [Breo Ellipta 200-25 MCG Inhalation Kit] 1 puff INH DAILY 07/02/20 [History] carvediloL [Carvedilol] 3.125 mg PO BEDTIME 07/02/20 [History] carvediloL [Carvedilol] 6.25 mg PO QAM 07/02/20 [History] Furosemide [Lasix] 20 mg PO DAILY 07/29/20 [History] Acetaminophen/oxyCODONE [Percocet 325-5 MG] 1 each PO Q8H 3 Days #9 tab 08/01/20 [Rx] Ondansetron [Zofran] 4 mg PO Q4H PRN 3 Days #18 tab 08/01/20 [Rx] cephALEXin [Keflex] 500 mg PO BID 1 Days #2 cap 08/01/20 [Rx] Past Medical History - Past Health History Medical/Surgical History: Denies Medical/Surgical History Cardiovascular History: Reports: Hypertension, [place] Respiratory History: Reports: COPD Other Respiratory History: On home O2. 3L/NC in July 2020. 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 Endocrine/Metabolic History: Reports: Hypothyroidism Oncologic (Cancer) History: Reports: None - Infectious Disease History Infectious Disease History: Reports: Chicken Pox, Measles, Mumps, Pertussis (Whooping Cough) - Past Surgical History Cardiovascular Surgical History: Reports: Coronary Artery Stent, Other (See Below) Other Cardiovascular Surgeries/Procedures: Heart surgery in November,. Respiratory Surgical History: Reports: None GI Surgical History: Reports: Cholecystectomy Female Surgical History: Reports: Hysterectomy Musculoskeletal Surgical History: Reports: None Social & Family History - Family History Family Medical History: No Pertinent Family History - Caffeine Use Caffeine Use: Reports: None - Recreational Drug Use Recreational Drug Use: No ED ROS GENERAL - Review of Systems Review Of Systems: See Below ED EXAM, GENERAL - Physical Exam Exam: See Below Course - Vital Signs Last Recorded V/S: Last Vital Signs Temp 98 F 08/05/20 19:33 Pulse 78 08/05/20 19:33 Resp 18 08/05/20 19:33 BP 160/60 H 08/05/20 19:33 Pulse Ox 93 L 08/05/20 19:33 - Orders/Labs/Meds Orders: Active Orders 24 hr Category Date Time Status EKG Documentation Completion [RC] AM Care 08/05/20 19:49 Active B-TYPE NATRIURETIC PEPTIDE,BNP [CHEM] Stat Lab 08/05/20 19:50 Received COVID-19/FLU A+B/RSV [MOLEC] Stat Lab 08/05/20 19:52 Received CULTURE BLOOD [BC] Stat Lab 08/05/20 19:50 Received CULTURE BLOOD [BC] Stat Lab 08/05/20 20:22 Received Levofloxacin/Dextrose 5%-Water [Levaquin in D5W 750 MG/ Med 08/05/20 20:24 Active 150 ML] 750 mg Premix Bag 1 bag IV ONETIME Sodium Chloride 0.9% [Normal Saline] 1,000 ml Med 08/05/20 20:31 Active IV .Bolus Sodium Chloride 0.9% [Saline Flush] Med 08/05/20 19:49 Active 10 ml FLUSH ASDIRECTED PRN Sodium Chloride 0.9% [Saline Flush] Med 08/05/20 19:49 Active 2.5 ml FLUSH ASDIRECTED PRN Vancomycin 1,500 mg Med 08/05/20 20:25 Active Sodium Chloride 0.9% [Normal Saline] 100 ml IV ONETIME Blood Culture x2 Reflex Set [OM.PC] Stat Oth 08/05/20 19:50 Ordered Saline Lock Insert [OM.PC] Stat Oth 08/05/20 19:49 Ordered Medication Orders Levofloxacin/Dextrose 750 mg/ (Premix) 150 mls @ 100 mls/hr IV ONETIME ONE Stop: 08/05/20 21:53 Last Admin: 08/05/20 20:38 Dose: 100 mls/hr Documented by: MALORIE Vancomycin HCl 1,500 mg/ (Sodium Chloride) 100 mls @ 100 mls/hr IV ONETIME ONE Stop: 08/05/20 21:24 Sodium Chloride (Normal Saline) 1,000 mls @ 999 mls/hr IV .Bolus ONE Stop: 08/05/20 21:31 Last Admin: 08/05/20 20:38 Dose: 999 mls/hr Documented by: MALORIE Sodium Chloride (Saline Flush) 10 ml FLUSH ASDIRECTED PRN PRN Reason: Keep Vein Open Sodium Chloride (Saline Flush) 2.5 ml FLUSH ASDIRECTED PRN PRN Reason: Keep Vein Open Labs: Laboratory Tests 08/05/20 08/05/20 Range/Units 19:50 19:50 WBC 9.27 (4.0-11.0) K/uL RBC 4.00 L (4.30-5.90) M/uL Hgb 12.8 (12.0-16.0) g/dL Hct 36.9 (36.0-46.0) % MCV 92.3 (80.0-98.0) fL MCH 32.0 (27.0-32.0) pg MCHC 34.7 (31.0-37.0) g/dL RDW Std Deviation 48.0 (28.0-62.0) fl RDW Coeff of [place] 14 (11.0-15.0) % Plt Count 226 (150-400) K/uL MPV 8.50 (7.40-12.00) fL Neut % (Auto) 79.0 (48.0-80.0) % Lymph % (Auto) 6.6 L (16.0-40.0) % [place] % (Auto) 11.4 (0.0-15.0) % Eos % (Auto) 1.7 (0.0-7.0) % Baso % (Auto) 1.3 (0.0-1.5) % Neut # (Auto) 7.3 H (1.4-5.7) K/uL Lymph # (Auto) 0.6 (0.6-2.4) K/uL [place] # (Auto) 1.1 H (0.0-0.8) K/uL Eos # (Auto) 0.2 (0.0-0.7) K/uL Baso # (Auto) 0.1 (0.0-0.1) K/uL Nucleated RBC % 0.0 /100WBC Nucleated RBCs # 0 K/uL Sodium 120 L (136-145) mmol/L Potassium 4.4 (3.5-5.1) mmol/L Chloride 87 L (98-107) mmol/L Carbon Dioxide 27.4 (21.0-32.0) mmol/L BUN 15 (7.0-18.0) mg/dL Creatinine 0.8 (0.6-1.0) mg/dL Est Cr Clr Drug Dosing 44.08 mL/min Estimated GFR (MDRD) > 60.0 ml/min Glucose 158 H (74-106) mg/dL Calcium 8.7 (8.5-10.1) mg/dL Total Bilirubin 0.6 (0.2-1.0) mg/dL AST 42 H (15-37) IU/L ALT 63 (14-63) IU/L Alkaline Phosphatase 126 H (46-116) U/L Troponin I < 0.050 (0.000-0.056) ng/mL Total Protein 6.6 (6.4-8.2) g/dL Albumin 3.3 L (3.4-5.0) g/dL Globulin 3.3 (2.6-4.0) g/dL Albumin/Globulin Ratio 1.0 (0.9-1.6) Meds: Medications Generic Name Dose Route Start Last Admin Trade Name Seaq PRN Reason Stop Dose Admin Levofloxacin/Dextrose 750 mg/ 150 mls @ 100 mls/hr 08/05/20 20:24 08/05/20 20:38 Premix IV 08/05/20 21:53 100 mls/hr ONETIME ONE Administration Vancomycin HCl 1,500 mg/ 100 mls @ 100 mls/hr 08/05/20 20:25 Sodium Chloride IV 08/05/20 21:24 ONETIME ONE Sodium Chloride 1,000 mls @ 999 mls/hr 08/05/20 20:31 08/05/20 20:38 Normal Saline IV 08/05/20 21:31 999 mls/hr .Bolus ONE Administration Sodium Chloride 10 ml 08/05/20 19:49 Saline Flush FLUSH ASDIRECTED PRN Keep Vein Open Sodium Chloride 2.5 ml 08/05/20 19:49 Saline Flush FLUSH ASDIRECTED PRN Keep Vein Open Discontinued Medications Generic Name Dose Route Start Last Admin Trade Name Seaq PRN Reason Stop Dose Admin Albuterol/Ipratropium 3 ml 08/05/20 19:49 08/05/20 20:01 Duoneb 3.0-0.5 Mg/3 Ml NEB 08/05/20 19:50 3 ml ONETIME ONE Administration Methylprednisolone Sodium Succinate 125 mg 08/05/20 19:49 08/05/20 20:01 Solu-Medrol IVPUSH 08/05/20 19:50 125 mg ONETIME ONE Administration Ondansetron HCl 4 mg 08/05/20 19:49 08/05/20 20:01 Zofran IVPUSH 08/05/20 19:50 4 mg ONETIME ONE Administration Departure - Departure Time of Disposition: 21:16 Disposition: Admitted As Inpatient 68 Clinical Impression: HCAP (healthcare-associated pneumonia), COPD exacerbation, Hypoxia, Hyponatremia - Discharge Information Referrals: Fred Guzman MD [Primary Care Provider] - Sepsis Event Note (ED) - Evaluation Sepsis Screening Result: No Definite Risk - Focused Exam Vital Signs: Vital Signs Temp Pulse Resp BP Pulse Ox 08/05/20 19:33 98 F 78 18 160/60 H 93 L - My Orders Last 24 Hours: My Active Orders 08/05/20 19:49 EKG Documentation Completion [RC] AM Sodium Chloride 0.9% [Saline Flush] 10 ml FLUSH ASDIRECTED PRN Sodium Chloride 0.9% [Saline Flush] 2.5 ml FLUSH ASDIRECTED PRN Saline Lock Insert [OM.PC] Stat 08/05/20 19:50 B-TYPE NATRIURETIC PEPTIDE,BNP [CHEM] Stat CULTURE BLOOD [BC] Stat Blood Culture x2 Reflex Set [OM.PC] Stat 08/05/20 19:52 COVID-19/FLU A+B/RSV [MOLEC] Stat 08/05/20 20:22 CULTURE BLOOD [BC] Stat 08/05/20 20:24 Levofloxacin/Dextrose 5%-Water [Levaquin in D5W 750 MG/150 ML] 750 mg Premix Bag 1 bag IV ONETIME 08/05/20 20:25 Vancomycin 1,500 mg Sodium Chloride 0.9% [Normal Saline] 100 ml IV ONETIME 08/05/20 20:31 Sodium Chloride 0.9% [Normal Saline] 1,000 ml IV .Bolus - Assessment/Plan Last 24 Hours: My Active Orders 08/05/20 19:49 EKG Documentation Completion [RC] AM Sodium Chloride 0.9% [Saline Flush] 10 ml FLUSH ASDIRECTED PRN Sodium Chloride 0.9% [Saline Flush] 2.5 ml FLUSH ASDIRECTED PRN Saline Lock Insert [OM.PC] Stat 08/05/20 19:50 B-TYPE NATRIURETIC PEPTIDE,BNP [CHEM] Stat CULTURE BLOOD [BC] Stat Blood Culture x2 Reflex Set [OM.PC] Stat 08/05/20 19:52 COVID-19/FLU A+B/RSV [MOLEC] Stat 08/05/20 20:22 CULTURE BLOOD [BC] Stat 08/05/20 20:24 Levofloxacin/Dextrose 5%-Water [Levaquin in D5W 750 MG/150 ML] 750 mg Premix Bag 1 bag IV ONETIME 08/05/20 20:25 Vancomycin 1,500 mg Sodium Chloride 0.9% [Normal Saline] 100 ml IV ONETIME 08/05/20 20:31 Sodium Chloride 0.9% [Normal Saline] 1,000 ml IV .Bolus
[2020-08-05] MEDS ORDERED: Albuterol/Ipratropium 3.0-0.5 MG/3 ML Neb Soln ONE (21:36)
[2020-08-05 21:39] LABS: CORONAVIRUS COVID-19 NAA NEGATIVE (NEGATIVE); INFLUENZA A NAA NEGATIVE (NEGATIVE); INFLUENZA B NAA NEGATIVE (NEGATIVE); RESPIRATORY SYNCYTIAL VIR NAA NEGATIVE (NEGATIVE)
[2020-08-05] MEDS ORDERED: VANCOmycin 1.5 GM/300 ML 1.5 GM in Premix Bag 1 BAG IV ONE (22:07)
[2020-08-05] MEDS ORDERED: Labetalol 100 MG/20 ML MDV IVPUSH PRN (22:33)
--- NOTE | 2020-08-05 23:30 | CT ---
INDICATION: Chronic obstructive pulmonary disease, effusion, pneumonia TECHNIQUE: CT chest without i.v. contrast. Coronal and sagittal reformats were obtained. COMPARISON: 07/15/2020 FINDINGS: Cardiovascular: The heart has an unremarkable appearance and size. The pulmonary arteries are unremarkable in appearance. No sign of aneurysm seen in the thoracic aorta. The presence of aortic dissection cannot be evaluated without the use of intravenous contrast. Severe, stable atherosclerotic calcifications are noted in the coronary arteries. Mediastinum: There is a subcarinal lymph node present measuring 2.6 cm and a paraesophageal lymph node present measuring 1.4 cm, slightly increased in size since prior examination. Lung: Mild centrilobular emphysema is present in the apices. Multiple pleural based nodules are present within the right hemithorax, measuring up to 1.3 cm on image 68. Ill-defined pleural based masses are present within the costophrenic sulcus. Segmental atelectasis is present in the lateral right middle lobe and mild compressive atelectasis is present in the posterior right lower lobe. Pleura and pericardium: Moderate right pleural effusion is present and increased in size compared to prior examination. No significant pericardial effusion is present. Chest wall and axilla: No mass or adenopathy seen. Bone: Severe compression deformity of T8 is noted with slight interval progression. Upper abdomen: Unremarkable. IMPRESSIONS: 1. There is a subcarinal lymph node present measuring 2.6 cm and a paraesophageal lymph node present measuring 1.4 cm, slightly increased in size since prior examination. Further evaluation with biopsy or endoscopy is recommended to exclude metastatic disease, presumably of esophageal origin. 2. Moderate right pleural effusion is present and increased in size compared to prior examination. 3. Multiple pleural based nodules are present within the right hemithorax, measuring up to 1.3 cm on image 68. Ill-defined pleural based masses are present within the costophrenic sulcus. 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 4. Severe compression deformity of T8 is noted with slight interval progression. Dictated by Anthony Llanos MD @ 08/05/2020 11:22:42 PM Please note that all CT scans at this facility use dose modulation, iterative reconstruction, and/or weight-based dosing when appropriate to reduce radiation dose to as low as reasonably achievable. Dictated by: Anthony Llanos MD @ 08/05/2020 23:28:12 (Electronically Signed)
[2020-08-05] MEDS: Carvedilol 3.125 MG Tab PO SCH (23:40)
[2020-08-06] MEDS ORDERED: LORazepam 2 MG/ML SDV IVPUSH PRN (00:11)
[2020-08-06] MEDS: Melatonin 3 MG Tab PO PRN (00:55)
[2020-08-06] MEDS: Acetaminophen/oxyCODONE 325-5 MG Tab PO PRN ×6 (01:01→23:11)
[2020-08-06] MEDS: Albuterol/Ipratropium 3.0-0.5 MG/3 ML Neb Soln NEB SCH ×7 (01:04→23:19)
[2020-08-06] MEDS: Ondansetron 4 MG/2 ML SDV IVPUSH PRN ×4 (01:11→18:06)
[2020-08-06 06:00] LABS: BLOOD UREA NITROGEN,BUN 14 mg/dL (7.0-18.0); CARBON DIOXIDE,CO2 24.7 mmol/L (21.0-32.0); CHLORIDE,CL 88 mmol/L (98-107); GLUCOSE RANDOM 142 mg/dL (74-106); POTASSIUM,K 4.1 mmol/L (3.5-5.1)
[2020-08-06 06:03] LABS: SODIUM,NA 120 mmol/L (136-145)
[2020-08-06] MEDS ORDERED: Levothyroxine 112 MCG Tab PO SCH (07:30)
--- NOTE | 2020-08-06 07:57 | PCM.HP.2 ---
H&P History of Present Illness - General Date of Service: 08/06/20 Admit Problem/Dx: Admission Diagnosis/Problem Admission Diagnosis/Problem Pneumonia Source of Information: Patient History Limitations: Reports: No Limitations - History of Present Illness Initial Comments - Free Text/Narative: This 85-year-old female with past medical history of chronic hypoxic respiratory failure, on home oxygen, COPD, CAD s/p NSTEMI, hypothyroidism, hyponatremia, HTN chronic thoracic spine compression fractures and chronic back pain presented to the ER with complaints of worsening shortness of breath, increasing oxygen demand at home, and coughing. She was recently discharged from the hospital on 08/01/2020 due to acute exacerbation of chronic back pain. Pain management was controlled and she was discharged home. She reports she been having a raspy cough that has been nonproductive. Reports that shortness of breath has increased at home. Shortness of breath worsened significantly with any exertion. Reports she does not feel like she can clear her cough. She has been using her DuoNeb's at home. She denies any fevers chills chest pain. She denies any nausea vomiting constipation or diarrhea. Denies any abdominal pain or dysuria. In the ER CBC stable. BMP reveals hyponatremia 120, potassium 4.4, chloride 87, BUN 15, creatinine 0.8 glucose 158. Magnesium 1.8 alk phos 126 BNP 154 troponin negative Covid swab was negative along with influenza a and B. In the ER chest x-ray was completed which revealed new elevation of right hemidiaphragm right lung base opacity favored to represent atelectasis. Chest CT was then obtained which reveals a subcarinal lymph node present measuring 2.6 cm and a paraesophageal lymph node present measuring 1.4 cm which is slightly increased in size since prior exam. This could represent metastatic disease presumably of esophageal origin. Moderate right pleural effusion is present and increased in size compared to prior exam. Multiple pleural-based nodules are present within the right hemithorax measuring up to 1.3 cm. Ill-defined pleural based masses are present within the costophrenic sulcus this could likely represent pleural metastatic disease with malignant effusion. Severe compression deformity of T8 is noted with slight interval progression. Previous CT was obtained on 07/04/2020 which reveals mildly enlarged subcarinal mediastinal lymph nodes a malignant process cannot be entirely excluded and follow-up was recommended. Patient has had multiple admissions in the last 1 month. Last admission she was offered [facility] placement for rehabilitation which she ultimately declined. Lower Back Pain Score (Numeric/FACES): 4 - Related Data Allergies/Adverse Reactions: Allergies Allergy/AdvReac Type Severity Reaction Status Date / Time codeine Allergy Dizziness Verified 08/05/20 23:27 erythromycin base Allergy Rash Verified 08/05/20 23:27 Iodinated Contrast Media Allergy Nausea and Verified 08/05/20 23:27 Vomiting morphine Allergy Tachycardia Verified 08/05/20 23:27 Sulfa (Sulfonamide Allergy Rash Verified 08/05/20 23:27 Antibiotics) Home Medications: Home Meds Levothyroxine Sodium [Synthroid] 112 mcg PO ACBREAKFAST 09/05/15 [History] Albuterol/Ipratropium [DuoNeb 3.0-0.5 MG/3 ML] 3 ml NEB Q4HRRT PRN neb 11/22/17 [Rx] Aspirin 81 mg PO DAILY tab.chew 11/22/17 [Rx] Potassium Chloride [Klor-Con 10] 10 meq PO DAILY 08/31/18 [History] atorvaSTATin [Lipitor] 20 mg PO DAILY 08/31/18 [History] Clopidogrel [Plavix] 75 mg PO DAILY 07/02/20 [History] Fluticasone/Vilanterol [Breo Ellipta 200-25 MCG Inhalation Kit] 1 puff INH DAILY 07/02/20 [History] carvediloL [Carvedilol] 3.125 mg PO BEDTIME 07/02/20 [History] carvediloL [Carvedilol] 6.25 mg PO QAM 07/02/20 [History] Furosemide [Lasix] 20 mg PO DAILY 07/29/20 [History] Acetaminophen/oxyCODONE [Percocet 325-5 MG] 1 each PO Q8H 3 Days #9 tab 08/01/20 [Rx] Ondansetron [Zofran] 4 mg PO Q4H PRN 3 Days #18 tab 08/01/20 [Rx] Past Medical History - Past Health History Medical/Surgical History: Denies Medical/Surgical History Cardiovascular History: Reports: Hypertension, [place] Respiratory History: Reports: COPD Other Respiratory History: On home O2. 3L/NC in July 2020. Gastrointestinal History: Reports: Cholelithiasis Other OB/BYN History: hysterectomy Musculoskeletal History: Reports: Back Pain, Chronic, Osteoarthritis Neurological History: Reports: Other (See Below) Other Neuro History: Hx spinal stenosis. Endocrine/Metabolic History: Reports: Hypothyroidism Oncologic (Cancer) History: Reports: None - Infectious Disease History Infectious Disease History: Reports: Chicken Pox, Measles, Mumps, Pertussis (Whooping Cough) - Past Surgical History Cardiovascular Surgical History: Reports: Coronary Artery Stent, Other (See Below) Other Cardiovascular Surgeries/Procedures: Heart surgery in November,. Respiratory Surgical History: Reports: None GI Surgical History: Reports: Cholecystectomy Female Surgical History: Reports: Hysterectomy Musculoskeletal Surgical History: Reports: None Social & Family History - Family History Family Medical History: No Pertinent Family History - Tobacco Use Tobacco Use Status *Q: Former Tobacco User Used Tobacco, but Quit: No Second Hand Smoke Exposure: No - Caffeine Use Caffeine Use: Reports: Coffee - Recreational Drug Use Recreational Drug Use: No H&P Review of Systems - Review of Systems: Review Of Systems: See Below General: Reports: Malaise, Weakness, Fatigue HEENT: Reports: No Symptoms. Denies: Headaches, Sinus Congestion, Sore Throat, Vertigo Pulmonary: Reports: Shortness of Breath, Wheezing, Cough. Denies: Sputum, Hemoptysis Cardiovascular: Reports: Dyspnea on Exertion, Lightheadedness (Especially with exertion). Denies: Chest Pain, Orthopnea, Edema Gastrointestinal: Reports: Constipation (Reports has been a few days since she has had a bowel movement.). Denies: Abdominal Pain, Nausea, Vomiting Genitourinary: Reports: Other (Reports it takes a long time for her urine to be relieved.) Musculoskeletal: Reports: Back Pain (Chronic) Skin: Reports: No Symptoms Psychiatric: Reports: No Symptoms Neurological: Reports: No Symptoms Hematologic/Lymphatic: Reports: No Symptoms Immunologic: Reports: No Symptoms Exam - Exam Exam: See Below - Vital Signs Vital Signs: Last Vital Signs Temp 97.5 F 08/06/20 04:00 Pulse 70 08/06/20 04:00 Resp 20 08/06/20 04:00 BP 124/56 L 08/06/20 04:00 Pulse Ox 95 08/06/20 04:00 Weight: 72.983 kg - Exam Quality Assessment: Supplemental Oxygen (2 to 3 L nasal cannula), DVT Prophylaxis (SCDs) General: Alert, Oriented, Cooperative HEENT: Conjunctiva Clear, EACs Clear, Mucosa Moist & [place], Posterior Pharynx Clear Lungs: Decreased Breath Sounds, Crackles, Rhonchi. No: Normal Respiratory Effort (Dyspnea socially noted on speech) Cardiovascular: Regular Rate, Regular Rhythm GI/Abdominal Exam: Normal Bowel Sounds, Soft, Non-Tender Extremities: Normal Inspection, Normal Range of Motion, Non-Tender, No Pedal Edema Skin: Warm, Dry, Ecchymosis Neuro Extensive - Mental Status: Alert, Oriented x3 Neuro Extensive - Motor, Sensory, Reflexes: CN II-XII Intact, Normal Gait Psychiatric: Alert, Normal Affect, Normal Mood - Patient Data Lab Results Last 24 hrs: Laboratory Results - last 24 hr 08/05/20 08/05/20 08/05/20 Range/Units 19:50 19:50 19:50 WBC 9.27 (4.0-11.0) K/uL RBC 4.00 L (4.30-5.90) M/uL Hgb 12.8 (12.0-16.0) g/dL Hct 36.9 (36.0-46.0) % MCV 92.3 (80.0-98.0) fL MCH 32.0 (27.0-32.0) pg MCHC 34.7 (31.0-37.0) g/dL RDW Std Deviation 48.0 (28.0-62.0) fl RDW Coeff of Lavelle 14 (11.0-15.0) % Plt Count 226 (150-400) K/uL MPV 8.50 (7.40-12.00) fL Neut % (Auto) 79.0 (48.0-80.0) % Lymph % (Auto) 6.6 L (16.0-40.0) % [place] % (Auto) 11.4 (0.0-15.0) % Eos % (Auto) 1.7 (0.0-7.0) % Baso % (Auto) 1.3 (0.0-1.5) % Neut # (Auto) 7.3 H (1.4-5.7) K/uL Lymph # (Auto) 0.6 (0.6-2.4) K/uL [place] # (Auto) 1.1 H (0.0-0.8) K/uL Eos # (Auto) 0.2 (0.0-0.7) K/uL Baso # (Auto) 0.1 (0.0-0.1) K/uL Nucleated RBC % 0.0 /100WBC Nucleated RBCs # 0 K/uL Sodium 120 L (136-145) mmol/L Potassium 4.4 (3.5-5.1) mmol/L Chloride 87 L (98-107) mmol/L Carbon Dioxide 27.4 (21.0-32.0) mmol/L BUN 15 (7.0-18.0) mg/dL Creatinine 0.8 (0.6-1.0) mg/dL Est Cr Clr Drug Dosing 44.08 mL/min Estimated GFR (MDRD) > 60.0 ml/min Glucose 158 H (74-106) mg/dL Calcium 8.7 (8.5-10.1) mg/dL Phosphorus (2.6-4.7) mg/dL Magnesium (1.8-2.4) mg/dL Total Bilirubin 0.6 (0.2-1.0) mg/dL AST 42 H (15-37) IU/L ALT 63 (14-63) IU/L Alkaline Phosphatase 126 H (46-116) U/L Troponin I < 0.050 (0.000-0.056) ng/mL B-Natriuretic Peptide 154 H (<100) PG/ML Total Protein 6.6 (6.4-8.2) g/dL Albumin 3.3 L (3.4-5.0) g/dL Globulin 3.3 (2.6-4.0) g/dL Albumin/Globulin Ratio 1.0 (0.9-1.6) Influenza Type A RNA (NEGATIVE) RSV RNA (INAAT) (NEGATIVE) Influenza Type B RNA (NEGATIVE) SARS-CoV-2 RNA (BLAINE) (NEGATIVE) 08/05/20 08/05/20 08/06/20 Range/Units 19:50 19:52 05:05 WBC 6.35 (4.0-11.0) K/uL RBC 3.78 L (4.30-5.90) M/uL Hgb 12.2 (12.0-16.0) g/dL Hct 34.7 L (36.0-46.0) % MCV 91.8 (80.0-98.0) fL MCH 32.3 H (27.0-32.0) pg MCHC 35.2 (31.0-37.0) g/dL RDW Std Deviation 46.5 (28.0-62.0) fl RDW Coeff of Lavelle 14 (11.0-15.0) % Plt Count 213 (150-400) K/uL MPV 8.50 (7.40-12.00) fL Neut % (Auto) 96.0 H (48.0-80.0) % Lymph % (Auto) 3.0 L (16.0-40.0) % [place] % (Auto) 0.8 (0.0-15.0) % Eos % (Auto) 0.0 (0.0-7.0) % Baso % (Auto) 0.2 (0.0-1.5) % Neut # (Auto) 6.1 H (1.4-5.7) K/uL Lymph # (Auto) 0.2 L (0.6-2.4) K/uL [place] # (Auto) 0.1 (0.0-0.8) K/uL Eos # (Auto) 0.0 (0.0-0.7) K/uL Baso # (Auto) 0.0 (0.0-0.1) K/uL Nucleated RBC % 0.0 /100WBC Nucleated RBCs # 0 K/uL Sodium (136-145) mmol/L Potassium (3.5-5.1) mmol/L Chloride (98-107) mmol/L Carbon Dioxide (21.0-32.0) mmol/L BUN (7.0-18.0) mg/dL Creatinine (0.6-1.0) mg/dL Est Cr Clr Drug Dosing mL/min Estimated GFR (MDRD) ml/min Glucose (74-106) mg/dL Calcium (8.5-10.1) mg/dL Phosphorus (2.6-4.7) mg/dL Magnesium 1.8 (1.8-2.4) mg/dL Total Bilirubin (0.2-1.0) mg/dL AST (15-37) IU/L ALT (14-63) IU/L Alkaline Phosphatase (46-116) U/L Troponin I (0.000-0.056) ng/mL B-Natriuretic Peptide (<100) PG/ML Total Protein (6.4-8.2) g/dL Albumin (3.4-5.0) g/dL Globulin (2.6-4.0) g/dL Albumin/Globulin Ratio (0.9-1.6) Influenza Type A RNA NEGATIVE (NEGATIVE) RSV RNA (INAAT) NEGATIVE (NEGATIVE) Influenza Type B RNA NEGATIVE (NEGATIVE) SARS-CoV-2 RNA (BLAINE) NEGATIVE (NEGATIVE) 08/06/20 Range/Units 05:05 WBC (4.0-11.0) K/uL RBC (4.30-5.90) M/uL Hgb (12.0-16.0) g/dL Hct (36.0-46.0) % MCV (80.0-98.0) fL MCH (27.0-32.0) pg MCHC (31.0-37.0) g/dL RDW Std Deviation (28.0-62.0) fl RDW Coeff of Lavelle (11.0-15.0) % Plt Count (150-400) K/uL MPV (7.40-12.00) fL Neut % (Auto) (48.0-80.0) % Lymph % (Auto) (16.0-40.0) % [place] % (Auto) (0.0-15.0) % Eos % (Auto) (0.0-7.0) % Baso % (Auto) (0.0-1.5) % Neut # (Auto) (1.4-5.7) K/uL Lymph # (Auto) (0.6-2.4) K/uL [place] # (Auto) (0.0-0.8) K/uL Eos # (Auto) (0.0-0.7) K/uL Baso # (Auto) (0.0-0.1) K/uL Nucleated RBC % /100WBC Nucleated RBCs # K/uL Sodium 120 L (136-145) mmol/L Potassium 4.1 (3.5-5.1) mmol/L Chloride 88 L (98-107) mmol/L Carbon Dioxide 24.7 (21.0-32.0) mmol/L BUN 14 (7.0-18.0) mg/dL Creatinine 0.6 (0.6-1.0) mg/dL Est Cr Clr Drug Dosing 58.77 mL/min Estimated GFR (MDRD) > 60.0 ml/min Glucose 142 H (74-106) mg/dL Calcium 8.4 L (8.5-10.1) mg/dL Phosphorus 3.1 (2.6-4.7) mg/dL Magnesium 1.5 L (1.8-2.4) mg/dL Total Bilirubin (0.2-1.0) mg/dL AST (15-37) IU/L ALT (14-63) IU/L Alkaline Phosphatase (46-116) U/L Troponin I (0.000-0.056) ng/mL B-Natriuretic Peptide (<100) PG/ML Total Protein (6.4-8.2) g/dL Albumin (3.4-5.0) g/dL Globulin (2.6-4.0) g/dL Albumin/Globulin Ratio (0.9-1.6) Influenza Type A RNA (NEGATIVE) RSV RNA (INAAT) (NEGATIVE) Influenza Type B RNA (NEGATIVE) SARS-CoV-2 RNA (BLAINE) (NEGATIVE) Result Diagrams: 08/06/20 05:05 08/06/20 05:05 Sepsis Event Note - Evaluation Sepsis Screening Result: No Definite Risk - Focused Exam Vital Signs: Vital Signs Temp Pulse Resp BP Pulse Ox Pulse Ox 08/06/20 04:00 97.5 F 70 20 124/56 L 95 08/05/20 23:58 97.2 F 72 20 152/69 H 95 08/05/20 23:15 95 08/05/20 23:11 95 08/05/20 23:08 97.4 F 75 20 174/87 H 95 08/05/20 21:48 97.5 F 77 24 H 175/74 H 97 08/05/20 21:25 97.7 F 83 24 H 170/71 H 100 - Problem List (1) Pleural effusion SNOMED Code(s): 94977195 ICD Code: J90 - PLEURAL EFFUSION, NOT ELSEWHERE CLASSIFIED Status: Acute Current Visit: Yes (2) Pneumonia SNOMED Code(s): 354750743 ICD Code: J18.9 - PNEUMONIA, UNSPECIFIED ORGANISM Status: Chronic Current Visit: No Qualifiers: Pneumonia type: due to unspecified organism Laterality: bilateral Lung location: lower lobe of lung Qualified Code(s): J18.9 - Pneumonia, unspecified organism (3) Pulmonary nodules SNOMED Code(s): 187594506 ICD Code: R91.8 - OTHER NONSPECIFIC ABNORMAL FINDING OF LUNG FIELD Status: Acute Current Visit: Yes (4) Ambulatory dysfunction SNOMED Code(s): 739930677 ICD Code: R26.2 - DIFFICULTY IN WALKING, NOT ELSEWHERE CLASSIFIED Status: Acute Current Visit: No (5) Chronic respiratory failure with hypoxia SNOMED Code(s): 535279390 ICD Code: J96.11 - CHRONIC RESPIRATORY FAILURE WITH HYPOXIA Status: Chronic Current Visit: Yes (6) O2 dependent SNOMED Code(s): 447745028837 ICD Code: Z99.81 - DEPENDENCE ON SUPPLEMENTAL OXYGEN Status: Chronic Current Visit: Yes (7) Back pain SNOMED Code(s): 060402335 ICD Code: M54.9 - DORSALGIA, UNSPECIFIED Status: Chronic Current Visit: No Qualifiers: Back pain location: thoracic back pain Chronicity: acute Back pain laterality: unspecified Qualified Code(s): M54.6 - Pain in thoracic spine (8) Compression fracture of T8 vertebra SNOMED Code(s): 596076595, 507041379 ICD Code: S22.060A - WEDGE COMPRESSION FRACTURE OF T7-T8 VERTEBRA, INIT Status: Chronic Current Visit: No Qualifiers: Encounter type: subsequent encounter Fracture healing: with delayed healing Qualified Code(s): S22.060G - Wedge compression fracture of T7-T8 vertebra, subsequent encounter for fracture with delayed healing (9) Hyponatremia SNOMED Code(s): 42083902 ICD Code: E87.1 - HYPO-OSMOLALITY AND HYPONATREMIA Status: Chronic Curre nt Visit: No (10) Hypothyroidism SNOMED Code(s): 59618167 ICD Code: E03.9 - HYPOTHYROIDISM, UNSPECIFIED Status: Chronic Current Visit: No (11) COPD (chronic obstructive pulmonary disease) SNOMED Code(s): 63303977 ICD Code: J44.9 - CHRONIC OBSTRUCTIVE PULMONARY DISEASE, UNSPECIFIED Status: Chronic Current Visit: No (12) Metastatic adenocarcinoma SNOMED Code(s): 709959435, 561223548, 277505047 ICD Code: C79.9 - SECONDARY MALIGNANT NEOPLASM OF UNSPECIFIED SITE Status: Suspected Current Visit: Yes Problem List Initiated/Reviewed/Updated: Yes Orders Last 24hrs: Active Orders 24 hr Category Date Time Status Patient Status [ADT] Routine ADT 08/05/20 22:00 Active Ambulate [RC] ASDIRECTED Care 08/05/20 22:17 Active Antiembolic Devices [RC] PER UNIT ROUTINE Care 08/05/20 22:20 Active IS (RT) [RT Incentive Spirometry] [RC] Q2HWA Care 08/05/20 22:25 Active Oxygen Therapy [RC] PRN Care 08/05/20 22:17 Active Pulse Oximetry [RC] PRN Care 08/05/20 22:18 Active RT Aerosol Therapy [RC] ASDIRECTED Care 08/05/20 21:36 Active RT Aerosol Therapy [RC] ASDIRECTED Care 08/05/20 22:22 Active Telemetry Monitoring [Cardiac Monitoring] [RC] Q8H Care 08/05/20 22:50 Active Up to Chair [RC] ASDIRECTED Care 08/05/20 22:17 Active VTE/DVT Education [RC] PER UNIT ROUTINE Care 08/05/20 22:17 Active Vital Signs [RC] Q4H Care 08/05/20 22:17 Active Fluid Restriction [DIET] Diet 08/06/20 Breakfast Active Regular Diet [DIET] Diet 08/06/20 Breakfast Active CULTURE BLOOD [BC] Stat Lab 08/05/20 19:50 Received CULTURE BLOOD [BC] Stat Lab 08/05/20 20:22 Received Acetaminophen/oxyCODONE [Percocet 325-5 MG] Med 08/05/20 22:17 Active 1 tab PO Q4H PRN Albuterol/Ipratropium [DuoNeb 3.0-0.5 MG/3 ML] Med 08/06/20 01:00 Active 3 ml NEB Q4HRRT Aspirin Med 08/06/20 09:00 Active 81 mg PO DAILY Clopidogrel [Plavix] Med 08/06/20 09:00 Active 75 mg PO DAILY Furosemide [Lasix] Med 08/06/20 09:00 Active 20 mg PO DAILY LORazepam [Ativan] Med 08/06/20 00:11 Active 1 mg IVPUSH Q8H PRN Labetalol [Normodyne] Med 08/05/20 22:33 Active 20 mg IVPUSH Q4H PRN Levofloxacin/Dextrose 5%-Water [Levaquin in D5W 750 MG/ Med 08/06/20 09:00 Active 150 ML] 750 mg Premix Bag 1 bag IV Q24H Levothyroxine Med 08/06/20 07:30 Active 112 mcg PO ACBREAKFAST Melatonin Med 08/06/20 00:10 Active 3 mg PO BEDTIME PRN Ondansetron [Zofran] Med 08/05/20 22:17 Active 4 mg IVPUSH Q4H PRN Pantoprazole [ProTONIX IV] 40 mg Med 08/06/20 09:00 Active Sodium Chloride 0.9% [Normal Saline] 10 ml IV DAILY Patient's Own Medication [Ptom] Med 08/06/20 09:00 Active 1 each INH DAILY Sodium Chloride 0.9% [Saline Flush] Med 08/05/20 19:49 Active 10 ml FLUSH ASDIRECTED PRN Sodium Chloride 0.9% [Saline Flush] Med 08/05/20 19:49 Active 2.5 ml FLUSH ASDIRECTED PRN atorvaSTATin [Lipitor] Med 08/06/20 09:00 Active 20 mg PO DAILY carvediloL [Coreg] Med 08/05/20 22:35 Active 3.125 mg PO BEDTIME carvediloL [Coreg] Med 08/06/20 09:00 Active 6.25 mg PO QAM Blood Culture x2 Reflex Set [OM.PC] Stat Ot 08/05/20 19:50 Ordered Saline Lock Insert [OM.PC] Stat Oth 08/05/20 19:49 Ordered Sequential Compression Device [OM.PC] Per Unit Routine Oth 08/05/20 22:18 Ordered Medication Orders Albuterol/Ipratropium (Duoneb 3.0-0.5 Mg/3 Ml) 3 ml NEB Q4HRRT [facility] Last Admin: 08/06/20 05:45 Dose: 3 ml Documented by: Admin: 08/06/20 01:14 Dose: Not Given Documented by: Admin: 08/06/20 01:04 Dose: 3 ml Documented by: NANCI Aspirin (Aspirin) 81 mg PO DAILY [facility] Atorvastatin Calcium (Lipitor) 20 mg PO DAILY [facility] Carvedilol (Coreg) 6.25 mg PO QAM [facility] Carvedilol (Coreg) 3.125 mg PO BEDTIME [facility] Last Admin: 08/05/20 23:40 Dose: Not Given Documented by: NANCI Clopidogrel Bisulfate (Plavix) 75 mg PO DAILY [facility] Furosemide (Lasix) 20 mg PO DAILY [facility] Pantoprazole Sodium 40 mg/ (Sodium Chloride) 10 mls @ 300 mls/hr IV DAILY [facility] Levofloxacin/Dextrose 750 mg/ (Premix) 150 mls @ 100 mls/hr IV Q24H [facility] Labetalol HCl (Normodyne) 20 mg IVPUSH Q4H PRN; Protocol PRN Reason: Hypertension Levothyroxine Sodium (Levothyroxine) 112 mcg PO ACBREAKFAST [facility] Last Admin: 08/06/20 06:39 Dose: 112 mcg Documented by: NANCI Lorazepam (Ativan) 1 mg IVPUSH Q8H PRN PRN Reason: Anxiety Melatonin (Melatonin) 3 mg PO BEDTIME PRN PRN Reason: Sleep Last Admin: 08/06/20 00:55 Dose: 3 mg Documented by: NANCI Ondansetron HCl (Zofran) 4 mg IVPUSH Q4H PRN PRN Reason: Nausea/Vomiting Last Admin: 08/06/20 01:11 Dose: 4 mg Documented by: NANCI Oxycodone/Acetaminophen (Percocet 325-5 Mg) 1 tab PO Q4H PRN PRN Reason: Pain (moderate 4-6) Last Admin: 08/06/20 05:15 Dose: 1 tab Documented by: Admin: 08/06/20 01:01 Dose: 1 tab Documented by: NANCI Fluticasone/Vilanterol [Breo Ellipta 200-25 Mcg Inhalation 1 each INH DAILY [facility] Sodium Chloride (Saline Flush) 10 ml FLUSH ASDIRECTED PRN PRN Reason: Keep Vein Open Sodium Chloride (Saline Flush) 2.5 ml FLUSH ASDIRECTED PRN PRN Reason: Keep Vein Open Assessment/Plan Comment:: This 85-year-old female admitted with acute on chronic hypoxic respiratory failure, new pleural effusion with pulmonary nodules and possible CAP. 1. Acute on chronic hypoxic respiratory failure -Was needing increasing doses of oxygen at home especially with ambulation. -CT of chest done in ER which reveals new right-sided pleural effusion with n otable pulmonary nodules along with possible concern for metastatic disease. -Continue DuoNebs -Continue pulmonary toilet -Will attempt to have radiology obtain therapeutic/diagnostic thoracentesis to [place]. If radiologist unable may need to consider transferring patient for urgent thoracentesis due to being symptomatic and worsening pleural effusion after 1 month with concerns of metastatic disease. -Continue oxygen wean as possible to keep sats greater than 90%. 2. Possible CAP -We will continue Levaquin. Though no large suspicion for pneumonia this is likely secondary to new pleural effusion and possible malignant process. -Blood cultures pending. 3. Hyponatremia -Baseline 125 today 120. -Has been skipping Lasix doses at home. -We will place Escalera catheter for strict I's and O's -Fluid restriction 1500 mL -We will start Lasix 40 mg IV twice daily -Recheck BMP this evening. -Could be related to SIADH secondary to malignant process within the lungs. -We will also obtain echo as last echo appears to be since 2018 4. Ambulatory dysfunction/continued deconditioning -Patient continues to be quite deconditioned. Has attempted to go home with home health but it appears this not effective. -I did speak with patient regarding the need for placement within a senior care for skilled rehab for the next few weeks. -She is finally agreeable to this and understands that if she does have cancer and has any hope of chemotherapy she needs to be stronger to be able to tolerate this. -Consult PT -Encouraged her to get up to chair at least 3 times a day. 5. Hypothyroidism -Continue levothyroxine 6. CAD/HTN -Continue home medications of atorvastatin, Plavix, carvedilol. 7. COPD -Oxygen dependent -Continue DuoNebs scheduled along with at home Lata Diskus. 8. Chronic back pain/known T8 compression fracture -Continue oxycodone and Lyrica. VTE prophylaxis: SCDs and ambulation, holding pharmacologic prophylaxis today as she may undergo thoracentesis tomorrow. CODE STATUS: DNR/DNI Dispo: Pending placement, may need transfer to higher level of care for urgent thoracentesis if unable to be provided tomorrow within our facility. Due to her complexity of care needed and likely greater than 2 midnight stay I will make her inpatient. We did have maria elena conversation with Gisella regarding ambulatory dysfunction as well as deconditioning. She was updated on CT findings aware that she potentially has malignant process causing significant issues. She requested I contact Vandana her daughter to update her. She is hoping to have thoracentesis here within our facility as she really does not want to be transferred. We also had very maria elena conversation regardin her ambulatory dysfunction and multiple readmissions in the last month. She is agreeable to seek rehabilitation with a short-term stay at [facility]. Case management updated and they will discuss application with patient. I was able to speak with Vandana, daughter, regarding CT findings and plan for possible thoracentesis within our facility tomorrow. She is aware that if we are unable to this she will need to be transferred. She also appreciates our help on getting lower into rehabilitation to get her stronger so she is able to manage cares at home. She had no further questions and we will keep her posted on diagnostic testing tomorrow.
[2020-08-06] MEDS ORDERED: Aloe Vera/Sodium Chloride Gel 14.1 GM Tube NAS PRN (08:06)
[2020-08-06] MEDS ORDERED: Magnesium Sulfate/Water 4 GM/100 ML BAG IV ONE (08:19)
[2020-08-06] MEDS: guaiFENesin 600 MG Tab.ER PO SCH ×2 (08:49→21:58)
[2020-08-06] MEDS: Carvedilol 6.25 MG Tab PO SCH (08:50)
[2020-08-06] MEDS: atorvaSTATin 20 MG Tab PO SCH (08:50)
[2020-08-06] MEDS: Aspirin 81 MG Tab.Chew PO SCH (08:50)
[2020-08-06] MEDS: Levofloxacin/Dextrose 5%-Water 750 MG in Premix Bag 1 BAG IV SCH (08:51)
[2020-08-06] MEDS: Pantoprazole 40 MG in Sodium Chloride 0.9% 10 ML IV SCH (08:51)
[2020-08-06] MEDS ORDERED: Acetaminophen 325 MG Tab PO PRN (08:58)
[2020-08-06] MEDS ORDERED: Sodium Chloride 0.9% 2.5 ML Syringe FLUSH PRN (08:58)
[2020-08-06] MEDS ORDERED: Clopidogrel 75 MG Tab PO SCH (09:00)
[2020-08-06] MEDS ORDERED: Furosemide 20 MG Tab PO SCH (09:00)
[2020-08-06] MEDS ORDERED: Bisacodyl 10 MG Supp RECTAL PRN (09:02)
[2020-08-06] MEDS: FLUTICASONE INH SCH (09:17)
[2020-08-06] MEDS: VILANTEROL INH SCH (09:17)
[2020-08-06] MEDS: Docusate Sodium 100 MG Cap PO SCH ×2 (09:28→21:57)
[2020-08-06] MEDS: Furosemide 40 MG/4 ML VIAL IVPUSH SCH ×2 (11:57→22:04)
[2020-08-06] MEDS ORDERED: Cyanocobalamin (Vitamin B12) 1,000 MCG/ML SDV SUBCUT ONE (13:39)
[2020-08-06] MEDS: Nystatin Topical Powder 15 GM Bottle TOP SCH ×2 (13:49→23:06)
[2020-08-06] MEDS ORDERED: Morphine 2 MG/ML SYRINGE IVPUSH PRN (14:46)
[2020-08-06] MEDS ORDERED: Ketorolac 15 MG/ML SDV IVPUSH ONE (15:00)
[2020-08-06] MEDS: LORazepam 2 MG/ML SDV IVPUSH PRN (15:58)
[2020-08-06 17:37] LABS: CARBON DIOXIDE,CO2 28.5 mmol/L (21.0-32.0); POTASSIUM,K 4.3 mmol/L (3.5-5.1)
[2020-08-06] MEDS ORDERED: Promethazine 25 MG/ML SDV IM ONE (18:10)
[2020-08-06] MEDS ORDERED: Carvedilol 3.125 MG Tab PO SCH (21:00)
[2020-08-06] MEDS: Carvedilol 3.125 MG Tab PO SCH (21:57)
[2020-08-06] MEDS: Metoclopramide 10 MG/2 ML SDV IVPUSH PRN (21:59)
[2020-08-07] MEDS: LORazepam 2 MG/ML SDV IVPUSH PRN ×2 (00:09→22:33)
[2020-08-07] MEDS: Albuterol/Ipratropium 3.0-0.5 MG/3 ML Neb Soln NEB SCH ×6 (02:27→22:32)
[2020-08-07 05:49] LABS: BLOOD UREA NITROGEN,BUN 19 mg/dL (7.0-18.0); CARBON DIOXIDE,CO2 26.5 mmol/L (21.0-32.0); CHLORIDE,CL 84 mmol/L (98-107); GLUCOSE RANDOM 100 mg/dL (74-106); POTASSIUM,K 3.7 mmol/L (3.5-5.1)
[2020-08-07 05:54] LABS: SODIUM,NA 118 mmol/L (136-145)
[2020-08-07] MEDS ORDERED: Sodium Chloride 0.9% 1,000 ML IV ONE ×2 (06:14→14:57)
[2020-08-07] MEDS: Nystatin Topical Powder 15 GM Bottle TOP SCH ×3 (06:25→22:38)
[2020-08-07] MEDS: Metoclopramide 10 MG/2 ML SDV IVPUSH PRN ×2 (07:01→21:38)
[2020-08-07] MEDS: SYNTHROID 112 MCG PO SCH (07:01)
[2020-08-07] MEDS: Sodium Chloride 1 GM Tab PO SCH ×3 (07:22→21:38)
--- NOTE | 2020-08-07 08:48 | CR ---
INDICATION: Status post thoracentesis. COMPARISON: CT 08/05/2020. TECHNIQUE: Single PA view of the chest. FINDINGS: There is no pneumothorax status post right thoracentesis. Interval decrease in size of right pleural effusion. Patchy bibasilar atelectasis or scarring. - IMPRESSION: No pneumothorax status post right-sided thoracentesis. Dictated by Bhavin Espinoza MD @ 08/07/2020 8:46:18 AM Dictated by: Bhavin Espinoza MD @ 08/07/2020 08:46:27 (Electronically Signed)
--- NOTE | 2020-08-07 08:49 | PCM.PN ---
- General Info Date of Service: 08/07/20 Admission Dx/Problem (Free Text): Admission Diagnosis/Problem Admission Diagnosis/Problem Pneumonia Functional Status: Reports: Pain Controlled, Tolerating Diet, Ambulating - Review of Systems General: Reports: Weakness, Fatigue Pulmonary: Reports: Shortness of Breath (Improved since thoracentesis), Cough. Denies: Sputum, Wheezing Cardiovascular: Reports: Dyspnea on Exertion. Denies: Chest Pain Gastrointestinal: Reports: Constipation. Denies: Abdominal Pain, Nausea, Vomiting Genitourinary: Reports: No Symptoms. Denies: Dysuria, Frequency, Burning Musculoskeletal: Reports: Back Pain (Chronic) Skin: Reports: No Symptoms Neurological: Reports: No Symptoms Psychiatric: Reports: No Symptoms - Patient Data Vitals - Most Recent: Last Vital Signs Temp 97.4 F 08/07/20 03:53 Pulse 96 08/07/20 03:53 Resp 20 08/07/20 03:53 BP 124/58 L 08/07/20 03:53 Pulse Ox 95 08/07/20 03:53 Weight - Most Recent: 72.6 kg I&O - Last 24 Hours: Intake & Output 08/06/20 08/07/20 08/07/20 22:59 06:59 14:59 Intake Total 810 240 500 Output Total 1550 450 Balance -740 -210 500 Lab Results Last 24 Hours: Laboratory Results - last 24 hr 08/06/20 08/06/20 08/07/20 Range/Units 10:15 17:18 05:00 WBC 10.70 (4.0-11.0) K/uL RBC 3.73 L (4.30-5.90) M/uL Hgb 11.9 L (12.0-16.0) g/dL Hct 33.6 L (36.0-46.0) % MCV 90.1 (80.0-98.0) fL MCH 31.9 (27.0-32.0) pg MCHC 35.4 (31.0-37.0) g/dL RDW Std Deviation 44.9 (28.0-62.0) fl RDW Coeff of Lavelle 14 (11.0-15.0) % Plt Count 233 (150-400) K/uL MPV 8.50 (7.40-12.00) fL Neut % (Auto) 77.1 (48.0-80.0) % Lymph % (Auto) 5.0 L (16.0-40.0) % [place] % (Auto) 17.2 H (0.0-15.0) % Eos % (Auto) 0.2 (0.0-7.0) % Baso % (Auto) 0.5 (0.0-1.5) % Neut # (Auto) 8.3 H (1.4-5.7) K/uL Lymph # (Auto) 0.5 L (0.6-2.4) K/uL [place] # (Auto) 1.8 H (0.0-0.8) K/uL Eos # (Auto) 0.0 (0.0-0.7) K/uL Baso # (Auto) 0.1 (0.0-0.1) K/uL Nucleated RBC % 0.0 /100WBC Nucleated RBCs # 0 K/uL INR APTT (18.6-31.3) SEC Sodium 120 L (136-145) mmol/L Potassium 4.3 (3.5-5.1) mmol/L Chloride 84 L (98-107) mmol/L Carbon Dioxide 28.5 (21.0-32.0) mmol/L BUN 16 (7.0-18.0) mg/dL Creatinine 0.9 (0.6-1.0) mg/dL Est Cr Clr Drug Dosing 39.18 mL/min Estimated GFR (MDRD) 59.8 ml/min Glucose 156 H (74-106) mg/dL Calcium 9.4 (8.5-10.1) mg/dL Phosphorus (2.6-4.7) mg/dL Magnesium (1.8-2.4) mg/dL Total Bilirubin (0.2-1.0) mg/dL AST (15-37) IU/L ALT (14-63) IU/L Alkaline Phosphatase (46-116) U/L Total Protein (6.4-8.2) g/dL Albumin (3.4-5.0) g/dL Globulin (2.6-4.0) g/dL Albumin/Globulin Ratio (0.9-1.6) Urine Color YELLOW Urine Appearance CLEAR Urine pH 5.5 (5.0-8.0) Ur Specific [place] >= 1.030 (1.001-1.035) Urine Protein NEGATIVE (NEGATIVE) mg/dL Urine Glucose (UA) 250 H (NEGATIVE) mg/dL Urine Ketones 15 H (NEGATIVE) mg/dL Urine Occult Blood NEGATIVE (NEGATIVE) Urine Nitrite NEGATIVE (NEGATIVE) Urine Bilirubin NEGATIVE (NEGATIVE) Urine Urobilinogen 0.2 (<2.0) EU/dL Ur Leukocyte Esterase NEGATIVE (NEGATIVE) 08/07/20 08/07/20 Range/Units 05:00 05:00 WBC (4.0-11.0) K/uL RBC (4.30-5.90) M/uL Hgb (12.0-16.0) g/dL Hct (36.0-46.0) % MCV (80.0-98.0) fL MCH (27.0-32.0) pg MCHC (31.0-37.0) g/dL RDW Std Deviation (28.0-62.0) fl RDW Coeff of Lavelle (11.0-15.0) % Plt Count (150-400) K/uL MPV (7.40-12.00) fL Neut % (Auto) (48.0-80.0) % Lymph % (Auto) (16.0-40.0) % [place] % (Auto) (0.0-15.0) % Eos % (Auto) (0.0-7.0) % Baso % (Auto) (0.0-1.5) % Neut # (Auto) (1.4-5.7) K/uL Lymph # (Auto) (0.6-2.4) K/uL [place] # (Auto) (0.0-0.8) K/uL Eos # (Auto) (0.0-0.7) K/uL Baso # (Auto) (0.0-0.1) K/uL Nucleated RBC % /100WBC Nucleated RBCs # K/uL INR 1.05 APTT 27.9 (18.6-31.3) SEC Sodium 118 L* (136-145) mmol/L Potassium 3.7 (3.5-5.1) mmol/L Chloride 84 L (98-107) mmol/L Carbon Dioxide 26.5 (21.0-32.0) mmol/L BUN 19 H (7.0-18.0) mg/dL Creatinine 0.8 (0.6-1.0) mg/dL Est Cr Clr Drug Dosing 44.08 mL/min Estimated GFR (MDRD) > 60.0 ml/min Glucose 100 (74-106) mg/dL Calcium 8.6 (8.5-10.1) mg/dL Phosphorus 3.6 (2.6-4.7) mg/dL Magnesium 1.9 (1.8-2.4) mg/dL Total Bilirubin 0.7 (0.2-1.0) mg/dL AST 30 (15-37) IU/L ALT 44 (14-63) IU/L Alkaline Phosphatase 91 (46-116) U/L Total Protein 6.0 L (6.4-8.2) g/dL Albumin 3.0 L (3.4-5.0) g/dL Globulin 3.0 (2.6-4.0) g/dL Albumin/Globulin Ratio 1.0 (0.9-1.6) Urine Color Urine Appearance Urine pH (5.0-8.0) Ur Specific [place] (1.001-1.035) Urine Protein (NEGATIVE) mg/dL Urine Glucose (UA) (NEGATIVE) mg/dL Urine Ketones (NEGATIVE) mg/dL Urine Occult Blood (NEGATIVE) Urine Nitrite (NEGATIVE) Urine Bilirubin (NEGATIVE) Urine Urobilinogen (<2.0) EU/dL Ur Leukocyte Esterase (NEGATIVE) Gerardo Results Last 24 Hours: Microbiology 08/05/20 19:50 Aerobic Blood Culture - Preliminary Blood - Venous - Lab Draw NO GROWTH AFTER 1 DAY Anaerobic Blood Culture - Preliminary NO GROWTH AFTER 1 DAY 08/05/20 20:22 Aerobic Blood Culture - Preliminary Blood - Venous NO GROWTH AFTER 1 DAY Anaerobic Blood Culture - Preliminary NO GROWTH AFTER 1 DAY Med Orders - Current: Current Medications Acetaminophen (Tylenol) 650 mg PO Q4H PRN PRN Reason: Pain (Mild 1-3)/fever Albuterol/Ipratropium (Duoneb 3.0-0.5 Mg/3 Ml) 3 ml NEB Q4HRRT [facility] Last Admin: 08/07/20 08:11 Dose: Not Given Documented by: Aspirin (Aspirin) 81 mg PO DAILY [facility] Last Admin: 08/06/20 08:50 Dose: 81 mg Documented by: Atorvastatin Calcium (Lipitor) 20 mg PO DAILY [facility] Last Admin: 08/06/20 08:50 Dose: 20 mg Documented by: Bisacodyl (Dulcolax) 10 mg RECTAL DAILY PRN PRN Reason: constipation, if no BM 3 days Last Admin: 08/06/20 16:04 Dose: 10 mg Documented by: Carvedilol (Coreg) 6.25 mg PO QAM [facility] Last Admin: 08/06/20 08:50 Dose: 6.25 mg Documented by: Carvedilol (Coreg) 3.125 mg PO BEDTIME [facility] Last Admin: 08/06/20 21:57 Dose: 3.125 mg Documented by: Docusate Sodium (Colace) 100 mg PO BID [facility] Last Admin: 08/06/20 21:57 Dose: 100 mg Documented by: Guaifenesin (Mucinex) 600 mg PO BID [facility] Last Admin: 08/06/20 21:58 Dose: 600 mg Documented by: Pantoprazole Sodium 40 mg/ (Sodium Chloride) 10 mls @ 300 mls/hr IV DAILY [facility] Last Admin: 08/06/20 08:51 Dose: 300 mls/hr Documented by: Levofloxacin/Dextrose 750 mg/ (Premix) 150 mls @ 100 mls/hr IV Q24H [facility] Last Admin: 08/06/20 08:51 Dose: 100 mls/hr Documented by: Labetalol HCl (Normodyne) 20 mg IVPUSH Q4H PRN; Protocol PRN Reason: Hypertension Lorazepam (Ativan) 0.25 mg IVPUSH Q8H PRN PRN Reason: Anxiety Last Admin: 08/07/20 00:09 Dose: 0.25 mg Documented by: Melatonin (Melatonin) 3 mg PO BEDTIME PRN PRN Reason: Sleep Last Admin: 08/06/20 00:55 Dose: 3 mg Documented by: Metoclopramide HCl (Reglan) 10 mg IVPUSH Q6H PRN PRN Reason: Nausea Last Admin: 08/07/20 07:01 Dose: 10 mg Documented by: Nystatin (Nystop) 0 gm TOP TID [facility] Last Admin: 08/07/20 06:25 Dose: 1 applic Documented by: Oxycodone/Acetaminophen (Percocet 325-5 Mg) 1 tab PO Q4H PRN PRN Reason: Pain (moderate 4-6) Last Admin: 08/06/20 23:11 Dose: 1 tab Documented by: Fluticasone/Vilanterol [Breo Ellipta 200-25 Mcg Inhalation 1 each INH DAILY [facility] Last Admin: 08/06/20 09:17 Dose: Not Given Documented by: Synthroid 112 Mcg (Tab) 1 each PO ACBREAKFAST [facility] Last Admin: 08/07/20 07:01 Dose: 1 each Documented by: Sodium Chloride (Tobyhanna Saline Nasal Gel) 0 gm ARTURO ASDIRECTED PRN PRN Reason: dry nares Last Admin: 08/06/20 08:51 Dose: 1 applic Documented by: Sodium Chloride (Saline Flush) 2.5 ml FLUSH ASDIRECTED PRN PRN Reason: Keep Vein Open Sodium Chloride (Sodium Chloride) 1 gm PO BID [facility] Last Admin: 08/07/20 07:22 Dose: 1 gm Documented by: Discontinued Medications Albuterol/Ipratropium (Duoneb 3.0-0.5 Mg/3 Ml) 3 ml NEB ONETIME ONE Stop: 08/05/20 19:50 Last Admin: 08/05/20 20:01 Dose: 3 ml Documented by: Albuterol/Ipratropium (Duoneb 3.0-0.5 Mg/3 Ml) 3 ml NEB ONETIME ONE Stop: 08/05/20 21:37 Last Admin: 08/05/20 21:40 Dose: 3 ml Documented by: Albuterol/Ipratropium (Duoneb 3.0-0.5 Mg/3 Ml) Confirm Administered Dose 3 ml .ROUTE .STK-MED ONE Stop: 08/05/20 21:37 Last Admin: 08/05/20 21:44 Dose: Not Given Documented by: Albuterol/Ipratropium (Duoneb 3.0-0.5 Mg/3 Ml) 3 ml NEB ONETIME ONE Stop: 08/05/20 21:47 Last Admin: 08/05/20 21:47 Dose: 3 ml Documented by: Carvedilol (Coreg) 3.125 mg PO BEDTIME [facility] Clopidogrel Bisulfate (Plavix) 75 mg PO DAILY [facility] Last Admin: 08/06/20 08:50 Dose: 75 mg Documented by: Furosemide (Lasix) 20 mg PO DAILY [facility] Last Admin: 08/06/20 08:50 Dose: 20 mg Documented by: Furosemide (Lasix) 40 mg IVPUSH BID [facility] Last Admin: 08/06/20 22:04 Dose: 40 mg Documented by: Hydromorphone HCl (Dilaudid) 0.5 mg IVPUSH ONETIME ONE Stop: 08/05/20 21:04 Last Admin: 08/05/20 21:35 Dose: 0.5 mg Documented by: Levofloxacin/Dextrose 750 mg/ (Premix) 150 mls @ 100 mls/hr IV ONETIME ONE Stop: 08/05/20 21:53 Last Admin: 08/05/20 20:38 Dose: 100 mls/hr Documented by: Vancomycin HCl 1,500 mg/ (Sodium Chloride) 100 mls @ 100 mls/hr IV ONETIME ONE Stop: 08/05/20 21:24 Last Admin: 08/05/20 22:09 Dose: Not Given Documented by: Sodium Chloride (Normal Saline) 1,000 mls @ 999 mls/hr IV .Bolus ONE Stop: 08/05/20 21:31 Last Admin: 08/05/20 20:38 Dose: 999 mls/hr Documented by: Vancomycin HCl 1.5 gm/ Premix 300 mls @ 200 mls/hr IV ONETIME ONE Stop: 08/05/20 23:36 Last Admin: 08/05/20 23:31 Dose: 200 mls/hr Documented by: Magnesium Sulfate (Magnesium Sulfate In Water 4 Gm/100 Ml) 4 gm in 100 mls @ 33.333 mls/hr IV ONETIME ONE Stop: 08/06/20 11:18 Last Admin: 08/06/20 08:52 Dose: 33.333 mls/hr Documented by: Sodium Chloride (Normal Saline) 1,000 mls @ 500 mls/hr IV .BOLUS ONE Stop: 08/07/20 08:13 Last Admin: 08/07/20 06:21 Dose: 500 mls/hr Documented by: Ketorolac Tromethamine (Toradol) 15 mg IVPUSH ONETIME ONE Stop: 08/06/20 15:01 Last Admin: 08/06/20 15:42 Dose: 15 mg Documented by: Levothyroxine Sodium (Levothyroxine) 112 mcg PO ACBREAKFAST [facility] Last Admin: 08/06/20 06:39 Dose: 112 mcg Documented by: Lorazepam (Ativan) 1 mg IVPUSH Q8H PRN PRN Reason: Anxiety Methylprednisolone Sodium Succinate (Solu-Medrol) 125 mg IVPUSH ONETIME ONE Stop: 08/05/20 19:50 Last Admin: 08/05/20 20:01 Dose: 125 mg Documented by: Morphine Sulfate (Morphine) 1 mg IVPUSH Q4H PRN PRN Reason: Pain Ondansetron HCl (Zofran) 4 mg IVPUSH ONETIME ONE Stop: 08/05/20 19:50 Last Admin: 08/05/20 20:01 Dose: 4 mg Documented by: Ondansetron HCl (Zofran) 4 mg IVPUSH Q4H PRN PRN Reason: Nausea/Vomiting Last Admin: 08/06/20 18:06 Dose: 4 mg Documented by: Cyanocobalamin ( Vitamin B12) 1,000 Mcg/Ml Sdv 1 each SUBCUT ONETIME ONE Stop: 08/06/20 13:40 Last Admin: 08/06/20 13:49 Dose: 1 each Documented by: Promethazine HCl (Phenergan) 25 mg IM ONETIME ONE Stop: 08/06/20 18:11 Last Admin: 08/06/20 18:23 Dose: 25 mg Documented by: Sodium Chloride (Saline Flush) 10 ml FLUSH ASDIRECTED PRN PRN Reason: Keep Vein Open Sodium Chloride (Saline Flush) 2.5 ml FLUSH ASDIRECTED PRN PRN Reason: Keep Vein Open - Exam Quality Assessment: Supplemental Oxygen (2 L) General: Alert, Oriented, Cooperative Lungs: Clear to Auscultation, Normal Respiratory Effort Cardiovascular: Regular Rate, Regular Rhythm GI/Abdominal Exam: Normal Bowel Sounds, Soft, Non-Tender, No Distention Back Exam: Normal Inspection, Full Range of Motion Extremities: Normal Inspection, Normal Range of Motion, Non-Tender, No Pedal Edema Neurological: No New Focal Deficit Psy/Mental Status: Alert, Normal Affect, Normal Mood - Patient Data Lab Results Last 24 hrs: Laboratory Results - last 24 hr 08/06/20 08/06/20 08/07/20 Range/Units 10:15 17:18 05:00 WBC 10.70 (4.0-11.0) K/uL RBC 3.73 L (4.30-5.90) M/uL Hgb 11.9 L (12.0-16.0) g/dL Hct 33.6 L (36.0-46.0) % MCV 90.1 (80.0-98.0) fL MCH 31.9 (27.0-32.0) pg MCHC 35.4 (31.0-37.0) g/dL RDW Std Deviation 44.9 (28.0-62.0) fl RDW Coeff of [place] 14 (11.0-15.0) % Plt Count 233 (150-400) K/uL MPV 8.50 (7.40-12.00) fL Neut % (Auto) 77.1 (48.0-80.0) % Lymph % (Auto) 5.0 L (16.0-40.0) % [place] % (Auto) 17.2 H (0.0-15.0) % Eos % (Auto) 0.2 (0.0-7.0) % Baso % (Auto) 0.5 (0.0-1.5) % Neut # (Auto) 8.3 H (1.4-5.7) K/uL Lymph # (Auto) 0.5 L (0.6-2.4) K/uL [place] # (Auto) 1.8 H (0.0-0.8) K/uL Eos # (Auto) 0.0 (0.0-0.7) K/uL Baso # (Auto) 0.1 (0.0-0.1) K/uL Nucleated RBC % 0.0 /100WBC Nucleated RBCs # 0 K/uL INR APTT (18.6-31.3) SEC Sodium 120 L (136-145) mmol/L Potassium 4.3 (3.5-5.1) mmol/L Chloride 84 L (98-107) mmol/L Carbon Dioxide 28.5 (21.0-32.0) mmol/L BUN 16 (7.0-18.0) mg/dL Creatinine 0.9 (0.6-1.0) mg/dL Est Cr Clr Drug Dosing 39.18 mL/min Estimated GFR (MDRD) 59.8 ml/min Glucose 156 H (74-106) mg/dL Calcium 9.4 (8.5-10.1) mg/dL Phosphorus (2.6-4.7) mg/dL Magnesium (1.8-2.4) mg/dL Total Bilirubin (0.2-1.0) mg/dL AST (15-37) IU/L ALT (14-63) IU/L Alkaline Phosphatase (46-116) U/L Total Protein (6.4-8.2) g/dL Albumin (3.4-5.0) g/dL Globulin (2.6-4.0) g/dL Albumin/Globulin Ratio (0.9-1.6) Urine Color YELLOW Urine Appearance CLEAR Urine pH 5.5 (5.0-8.0) Ur Specific [place] >= 1.030 (1.001-1.035) Urine Protein NEGATIVE (NEGATIVE) mg/dL Urine Glucose (UA) 250 H (NEGATIVE) mg/dL Urine Ketones 15 H (NEGATIVE) mg/dL Urine Occult Blood NEGATIVE (NEGATIVE) Urine Nitrite NEGATIVE (NEGATIVE) Urine Bilirubin NEGATIVE (NEGATIVE) Urine Urobilinogen 0.2 (<2.0) EU/dL Ur Leukocyte Esterase NEGATIVE (NEGATIVE) 08/07/20 08/07/20 Range/Units 05:00 05:00 WBC (4.0-11.0) K/uL RBC (4.30-5.90) M/uL Hgb (12.0-16.0) g/dL Hct (36.0-46.0) % MCV (80.0-98.0) fL MCH (27.0-32.0) pg MCHC (31.0-37.0) g/dL RDW Std Deviation (28.0-62.0) fl RDW Coeff of [place] (11.0-15.0) % Plt Count (150-400) K/uL MPV (7.40-12.00) fL Neut % (Auto) (48.0-80.0) % Lymph % (Auto) (16.0-40.0) % [place] % (Auto) (0.0-15.0) % Eos % (Auto) (0.0-7.0) % Baso % (Auto) (0.0-1.5) % Neut # (Auto) (1.4-5.7) K/uL Lymph # (Auto) (0.6-2.4) K/uL [place] # (Auto) (0.0-0.8) K/uL Eos # (Auto) (0.0-0.7) K/uL Baso # (Auto) (0.0-0.1) K/uL Nucleated RBC % /100WBC Nucleated RBCs # K/uL INR 1.05 APTT 27.9 (18.6-31.3) SEC Sodium 118 L* (136-145) mmol/L Potassium 3.7 (3.5-5.1) mmol/L Chloride 84 L (98-107) mmol/L Carbon Dioxide 26.5 (21.0-32.0) mmol/L BUN 19 H (7.0-18.0) mg/dL Creatinine 0.8 (0.6-1.0) mg/dL Est Cr Clr Drug Dosing 44.08 mL/min Estimated GFR (MDRD) > 60.0 ml/min Glucose 100 (74-106) mg/dL Calcium 8.6 (8.5-10.1) mg/dL Phosphorus 3.6 (2.6-4.7) mg/dL Magnesium 1.9 (1.8-2.4) mg/dL Total Bilirubin 0.7 (0.2-1.0) mg/dL AST 30 (15-37) IU/L ALT 44 (14-63) IU/L Alkaline Phosphatase 91 (46-116) U/L Total Protein 6.0 L (6.4-8.2) g/dL Albumin 3.0 L (3.4-5.0) g/dL Globulin 3.0 (2.6-4.0) g/dL Albumin/Globulin Ratio 1.0 (0.9-1.6) Urine Color Urine Appearance Urine pH (5.0-8.0) Ur Specific [place] (1.001-1.035) Urine Protein (NEGATIVE) mg/dL Urine Glucose (UA) (NEGATIVE) mg/dL Urine Ketones (NEGATIVE) mg/dL Urine Occult Blood (NEGATIVE) Urine Nitrite (NEGATIVE) Urine Bilirubin (NEGATIVE) Urine Urobilinogen (<2.0) EU/dL Ur Leukocyte Esterase (NEGATIVE) Result Diagrams: 08/07/20 05:00 08/07/20 05:00 Gerardo Results Last 24 hrs: Microbiology 08/05/20 19:50 Aerobic Blood Culture - Preliminary Blood - Venous - Lab Draw NO GROWTH AFTER 1 DAY Anaerobic Blood Culture - Preliminary NO GROWTH AFTER 1 DAY 08/05/20 20:22 Aerobic Blood Culture - Preliminary Blood - Venous NO GROWTH AFTER 1 DAY Anaerobic Blood Culture - Preliminary NO GROWTH AFTER 1 DAY Sepsis Event Note - Evaluation Sepsis Screening Result: No Definite Risk - Focused Exam Vital Signs: Vital Signs Temp Pulse Pulse Resp BP BP Pulse Ox 08/07/20 03:53 97.4 F 96 20 124/58 L 95 08/07/20 00:00 97.8 F 85 20 124/58 L 96 08/06/20 21:57 83 158/81 H - Problem List & Annotations (1) Pleural effusion SNOMED Code(s): 32091408 Code(s): J90 - PLEURAL EFFUSION, NOT ELSEWHERE CLASSIFIED Status: Acute Current Visit: Yes (2) Pneumonia SNOMED Code(s): 121610289 Code(s): J18.9 - PNEUMONIA, UNSPECIFIED ORGANISM Status: Chronic Current Visit: No Qualifiers: Pneumonia type: due to unspecified organism Laterality: bilateral Lung location: lower lobe of lung Qualified Code(s): J18.9 - Pneumonia, unspecified organism (3) Pulmonary nodules SNOMED Code(s): 080064247 Code(s): R91.8 - OTHER NONSPECIFIC ABNORMAL FINDING OF LUNG FIELD Status: Acute Current Visit: Yes (4) Ambulatory dysfunction SNOMED Code(s): 762029146 Code(s): R26.2 - DIFFICULTY IN WALKING, NOT ELSEWHERE CLASSIFIED Status: Acute Current Visit: No (5) Chronic respiratory failure with hypoxia SNOMED Code(s): 268601884 Code(s): J96.11 - CHRONIC RESPIRATORY FAILURE WITH HYPOXIA Status: Chronic Current Visit: Yes (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 Code(s): Z99.81 - DEPENDENCE ON SUPPLEMENTAL OXYGEN Status: Chronic Curre nt Visit: Yes (7) Back pain SNOMED Code(s): 274515547 Code(s): M54.9 - DORSALGIA, UNSPECIFIED Status: Chronic Current Visit: No Qualifiers: Back pain location: thoracic back pain Chronicity: acute Back pain laterality: unspecified Qualified Code(s): M54.6 - Pain in thoracic spine (8) Compression fracture of T8 vertebra SNOMED Code(s): 099941932, 283034118 Code(s): S22.060A - WEDGE COMPRESSION FRACTURE OF T7-T8 VERTEBRA, INIT Status: Chronic Current Visit: No Qualifiers: Encounter type: subsequent encounter Fracture healing: with delayed healing Qualified Code(s): S22.060G - Wedge compression fracture of T7-T8 vertebra, subsequent encounter for fracture with delayed healing (9) Hyponatremia SNOMED Code(s): 73632536 Code(s): E87.1 - HYPO-OSMOLALITY AND HYPONATREMIA Status: Chronic Current Visit: No (10) Hypothyroidism SNOMED Code(s): 34653923 Code(s): E03.9 - HYPOTHYROIDISM, UNSPECIFIED Status: Chronic Current Visit: No (11) COPD (chronic obstructive pulmonary disease) SNOMED Code(s): 30013443 Code(s): J44.9 - CHRONIC OBSTRUCTIVE PULMONARY DISEASE, UNSPECIFIED Status: Chronic Current Visit: No (12) Metastatic adenocarcinoma SNOMED Code(s): 927721413, 816087617, 158638060 Code(s): C79.9 - SECONDARY MALIGNANT NEOPLASM OF UNSPECIFIED SITE Status: Suspected Current Visit: Yes - Problem List Review Problem List Initiated/Reviewed/Updated: Yes - My Orders Last 24 Hours: My Active Orders 08/06/20 08:06 Aloe Vera/Sodium Chloride [Tobyhanna Saline Nasal Gel] See Dose Instructions ARTURO ASDIRECTED PRN 08/06/20 08:56 Patient Status [ADT] Routine 08/06/20 08:57 Oxygen Therapy [RC] PRN Resuscitation Status Routine 08/06/20 08:58 Height and Weight [RC] DAILY Acetaminophen [TylenoL] 650 mg PO Q4H PRN Sodium Chloride 0.9% [Saline Flush] 2.5 ml FLUSH ASDIRECTED PRN Saline Lock Insert [OM.PC] Routine 08/06/20 08:59 PT Evaluation and Treatment [CONS] Routine 08/06/20 09:00 Intake and Output Strict [RC] Q12H Docusate Sodium [Colace] 100 mg PO BID guaiFENesin [Mucinex] 600 mg PO BID 08/06/20 09:02 Enema [RC] DAILY bisacodyL [Dulcolax] 10 mg RECTAL DAILY PRN 08/06/20 09:36 RT Acapella [RESPCARE] Routine 08/06/20 10:54 Urinary Catheter Assessment [RC] ASDIRECTED 08/06/20 11:00 Insert Urinary Catheter [OM.PC] Q24H 08/06/20 12:02 Echo Comp wo Cont [US] Urgent 08/06/20 13:01 Pulse Oximetry Continuous Monitoring [OM.PC] Routine 08/06/20 14:00 Nystatin [Nystop] See Dose Instructions TOP TID 08/06/20 14:48 LORazepam [Ativan] 0.25 mg IVPUSH Q8H PRN 08/07/20 08:00 Thoracentesis W/ US Guide [US] Routine 08/07/20 08:01 LACTATE DEHYDROGENASE,LDH [CHEM] Routine 08/07/20 08:13 AMYLASE,BODY FLUID [BF] Routine CELL COUNT,BODY FLUID [BF] Routine CHOLESTEROL,BODY FLUID [BF] Routine CULTURE BODY FLUID + SMEAR [RM] Routine GLUCOSE,BODY FLUID [BF] Routine LACTATE DEHYDROGENASE,BODY FL [BF] Routine PH,PLEURAL FL [BF] Routine PROTEIN,BODY FLUID [BF] Routine TRIGLYCERIDES,BODY FLUID [BF] Routine 08/08/20 05:11 CBC WITH AUTO DIFF [HEME] AM COMPREHENSIVE METABOLIC PN,CMP [CHEM] AM MAGNESIUM [CHEM] AM PHOSPHORUS [CHEM] AM 08/09/20 05:11 CBC WITH AUTO DIFF [HEME] AM COMPREHENSIVE METABOLIC PN,CMP [CHEM] AM MAGNESIUM [CHEM] AM PHOSPHORUS [CHEM] AM 08/10/20 05:11 CBC WITH AUTO DIFF [HEME] AM COMPREHENSIVE METABOLIC PN,CMP [CHEM] AM MAGNESIUM [CHEM] AM PHOSPHORUS [CHEM] AM 08/11/20 05:11 CBC WITH AUTO DIFF [HEME] AM COMPREHENSIVE METABOLIC PN,CMP [CHEM] AM MAGNESIUM [CHEM] AM PHOSPHORUS [CHEM] AM - Plan Plan:: This 85-year-old female admitted with acute on chronic hypoxic respiratory failure, new pleural effusion with pulmonary nodules and possible CAP. 1. Acute on chronic hypoxic respiratory failure -Thoracentesis performed today, appears exudative. Cytology pending. 500 ml removed. Feeling improved after procedure. Continue to monitor. -Continue DuoNebs -Continue pulmonary toilet -Continue oxygen wean as possible to keep sats greater than 90%. - No desaturation with activity. 2. Possible CAP -We will continue Levaquin. - Exudative pleural effusion, continue abx until cultures of fluid return. -Blood cultures pending. 3. Hyponatremia -Na 118 -Escalera catheter for strict I's and O's -Fluid restriction 1500 mL -Hold Lasix today -Sodium 1 gm PO BID -Recheck BMP this evening. -Could be related to SIADH secondary to malignant process within the lungs. -We will also obtain echo as last echo appears to be since 2018 4. Ambulatory dysfunction/continued deconditioning -Patient continues to be quite deconditioned. Has attempted to go home with home health but it appears this not effective. - Agrees with senior care placement -Consult PT -Encouraged her to get up to chair at least 3 times a day. 5. Hypothyroidism -Continue levothyroxine 6. CAD/HTN -Continue home medications of atorvastatin, Plavix, carvedilol. - Plavix held today for procedure 7. COPD -Oxygen dependent -Continue DuoNebs scheduled along with at home Breo 8. Chronic back pain/known T8 compression fracture -Continue oxycodone and Lyrica. VTE prophylaxis: SCDs and ambulation, holding pharmacologic prophylaxis today CODE STATUS: DNR/DNI Dispo: 2-3 days pending improvement and placement
--- NOTE | 2020-08-07 08:52 | US ---
INDICATION: Right pleural effusion. COMPARISON: CT 08/05/2020. PROCEDURE: The patient was counseled on the risks, benefits and alternatives to the procedure. Both verbal and written informed consent were obtained. The patient was positioned seated slightly flexed at the waist on the ultrasound table and initial wire mill rover imaging was performed. An appropriate site for needle entry was marked on the patient`s right back. A timeout was performed according to protocol. The site was prepped and draped in the usual fashion. 1% lidocaine was administered for local anesthesia. A 5-Fr One-Step valved thoracentesis needle/catheter was advanced into the right pleural space, with the subsequent return of serosanguineous fluid. The initial 60 mL of fluid was collected and sent to the laboratory for analysis. A total of 500 mL of fluid was removed. The catheter was removed and hemostasis achieved at the skin puncture site. The patient tolerated the procedure well and there were no immediate complications. IMPRESSION: Successful ultrasound-guided diagnostic and therapeutic thoracentesis. Dictated by Bhavin Espinoza MD @ Aug 07 2020 8:46AM Signed by Dr. Bhavin Espinoza @ Aug 07 2020 8:51AM
[2020-08-07] MEDS: FLUTICASONE INH SCH (09:07)
[2020-08-07] MEDS: VILANTEROL INH SCH (09:07)
[2020-08-07] MEDS: atorvaSTATin 20 MG Tab PO SCH (09:52)
[2020-08-07] MEDS: Docusate Sodium 100 MG Cap PO SCH ×2 (09:52→20:33)
[2020-08-07] MEDS: guaiFENesin 600 MG Tab.ER PO SCH ×2 (09:52→20:33)
[2020-08-07] MEDS: Aspirin 81 MG Tab.Chew PO SCH (09:52)
[2020-08-07] MEDS: Carvedilol 6.25 MG Tab PO SCH (09:53)
[2020-08-07] MEDS: Pantoprazole 40 MG in Sodium Chloride 0.9% 10 ML IV SCH (09:59)
[2020-08-07] MEDS: Levofloxacin/Dextrose 5%-Water 750 MG in Premix Bag 1 BAG IV SCH (10:09)
[2020-08-07] MEDS: Acetaminophen/oxyCODONE 325-5 MG Tab PO PRN ×3 (10:30→19:03)
[2020-08-07] MEDS: Carvedilol 3.125 MG Tab PO SCH (20:32)
[2020-08-07] MEDS ORDERED: Magnesium Oxide 400 MG Tab PO ONE (21:39)
[2020-08-07] MEDS: Melatonin 3 MG Tab PO PRN (22:34)
[2020-08-08] MEDS: Albuterol/Ipratropium 3.0-0.5 MG/3 ML Neb Soln NEB SCH ×6 (02:25→21:05)
[2020-08-08 06:21] LABS: BLOOD UREA NITROGEN,BUN 18 mg/dL (7.0-18.0); CARBON DIOXIDE,CO2 26.7 mmol/L (21.0-32.0); CHLORIDE,CL 88 mmol/L (98-107); GLUCOSE RANDOM 88 mg/dL (74-106); POTASSIUM,K 3.4 mmol/L (3.5-5.1); SODIUM,NA 121 mmol/L (136-145)
[2020-08-08] MEDS ORDERED: Magnesium Sulfate/Water 4 GM/100 ML BAG IV ONE (08:03)
[2020-08-08] MEDS ORDERED: Potassium Chloride 20 MEQ Tab.ER PO ONE (08:04)
--- NOTE | 2020-08-08 08:04 | PCM.PN ---
- General Info Date of Service: 08/08/20 Admission Dx/Problem (Free Text): Admission Diagnosis/Problem Admission Diagnosis/Problem Pneumonia Subjective Update: Tawnya feels she is doing a lot better today continues to feel constipated. Having only very small bowel movement. She has had two enemas without significant results. Denies any chest pain. Shortness of breath has significantly improved since thoracentesis yesterday. Mild congested cough. Functional Status: Reports: Pain Controlled, Tolerating Diet, Ambulating - Review of Systems General: Reports: Fatigue (Generalized), Malaise. Denies: Weakness HEENT: Reports: No Symptoms. Denies: Sore Throat, Visual Changes Pulmonary: Reports: Cough, Sputum. Denies: Shortness of Breath Cardiovascular: Reports: No Symptoms. Denies: Chest Pain Gastrointestinal: Reports: Constipation, Nausea. Denies: Abdominal Pain, Vomiting Genitourinary: Reports: No Symptoms. Denies: Dysuria, Frequency, Burning Skin: Reports: No Symptoms Neurological: Reports: No Symptoms Psychiatric: Reports: No Symptoms - Patient Data Vitals - Most Recent: Last Vital Signs Temp 97.0 F 08/08/20 05:00 Pulse 89 08/08/20 05:00 Resp 20 08/08/20 05:00 BP 169/76 H 08/08/20 05:00 Pulse Ox 96 08/08/20 05:00 Weight - Most Recent: 71.985 kg I&O - Last 24 Hours: Intake & Output 08/07/20 08/08/20 08/08/20 22:59 06:59 14:59 Intake Total 1064 300 Output Total 600 600 Balance 464 -300 Lab Results Last 24 Hours: Laboratory Results - last 24 hr 08/07/20 08/07/20 08/07/20 Range/Units 08:13 08:47 12:53 WBC (4.0-11.0) K/uL RBC (4.30-5.90) M/uL Hgb (12.0-16.0) g/dL Hct (36.0-46.0) % MCV (80.0-98.0) fL MCH (27.0-32.0) pg MCHC (31.0-37.0) g/dL RDW Std Deviation (28.0-62.0) fl RDW Coeff of Lavelle (11.0-15.0) % Plt Count (150-400) K/uL MPV (7.40-12.00) fL Neut % (Auto) (48.0-80.0) % Lymph % (Auto) (16.0-40.0) % [place] % (Auto) (0.0-15.0) % Eos % (Auto) (0.0-7.0) % Baso % (Auto) (0.0-1.5) % Neut # (Auto) (1.4-5.7) K/uL Lymph # (Auto) (0.6-2.4) K/uL [place] # (Auto) (0.0-0.8) K/uL Eos # (Auto) (0.0-0.7) K/uL Baso # (Auto) (0.0-0.1) K/uL Nucleated RBC % /100WBC Nucleated RBCs # K/uL Sodium 120 L (136-145) mmol/L Potassium (3.5-5.1) mmol/L Chloride (98-107) mmol/L Carbon Dioxide (21.0-32.0) mmol/L BUN (7.0-18.0) mg/dL Creatinine (0.6-1.0) mg/dL Est Cr Clr Drug Dosing mL/min Estimated GFR (MDRD) ml/min Glucose (74-106) mg/dL Calcium (8.5-10.1) mg/dL Phosphorus (2.6-4.7) mg/dL Magnesium (1.8-2.4) mg/dL Total Bilirubin (0.2-1.0) mg/dL AST (15-37) IU/L ALT (14-63) IU/L Alkaline Phosphatase (46-116) U/L Lactate Dehydrogenase 370 H (81-234) U/L Total Protein (6.4-8.2) g/dL Albumin (3.4-5.0) g/dL Globulin (2.6-4.0) g/dL Albumin/Globulin Ratio (0.9-1.6) Fluid Type PL Fluid Color RED Fluid Appearance CLOUDY Fluid WBC 2040 /uL [place]uid RBC 26903 /uL Fluid Mononuclear Cell 97 % Fl Polymorphonucl Cell 3 % Fluid Glucose 98 mg/dL Fluid Total Protein 3.7 g/dL Fluid LDH 309 U/L Fluid Amylase 51 U/L Fluid Cholesterol 53.0 g/dL Fluid Triglycerides < 15 mg/dL Pleural pH 8.0 08/07/20 08/08/20 08/08/20 Range/Units 22:55 05:00 05:00 WBC 7.50 (4.0-11.0) K/uL RBC 3.51 L (4.30-5.90) M/uL Hgb 11.3 L (12.0-16.0) g/dL Hct 32.0 L (36.0-46.0) % MCV 91.2 (80.0-98.0) fL MCH 32.2 H (27.0-32.0) pg MCHC 35.3 (31.0-37.0) g/dL RDW Std Deviation 45.3 (28.0-62.0) fl RDW Coeff of Lavelle 14 (11.0-15.0) % Plt Count 210 (150-400) K/uL MPV 8.30 (7.40-12.00) fL Neut % (Auto) 74.0 (48.0-80.0) % Lymph % (Auto) 6.1 L (16.0-40.0) % [place] % (Auto) 17.3 H (0.0-15.0) % Eos % (Auto) 0.7 (0.0-7.0) % Baso % (Auto) 1.9 H (0.0-1.5) % Neut # (Auto) 5.6 (1.4-5.7) K/uL Lymph # (Auto) 0.5 L (0.6-2.4) K/uL [place] # (Auto) 1.3 H (0.0-0.8) K/uL Eos # (Auto) 0.1 (0.0-0.7) K/uL Baso # (Auto) 0.1 (0.0-0.1) K/uL Nucleated RBC % 0.0 /100WBC Nucleated RBCs # 0 K/uL Sodium 120 L 121 L (136-145) mmol/L Potassium 3.4 L (3.5-5.1) mmol/L Chloride 88 L (98-107) mmol/L Carbon Dioxide 26.7 (21.0-32.0) mmol/L BUN 18 (7.0-18.0) mg/dL Creatinine 0.7 (0.6-1.0) mg/dL Est Cr Clr Drug Dosing 50.37 mL/min Estimated GFR (MDRD) > 60.0 ml/min Glucose 88 (74-106) mg/dL Calcium 7.7 L (8.5-10.1) mg/dL Phosphorus 2.7 (2.6-4.7) mg/dL Magnesium 1.6 L (1.8-2.4) mg/dL Total Bilirubin 0.8 (0.2-1.0) mg/dL AST 28 (15-37) IU/L ALT 41 (14-63) IU/L Alkaline Phosphatase 81 (46-116) U/L Lactate Dehydrogenase (81-234) U/L Total Protein 5.4 L (6.4-8.2) g/dL Albumin 2.6 L (3.4-5.0) g/dL Globulin 2.8 (2.6-4.0) g/dL Albumin/Globulin Ratio 0.9 (0.9-1.6) Fluid Type Fluid Color Fluid Appearance Fluid WBC /uL Fluid RBC /uL Fluid Mononuclear Cell % Fl Polymorphonucl Cell % Fluid Glucose mg/dL Fluid Total Protein g/dL Fluid LDH U/L Fluid Amylase U/L Fluid Cholesterol g/dL Fluid Triglycerides mg/dL Pleural pH Gerardo Results Last 24 Hours: Microbiology 08/05/20 19:50 Aerobic Blood Culture - Preliminary Blood - Venous - Lab Draw NO GROWTH AFTER 2 DAYS Anaerobic Blood Culture - Preliminary NO GROWTH AFTER 2 DAYS 08/05/20 20:22 Aerobic Blood Culture - Preliminary Blood - Venous NO GROWTH AFTER 2 DAYS Anaerobic Blood Culture - Preliminary NO GROWTH AFTER 2 DAYS 08/07/20 08:13 Gram Stain - Final Pleural Fluid Med Orders - Current: Current Medications Acetaminophen (Tylenol) 650 mg PO Q4H PRN PRN Reason: Pain (Mild 1-3)/fever Albuterol/Ipratropium (Duoneb 3.0-0.5 Mg/3 Ml) 3 ml NEB Q4HRRT [facility] Last Admin: 08/08/20 06:16 Dose: 3 ml Documented by: Aspirin (Aspirin) 81 mg PO DAILY [facility] Last Admin: 08/07/20 09:52 Dose: 81 mg Documented by: Atorvastatin Calcium (Lipitor) 20 mg PO DAILY [facility] Last Admin: 08/07/20 09:52 Dose: 20 mg Documented by: Bisacodyl (Dulcolax) 10 mg RECTAL DAILY PRN PRN Reason: constipation, if no BM 3 days Last Admin: 08/06/20 16:04 Dose: 10 mg Documented by: Carvedilol (Coreg) 6.25 mg PO QAM [facility] Last Admin: 08/07/20 09:53 Dose: 6.25 mg Documented by: Carvedilol (Coreg) 3.125 mg PO BEDTIME [facility] Last Admin: 08/07/20 20:32 Dose: 3.125 mg Documented by: Clopidogrel Bisulfate (Plavix) 75 mg PO DAILY [facility] Docusate Sodium (Colace) 100 mg PO BID [facility] Last Admin: 08/07/20 20:33 Dose: 100 mg Documented by: Guaifenesin (Mucinex) 600 mg PO BID [facility] Last Admin: 08/07/20 20:33 Dose: 600 mg Documented by: Pantoprazole Sodium 40 mg/ (Sodium Chloride) 10 mls @ 300 mls/hr IV DAILY [facility] Last Admin: 08/07/20 09:59 Dose: 300 mls/hr Documented by: Levofloxacin/Dextrose 750 mg/ (Premix) 150 mls @ 100 mls/hr IV Q24H [facility] Last Admin: 08/07/20 10:09 Dose: 100 mls/hr Documented by: Labetalol HCl (Normodyne) 20 mg IVPUSH Q4H PRN; Protocol PRN Reason: Hypertension Lorazepam (Ativan) 0.25 mg IVPUSH Q8H PRN PRN Reason: Anxiety Last Admin: 08/07/20 22:33 Dose: 0.25 mg Documented by: Melatonin (Melatonin) 3 mg PO BEDTIME PRN PRN Reason: Sleep Last Admin: 08/07/20 22:34 Dose: 3 mg Documented by: Metoclopramide HCl (Reglan) 10 mg IVPUSH Q6H PRN PRN Reason: Nausea Last Admin: 08/07/20 21:38 Dose: 10 mg Documented by: Nystatin (Nystop) 0 gm TOP TID [facility] Last Admin: 08/07/20 22:38 Dose: 1 applic Documented by: Oxycodone/Acetaminophen (Percocet 325-5 Mg) 1 tab PO Q4H PRN PRN Reason: Pain (moderate 4-6) Last Admin: 08/07/20 19:03 Dose: 1 tab Documented by: Fluticasone/Vilanterol [Breo Ellipta 200-25 Mcg Inhalation 1 each INH DAILY [facility] Last Admin: 08/07/20 09:07 Dose: 1 each Documented by: Synthroid 112 Mcg (Tab) 1 each PO ACBREAKFAST [facility] Last Admin: 08/07/20 07:01 Dose: 1 each Documented by: Sodium Chloride (Lawrence Saline Nasal Gel) 0 gm ARTURO ASDIRECTED PRN PRN Reason: dry nares Last Admin: 08/06/20 08:51 Dose: 1 applic Documented by: Sodium Chloride (Saline Flush) 2.5 ml FLUSH ASDIRECTED PRN PRN Reason: Keep Vein Open Last Admin: 08/07/20 10:01 Dose: 2.5 ml Documented by: Sodium Chloride (Sodium Chloride) 1 gm PO BID [facility] Last Admin: 08/07/20 21:38 Dose: 1 gm Documented by: Discontinued Medications Albuterol/Ipratropium (Duoneb 3.0-0.5 Mg/3 Ml) 3 ml NEB ONETIME ONE Stop: 08/05/20 19:50 Last Admin: 08/05/20 20:01 Dose: 3 ml Documented by: Albuterol/Ipratropium (Duoneb 3.0-0.5 Mg/3 Ml) 3 ml NEB ONETIME ONE Stop: 08/05/20 21:37 Last Admin: 08/05/20 21:40 Dose: 3 ml Documented by: Albuterol/Ipratropium (Duoneb 3.0-0.5 Mg/3 Ml) Confirm Administered Dose 3 ml .ROUTE .STK-MED ONE Stop: 08/05/20 21:37 Last Admin: 08/05/20 21:44 Dose: Not Given Documented by: Albuterol/Ipratropium (Duoneb 3.0-0.5 Mg/3 Ml) 3 ml NEB ONETIME ONE Stop: 08/05/20 21:47 Last Admin: 08/05/20 21:47 Dose: 3 ml Documented by: Carvedilol (Coreg) 3.125 mg PO BEDTIME [facility] Clopidogrel Bisulfate (Plavix) 75 mg PO DAILY [facility] Last Admin: 08/06/20 08:50 Dose: 75 mg Documented by: Furosemide (Lasix) 20 mg PO DAILY [facility] Last Admin: 08/06/20 08:50 Dose: 20 mg Documented by: Furosemide (Lasix) 40 mg IVPUSH BID [facility] Last Admin: 08/06/20 22:04 Dose: 40 mg Documented by: Hydromorphone HCl (Dilaudid) 0.5 mg IVPUSH ONETIME ONE Stop: 08/05/20 21:04 Last Admin: 08/05/20 21:35 Dose: 0.5 mg Documented by: Levofloxacin/Dextrose 750 mg/ (Premix) 150 mls @ 100 mls/hr IV ONETIME ONE Stop: 08/05/20 21:53 Last Admin: 08/05/20 20:38 Dose: 100 mls/hr Documented by: Vancomycin HCl 1,500 mg/ (Sodium Chloride) 100 mls @ 100 mls/hr IV ONETIME ONE Stop: 08/05/20 21:24 Last Admin: 08/05/20 22:09 Dose: Not Given Documented by: Sodium Chloride (Normal Saline) 1,000 mls @ 999 mls/hr IV .Bolus ONE Stop: 08/05/20 21:31 Last Admin: 08/05/20 20:38 Dose: 999 mls/hr Documented by: Vancomycin HCl 1.5 gm/ Premix 300 mls @ 200 mls/hr IV ONETIME ONE Stop: 08/05/20 23:36 Last Admin: 08/05/20 23:31 Dose: 200 mls/hr Documented by: Magnesium Sulfate (Magnesium Sulfate In Water 4 Gm/100 Ml) 4 gm in 100 mls @ 33.333 mls/hr IV ONETIME ONE Stop: 08/06/20 11:18 Last Admin: 08/06/20 08:52 Dose: 33.333 mls/hr Documented by: Sodium Chloride (Normal Saline) 1,000 mls @ 500 mls/hr IV .BOLUS ONE Stop: 08/07/20 08:13 Last Admin: 08/07/20 06:21 Dose: 500 mls/hr Documented by: Sodium Chloride (Normal Saline) 1,000 mls @ 100 mls/hr IV ONETIME ONE Stop: 08/08/20 00:56 Last Admin: 08/07/20 15:15 Dose: 100 mls/hr Documented by: Ketorolac Tromethamine (Toradol) 15 mg IVPUSH ONETIME ONE Stop: 08/06/20 15:01 Last Admin: 08/06/20 15:42 Dose: 15 mg Documented by: Levothyroxine Sodium (Levothyroxine) 112 mcg PO ACBREAKFAST [facility] Last Admin: 08/06/20 06:39 Dose: 112 mcg Documented by: Lorazepam (Ativan) 1 mg IVPUSH Q8H PRN PRN Reason: Anxiety Magnesium Oxide (Magnesium Oxide) 800 mg PO ONETIME ONE Stop: 08/07/20 21:40 Last Admin: 08/07/20 22:32 Dose: 800 mg Documented by: Methylprednisolone Sodium Succinate (Solu-Medrol) 125 mg IVPUSH ONETIME ONE Stop: 08/05/20 19:50 Last Admin: 08/05/20 20:01 Dose: 125 mg Documented by: Morphine Sulfate (Morphine) 1 mg IVPUSH Q4H PRN PRN Reason: Pain Ondansetron HCl (Zofran) 4 mg IVPUSH ONETIME ONE Stop: 08/05/20 19:50 Last Admin: 08/05/20 20:01 Dose: 4 mg Documented by: Ondansetron HCl (Zofran) 4 mg IVPUSH Q4H PRN PRN Reason: Nausea/Vomiting Last Admin: 08/06/20 18:06 Dose: 4 mg Documented by: Cyanocobalamin ( Vitamin B12) 1,000 Mcg/Ml Sdv 1 each SUBCUT ONETIME ONE Stop: 08/06/20 13:40 Last Admin: 08/06/20 13:49 Dose: 1 each Documented by: Promethazine HCl (Phenergan) 25 mg IM ONETIME ONE Stop: 08/06/20 18:11 Last Admin: 08/06/20 18:23 Dose: 25 mg Documented by: Sodium Chloride (Saline Flush) 10 ml FLUSH ASDIRECTED PRN PRN Reason: Keep Vein Open Sodium Chloride (Saline Flush) 2.5 ml FLUSH ASDIRECTED PRN PRN Reason: Keep Vein Open - Exam General: Alert, Oriented, Cooperative, No Acute Distress Lungs: Normal Respiratory Effort, Rhonchi Cardiovascular: Regular Rate, Regular Rhythm GI/Abdominal Exam: Normal Bowel Sounds, Soft, Non-Tender Back Exam: Normal Inspection, Full Range of Motion Extremities: Normal Inspection, Normal Range of Motion, Non-Tender, No Pedal E agata Neurological: No New Focal Deficit Psy/Mental Status: Alert, Normal Affect, Normal Mood - Patient Data Lab Results Last 24 hrs: Laboratory Results - last 24 hr 08/07/20 08/07/20 08/07/20 Range/Units 08:13 08:47 12:53 WBC (4.0-11.0) K/uL RBC (4.30-5.90) M/uL Hgb (12.0-16.0) g/dL Hct (36.0-46.0) % MCV (80.0-98.0) fL MCH (27.0-32.0) pg MCHC (31.0-37.0) g/dL RDW Std Deviation (28.0-62.0) fl RDW Coeff of Lavelle (11.0-15.0) % Plt Count (150-400) K/uL MPV (7.40-12.00) fL Neut % (Auto) (48.0-80.0) % Lymph % (Auto) (16.0-40.0) % [place] % (Auto) (0.0-15.0) % Eos % (Auto) (0.0-7.0) % Baso % (Auto) (0.0-1.5) % Neut # (Auto) (1.4-5.7) K/uL Lymph # (Auto) (0.6-2.4) K/uL [place] # (Auto) (0.0-0.8) K/uL Eos # (Auto) (0.0-0.7) K/uL Baso # (Auto) (0.0-0.1) K/uL Nucleated RBC % /100WBC Nucleated RBCs # K/uL Sodium 120 L (136-145) mmol/L Potassium (3.5-5.1) mmol/L Chloride (98-107) mmol/L Carbon Dioxide (21.0-32.0) mmol/L BUN (7.0-18.0) mg/dL Creatinine (0.6-1.0) mg/dL Est Cr Clr Drug Dosing mL/min Estimated GFR (MDRD) ml/min Glucose (74-106) mg/dL Calcium (8.5-10.1) mg/dL Phosphorus (2.6-4.7) mg/dL Magnesium (1.8-2.4) mg/dL Total Bilirubin (0.2-1.0) mg/dL AST (15-37) IU/L ALT (14-63) IU/L Alkaline Phosphatase (46-116) U/L Lactate Dehydrogenase 370 H (81-234) U/L Total Protein (6.4-8.2) g/dL Albumin (3.4-5.0) g/dL Globulin (2.6-4.0) g/dL Albumin/Globulin Ratio (0.9-1.6) Fluid Type PL Fluid Color RED Fluid Appearance CLOUDY Fluid WBC 2040 /uL Fluid RBC 78285 /uL Fluid Mononuclear Cell 97 % Fl Polymorphonucl Cell 3 % Fluid Glucose 98 mg/dL Fluid Total Protein 3.7 g/dL Fluid LDH 309 U/L Fluid Amylase 51 U/L Fluid Cholesterol 53.0 g/dL Fluid Triglycerides < 15 mg/dL Pleural pH 8.0 08/07/20 08/08/20 08/08/20 Range/Units 22:55 05:00 05:00 WBC 7.50 (4.0-11.0) K/uL RBC 3.51 L (4.30-5.90) M/uL Hgb 11.3 L (12.0-16.0) g/dL Hct 32.0 L (36.0-46.0) % MCV 91.2 (80.0-98.0) fL MCH 32.2 H (27.0-32.0) pg MCHC 35.3 (31.0-37.0) g/dL RDW Std Deviation 45.3 (28.0-62.0) fl RDW Coeff of Lavelle 14 (11.0-15.0) % Plt Count 210 (150-400) K/uL MPV 8.30 (7.40-12.00) fL Neut % (Auto) 74.0 (48.0-80.0) % Lymph % (Auto) 6.1 L (16.0-40.0) % [place] % (Auto) 17.3 H (0.0-15.0) % Eos % (Auto) 0.7 (0.0-7.0) % Baso % (Auto) 1.9 H (0.0-1.5) % Neut # (Auto) 5.6 (1.4-5.7) K/uL Lymph # (Auto) 0.5 L (0.6-2.4) K/uL [place] # (Auto) 1.3 H (0.0-0.8) K/uL Eos # (Auto) 0.1 (0.0-0.7) K/uL Baso # (Auto) 0.1 (0.0-0.1) K/uL Nucleated RBC % 0.0 /100WBC Nucleated RBCs # 0 K/uL Sodium 120 L 121 L (136-145) mmol/L Potassium 3.4 L (3.5-5.1) mmol/L Chloride 88 L (98-107) mmol/L Carbon Dioxide 26.7 (21.0-32.0) mmol/L BUN 18 (7.0-18.0) mg/dL Creatinine 0.7 (0.6-1.0) mg/dL Est Cr Clr Drug Dosing 50.37 mL/min Estimated GFR (MDRD) > 60.0 ml/min Glucose 88 (74-106) mg/dL Calcium 7.7 L (8.5-10.1) mg/dL Phosphorus 2.7 (2.6-4.7) mg/dL Magnesium 1.6 L (1.8-2.4) mg/dL Total Bilirubin 0.8 (0.2-1.0) mg/dL AST 28 (15-37) IU/L ALT 41 (14-63) IU/L Alkaline Phosphatase 81 (46-116) U/L Lactate Dehydrogenase (81-234) U/L Total Protein 5.4 L (6.4-8.2) g/dL Albumin 2.6 L (3.4-5.0) g/dL Globulin 2.8 (2.6-4.0) g/dL Albumin/Globulin Ratio 0.9 (0.9-1.6) Fluid Type Fluid Color Fluid Appearance Fluid WBC /uL Fluid RBC /uL Fluid Mononuclear Cell % Fl Polymorphonucl Cell % Fluid Glucose mg/dL Fluid Total Protein g/dL Fluid LDH U/L Fluid Amylase U/L Fluid Cholesterol g/dL Fluid Triglycerides mg/dL Pleural pH Result Diagrams: 08/08/20 05:00 08/08/20 05:00 Gerardo Results Last 24 hrs: Microbiology 08/05/20 19:50 Aerobic Blood Culture - Preliminary Blood - Venous - Lab Draw NO GROWTH AFTER 2 DAYS Anaerobic Blood Culture - Preliminary NO GROWTH AFTER 2 DAYS 08/05/20 20:22 Aerobic Blood Culture - Preliminary Blood - Venous NO GROWTH AFTER 2 DAYS Anaerobic Blood Culture - Preliminary NO GROWTH AFTER 2 DAYS 08/07/20 08:13 Gram Stain - Final Pleural Fluid Sepsis Event Note - Evaluation Sepsis Screening Result: No Definite Risk - Focused Exam Vital Signs: Vital Signs Temp Pulse Pulse Resp BP BP Pulse Ox 08/08/20 05:00 97.0 F 89 20 169/76 H 96 08/08/20 00:45 97.0 F 75 20 136/57 L 96 08/07/20 20:32 86 153/82 H 08/07/20 20:26 98.4 F 86 18 153/82 H 92 L - Problem List & Annotations (1) Pleural effusion SNOMED Code(s): 85654771 Code(s): J90 - PLEURAL EFFUSION, NOT ELSEWHERE CLASSIFIED Status: Acute Current Visit: Yes (2) Pneumonia SNOMED Code(s): 642985801 Code(s): J18.9 - PNEUMONIA, UNSPECIFIED ORGANISM Status: Chronic Current Visit: No Qualifiers: Pneumonia type: due to unspecified organism Laterality: bilateral Lung location: lower lobe of lung Qualified Code(s): J18.9 - Pneumonia, unspecified organism (3) Pulmonary nodules SNOMED Code(s): 382026124 Code(s): R91.8 - OTHER NONSPECIFIC ABNORMAL FINDING OF LUNG FIELD Status: Acute Current Visit: Yes (4) Ambulatory dysfunction SNOMED Code(s): 647498251 Code(s): R26.2 - DIFFICULTY IN WALKING, NOT ELSEWHERE CLASSIFIED Status: Acute Current Visit: No (5) Chronic respiratory failure with hypoxia SNOMED Code(s): 635005172 Code(s): J96.11 - CHRONIC RESPIRATORY FAILURE WITH HYPOXIA Status: Chronic Current Visit: Yes (6) O2 dependent SNOMED Code(s): 211261043832 Code(s): Z99.81 - DEPENDENCE ON SUPPLEMENTAL OXYGEN Status: Chronic Current Visit: Yes (7) Back pain SNOMED Code(s): 758460858 Code(s): M54.9 - DORSALGIA, UNSPECIFIED Status: Chronic Current Visit: No Qualifiers: Back pain location: thoracic back pain Chronicity: acute Back pain laterality: unspecified Qualified Code(s): M54.6 - Pain in thoracic spine (8) Compression fracture of T8 vertebra SNOMED Code(s): 777780257, 991709093 Code(s): S22.060A - WEDGE COMPRESSION FRACTURE OF T7-T8 VERTEBRA, INIT Status: Chronic Current Visit: No Qualifiers: Encounter type: subsequent encounter Fracture healing: with delayed healing Qualified Code(s): S22.060G - Wedge compression fracture of T7-T8 vertebra, subsequent encounter for fracture with delayed healing (9) Hyponatremia SNOMED Code(s): 76571348 Code(s): E87.1 - HYPO-OSMOLALITY AND HYPONATREMIA Status: Chronic Current Visit: No (10) Hypothyroidism SNOMED Code(s): 18004690 Code(s): E03.9 - HYPOTHYROIDISM, UNSPECIFIED Status: Chronic Current Visit: No (11) COPD (chronic obstructive pulmonary disease) SNOMED Code(s): 81291906 Code(s): J44.9 - CHRONIC OBSTRUCTIVE PULMONARY DISEASE, UNSPECIFIED Status: Chronic Current Visit: No (12) Metastatic adenocarcinoma SNOMED Code(s): 019920607, 703299630, 175733928 Code(s): C79.9 - SECONDARY MALIGNANT NEOPLASM OF UNSPECIFIED SITE Status: Suspected Current Visit: Yes - Problem List Review Problem List Initiated/Reviewed/Updated: Yes - My Orders Last 24 Hours: My Active Orders 08/07/20 08:13 CULTURE BODY FLUID + SMEAR [RM] Routine 08/08/20 08:03 Magnesium Sulfate non-OB 4 GM ONETIME Magnesium Sulfate/Water [Magnesium Sulfate in Water 4 GM/100 ML] 4 gm in 100 ml IV ONETIME 08/08/20 08:04 Potassium Chloride [Klor-Con M20] 40 meq PO ONETIME ONE 08/08/20 09:00 Clopidogrel [Plavix] 75 mg PO DAILY 08/08/20 11:00 Insert Urinary Catheter [OM.PC] Q24H 08/09/20 05:11 CBC WITH AUTO DIFF [HEME] AM COMPREHENSIVE METABOLIC PN,CMP [CHEM] AM MAGNESIUM [CHEM] AM PHOSPHORUS [CHEM] AM 08/10/20 05:11 CBC WITH AUTO DIFF [HEME] AM COMPREHENSIVE METABOLIC PN,CMP [CHEM] AM MAGNESIUM [CHEM] AM PHOSPHORUS [CHEM] AM 08/11/20 05:11 CBC WITH AUTO DIFF [HEME] AM COMPREHENSIVE METABOLIC PN,CMP [CHEM] AM MAGNESIUM [CHEM] AM PHOSPHORUS [CHEM] AM - Plan Plan:: This 85-year-old female admitted with acute on chronic hypoxic respiratory failure, new pleural effusion with pulmonary nodules and possible CAP. 1. Acute on chronic hypoxic respiratory failure -Thoracentesis performed yesterday, appears exudative. Cytology pending. 500 ml removed. Feeling improved after procedure. Continue to monitor. -Continue DuoNebs -Continue pulmonary toilet -Continue oxygen wean as possible to keep sats greater than 90%. - No desaturation with activity. - Cytology pending on pleural fluid, microbiology negative for growth 2. Possible CAP -We will continue Levaquin. - Exudative pleural fluid negative 3. 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 -Echo obtained shows normal left ventricular systolic function shows mild impaired relaxation grade 1 pattern of LV diastolic filling. Normal right ventricular systolic function no evidence of pericardial effusion. Technically difficult study cannot assess LV wall motion. 4. Ambulatory dysfunction/continued deconditioning -Patient continues to be quite deconditioned. Has attempted to go home with home health but it appears this not effective. - Agrees with halfway placement -Consult PT -Encouraged her to get up to chair at least 3 times a day. 5. Hypothyroidism -Continue levothyroxine 6. CAD/HTN -Continue home medications of atorvastatin, Plavix, carvedilol. 7. COPD -Oxygen dependent -Continue DuoNebs scheduled along with at home Breo 8. Chronic back pain/known T8 compression fracture -Continue oxycodone and Lyrica. VTE prophylaxis: SCDs and ambulation, holding pharmacologic prophylaxis today CODE STATUS: DNR/DNI Dispo: 2-3 days pending improvement and placement Attempted to call daughterVandana no answer. We do discuss care options at a limited extent with Gisella. If this fluid shows possible cancer source. She is looking more for palliative care and is not wanting chemotherapy. We did urge her to see oncology if needed at least once to here prognosis as well as options. She will continue to discuss her wishes with family.
[2020-08-08] MEDS: Nystatin Topical Powder 15 GM Bottle TOP SCH ×3 (08:07→22:03)
[2020-08-08] MEDS: Acetaminophen/oxyCODONE 325-5 MG Tab PO PRN ×4 (09:05→22:10)
[2020-08-08] MEDS: Carvedilol 6.25 MG Tab PO SCH (09:07)
[2020-08-08] MEDS: Clopidogrel 75 MG Tab PO SCH (09:07)
[2020-08-08] MEDS: atorvaSTATin 20 MG Tab PO SCH (09:08)
[2020-08-08] MEDS: SYNTHROID 112 MCG PO SCH (09:10)
[2020-08-08] MEDS ORDERED: Bisacodyl 5 MG Tab PO ONE (09:36)
[2020-08-08] MEDS: Docusate Sodium 100 MG Cap PO SCH ×2 (09:57→21:16)
[2020-08-08] MEDS: Aspirin 81 MG Tab.Chew PO SCH (09:57)
[2020-08-08] MEDS: guaiFENesin 600 MG Tab.ER PO SCH ×2 (09:57→21:16)
[2020-08-08] MEDS: VILANTEROL INH SCH (09:59)
[2020-08-08] MEDS: FLUTICASONE INH SCH (09:59)
[2020-08-08] MEDS: Pantoprazole 40 MG in Sodium Chloride 0.9% 10 ML IV SCH (10:39)
[2020-08-08] MEDS: Sodium Chloride 1 GM Tab PO SCH ×2 (10:40→21:17)
[2020-08-08] MEDS: LORazepam 2 MG/ML SDV IVPUSH PRN ×2 (10:52→21:17)
[2020-08-08] MEDS: Levofloxacin/Dextrose 5%-Water 750 MG in Premix Bag 1 BAG IV SCH (12:37)
[2020-08-08] MEDS: Carvedilol 3.125 MG Tab PO SCH (21:14)
[2020-08-08] MEDS: Melatonin 3 MG Tab PO PRN (21:14)
[2020-08-09] MEDS: Albuterol/Ipratropium 3.0-0.5 MG/3 ML Neb Soln NEB SCH ×3 (04:52→10:11)
[2020-08-09] MEDS: Acetaminophen/oxyCODONE 325-5 MG Tab PO PRN (05:30)
[2020-08-09] MEDS: SYNTHROID 112 MCG PO SCH ×2 (05:31→06:59)
[2020-08-09] MEDS: Nystatin Topical Powder 15 GM Bottle TOP SCH (05:42)
[2020-08-09 06:23] LABS: BLOOD UREA NITROGEN,BUN 20 mg/dL (7.0-18.0); CARBON DIOXIDE,CO2 27.6 mmol/L (21.0-32.0); CHLORIDE,CL 89 mmol/L (98-107); GLUCOSE RANDOM 107 mg/dL (74-106); SODIUM,NA 122 mmol/L (136-145)
--- NOTE | 2020-08-09 08:54 | PCM.DCSUM1 ---
Discharge Summary - Hospital Course Brief History: This 85-year-old female with past medical history of chronic hypoxic respiratory failure, on home oxygen, COPD, CAD s/p NSTEMI, hypothyroidism, hyponatremia, HTN chronic thoracic spine compression fractures and chronic back pain presented to the ER with complaints of worsening shortness of breath, increasing oxygen demand at home, and coughing. She was recently discharged from the hospital on 08/01/2020 due to acute exacerbation of chronic back pain. Pain management was controlled and she was discharged home. She reports she been having a raspy cough that has been nonproductive. Reports that shortness of breath has increased at home. Shortness of breath worsened significantly with any exertion. Reports she does not feel like she can clear her cough. She has been using her DuoNeb's at home. She denies any fevers chills chest pain. She denies any nausea vomiting constipation or diarrhea. Denies any abdominal pain or dysuria. In the ER CBC stable. BMP reveals hyponatremia 120, potassium 4.4, chloride 87, BUN 15, creatinine 0.8 glucose 158. Magnesium 1.8 alk phos 126 BNP 154 troponin negative Covid swab was negative along with influenza a and B. In the ER chest x-ray was completed which revealed new elevation of right hemidiaphragm right lung base opacity favored to represent atelectasis. Chest CT was then obtained which reveals a subcarinal lymph node present measuring 2.6 cm and a paraesophageal lymph node present measuring 1.4 cm which is slightly increased in size since prior exam. This could represent metastatic disease presumably of esophageal origin. Moderate right pleural effusion is present and increased in size compared to prior exam. Multiple pleural-based nodules are present within the right hemithorax measuring up to 1.3 cm. Ill-defined pleural based masses are present within the costophrenic sulcus this could likely represent pleural metastatic disease with malignant effusion. Severe compression deformity of T8 is noted with slight interval progression. Previous CT was obtained on 07/04/2020 which reveals mildly enlarged subcarinal mediastinal lymph nodes a malignant process cannot be entirely excluded and follow-up was recommended. Patient has had multiple admissions in the last 1 month. Last admission she was offered [place] placement for rehabilitation which she ultimately declined. Diagnosis: Stroke: No - Discharge Data Discharge Date: 08/09/20 Discharge Disposition: DC/Tfer to SNF 03 Condition: Good - Referral to Home Health Primary Care Physician: Fred Guzman MD - Discharge Diagnosis/Problem(s) (1) Pleural effusion SNOMED Code(s): 26198423 ICD Code: J90 - PLEURAL EFFUSION, NOT ELSEWHERE CLASSIFIED Status: Acute (2) Pneumonia SNOMED Code(s): 290852980 ICD Code: J18.9 - PNEUMONIA, UNSPECIFIED ORGANISM Status: Chronic Qualifiers: Pneumonia type: due to unspecified organism Laterality: bilateral Lung location: lower lobe of lung Qualified Code(s): J18.9 - Pneumonia, unspecified organism (3) Pulmonary nodules SNOMED Code(s): 201770011 ICD Code: R91.8 - OTHER NONSPECIFIC ABNORMAL FINDING OF LUNG FIELD Status: Acute (4) Ambulatory dysfunction SNOMED Code(s): 872958518 ICD Code: R26.2 - DIFFICULTY IN WALKING, NOT ELSEWHERE CLASSIFIED Status: Acute (5) Chronic respiratory failure with hypoxia SNOMED Code(s): 202224942 ICD Code: J96.11 - CHRONIC RESPIRATORY FAILURE WITH HYPOXIA Status: Chronic (6) O2 dependent SNOMED Code(s): 526940224660 ICD Code: Z99.81 - DEPENDENCE ON SUPPLEMENTAL OXYGEN Status: Chronic (7) Back pain SNOMED Code(s): 410114153 ICD Code: M54.9 - DORSALGIA, UNSPECIFIED Status: Chronic Qualifiers: Back pain location: thoracic back pain Chronicity: acute Back pain laterality: unspecified Qualified Code(s): M54.6 - Pain in thoracic spine (8) Compression fracture of T8 vertebra SNOMED Code(s): 069947571, 363786642 ICD Code: S22.060A - WEDGE COMPRESSION FRACTURE OF T7-T8 VERTEBRA, INIT Status: Chronic Qualifiers: Encounter type: subsequent encounter Fracture healing: with delayed healing Qualified Code(s): S22.060G - Wedge compression fracture of T7-T8 vertebra, subsequent encounter for fracture with delayed healing (9) Hyponatremia SNOMED Code(s): 58451628 ICD Code: E87.1 - HYPO-OSMOLALITY AND HYPONATREMIA Status: Chronic (10) Hypothyroidism SNOMED Code(s): 14722017 ICD Code: E03.9 - HYPOTHYROIDISM, UNSPECIFIED Status: Chronic (11) COPD (chronic obstructive pulmonary disease) SNOMED Code(s): 58508504 ICD Code: J44.9 - CHRONIC OBSTRUCTIVE PULMONARY DISEASE, UNSPECIFIED Status: Chronic (12) Metastatic adenocarcinoma SNOMED Code(s): 014226847, 137175583, 855489658 ICD Code: C79.9 - SECONDARY MALIGNANT NEOPLASM OF UNSPECIFIED SITE Status: Suspected - Patient Summary/Data Consults: Consultations 08/06/20 08:59 PT Evaluation and Treatment [CONS] Routine Hospital Course: Admission diagnoses: Acute on chronic hypoxic respiratory failure New right-sided pleural effusion Possible pneumonia Hyponatremia Ambulatory dysfunction Deconditioning Discharge diagnoses: Acute on chronic hypoxic respiratory failure-resolved New right-sided pleural effusion-status post thoracentesis Hyponatremia-improving Possible malignancy Ambulatory dysfunction Deconditioning Other PMH: Oxygen dependent COPD Hypothyroidism Chronic back pain T8 compression fracture Gisella was admitted secondary to new acute on chronic respiratory failure with hypoxia. She was needing increasing oxygen demands at home. In the ER she was noted to have new pleural effusion on the right side with pulmonary nodules along with a new enlarged subcarinal and esophageal lymph nodes. She was admitted and placed on Levaquin for suspected pneumonia. Radiology was consulted and were able to perform right-sided diagnostic/therapeutic thoracentesis. Fluid obtained appeared exudative. Cytology was sent and verified by pathology that there are malignant cells within the pleural effusion but unable to determine what type. I did speak with Dr. Guzman patient's primary care provider who is aware of possible malignancy and need for follow-up and possible biopsy. I am awaiting oncology to review records and recommendations for possible appointment to 2 months has been found or if she needs biopsy of lymph node or pulmonary nodules. Hyponatremia improved slightly. She was treated with Lasix and fluids initially which did not improve this. She was started on sodium tablets 1 g twice daily. Today sodium is 122 which is near baseline of 125. Patient is alert and oriented and is aware of possible malignancy diagnosis. We did have a conversation with her regarding appointment with oncology as well as options for palliative or chemotherapy may be offered. She would like to see oncology for prognosis as well as diagnosis but is very against chemotherapy and would prefer comfort or palliative measures. Due to deconditioning as well as chronic back pain she will be transferred to [facility] for short-term rehabilitation. She has been discharged home from the hospital the last few times and has been readmitted secondary to continued deconditioning. Family has been updated regarding diagnoses and plan for follow-up. Vandana, daughter, was notified today and is aware of pathology findings. I will update Dr. Guzman regarding pleural fluid cytology reports. She will continue home medications including Percocet for pain as needed along with sodium 1 g tablet twice daily. She is to return to the ER or clinic sooner if concerns should arise. Oncology was consulted regarding imaging and neck steps with malignant cells noted in pleural fluid. I spoke with Dr. Finn radiation oncologist who reports there are pulmonary nodules or soft tissue mass on the right lower lung that appears it would be a good location for a biopsy. He recommends CT with contrast of chest abdomen pelvis to evaluate further. I will discuss this with PCP Dr. Guzman will help with follow-up and arranging biopsy. - Patient Instructions Diet: Regular Diet as Tolerated, Fluid Restriction (1800) Activity: As Tolerated Driving: Do Not Drive Showering/Bathing: May Shower Notify Provider of: Fever, Increased Pain, Swelling and Redness, Drainage, Nausea and/or Vomiting Other/Special Instructions: PT/OT/ST to evaluate and treat - Discharge Plan *PRESCRIPTION DRUG MONITORING PROGRAM REVIEWED*: Not Applicable *COPY OF PRESCRIPTION DRUG MONITORING REPORT IN PATIENT ERICK: Not Applicable Prescriptions/Med Rec: Docusate Sodium [Colace] 100 mg PO BID #30 cap bisacodyL [Dulcolax] 10 mg RECTAL DAILY PRN #10 supp PRN Reason: constipation, if no BM 3 days levoFLOXacin [Levaquin] 750 mg PO DAILY #1 tab Nystatin [Nystop] 100,000 units TOP TID #1 bottle Acetaminophen/oxyCODONE [Percocet 325-5 MG] 1 each PO Q8H PRN #20 tab PRN Reason: Pain Sodium Chloride 1 gm PO BID #30 tablet Home Medications: Home Meds Levothyroxine Sodium [Synthroid] 112 mcg PO ACBREAKFAST 09/05/15 [History] Albuterol/Ipratropium [DuoNeb 3.0-0.5 MG/3 ML] 3 ml NEB Q4HRRT PRN neb 11/22/17 [Rx] Aspirin 81 mg PO DAILY tab.chew 11/22/17 [Rx] Potassium Chloride [Klor-Con 10] 10 meq PO DAILY 08/31/18 [History] atorvaSTATin [Lipitor] 20 mg PO DAILY 08/31/18 [History] Clopidogrel [Plavix] 75 mg PO DAILY 07/02/20 [History] Fluticasone/Vilanterol [Breo Ellipta 200-25 MCG Inhalation Kit] 1 puff INH DAILY 07/02/20 [History] carvediloL [Carvedilol] 3.125 mg PO BEDTIME 07/02/20 [History] carvediloL [Carvedilol] 6.25 mg PO QAM 07/02/20 [History] Furosemide [Lasix] 20 mg PO DAILY 07/29/20 [History] Ondansetron [Zofran] 4 mg PO Q4H PRN 3 Days #18 tab 08/01/20 [Rx] Acetaminophen/oxyCODONE [Percocet 325-5 MG] 1 each PO Q8H PRN #20 tab 08/08/20 [Rx] Docusate Sodium [Colace] 100 mg PO BID #30 cap 08/08/20 [Rx] Nystatin [Nystop] 100,000 units TOP TID #1 bottle 08/08/20 [Rx] Sodium Chloride 1 gm PO BID #30 tablet 08/08/20 [Rx] bisacodyL [Dulcolax] 10 mg RECTAL DAILY PRN #10 supp 08/08/20 [Rx] levoFLOXacin [Levaquin] 750 mg PO DAILY #1 tab 08/08/20 [Rx] Oxygen Therapy Mode: Nasal Cannula Oxygen Flow Rate (L/min): 2 Maintain SpO2% greater than: 88 Patient Handouts: Nystatin topical powder, Sodium Test, BMI for Children and Teens, Levofloxacin tablets, Sodium Chloride for oral solution, Docusate capsules, Tolvaptan Oral Tablets (Hyponatremia) Referrals: Fred Guzman MD [Primary Care Provider] - - Discharge Summary/Plan Comment DC Time >30 min.: No - Patient Data Vitals - Most Recent: Last Vital Signs Temp 98.2 F 08/09/20 04:00 Pulse 78 08/09/20 04:00 Resp 18 08/09/20 04:00 BP 128/68 08/09/20 04:00 Pulse Ox 94 L 08/09/20 04:00 Weight - Most Recent: 72.62 kg I&O - Last 24 hours: Intake & Output 08/08/20 08/09/20 08/09/20 22:59 06:59 14:59 Intake Total 260 200 Output Total 625 380 Balance -365 -180 Lab Results - Last 24 hrs: Laboratory Results - last 24 hr 08/09/20 08/09/20 Range/Units 05:50 05:50 WBC 8.29 (4.0-11.0) K/uL RBC 3.64 L (4.30-5.90) M/uL Hgb 11.6 L (12.0-16.0) g/dL Hct 33.6 L (36.0-46.0) % MCV 92.3 (80.0-98.0) fL MCH 31.9 (27.0-32.0) pg MCHC 34.5 (31.0-37.0) g/dL RDW Std Deviation 46.7 (28.0-62.0) fl RDW Coeff of [place] 14 (11.0-15.0) % Plt Count 198 (150-400) K/uL MPV 8.00 (7.40-12.00) fL Neut % (Auto) 73.2 (48.0-80.0) % Lymph % (Auto) 6.8 L (16.0-40.0) % [place] % (Auto) 16.0 H (0.0-15.0) % Eos % (Auto) 2.3 (0.0-7.0) % Baso % (Auto) 1.7 H (0.0-1.5) % Neut # (Auto) 6.1 H (1.4-5.7) K/uL Lymph # (Auto) 0.6 (0.6-2.4) K/uL [place] # (Auto) 1.3 H (0.0-0.8) K/uL Eos # (Auto) 0.2 (0.0-0.7) K/uL Baso # (Auto) 0.1 (0.0-0.1) K/uL Nucleated RBC % 0.0 /100WBC Nucleated RBCs # 0 K/uL Sodium 122 L (136-145) mmol/L Potassium 4.0 (3.5-5.1) mmol/L Chloride 89 L (98-107) mmol/L Carbon Dioxide 27.6 (21.0-32.0) mmol/L BUN 20 H (7.0-18.0) mg/dL Creatinine 0.8 (0.6-1.0) mg/dL Est Cr Clr Drug Dosing 44.08 mL/min Estimated GFR (MDRD) > 60.0 ml/min Glucose 107 H (74-106) mg/dL Calcium 8.1 L (8.5-10.1) mg/dL Phosphorus 3.1 (2.6-4.7) mg/dL Magnesium 2.1 (1.8-2.4) mg/dL Total Bilirubin 0.6 (0.2-1.0) mg/dL AST 29 (15-37) IU/L ALT 38 (14-63) IU/L Alkaline Phosphatase 98 (46-116) U/L Total Protein 5.8 L (6.4-8.2) g/dL Albumin 2.8 L (3.4-5.0) g/dL Globulin 3.0 (2.6-4.0) g/dL Albumin/Globulin Ratio 0.9 (0.9-1.6) EM Results - Last 24 hrs: Microbiology 08/05/20 19:50 Aerobic Blood Culture - Preliminary Blood - Venous - Lab Draw NO GROWTH AFTER 3 DAYS Anaerobic Blood Culture - Preliminary NO GROWTH AFTER 3 DAYS 08/05/20 20:22 Aerobic Blood Culture - Preliminary Blood - Venous NO GROWTH AFTER 3 DAYS Anaerobic Blood Culture - Preliminary NO GROWTH AFTER 3 DAYS 08/07/20 08:13 Gram Stain - Final Pleural Fluid Body Fluid Culture - Preliminary NO GROWTH AFTER 1 DAY Med Orders - Current: Current Medications Acetaminophen (Tylenol) 650 mg PO Q4H PRN PRN Reason: Pain (Mild 1-3)/fever Albuterol/Ipratropium (Duoneb 3.0-0.5 Mg/3 Ml) 3 ml NEB Q4HRRT [facility] Last Admin: 08/09/20 06:11 Dose: 3 ml Documented by: Aspirin (Aspirin) 81 mg PO DAILY [facility] Last Admin: 08/08/20 09:57 Dose: Not Given Documented by: Atorvastatin Calcium (Lipitor) 20 mg PO DAILY [facility] Last Admin: 08/08/20 09:08 Dose: 20 mg Documented by: Bisacodyl (Dulcolax) 10 mg RECTAL DAILY PRN PRN Reason: constipation, if no BM 3 days Last Admin: 08/06/20 16:04 Dose: 10 mg Documented by: Carvedilol (Coreg) 6.25 mg PO QAM [facility] Last Admin: 08/08/20 09:07 Dose: 6.25 mg Documented by: Carvedilol (Coreg) 3.125 mg PO BEDTIME [facility] Last Admin: 08/08/20 21:14 Dose: 3.125 mg Documented by: Clopidogrel Bisulfate (Plavix) 75 mg PO DAILY [facility] Last Admin: 08/08/20 09:07 Dose: 75 mg Documented by: Docusate Sodium (Colace) 100 mg PO BID [facility] Last Admin: 08/08/20 21:16 Dose: Not Given Documented by: Guaifenesin (Mucinex) 600 mg PO BID [facility] Last Admin: 08/08/20 21:16 Dose: Not Given Documented by: Pantoprazole Sodium 40 mg/ (Sodium Chloride) 10 mls @ 300 mls/hr IV DAILY [facility] Last Admin: 08/08/20 10:39 Dose: Not Given Documented by: Levofloxacin/Dextrose 750 mg/ (Premix) 150 mls @ 100 mls/hr IV Q24H [facility] Last Admin: 08/08/20 12:37 Dose: 100 mls/hr Documented by: Labetalol HCl (Normodyne) 20 mg IVPUSH Q4H PRN; Protocol PRN Reason: Hypertension Lorazepam (Ativan) 0.25 mg IVPUSH Q8H PRN PRN Reason: Anxiety Last Admin: 08/08/20 21:17 Dose: 0.25 mg Documented by: Melatonin (Melatonin) 3 mg PO BEDTIME PRN PRN Reason: Sleep Last Admin: 08/08/20 21:14 Dose: 3 mg Documented by: Metoclopramide HCl (Reglan) 10 mg IVPUSH Q6H PRN PRN Reason: Nausea Last Admin: 08/07/20 21:38 Dose: 10 mg Documented by: Nystatin (Nystop) 0 gm TOP TID [facility] Last Admin: 08/09/20 05:42 Dose: Not Given Documented by: Oxycodone/Acetaminophen (Percocet 325-5 Mg) 1 tab PO Q4H PRN PRN Reason: Pain (moderate 4-6) Last Admin: 08/09/20 05:30 Dose: 1 tab Documented by: Fluticasone/Vilanterol [Breo Ellipta 200-25 Mcg Inhalation 1 each INH DAILY [facility] Last Admin: 08/08/20 09:59 Dose: 1 each Documented by: Synthroid 112 Mcg (Tab) 1 each PO ACBREAKFAST [facility] Last Admin: 08/09/20 06:59 Dose: Not Given Documented by: Sodium Chloride ([place] Saline Nasal Gel) 0 gm ARTURO ASDIRECTED PRN PRN Reason: dry nares Last Admin: 08/06/20 08:51 Dose: 1 applic Documented by: Sodium Chloride (Saline Flush) 2.5 ml FLUSH ASDIRECTED PRN PRN Reason: Keep Vein Open Last Admin: 08/07/20 10:01 Dose: 2.5 ml Documented by: Sodium Chloride (Sodium Chloride) 1 gm PO BID [facility] Last Admin: 08/08/20 21:17 Dose: Not Given Documented by: Discontinued Medications Albuterol/Ipratropium (Duoneb 3.0-0.5 Mg/3 Ml) 3 ml NEB ONETIME ONE Stop: 08/05/20 19:50 Last Admin: 08/05/20 20:01 Dose: 3 ml Documented by: Albuterol/Ipratropium (Duoneb 3.0-0.5 Mg/3 Ml) 3 ml NEB ONETIME ONE Stop: 08/05/20 21:37 Last Admin: 08/05/20 21:40 Dose: 3 ml Documented by: Albuterol/Ipratropium (Duoneb 3.0-0.5 Mg/3 Ml) Confirm Administered Dose 3 ml .ROUTE .STK-MED ONE Stop: 08/05/20 21:37 Last Admin: 08/05/20 21:44 Dose: Not Given Documented by: Albuterol/Ipratropium (Duoneb 3.0-0.5 Mg/3 Ml) 3 ml NEB ONETIME ONE Stop: 08/05/20 21:47 Last Admin: 08/05/20 21:47 Dose: 3 ml Documented by: Bisacodyl (Dulcolax) 10 mg PO ONETIME ONE Stop: 08/08/20 09:37 Last Admin: 08/08/20 10:38 Dose: 10 mg Documented by: Carvedilol (Coreg) 3.125 mg PO BEDTIME [facility] Clopidogrel Bisulfate (Plavix) 75 mg PO DAILY [facility] Last Admin: 08/06/20 08:50 Dose: 75 mg Documented by: Furosemide (Lasix) 20 mg PO DAILY [facility] Last Admin: 08/06/20 08:50 Dose: 20 mg Documented by: Furosemide (Lasix) 40 mg IVPUSH BID [facility] Last Admin: 08/06/20 22:04 Dose: 40 mg Documented by: Hydromorphone HCl (Dilaudid) 0.5 mg IVPUSH ONETIME ONE Stop: 08/05/20 21:04 Last Admin: 08/05/20 21:35 Dose: 0.5 mg Documented by: Levofloxacin/Dextrose 750 mg/ (Premix) 150 mls @ 100 mls/hr IV ONETIME ONE Stop: 08/05/20 21:53 Last Admin: 08/05/20 20:38 Dose: 100 mls/hr Documented by: Vancomycin HCl 1,500 mg/ (Sodium Chloride) 100 mls @ 100 mls/hr IV ONETIME ONE Stop: 08/05/20 21:24 Last Admin: 08/05/20 22:09 Dose: Not Given Documented by: Sodium Chloride (Normal Saline) 1,000 mls @ 999 mls/hr IV .Bolus ONE Stop: 08/05/20 21:31 Last Admin: 08/05/20 20:38 Dose: 999 mls/hr Documented by: Vancomycin HCl 1.5 gm/ Premix 300 mls @ 200 mls/hr IV ONETIME ONE Stop: 08/05/20 23:36 Last Admin: 08/05/20 23:31 Dose: 200 mls/hr Documented by: Magnesium Sulfate (Magnesium Sulfate In Water 4 Gm/100 Ml) 4 gm in 100 mls @ 33.333 mls/hr IV ONETIME ONE Stop: 08/06/20 11:18 Last Admin: 08/06/20 08:52 Dose: 33.333 mls/hr Documented by: Sodium Chloride (Normal Saline) 1,000 mls @ 500 mls/hr IV .BOLUS ONE Stop: 08/07/20 08:13 Last Admin: 08/07/20 06:21 Dose: 500 mls/hr Documented by: Sodium Chloride (Normal Saline) 1,000 mls @ 100 mls/hr IV ONETIME ONE Stop: 08/08/20 00:56 Last Admin: 08/07/20 15:15 Dose: 100 mls/hr Documented by: Magnesium Sulfate (Magnesium Sulfate In Water 4 Gm/100 Ml) 4 gm in 100 mls @ 33.333 mls/hr IV ONETIME ONE Stop: 08/08/20 11:02 Last Admin: 08/08/20 09:12 Dose: 33.333 mls/hr Documented by: Potassium Chloride 20 meq/ (Sodium Chloride) 510 mls @ 125 mls/hr IV ONETIME ONE Stop: 08/08/20 14:15 Last Admin: 08/08/20 12:04 Dose: 125 mls/hr Documented by: Ketorolac Tromethamine (Toradol) 15 mg IVPUSH ONETIME ONE Stop: 08/06/20 15:01 Last Admin: 08/06/20 15:42 Dose: 15 mg Documented by: Levothyroxine Sodium (Levothyroxine) 112 mcg PO ACBREAKFAST [facility] Last Admin: 08/06/20 06:39 Dose: 112 mcg Documented by: Lorazepam (Ativan) 1 mg IVPUSH Q8H PRN PRN Reason: Anxiety Magnesium Oxide (Magnesium Oxide) 800 mg PO ONETIME ONE Stop: 08/07/20 21:40 Last Admin: 08/07/20 22:32 Dose: 800 mg Documented by: Methylprednisolone Sodium Succinate (Solu-Medrol) 125 mg IVPUSH ONETIME ONE Stop: 08/05/20 19:50 Last Admin: 08/05/20 20:01 Dose: 125 mg Documented by: Morphine Sulfate (Morphine) 1 mg IVPUSH Q4H PRN PRN Reason: Pain Ondansetron HCl (Zofran) 4 mg IVPUSH ONETIME ONE Stop: 08/05/20 19:50 Last Admin: 08/05/20 20:01 Dose: 4 mg Documented by: Ondansetron HCl (Zofran) 4 mg IVPUSH Q4H PRN PRN Reason: Nausea/Vomiting Last Admin: 08/06/20 18:06 Dose: 4 mg Documented by: Cyanocobalamin ( Vitamin B12) 1,000 Mcg/Ml Sdv 1 each SUBCUT ONETIME ONE Stop: 08/06/20 13:40 Last Admin: 08/06/20 13:49 Dose: 1 each Documented by: Potassium Chloride (Klor-Con M20) 40 meq PO ONETIME ONE Stop: 08/08/20 08:05 Last Admin: 08/08/20 09:06 Dose: 20 meq Documented by: Promethazine HCl (Phenergan) 25 mg IM ONETIME ONE Stop: 08/06/20 18:11 Last Admin: 08/06/20 18:23 Dose: 25 mg Documented by: Sodium Chloride (Saline Flush) 10 ml FLUSH ASDIRECTED PRN PRN Reason: Keep Vein Open Sodium Chloride (Saline Flush) 2.5 ml FLUSH ASDIRECTED PRN PRN Reason: Keep Vein Open - Exam Quality Assessment: Reports: Supplemental Oxygen, DVT Prophylaxis General: Reports: Alert, Oriented, Cooperative, No Acute Distress Neck: Reports: Supple Lungs: Reports: Normal Respiratory Effort, Rhonchi, Other (mild congested cough) Cardiovascular: Reports: Regular Rate, Regular Rhythm GI/Abdominal Exam: Normal Bowel Sounds, Soft, Non-Tender Back Exam: Reports: Normal Inspection, Full Range of Motion, Other (chronic back pain, stable. ) Extremities: Normal Inspection, Normal Range of Motion, Non-Tender, No Pedal Edema Skin: Reports: Warm, Dry Neurological: Reports: No New Focal Deficit Psy/Mental Status: Reports: Alert, Normal Affect, Normal Mood
[2020-08-09] MEDS: Aspirin 81 MG Tab.Chew PO SCH (09:08)
[2020-08-09] MEDS: Clopidogrel 75 MG Tab PO SCH (09:08)
[2020-08-09] MEDS: Docusate Sodium 100 MG Cap PO SCH (09:08)
[2020-08-09] MEDS: Carvedilol 6.25 MG Tab PO SCH (09:08)
[2020-08-09] MEDS: guaiFENesin 600 MG Tab.ER PO SCH ×3 (09:08→09:33)
[2020-08-09] MEDS: atorvaSTATin 20 MG Tab PO SCH (09:08)
[2020-08-09] MEDS: Pantoprazole 40 MG in Sodium Chloride 0.9% 10 ML IV SCH (09:09)
[2020-08-09] MEDS: Levofloxacin/Dextrose 5%-Water 750 MG in Premix Bag 1 BAG IV SCH (09:22)
[2020-08-09] MEDS: FLUTICASONE INH SCH (09:27)
[2020-08-09] MEDS: VILANTEROL INH SCH (09:27)
[2020-08-09] MEDS: Metoclopramide 10 MG/2 ML SDV IVPUSH PRN (09:37)
[2020-08-09] MEDS: Sodium Chloride 1 GM Tab PO SCH (10:03)
[2020-08-09] MEDS: LORazepam 2 MG/ML SDV IVPUSH PRN (10:32)
[2020-08-09 11:21] VITALS: BP 113/58; PULSE 80
--- NOTE | 2020-08-10 16:32 | PCM.SN.2 ---
- Free Text/Narrative Note: Patient was discharged to [facility] on 08/09/20 but then return to the ER in the night complaining of pain. Per ER note review, patient stated she did not want to return to [facility] and was discharged from the ER with her daughter who stated she could care for her at home. Patient was not given a script for Pe rcocet and was advised to contact her PCP for more pain medication. I received a call from nursing staff today stating patient is requesting pain medication as she did not receive a script for her Percocet since it was sent directly to [facility] where she was initially discharged to on 08/09/20. Nursing staff called [facility] to confirm that patient was not given any Percocet to take home with her. I advised nursing staff to notify patient that since it is a weekend, I will only provide a few Percocet 325-5 mg tablets q8 prn (6 tablets total) to cover her until she can contact her PCP on Wednesday08/13/19 for further medication. No further refills will be provided.
--- NOTE | 2020-08-13 09:39 | ECHO ---
EXAM DATE: 08/06/20 PATIENT'S AGE: 85 The ECHO report has been scanned into [employer] and can be seen in this patient's EMR (Electronic Medical Record) under the REPORTS section. The report has also been scanned into PACS. BREANNA
== END 2020-08-09 11:45 | DRG 193 ==
LOC: MW.ED 19:31 → MW.MS 21:25 → OBSVTOIN 08-06 11:57 → MW.MS 08-06 11:58
PROVIDERS: ADMIT Student in an Organized Health Care Education/Training Program; ATTEND Student in an Organized Health Care Education/Training Program
DX: J18.9 Pneumonia, unspecified organism (principal); J96.21 Acute and chronic respiratory failure with hypoxia; Y95 Nosocomial condition; J44.1 Chronic obstructive pulmonary disease with (acute) exacerbation; J44.0 Chronic obstructive pulmonary disease with (acute) lower respiratory infection; J91.0 Malignant pleural effusion; E87.1 Hypo-osmolality and hyponatremia; C79.9 Secondary malignant neoplasm of unspecified site; R91.8 Other nonspecific abnormal finding of lung field; G89.29 Other chronic pain; R26.2 Difficulty in walking, not elsewhere classified; J96.11 Chronic respiratory failure with hypoxia; Z66 Do not resuscitate; M19.90 Unspecified osteoarthritis, unspecified site; Z99.81 Dependence on supplemental oxygen; I25.2 Old myocardial infarction; Z88.5 Allergy status to narcotic agent; Z88.2 Allergy status to sulfonamides; M54.6 Pain in thoracic spine; Z79.82 Long term (current) use of aspirin; Z79.890 Hormone replacement therapy; Z79.899 Other long term (current) drug therapy; Z90.49 Acquired absence of other specified parts of digestive tract; Z90.710 Acquired absence of both cervix and uterus; Z87.891 Personal history of nicotine dependence; S22.060G Wedge compression fracture of T7-T8 vertebra, subsequent encounter for fracture with delayed healing; E03.9 Hypothyroidism, unspecified; I25.10 Atherosclerotic heart disease of native coronary artery without angina pectoris; I10 Essential (primary) hypertension; Z20.822 Contact with and (suspected) exposure to COVID-19; X58.XXXA Exposure to other specified factors, initial encounter
CPT/HCPCS: 0241U; 32555; 36415; 51702; 71045; 71250; 80048; 80053; 81003; 82150; 82945; 83615; 83735; 83880; 84100; 84157; 84295; 84478; 84484; 85025; 85610; 85730; 87040; 87070; 87205; 89050; 93005; 93306; 94640; 94664; 94668; 96365; 96366; 96367; 96375; 96376; 97110; 97162; 97530; 99285; 88104; 88305; 99223; 99233; 99238; 99291; A9270-GY; C1729; C9113; G0378; J1170; J1885; J1940; J1956; J2060; J2405; J2550; J2765; J2930; J3370; J3475; J3480; J7030; J7040; J7620-GY; U0002

== ENCOUNTER 2020-08-09 22:23 | Emergency (ER) | payer MEDICARE, OTHER ==
[2020-08-09 22:50] VITALS: BP 145/55; PULSE 78
[2020-08-09] MEDS ORDERED: Acetaminophen/oxyCODONE 325-5 MG Tab PO ONE (23:16)
[2020-08-09] MEDS ORDERED: LORazepam 0.5 MG Tab PO ONE (23:22)
--- NOTE | 2020-08-10 00:01 | CR ---
HISTORY: Chest pain COMPARISON: 08/07/2020 FINDINGS: A portable erect AP view of the chest was obtained at 23 35 hours. There is increased patchy density in the right lung base, remaining mild, consistent with either atelectasis or pneumonia. There is slightly increased mild patchy density in the left lung base, probably also atelectasis or pneumonia. Aspiration could be a cause for these bilateral basilar infiltrates. The rest of the chest remains clear. The heart remains normal in size. The mediastinum is normal in appearance. The osseous structures are normal in appearance for the patient`s age. IMPRESSION: Increasing patchy infiltrates in the lung bases, more prominent on the right than the left. This could be increasing atelectasis or pneumonia, consider aspiration. Dictated by Alpesh Clarke MD @ Aug 09 2020 11:57PM Signed by Dr. Alpesh Clarke @ Aug 09 2020 11:59PM
[2020-08-10 00:26] LABS: BLOOD UREA NITROGEN,BUN 23 mg/dL (7.0-18.0); CARBON DIOXIDE,CO2 24.5 mmol/L (21.0-32.0); CHLORIDE,CL 89 mmol/L (98-107); GLUCOSE RANDOM 120 mg/dL (74-106); POTASSIUM,K 4.2 mmol/L (3.5-5.1); SODIUM,NA 122 mmol/L (136-145)
--- NOTE | 2020-08-10 01:38 | EDM.PDOC ---
ED HPI GENERAL MEDICAL PROBLEM - General Chief Complaint: Back Pain or Injury Stated Complaint: PAIN Time Seen by Provider: 08/09/20 22:46 - History of Present Illness INITIAL COMMENTS - FREE TEXT/NARRATIVE: CHIEF COMPLAINT(S): "I am in so much agony and pain." HISTORY OF PRESENT ILLNESS: This is a 85-year-old woman with a past medical history of chronic hypoxic respiratory failure on home oxygen, COPD, CHD status post stent, hypothyroidism, hyponatremia, hypertension, chronic back pain, recent T8 compression fracture who was recently admitted to the hospital for acute on chronic hypoxic respiratory failure secondary to suspected pneumonia and pleural effusion with new diagnosis of likely metastatic carcinoma who comes to the emergency department with a chief complaint of "I am in so much agony and pain." The patient states that she was just discharged today. She states that she is experiencing increased pain in her back, chest, arms, legs. She states that the pain is 10 out of 10 and she was only given 1 Percocet today at [facility]. She states that she asked for additional pain medication as it was prescribed and they told her that she can only have 1 dose. She denies any syncope, worsening shortness of breath, fever, chills. She states that the only thing that seems to help the pain is the Percocet. She denies any aggravating symptoms other than movement. She has no other associated symptoms. REVIEW OF SYSTEMS: Constitutional: Denies fever, chills. Eyes: Denies eye pain Ears, Nose, Mouth, & Throat: Denies earache Cardiovascular: Positive for chest pain Respiratory: Denies shortness of breath Gastrointestinal: Denies abdominal pain, nausea, vomiting, diarrhea, hematochezia. Genitourinary: Denies hematuria Skin:Denies a rash MSK: Positive for arm, leg, back pain Neurological: Denies blurred vision, numbness, tingling, weakness Psychiatric: Denies depression PAST MEDICAL HISTORY: As per history of present illness and as reviewed below otherwise noncontributory. SURGICAL HISTORY: As per history of present illness and as reviewed below otherwise noncontributory. SOCIAL HISTORY: As per history of present illness and as reviewed below otherwise noncontributory. FAMILY HISTORY: As per history of present illness and as reviewed below otherwise noncontributory. EXAMINATION OF ORGAN SYSTEMS/BODY AREAS: Constitutional: Blood pressure is 145/55, heart rate was 78, respiratory rate 19 with an oxygen saturation of 93% on 2 L nasal cannula which is at baseline. Temperature 36.3 General: The elderly woman who appears to be in a moderate amount of pain. Psychiatric: Appropriate mood and affect. Eyes: No scleral icterus or conjunctival erythema ENMT: Moist mucous membranes. No pharyngeal erythema Cardiovascular: Regular, rate, and rhythm. No gallops, murmurs, or rubs. Bila teral upper extremity pulses symmetric and intact. No peripheral edema. No JVD. Respiratory: Lungs clear to auscultation bilaterally. No wheezes, rales, or rhonchi. Gastrointestinal: Soft, non-tender, non-distended. Normoactive bowel sounds Genitourinary: No suprapubic tenderness Musculoskeletal: Normal range of motion. There is no obvious tenderness to the arms, legs or deformity. There is some midline thoracic tenderness. No lumbar cervical tenderness. No anterior posterior chest wall tenderness. Skin: No lesions or abrasions. Neurological: Alert, GCS 15 strength and sensation grossly intact. MEDICAL DECISION MAKING AND COURSE IN THE ED WITH INTERPRETATION/REVIEW OF DIAGNOSTIC STUDIES: This is a 85-year-old woman with a past medical history of chronic hypoxic respiratory failure on home oxygen, COPD, CHD status post stent, hypothyroidism, hyponatremia, hypertension, chronic back pain, recent T8 compression fracture who was recently admitted to the hospital for acute on chronic hypoxic respiratory failure secondary to suspected pneumonia and pleural effusion with new diagnosis of likely metastatic carcinoma who comes to the emergency department with what appears to be an acute exacerbation of her pain likely secondary to inappropriate administration of pain medications. At this time given her continued pain I did provide the patient with her home Percocet for relief. I also provided the patient with Ativan which she was receiving in the hospital for anxiolysis. We did obtain an EKG which did not reveal any acute signs of ischemia. We will get screening labs including CBC, BMP, troponin. Will obtain a chest x-ray given the recent pneumonia and pleural effusion. The patient is at baseline oxygen level. Time: 2322 Twelve-lead EKG interpreted by myself. Normal sinus rhythm at a rate of 78beats per minute. Normal axis. MA interval is 208ms. QRS duration is 104ms. ST segments are normal without elevations or depressions. No T wave inversions no Q waves present. Hypertrophy not noted. Occasional PVCs. No changes demonstrated from prior EKG dated August 05, 2020. Interpretation: Normal sinus rhythm with occasional PVC Laboratory: CBC reveals a mild leukocytosis 11.39 with neutrophilic predominance without bands. Otherwise unremarkable. BMP reveals hyponatremia at 122, hypochloremia 89, mild elevation in BUN at 23 and hyperglycemia at 120. This appears to be unchanged from earlier today. Troponin is negative. The radiological images were viewed by myself along with reading the report from the radiologist. Chest x-ray reveals increased patchy infiltrates at the lung bases more prominent on the right than the left. After imaging and labs I did review the patient's chart and her blood cultures and pleural fluid cultures are still with no growth. At the time of my reevaluation her pain had improved. I did discuss with her at this time that it would be important for them to provide her with her pain medications at [facility]. She states that she is not going back to [facility]. The patient's daughter is at bedside and stated that she would be able to help care for her at home. She states that prior to this they did have home health care and they could contact them for continued evaluation. I did discuss with her at this time that it is important that the contact there primary care physician in order to get in contact with palliative care given that the patient does not want active chemotherapy and wants to essentially be comfortable. She states that she is not interested in a mcc outside of [place] and does not want to go back to [facility]. I told her that there are limited resources here and that if there is where her wishes that it is important to contact her primary care physician. Both patient and daughter at bedside were amenable to discharge at this time and were amenable to this plan. I did discuss strict return precautions. They are to go to [facility] and hand picker their prescriptions. The patient did request Ativan for home. I did discuss her at this time that given her age I did not feel comfortable providing her with a prescription for Ativan given that she is getting Percocet on top of that. She did express understanding. DISPOSITION: The patient was discharged home in stable condition. The patient will follow up with coil placer in 72 hours CONDITION: Fair PROCEDURES: None FINAL IMPRESSION(S)/DIAGNOSES: 1. Acute on chronic body pain likely secondary to cancer related pain secondary to inadequate pain medication administration Eric C. Kody, M.D. Back Pain Score (Numeric/FACES): 10 - Related Data Allergies Allergy/AdvReac Type Severity Reaction Status Date / Time codeine Allergy Dizziness Verified 08/09/20 22:45 erythromycin base Allergy Rash Verified 08/09/20 22:45 Iodinated Contrast Media Allergy Nausea and Verified 08/09/20 22:45 Vomiting morphine Allergy Tachycardia Verified 08/09/20 22:45 Sulfa (Sulfonamide Allergy Rash Verified 08/09/20 22:45 Antibiotics) Home Meds: Home Meds Levothyroxine Sodium [Synthroid] 112 mcg PO ACBREAKFAST 09/05/15 [History] Albuterol/Ipratropium [DuoNeb 3.0-0.5 MG/3 ML] 3 ml NEB Q4HRRT PRN neb 11/22/17 [Rx] Aspirin 81 mg PO DAILY tab.chew 11/22/17 [Rx] Potassium Chloride [Klor-Con 10] 10 meq PO DAILY 08/31/18 [History] atorvaSTATin [Lipitor] 20 mg PO DAILY 08/31/18 [History] Clopidogrel [Plavix] 75 mg PO DAILY 07/02/20 [History] Fluticasone/Vilanterol [Breo Ellipta 200-25 MCG Inhalation Kit] 1 puff INH DAILY 07/02/20 [History] carvediloL [Carvedilol] 3.125 mg PO BEDTIME 07/02/20 [History] carvediloL [Carvedilol] 6.25 mg PO QAM 07/02/20 [History] Furosemide [Lasix] 20 mg PO DAILY 07/29/20 [History] Ondansetron [Zofran] 4 mg PO Q4H PRN 3 Days #18 tab 08/01/20 [Rx] Acetaminophen/oxyCODONE [Percocet 325-5 MG] 1 each PO Q8H PRN #20 tab 08/08/20 [Rx] Docusate Sodium [Colace] 100 mg PO BID #30 cap 08/08/20 [Rx] Nystatin [Nystop] 100,000 units TOP TID #1 bottle 08/08/20 [Rx] Sodium Chloride 1 gm PO BID #30 tablet 08/08/20 [Rx] bisacodyL [Dulcolax] 10 mg RECTAL DAILY PRN #10 supp 08/08/20 [Rx] levoFLOXacin [Levaquin] 750 mg PO DAILY #1 tab 08/08/20 [Rx] Past Medical History - Past Health History Medical/Surgical History: Denies Medical/Surgical History Cardiovascular History: Reports: Hypertension, HI Respiratory History: Reports: COPD Other Respiratory History: On home O2. 3L/NC in July 2020. Gastrointestinal History: Reports: Cholelithiasis Other JUD[employer]IAL [employer] History: hysterectomy Musculoskeletal History: Reports: Back Pain, Chronic, Osteoarthritis Neurological History: Reports: Other (See Below) Other Neuro History: Hx spinal stenosis. Endocrine/Metabolic History: Reports: Hypothyroidism Oncologic (Cancer) History: Reports: None - Infectious Disease History Infectious Disease History: Reports: Chicken Pox, Measles, Mumps, Pertussis (Whooping Cough) - Past Surgical History Cardiovascular Surgical History: Reports: Coronary Artery Stent, Other (See Below) Other Cardiovascular Surgeries/Procedures: Heart surgery in November,. Respiratory Surgical History: Reports: None GI Surgical History: Reports: Cholecystectomy Female Surgical History: Reports: Hysterectomy Musculoskeletal Surgical History: Reports: None Social & Family History - Family History Family Medical History: No Pertinent Family History - Tobacco Use Tobacco Use Status *Q: Former Tobacco User Used Tobacco, but Quit: Yes Month/Year Tobacco Last Used: 06/14/2009 - Caffeine Use Caffeine Use: Reports: Coffee - Recreational Drug Use Recreational Drug Use: No ED ROS GENERAL - Review of Systems Review Of Systems: See Below ED EXAM, GENERAL - Physical Exam Exam: See Below Course - Vital Signs Last Recorded V/S: Last Vital Signs Temp 36.3 C 08/09/20 22:47 Pulse 78 08/09/20 22:47 Resp 19 08/09/20 22:47 BP 145/55 H 08/09/20 22:47 Pulse Ox 93 L 08/09/20 22:47 - Orders/Labs/Meds Labs: Laboratory Tests 08/09/20 08/09/20 Range/Units 23:40 23:40 WBC 11.39 H (4.0-11.0) K/uL RBC 3.81 L (4.30-5.90) M/uL Hgb 12.2 (12.0-16.0) g/dL Hct 35.2 L (36.0-46.0) % MCV 92.4 (80.0-98.0) fL MCH 32.0 (27.0-32.0) pg MCHC 34.7 (31.0-37.0) g/dL RDW Std Deviation 47.0 (28.0-62.0) fl RDW Coeff of Lavelle 14 (11.0-15.0) % Plt Count 194 (150-400) K/uL MPV 8.10 (7.40-12.00) fL Neut % (Auto) 79.4 (48.0-80.0) % Lymph % (Auto) 5.3 L (16.0-40.0) % [place] % (Auto) 12.9 (0.0-15.0) % Eos % (Auto) 1.6 (0.0-7.0) % Baso % (Auto) 0.8 (0.0-1.5) % Neut # (Auto) 9.1 H (1.4-5.7) K/uL Lymph # (Auto) 0.6 (0.6-2.4) K/uL Durham # (Auto) 1.5 H (0.0-0.8) K/uL Eos # (Auto) 0.2 (0.0-0.7) K/uL Baso # (Auto) 0.1 (0.0-0.1) K/uL Nucleated RBC % 0.0 /100WBC Nucleated RBCs # 0 K/uL Sodium 122 L (136-145) mmol/L Potassium 4.2 (3.5-5.1) mmol/L Chloride 89 L (98-107) mmol/L Carbon Dioxide 24.5 (21.0-32.0) mmol/L BUN 23 H (7.0-18.0) mg/dL Creatinine 0.7 (0.6-1.0) mg/dL Est Cr Clr Drug Dosing TNP Estimated GFR (MDRD) > 60.0 ml/min Glucose 120 H (74-106) mg/dL Calcium 8.4 L (8.5-10.1) mg/dL Magnesium 1.8 (1.8-2.4) mg/dL Troponin I < 0.050 (0.000-0.056) ng/mL Meds: Medications Discontinued Medications Generic Name Dose Route Start Last Admin Trade Name Freq PRN Reason Stop Dose Admin Lorazepam 0.5 mg 08/09/20 23:22 08/09/20 23:30 Ativan PO 08/09/20 23:23 0.5 mg ONETIME ONE Administration Oxycodone/Acetaminophen 1 tab 08/09/20 23:16 08/09/20 23:22 Percocet 325-5 Mg PO 08/09/20 23:17 1 tab ONETIME ONE Administration Departure - Departure Time of Disposition: 01:36 Disposition: Home, Self-Care 01 Condition: Fair Clinical Impression: Cancer associated pain Pneumonia Qualifiers: Pneumonia type: due to unspecified organism Laterality: bilateral Lung location: lower lobe of lung Qualified Code(s): J18.9 - Pneumonia, unspecified organism - Discharge Information *PRESCRIPTION DRUG MONITORING PROGRAM REVIEWED*: No *COPY OF PRESCRIPTION DRUG MONITORING REPORT IN PATIENT ERICK: No Instructions: Acute Pain, Adult, Community-Acquired Pneumonia, Adult, [id number] Referrals: Fred Guzman MD [Primary Care Provider] - Senthil Armas MD [Ordering Only Provider] - Forms: ED Department Discharge Additional Instructions: Your evaluated today on an emergent basis. At this time I do believe your pain is secondary to inadequate pain medication administration. You do have your pain medications at [facility]. I do recommend using those medications as prescribed and continue to take your Levaquin. At this time we do not have a hospital bed however we did discuss that you do have connections with home health care and given that you do not want to go back to [facility] I do believe di remirge with your family and in their care is the best option. I do recommend that you follow-up with Dr. Armas on Wednesday for continued work-up and management of your newly diagnosed cancer. If you have any new or worsening symptoms please return to the emergency department. [facility] - [facility] [address] [place] [id number] [address] [address] The patient is informed of any results of their evaluation and diagnostic workup and all questions are answered. They are given discharge instructions and return precautions. The patient is stable for discharge. The patient states they understand and agree with the plan and that they will return if their symptoms get worse or if they have any new concerns. The following information is given to patients seen in the emergency department who are being discharged to home. This information is to outline your options for follow-up care. We provide all patients seen in our emergency department with a follow-up referral. The need for follow-up, as well as the timing and circumstances, are variable depending upon the specifics of your emergency department visit. If you don't have a primary care physician on staff, we will provide you with a referral. We always advise you to contact your personal physician following an emergency department visit to inform them of the circumstance of the visit and for follow-up with them and/or the need for any referrals to a consulting specialist. The emergency department will also refer you to a specialist when appropriate. This referral assures that you have the opportunity for follow-up care with a specialist. All of these measure are taken in an effort to provide you with optimal care, which includes your follow-up. Under all circumstances we always encourage you to contact your private physician who remains a resource for coordinating your care. When calling for follow-up care, please make the office aware that this follow-up is from your recent emergency room visit. If for any reason you are refused follow-up, please contact the [facility] Emergency Department at and asked to speak to the emergency department charge nurse. Sepsis Event Note (ED) - Evaluation Sepsis Screening Result: No Definite Risk - Focused Exam Vital Signs: Vital Signs Temp Pulse Resp BP Pulse Ox 08/09/20 22:47 36.3 C 78 19 145/55 H 93 L
== END 2020-08-10 02:15 | disposition home or self-care (01) ==
LOC: MW.ED 22:23
DX: G89.3 Neoplasm related pain (acute) (chronic) (principal); C76.8 Malignant neoplasm of other specified ill-defined sites; J18.9 Pneumonia, unspecified organism; D72.829 Elevated white blood cell count, unspecified; E87.1 Hypo-osmolality and hyponatremia; R79.1 Abnormal coagulation profile; I10 Essential (primary) hypertension; I25.2 Old myocardial infarction; J44.9 Chronic obstructive pulmonary disease, unspecified; E03.9 Hypothyroidism, unspecified; M19.90 Unspecified osteoarthritis, unspecified site; Z87.891 Personal history of nicotine dependence; Z79.82 Long term (current) use of aspirin; Z79.02 Long term (current) use of antithrombotics/antiplatelets; Z79.899 Other long term (current) drug therapy; Z88.5 Allergy status to narcotic agent; Z88.1 Allergy status to other antibiotic agents; Z91.041 Radiographic dye allergy status; Z88.2 Allergy status to sulfonamides
CPT/HCPCS: 36415; 71045; 80048; 83735; 84484; 85025; 93005; 99285; A9270; 93010; 99283